=== PATIENT | male | born 1935 | race Caucasian/White ===

== ENCOUNTER 2018-07-10 11:42 | Emergency (ER) | payer MEDICARE ==
[~2018-07-10] VITALS: Ht 182.9 cm; Wt 81.6 kg
[~2018-07-10 11:42] MED LIST: AML5T; AMLO5TAB2; AMLO5TAB2 PO; AMLO5TAB7 PO; ASP81TEC; ASP81TEC PO; CIPR-225 PO; CNC1KV IM; DOXY100C2 PO; ERGO50006 PO; FAMO40TA6 PO; FEXO-46 PO; FEXO180T PO; LEVAQUIN; LORA1TAB PO; LVT.1T; LVT.1T PO; MTC10T; NAPR550T PO; NF-LOVAZAC; NF-LOVAZAC PO; OMG1KC; ORPH100T PO; PRD20T PO; THYROID MED; THYROID MEDS
--- OUTSIDE RECORDS SUMMARY | 2018-07-10 11:47 | XMS REPORT ---
Author Author NOREEN HOLLAND [facility] Address [address] [place] [address] Care Team Providers Care [place] Machine Operator Name Role Phone NOREEN HOLLAND Unavailable PROBLEMS Unknown Problems ALLERGIES No Information ENCOUNTERS Encounter Location Date Diagnosis [facility] [address] [place], [place] [id number] May, Dementia without behavioral disturbance, unspecified dementia type F03.90 IMMUNIZATIONS No Known Immunizations SOCIAL HISTORY Never Assessed REASON FOR VISIT Admission PLAN OF CARE Activity Details Follow Up prn Reason: VITAL SIGNS MEDICATIONS Unknown Medications RESULTS No Results PROCEDURES No Known procedures INSTRUCTIONS MEDICATIONS ADMINISTERED No Known Medications MEDICAL (GENERAL) HISTORY Type Description Date Surgical History No Surgical history information
--- OUTSIDE RECORDS SUMMARY | 2018-07-10 11:47 | XMS REPORT ---
Author Author NOREEN HOLLAND Organization [facility] Address [address] [place] [address] Care Team Providers Care Network Support Technician Name Role Phone NOREEN HOLLAND Unavailable PROBLEMS Type Condition ICD9-CM Code [id number] Code Onset Dates Condition Status SNOMED Code Problem Supraventricular tachycardia I47.1 Active 8427539 Problem Vitamin D deficiency E55.9 Active 09987142 Problem Essential hypertension I10 Active 97851779 Problem Hyperlipidemia, unspecified hyperlipidemia type E78.5 Active 92821258 ALLERGIES No Information ENCOUNTERS Encounter Location Date Diagnosis [facility] [employer] [address] [place] [id number] Jun, Supraventricular tachycardia I47.1 ; Dementia without behavioral disturbance, unspecified dementia type F03.90 ; Macrocytic anemia D53.9 ; Hyperlipidemia, unspecified hyperlipidemia type E78.5 ; Vitamin D deficiency E55.9 and Essential hypertension I10 [facility] [address] [facility] [id number] [address] May, [facility] [employer] [address] [place] [id number] May, Dementia without behavioral disturbance, unspecified dementia type F03.90 IMMUNIZATIONS No Known Immunizations SOCIAL HISTORY Never Assessed REASON FOR VISIT custodial Discharge PLAN OF CARE VITAL SIGNS MEDICATIONS No Known Medications RESULTS No Results PROCEDURES No Known procedures INSTRUCTIONS MEDICATIONS ADMINISTERED No Known Medications MEDICAL (GENERAL) HISTORY Type Description Date Medical History paralytic ileus Medical History supravetricular tachycardia Medical History muscle weakness Medical History abnormalities of gait and mobility Medical History cognitive communication deficit Medical History dysphagia, oropharyngeal phase Medical History GERD Medical History anemia Medical History palpitations Medical History hypothyroidism Medical History TIA, CEREBRAL INRAC Medical History OTHER MALAISE Surgical History No Surgical history information
--- OUTSIDE RECORDS SUMMARY | 2018-07-10 11:47 | XMS REPORT ---
Author Author NOREEN HOLLAND Organization [facility] Address [address] [place] [address] Care Team Providers Care Budget Consultant Name Role Phone NOREEN HOLLAND Unavailable PROBLEMS Type Condition ICD9-CM Code FEZ66-TM Code Onset Dates Condition Status SNOMED Code Problem Supraventricular tachycardia I47.1 Active 0626815 Problem Vitamin D deficiency E55.9 Active 88418123 Problem Essential hypertension I10 Active 29400006 Problem Hyperlipidemia, unspecified hyperlipidemia type E78.5 Active 44658494 ALLERGIES Substance Reaction Event Type Date Status Cephalexin Unknown Drug Allergy Jun, Active nuts Unknown Non Drug Allergy Jun, Active ENCOUNTERS Encounter Location Date Diagnosis [facility] [address] [place] [id number] Jun, Supraventricular tachycardia I47.1 ; Dementia without behavioral disturbance, unspecified dementia type F03.90 ; Macrocytic anemia D53.9 ; Hyperlipidemia, unspecified hyperlipidemia type E78.5 ; Vitamin D deficiency E55.9 and Essential hypertension I10 [facility] [address] [facility] [id number] [address] May, [facility] [address] [place] [id number] May, Dementia without behavioral disturbance, unspecified dementia type F03.90 IMMUNIZATIONS No Known Immunizations SOCIAL HISTORY Never Assessed REASON FOR VISIT [facility] Discharge PLAN OF CARE Activity Details Follow Up 2 - 3 Days Reason: VITAL SIGNS MEDICATIONS Medication Instructions Dosage Frequency Start Date End Date Duration Status Fexofenadine HCl 180 MG Orally Once a day 1 tablet as needed 24h 30 day(s) Active Norvasc 5 MG Orally Once a day 1 tablet 24h 30 day(s) Active Vitamin D (Ergocalciferol) 88813 UNIT 1 capsule 30 day(s) Active Cyanocobalamin 1000 MCG/ML Injection once monthly 1 ml 30 day(s) Active Diltiazem CD 180 MG Orally Once a day 1 capsule 24h 30 day(s) Active RESULTS No Results PROCEDURES No Known procedures [...]
--- NOTE | 2018-07-10 11:49 | ED General ---
General Stated Complaint: DECREASED LOC, L THIGH PAIN Source of Information: Patient, EMS Exam Limitations: No Limitations History of Present Illness Date Seen by Provider: Jul 10, 2018 Time Seen by Provider: 11:47 Initial Comments To ER per EMS from home with reports of decreased level of consciousness beginning 30-45 minutes ago. Also has left sided abdominal pain and nausea. He is currently on clindamycin for an unknown reason he cannot tell us why. He's been on that since 07/04. He denies fevers or chills. He is alert and oriented to person place and time. Very lethargic however. Timing/Duration: 1-3 Hours Severity: Moderate Associated Systoms: Nausea/Vomiting, Weakness Allergies and Home Medications Allergies Coded Allergies: cephalexin (Unverified Allergy, Mild, 09/03/09) Home Medications Amlodipine Besylate 5 Mg Tablet, 5 MG PO DAILY, (Reported) Ciprofloxacin HCl 500 Mg Tablet, 500 MG PO BID, (Reported) 5 DAY THERAPY START DATE 05-21-18 Cyanocobalamin 1,000 Mcg/Ml Inj, 1,000 MCG IM MONTHLY, (Reported) Ergocalciferol (Vitamin D2) 50,000 Unit Capsule, 50,000 UNITS PO Mo, (Reported) Fexofenadine HCl 180 Mg Tablet, 180 MG PO DAILY PRN for ALLERGIES, (Reported) Patient Home Medication List Home Medication List Reviewed: Yes Review of Systems Review of Systems Constitutional: see HPI EENTM: see HPI Respiratory: no symptoms reported Cardiovascular: no symptoms reported Genitourinary: no symptoms reported Musculoskeletal: no symptoms reported Skin: no symptoms reported Psychiatric/Neurological: No Symptoms Reported Hematologic/Lymphatic: No Symptoms Reported Past Zsfwsgz-Nibypk-Gyojvf Hx Patient Social History Recent Hopitalizations: Yes Immunizations Up To Date Date of Pneumonia Vaccine: May 13, 2010 Seasonal Allergies Seasonal Allergies: No Past Medical History Surgeries: Yes (ANKLE SURGERY; SCAR NOTED TO LEFT BREAST AREA) Gallbladder, Orthopedic Respiratory: No Cardiac: Yes (SVT) Irregular Heartbeat, Palpitations 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 ) TIA Reproductive Disorders: No Genitourinary: No Gastrointestinal: Yes Pancreatitis Musculoskeletal: Yes (ANKLE SURGERY) Endocrine: Yes Hypothyroidsim Cancer: No Psychosocial: No Integumentary: No Blood Disorders: No Physical Exam Vital Signs Vital Signs - First Documented 07/10/18 11:42 Temp 96.9 Pulse 58 Resp 15 B/P (MAP) 147/69 (95) Pulse Ox 97 O2 Delivery Nasal Cannula O2 Flow Rate 2.00 Capillary Refill : Height, Weight, BMI Height: 6'2.00" Weight: 174lbs. 2.0oz. 78.482590jc; 22.4 BMI Method:Stated General Appearance: No Apparent Distress, WD/WN Eyes: Bilateral Eye Normal Inspection, Bilateral Eye PERRL HEENT: PERRL/EOMI, TMs Normal Neck: Full Range of Motion, Normal Inspection Respiratory: No Accessory Muscle Use, No Respiratory Distress Cardiovascular: Regular Rate, Rhythm, Normal Peripheral Pulses Gastrointestinal: Normal Bowel Sounds, Non Tender, Soft Extremity: Normal Capillary Refill, Normal Inspection Neurologic/Psychiatric: No Motor/Sensory Deficits, Other (lethargic) Skin: Normal Color, Warm/Dry Progress/Results/Core Measures Suspected Sepsis SIRS Temperature: Pulse: Respiratory Rate: Laboratory Tests 07/10/18 11:50: White Blood Count 5.8 Blood Pressure / Mean: Laboratory Tests 07/10/18 11:50: Creatinine 0.83, Platelet Count 201, Total Bilirubin 0.5 Results/Orders Lab Results Laboratory Tests Test 07/10/18 11:50 07/10/18 13:19 07/10/18 13:48 Range/Units White Blood Count 5.8 4.3-11.0 10^3/uL Red Blood Count 4.09 L 4.35-5.85 10^6/uL Hemoglobin 11.8 L 13.3-17.7 G/DL Hematocrit 36 L 40-54 % Mean Corpuscular Volume 87 80-99 FL Mean Corpuscular Hemoglobin 29 25-34 PG Mean Corpuscular Hemoglobin Concent 33 32-36 G/DL Red Cell Distribution Width 13.9 10.0-14.5 % Platelet Count 201 130-400 10^3/uL Mean Platelet Volume 11.0 H 7.4-10.4 FL Neutrophils (%) (Auto) 49 42-75 % Lymphocytes (%) (Auto) 40 12-44 % Monocytes (%) (Auto) 6 0-12 % Eosinophils (%) (Auto) 4 0-10 % Basophils (%) (Auto) 1 0-10 % Neutrophils # (Auto) 2.9 1.8-7.8 X 10^3 Lymphocytes # (Auto) 2.3 1.0-4.0 X 10^3 Monocytes # (Auto) 0.4 0.0-1.0 X 10^3 Eosinophils # (Auto) 0.2 0.0-0.3 10^3/uL Basophils # (Auto) 0.0 0.0-0.1 10^3/uL Sodium Level 141 135-145 MMOL/L Potassium Level 3.7 3.6-5.0 MMOL/L Chloride Level 108 H 98-107 MMOL/L Carbon Dioxide Level 20 L 21-32 MMOL/L Anion Gap 13 5-14 MMOL/L Blood Urea Nitrogen 11 7-18 MG/DL Creatinine 0.83 0.60-1.30 MG/DL Estimat Glomerular Filtration Rate > 60 BUN/Creatinine Ratio 13 Glucose Level 141 H 70-105 MG/DL Calcium Level 9.2 8.5-10.1 MG/DL Corrected Calcium 9.4 8.5-10.1 MG/DL Total Bilirubin 0.5 0.1-1.0 MG/DL Aspartate Amino Transf (AST/SGOT) 22 5-34 U/L Alanine Aminotransferase (ALT/SGPT) 16 0-55 U/L Alkaline Phosphatase 67 40-136 U/L Troponin I < 0.30 <0.30 NG/ML Total Protein 6.8 6.4-8.2 GM/DL Albumin 3.8 3.2-4.5 GM/DL Blood Gas Puncture Site RT RAD Blood Gas Patient Temperature 96.6 Arterial Blood pH 7.37 7.37-7.43 Arterial Blood Partial Pressure CO2 45 35-45 MMHG Arterial Blood Partial Pressure O2 46 L 79-93 MMHG Arterial Blood HCO3 26 23-27 MMOL/L Arterial Blood Total CO2 27.3 21.0-31.0 MMOL/L Arterial Blood Oxygen Saturation 85 L 94-100 % Arterial Blood Base Excess 1.0 -2.5-2.5 MMOL/L Len Test YES-POS Blood Gas Ventilator Setting NO Blood Gas Inspired Oxygen 2L Urine Color YELLOW Urine Clarity CLEAR Urine pH 5 5-9 Urine Specific [place] 1.020 1.016-1.022 Urine Protein 1+ H NEGATIVE Urine Glucose (UA) NEGATIVE NEGATIVE Urine Ketones NEGATIVE NEGATIVE Urine Nitrite NEGATIVE NEGATIVE Urine Bilirubin NEGATIVE NEGATIVE Urine Urobilinogen NORMAL NORMAL MG/DL Urine Leukocyte Esterase 1+ H NEGATIVE Urine RBC (Auto) NEGATIVE NEGATIVE Urine RBC NONE /HPF Urine WBC 0-2 /HPF Urine Squamous Epithelial Cells 0-2 /HPF Urine Crystals NONE /LPF Urine Bacteria NEGATIVE /HPF Urine Casts PRESENT /LPF Urine Hyaline Casts 5-10 H /LPF Urine Mucus SMALL H /LPF Urine Culture Indicated NO My Orders Orders - CHECO PAINTING APRN Cbc With Automated Diff (07/10/18 11:46) Comprehensive Metabolic Panel (07/10/18 11:46) Troponin I (07/10/18 11:46) Ekg Tracing (07/10/18 11:46) Continuous Ekg Monitoring (07/10/18 11:46) Chest 1 View, Ap/Pa Only (07/10/18 11:46) Ct Head Wo (07/10/18 11:46) Ct Abdomen/Pelvis Wo (07/10/18 11:46) Straight Cath (Urinary) (07/10/18 11:46) Ua Culture If Indicated (07/10/18 11:46) Ondansetron Injection (Zofran Injectio (07/10/18 12:00) Arterial Blood Gas (07/10/18 13:19) Medications Given in ED Current Medications Medications Dose Ordered Sig/Doug Route Start Time Stop Time Status Last Admin Dose Admin Ondansetron HCl 4 mg ONCE ONCE IVP 07/10/18 12:00 07/10/18 12:01 DC 07/10/18 11:58 4 MG Vital Signs/I&O 07/10/18 11:42 Temp 96.9 Pulse 58 Resp 15 B/P (MAP) 147/69 (95) Pulse Ox 97 O2 Delivery Nasal Cannula O2 Flow Rate 2.00 Capillary Refill : Departure Communication (Admissions) 1415-patient is much more alert. Son is at the bedside. Feels well. We will discharged home. Impression Primary Impression: General weakness Disposition: HOME, SELF-CARE Condition: Stable Departure-Patient Inst. Decision time for Depature: 14:16 Referrals: SAPNA PATEL DO (PCP/Family) Primary Care Physician Patient Instructions: Generalized Weakness (DC) CHECO PAINTING APRN Jul 10, 2018 11:49
[2018-07-10 12:00] LABS: BASOPHILS % (AUTO) 1 % (0-10); EOSINOPHILS # (AUTO) 0.2 10^3/uL (0.0-0.3); EOSINOPHILS % (AUTO) 4 % (0-10); HEMATOCRIT 36 % (40-54); HEMOGLOBIN 11.8 G/DL (13.3-17.7); LYMPHOCYTES # (AUTO) 2.3 X 10^3 (1.0-4.0); LYMPHOCYTES % (AUTO) 40 % (12-44); MEAN CORPUSCULAR HEMOGLOBIN 29 PG (25-34); MEAN CORPUSCULAR HGB CONC 33 G/DL (32-36); MEAN CORPUSCULAR VOLUME 87 FL (80-99); MONOCYTES # (AUTO) 0.4 X 10^3 (0.0-1.0); MONOCYTES % (AUTO) 6 % (0-12); NEUTROPHILS # (AUTO) 2.9 X 10^3 (1.8-7.8); NEUTROPHILS % (AUTO) 49 % (42-75); PLATELET COUNT 201 10^3/uL (130-400); RED BLOOD COUNT 4.09 10^6/uL (4.35-5.85); RED CELL DISTRIBUTION WIDTH 13.9 % (10.0-14.5); WHITE BLOOD COUNT 5.8 10^3/uL (4.3-11.0)
[2018-07-10] MEDS ORDERED: ONDANSETRON 4 MG/2 ML (SDV) Z0FRAN IVP ONE (12:00)
[2018-07-10 12:16] LABS: ALANINE AMINOTRANSFERASE 16 U/L (0-55); ALBUMIN 3.8 GM/DL (3.2-4.5); ALKALINE PHOSPHATASE 67 U/L (40-136); BILIRUBIN,TOTAL 0.5 MG/DL (0.1-1.0); BUN/CREATININE RATIO 13; CALCIUM 9.2 MG/DL (8.5-10.1); CARBON DIOXIDE 20 MMOL/L (21-32); CHLORIDE 108 MMOL/L (98-107); CREATININE SERUM 0.83 MG/DL (0.60-1.30); GFR ESTIMATED > 60; GLUCOSE 141 MG/DL (70-105); POTASSIUM 3.7 MMOL/L (3.6-5.0); SODIUM 141 MMOL/L (135-145); TOTAL PROTEIN 6.8 GM/DL (6.4-8.2)
--- NOTE | 2018-07-10 12:24 | Diagnostic Imaging Report ---
INDICATION: Hypoxia. FINDINGS: Upright portable chest shows normal heart size and vascularity. The lungs are clear. There is no effusion or pneumothorax. There is no bony abnormality. IMPRESSION: No acute abnormality is seen with no change from 05/24/2018. Dictated by: Dictated on workstation # [id number]
--- NOTE | 2018-07-10 12:47 | Diagnostic Imaging Report ---
PROCEDURE: CT abdomen and pelvis without contrast. TECHNIQUE: Multiple contiguous axial images were obtained through the abdomen and pelvis without the use of intravenous contrast. INDICATION: Decreased level of consciousness. Left thigh pain. There is a small hiatal hernia. Gallbladder is absent. The liver and bile ducts are normal. The spleen, pancreas and adrenals are normal. The kidneys, ureters and bladder are normal. No acute bowel abnormality is seen. There is no free intraperitoneal air or fluid. There is no retroperitoneal mass or hemorrhage. There is no acute bony abnormality. IMPRESSION: No acute abnormality is seen. Dictated by: Dictated on workstation # [id number]
--- NOTE | 2018-07-10 12:49 | Diagnostic Imaging Report ---
PROCEDURE: CT head without contrast. TECHNIQUE: Multiple contiguous axial images were obtained through the brain without the use of intravenous contrast. INDICATION: Altered mental status. COMPARISON: 09/29/2009. FINDINGS: No hyperdense hemorrhage or space-occupying mass. No hydrocephalus or midline shift. Waldrop-white matter differentiation is well preserved. Periventricular white matter hypoattenuation is most compatible with chronic microvascular ischemic disease. Global atrophy is noted. No acute skull fracture. Paranasal sinuses and mastoid air cells are clear. Orbits are unremarkable. IMPRESSION: No acute intracranial process by CT. Dictated by: Dictated on workstation # [id number]
[2018-07-10 13:28] LABS: ABG OXYGEN SATURATION 85 % (94-100); ABG PCO2 45 MMHG (35-45); ABG PH 7.37 (7.37-7.43); ABG PO2 46 MMHG (79-93); ABG TCO2 27.3 MMOL/L (21.0-31.0)
[2018-07-10 13:30] LABS: ALLENS TEST YES-POS; INSPIRED O2 2L; PATIENT TEMP 96.6; VENTILATOR NO
[2018-07-10 13:55] LABS: BILIRUBIN,URINE NEGATIVE (NEGATIVE); CLARITY,URINE CLEAR; COLOR,URINE YELLOW; GLUCOSE, URINE (UA) NEGATIVE (NEGATIVE); KETONES,URINE NEGATIVE (NEGATIVE); LEUKOCYTE ESTERASE ,URINE 1+ (NEGATIVE); NITRITE,URINE NEGATIVE (NEGATIVE); PH,URINE 5 (5-9); PROTEIN,URINE 1+ (NEGATIVE); UROBILINOGEN,URINE NORMAL (NORMAL)
[2018-07-10 14:10] LABS: BACTERIA,URINE NEGATIVE /HPF; SQUAMOUS EPITHELIAL CELL,UR 0-2 /HPF; WBC,URINE 0-2 /HPF
[2018-07-10 14:48] VITALS: BP 151/72
== END 2018-07-10 14:41 | disposition home or self-care (01) ==
LOC: EDUNIT# 11:42 → ER 11:43
DX: R53.1 Weakness (principal); E03.9 Hypothyroidism, unspecified; Z98.890 Other specified postprocedural states; Z88.8 Allergy status to other drugs, medicaments and biological substances; Z86.73 Personal history of transient ischemic attack (TIA), and cerebral infarction without residual deficits; Z87.19 Personal history of other diseases of the digestive system
CPT/HCPCS: 36415; 70450; 71045; 74176; 80053; 81000; 82805; 84484; 85025; 96374

== ENCOUNTER 2018-10-23 12:58 | Emergency (ER) | payer MEDICARE, MEDICAID ==
[~2018-10-23] VITALS: Ht 177.8 cm; Wt 77.1 kg
[~2018-10-23 12:58] MED LIST changes: -AMLO5TAB7 PO; +AMLO5TAB9 PO
--- NOTE | 2018-10-23 13:00 | NUR ---
PT ARRIVED TO ED VIA STRETCHER ACCOMPANIED BY EMS STAFF. PT TRANSFERRED TO ED COT AND INTRODUCED TO SURROUNDINGS. PT CONNECTED TO BEDSIDE MONITOR AND VITAL SIGNS TAKEN. PT DENIES C/O CHEST PAIN AT THIS TIME. INFORMATION OBTAINED FROM PT REGARDING CURRENT SITUATION AND HISTORY. WILL CONTINUE TO MONITOR.
--- NOTE | 2018-10-23 13:13 | ED Chest Pain ---
General Stated Complaint: CHEST PAIN Source: patient, EMS Exam Limitations: no limitations History of Present Illness Date Seen by Provider: Oct 23, 2018 Time Seen by Provider: 13:09 Initial Comments This 83-year-old white male presents with the paramedics with a history of chest pain. The patient stated that he had a several second episode of chest pain which spontaneously abated. The patient denies a history of cardiac disease. The patient has had pancreatitis that was quite severe in the past. Patient denies associated nausea, vomiting, diaphoresis, shortness of breath, fever or chills. Allergies and Home Medications Allergies Coded Allergies: cephalexin (Unverified Allergy, Mild, 09/03/09) Home Medications Amlodipine Besylate 5 Mg Tablet, 5 MG PO DAILY, (Reported) Ciprofloxacin HCl 500 Mg Tablet, 500 MG PO BID, (Reported) 5 DAY THERAPY START DATE 05-21-18 Cyanocobalamin 1,000 Mcg/Ml Inj, 1,000 MCG IM MONTHLY, (Reported) Ergocalciferol (Vitamin D2) 50,000 Unit Capsule, 50,000 UNITS PO Mo, (Reported) Fexofenadine HCl 180 Mg Tablet, 180 MG PO DAILY PRN for ALLERGIES, (Reported) Patient Home Medication List Home Medication List Reviewed: Yes Review of Systems Review of Systems Constitutional: No chills, No fever EENTM: No Double Vision, No Ear Pain Respiratory: Denies Cough, Denies Shortness of Air Cardiovascular: See HPI, Chest Pain; Denies Palpitations Gastrointestinal: Denies Abdominal Pain, Denies Nausea, Denies Vomiting Genitourinary: Denies Burning, Denies Drainage Musculoskeletal: No back pain Skin: No change in color, No rash Endocrine: No Symptoms Reported Hematologic/Lymphatic: No Symptoms Reported Past [id number]-Cfcqxb Hx Past Med/Social Hx: Reviewed Nursing Past Med/Soc Hx Patient Social History 2nd Hand Smoke Exposure: No Recent Foreign Travel: No Contact w/Someone Who Travel: No Recent Hopitalizations: Yes Immunizations Up To Date Date of Pneumonia Vaccine: May 13, 2010 Seasonal Allergies Seasonal Allergies: No Past Medical History Surgeries: Yes (ANKLE SURGERY; SCAR NOTED TO LEFT BREAST AREA) Gallbladder, Orthopedic Respiratory: No Cardiac: Yes (SVT) Irregular Heartbeat, Palpitations 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 ) TIA Reproductive Disorders: No Genitourinary: No Gastrointestinal: Yes Pancreatitis Musculoskeletal: Yes (ANKLE SURGERY) Endocrine: Yes Hypothyroidsim Cancer: No Psychosocial: No Integumentary: No Blood Disorders: No Physical Exam Vital Signs Vital Signs - First Documented 10/23/18 10/23/18 13:00 13:23 Temp 97.0 Pulse 61 Resp 18 B/P (MAP) 177/97 (123) Pulse Ox 99 O2 Delivery Room Air FiO2 99 Capillary Refill : Height, Weight, BMI Height: 6'0" Weight: 180lbs. 2.0oz. 81.799218ju; 22.4 BMI Method:Stated General Appearance: No Apparent Distress, WD/WN HEENT: Normal ENT Inspection Neck: Normal Inspection Respiratory: Lungs Clear Cardiovascular: Regular Rate, Rhythm Gastrointestinal: Normal Bowel Sounds, Non Tender, Soft Extremity: Normal Capillary Refill, Normal Inspection, Normal Range of Motion Neurologic/Psychiatric: Oriented x3, No Motor/Sensory Deficits, Normal Mood/ Affect Skin: Normal Color, Warm/Dry Progress/Results/Core Measures Results/Orders Lab Results Laboratory Tests Test 10/23/18 13:15 Range/Units White Blood Count 5.2 4.3-11.0 10^3/uL Red Blood Count 4.16 L 4.35-5.85 10^6/uL Hemoglobin 12.3 L 13.3-17.7 G/DL Hematocrit 37 L 40-54 % Mean Corpuscular Volume 89 80-99 FL Mean Corpuscular Hemoglobin 30 25-34 PG Mean Corpuscular Hemoglobin Concent 33 32-36 G/DL Red Cell Distribution Width 14.6 H 10.0-14.5 % Platelet Count 200 130-400 10^3/uL Mean Platelet Volume 10.1 7.4-10.4 FL Neutrophils (%) (Auto) 56 42-75 % Lymphocytes (%) (Auto) 33 12-44 % Monocytes (%) (Auto) 9 0-12 % Eosinophils (%) (Auto) 1 0-10 % Basophils (%) (Auto) 1 0-10 % Neutrophils # (Auto) 2.9 1.8-7.8 X 10^3 Lymphocytes # (Auto) 1.7 1.0-4.0 X 10^3 Monocytes # (Auto) 0.4 0.0-1.0 X 10^3 Eosinophils # (Auto) 0.1 0.0-0.3 10^3/uL Basophils # (Auto) 0.0 0.0-0.1 10^3/uL Prothrombin Time 12.7 12.2-14.7 SEC INR Comment 0.9 0.8-1.4 Activated Partial Thromboplast Time 28 24-35 SEC Sodium Level 139 135-145 MMOL/L Potassium Level 4.1 3.6-5.0 MMOL/L Chloride Level 104 98-107 MMOL/L Carbon Dioxide Level 26 21-32 MMOL/L Anion Gap 9 5-14 MMOL/L Blood Urea Nitrogen 14 7-18 MG/DL Creatinine 0.87 0.60-1.30 MG/DL Estimat Glomerular Filtration Rate > 60 BUN/Creatinine Ratio 16 Glucose Level 117 H 70-105 MG/DL Calcium Level 9.6 8.5-10.1 MG/DL Corrected Calcium 9.3 8.5-10.1 MG/DL Magnesium Level 2.3 1.8-2.4 MG/DL Total Bilirubin 0.4 0.1-1.0 MG/DL Aspartate Amino Transf (AST/SGOT) 20 5-34 U/L Alanine Aminotransferase (ALT/SGPT) 20 0-55 U/L Alkaline Phosphatase 78 40-136 U/L Myoglobin 47.5 10.0-92.0 NG/ML Troponin I < 0.028 <0.028 NG/ML Total Protein 7.2 6.4-8.2 GM/DL Albumin 4.4 3.2-4.5 GM/DL Lipase 48 8-78 U/L My Orders Orders - TERE, ROMEO Kelly MD Cbc With Automated Diff (10/23/18:) Magnesium (10/23/18 13:) Chest 1 View, Ap/Pa Only (10/23/18 13:) Ekg Tracing (10/23/18 13:) Cardiac Profile 1 (10/23/18 13:) Comprehensive Metabolic Panel (10/23/18 13:) Myoglobin Serum (10/23/18 13:) Protime With Inr (10/23/18 13:) Partial Thromboplastin Time (10/23/18 13:) O2 (10/23/18 13:) Monitor-Rhythm Ecg Trace Only (10/23/18 13:) Lipid Panel (10/24/18 06:00) Ed Iv/Invasive Line Start (10/23/18 13:01) Lipase (10/23/18 13:01) Vital Signs/I&O 10/23/18 10/23/18 13:00 13:23 Temp 97.0 Pulse 61 Resp 18 B/P (MAP) 177/97 (123) Pulse Ox 99 99 O2 Delivery Room Air Room Air FiO2 99 Progress Progress Note : Time: 14:01 Progress Note The patient's EKG demonstrated a normal sinus rhythm with a borderline bradycardia. The laboratory evaluation including troponin and lipase were unremarkable. The patient remained asymptomatic during the next 2 hours in the emergency department. Patient's chest x-ray demonstrated no evidence of acute pathology. I discussed the findings with the patient, reassured the patient, and asked that he follow up closely with his doctor on Thursday. I invited him to return to emergency department. For the problems questions. Departure Impression Primary Impression: Chest pain Qualified Codes: R07.89 - Other chest pain Disposition: 01 HOME, SELF-CARE Condition: Improved Departure-Patient Inst. Decision time for Depature: 14:02 Referrals: SAPNA RODRIGUEZ DO (PCP/Family) Primary Care Physician Patient Instructions: Chest Pain That Is Not Caused by the Heart (DC) Add. Discharge Instructions: Come back if any further episodes of chest pain occur. Follow-up with Dr. Rodriguez on Thursday. Continue with her medications as prescribed. ROMEO CARRANZA MD Oct 23, 2018 13:13
[2018-10-23 13:24] LABS: BASOPHILS % (AUTO) 1 % (0-10); EOSINOPHILS # (AUTO) 0.1 10^3/uL (0.0-0.3); EOSINOPHILS % (AUTO) 1 % (0-10); HEMATOCRIT 37 % (40-54); HEMOGLOBIN 12.3 G/DL (13.3-17.7); LYMPHOCYTES # (AUTO) 1.7 X 10^3 (1.0-4.0); LYMPHOCYTES % (AUTO) 33 % (12-44); MEAN CORPUSCULAR HEMOGLOBIN 30 PG (25-34); MEAN CORPUSCULAR HGB CONC 33 G/DL (32-36); MEAN CORPUSCULAR VOLUME 89 FL (80-99); MEAN PLATELET VOLUME 10.1 FL (7.4-10.4); MONOCYTES # (AUTO) 0.4 X 10^3 (0.0-1.0); MONOCYTES % (AUTO) 9 % (0-12); NEUTROPHILS # (AUTO) 2.9 X 10^3 (1.8-7.8); NEUTROPHILS % (AUTO) 56 % (42-75); PLATELET COUNT 200 10^3/uL (130-400); RED CELL DISTRIBUTION WIDTH 14.6 % (10.0-14.5); WHITE BLOOD COUNT 5.2 10^3/uL (4.3-11.0)
[2018-10-23 13:36] LABS: INR 0.9 (0.8-1.4); PROTHROMBIN TIME PATIENT 12.7 SEC (12.2-14.7)
--- NOTE | 2018-10-23 13:39 | Diagnostic Imaging Report ---
CLINICAL INDICATION: Patient with chest pain. EXAM: Portable chest x-ray upright view. COMPARISONS: Chest x-ray dated 07/10/2018. FINDINGS: Lungs/pleura: Stable lung findings with mild bibasilar atelectasis or scarring. Lungs are clear. There is no pneumothorax. There is no pleural effusion. Mediastinum: Unremarkable. Pulmonary vasculature: Unremarkable. Heart: Stable upper limits of normal heart size. Bones/extrathoracic soft tissue: There are degenerative spurs involving the thoracic spine. IMPRESSION: Stable chest x-ray exam with no interval radiographic evidence of acute cardiopulmonary process. Dictated by: Dictated on workstation # [id number]
[2018-10-23 13:41] LABS: ALANINE AMINOTRANSFERASE 20 U/L (0-55); ALBUMIN 4.4 GM/DL (3.2-4.5); ALKALINE PHOSPHATASE 78 U/L (40-136); BILIRUBIN,TOTAL 0.4 MG/DL (0.1-1.0); BUN/CREATININE RATIO 16; CALCIUM 9.6 MG/DL (8.5-10.1); CARBON DIOXIDE 26 MMOL/L (21-32); CHLORIDE 104 MMOL/L (98-107); CREATININE SERUM 0.87 MG/DL (0.60-1.30); GFR ESTIMATED > 60; GLUCOSE 117 MG/DL (70-105); LIPASE 48 U/L (8-78); MAGNESIUM 2.3 MG/DL (1.8-2.4); POTASSIUM 4.1 MMOL/L (3.6-5.0); SODIUM 139 MMOL/L (135-145); TOTAL PROTEIN 7.2 GM/DL (6.4-8.2)
[2018-10-23] MEDS ORDERED: ACETAMINOPHEN 325 MG TABLET PO ONE (14:15)
[2018-10-23 14:52] VITALS: BP 181/85
== END 2018-10-23 14:52 | disposition home or self-care (01) ==
LOC: EDUNIT# 12:58 → ER 13:00
DX: R07.9 Chest pain, unspecified (principal); E03.9 Hypothyroidism, unspecified; Z88.1 Allergy status to other antibiotic agents; Z87.19 Personal history of other diseases of the digestive system; Z86.73 Personal history of transient ischemic attack (TIA), and cerebral infarction without residual deficits
CPT/HCPCS: 36415; 71045; 80053; 83690; 83735; 83874; 84484; 85025; 85610; 85730; 93005; 93041

== ENCOUNTER 2018-11-17 18:07 | Emergency (ER) | payer MEDICARE, MEDICAID ==
[~2018-11-17] VITALS: Ht 188 cm; Wt 79.4 kg
[2018-11-17 18:26] LABS: BASOPHILS % (AUTO) 1 % (0-10); EOSINOPHILS # (AUTO) 0.1 10^3/uL (0.0-0.3); EOSINOPHILS % (AUTO) 2 % (0-10); HEMATOCRIT 37 % (40-54); HEMOGLOBIN 12.2 G/DL (13.3-17.7); LYMPHOCYTES # (AUTO) 2.1 X 10^3 (1.0-4.0); LYMPHOCYTES % (AUTO) 36 % (12-44); MEAN CORPUSCULAR HEMOGLOBIN 30 PG (25-34); MEAN CORPUSCULAR HGB CONC 33 G/DL (32-36); MEAN CORPUSCULAR VOLUME 89 FL (80-99); MONOCYTES # (AUTO) 0.5 X 10^3 (0.0-1.0); MONOCYTES % (AUTO) 9 % (0-12); NEUTROPHILS # (AUTO) 3.1 X 10^3 (1.8-7.8); NEUTROPHILS % (AUTO) 53 % (42-75); PLATELET COUNT 195 10^3/uL (130-400); WHITE BLOOD COUNT 5.8 10^3/uL (4.3-11.0)
[2018-11-17] MEDS ORDERED: hydrALAZINE (APESOLINE) 20 MG/ML VIAL IV ONE (18:30)
--- NOTE | 2018-11-17 18:35 | ED Headache ---
General Chief Complaint: Head/Cervical Problems Stated Complaint: DIZZY,STANTON,LIGHTHEADED Nursing Triage Note: PT PRESENTS TO ED WITH COMPLAINTS OF H, NAUSEA AND DIZZINESS STARTING AT 1800 TODAY. PT HAD JUST ARRIVED AT [facility] WHEN HE STARTED NOT FEELING WELL AND REQUESTED TO HAVE FAMILY FRIEND BRING HIM TO ED. Nursing Sepsis Screen: No Definite Risk Source: patient (PT IS VERY LIMITED HISTORIAN, POOR MEMORY), old records (ALL PMH IS FROM OLD RECORDS), other (FEMALE FRIEND FROM [facility] GIVES SOME OF PT'S INFORMATION) History of Present Illness Date Seen by Provider: November 17, 2018 Time Seen by Provider: 18:13 Initial Comments PT ARRIVES VIA POV WITH FEMALE FRIEND FROM [facility] PT STATES HE GOT TO [facility] AT 1800 TONIGHT AND SHORTLY AFTER HE SAT DOWN, HE STARTED HAVING A HEADACHE ON LEFT SIDE OF HEAD, SO CAME STRAIGHT HERE WAS C/O DIZZINESS WELL, STATES NO DIZZINESS NOW WAS NAUSEATED AT ONSET, STATES NO NAUSEA NOW NO VISION CHANGES NO PARESTHESIAS OR MOTOR DEFICITS NO CHEST PAIN NO PALPITATIONS NO SHORTNESS OF BREATH PT HAS HTN, BUT DOES NOT KNOW IF HE TOOK ANY OF HIS MEDICATIONS TODAY OR NOT, OR WHEN HE LAST TOOK ANY OF HIS MEDICATIONS. PT DOES NOT KNOW ANY OF HIS MEDICATIONS OR WHAT HE TAKES THEM FOR PT IS VERY FORGETFUL, AND FEMALE FRIEND STATES THAT HE FREQUENTLY GETS CONFUSED WELL--IS ONGOING PROBLEM, AND NO DIFFERENT TODAY PT LIVES ALONE, AND DOES NOT HAVE HOME HEALTH OR ANY FAMILY LOCALLY TO ASSIST WITH HIS CARE. PT DENIES HISTORY OF STROKE, TIA OR HEART PROBLEMS ( PT HAS BEEN ADMITTED FOR SVT IN THE PAST) PT HAD BEEN AT [facility] [place] AFTER A HOSPITAL STAY LAST YEAR, BUT HAS BEEN BACK AT HOME FOR 5 MONTHS, PER FEMALE FRIEND. PT HAD NOT BEEN TO THIS FACILITY SINCE 2011-THEN FIRST VISIT BACK WAS 05/24/18-- -SEE THAT CHART FOR ADDITIONAL DETAILS PCP: DR. PATEL Allergies and Home Medications Allergies Coded Allergies: cephalexin (Unverified Allergy, Mild, 09/03/09) Home Medications Amlodipine Besylate 5 Mg Tablet, 5 MG PO DAILY, (Reported) Ciprofloxacin HCl 500 Mg Tablet, 500 MG PO BID, (Reported) 5 DAY THERAPY START DATE 05-21-18 Cyanocobalamin 1,000 Mcg/Ml Inj, 1,000 MCG IM MONTHLY, (Reported) Ergocalciferol (Vitamin D2) 50,000 Unit Capsule, 50,000 UNITS PO Mo, (Reported) Fexofenadine HCl 180 Mg Tablet, 180 MG PO DAILY PRN for ALLERGIES, (Reported) Patient Home Medication List Home Medication List Reviewed: Yes Review of Systems Review of Systems Constitutional: dizziness Eyes: No Symptoms Reported Ears, Nose, Mouth, Throat: no symptoms reported Respiratory: no symptoms reported Cardiovascular: no symptoms reported Gastrointestinal: nausea Genitourinary: no symptoms reported Musculoskeletal: no symptoms reported Skin: no symptoms reported Psychiatric/Neurological: See HPI, Anxiety, Headache; Denies Numbness, Denies Paresthesia, Denies Tingling, Denies Tremors, Denies Weakness Past Zyhekne-Fxrsoh-Vbzbfg Hx Patient Social History Alcohol Use: Past History (NONE FOR YEARS. PER PT ON 11/17/18) Recreational Drug Use: No Smoking Status: Former Smoker (1 PPD, QUIT YEARS AGO, PER PT ON 11/17/18) Former Smoker, Quit: November 30, 1973 2nd Hand Smoke Exposure: No Recent Foreign Travel: No Contact w/Someone Who Travel: No Recent Infectious Disease Expo: No Recent Hopitalizations: No Physical Abuse: No Sexual Abuse: No Mistreated: No Fear: No Immunizations Up To Date Date of Pneumonia Vaccine: May 13, 2010 Seasonal Allergies Seasonal Allergies: No Past Medical History Surgeries: Yes (ANKLE SURGERY; SCAR NOTED TO LEFT BREAST AREA; LITHOTRIPSY/ESWL ) Gallbladder, Orthopedic, Renal Respiratory: No Cardiac: Yes (SVT) Hypertension, Irregular Heartbeat, Palpitations 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; PARESTHESIAS ) TIA Reproductive Disorders: No Genitourinary: Yes (ESWL/LITHOTRIPSY) Bladder Infection, Kidney Stones Gastrointestinal: Yes (PANCREATITIS WITH PARALYTIC ILEUS, DELIRIUM 04/29/18) Pancreatitis, Gall Bladder Disease Musculoskeletal: Yes (ANKLE SURGERY) Endocrine: Yes Hypothyroidsim HEENT: No Cancer: No Psychosocial: Yes Anxiety Integumentary: No Blood Disorders: No Physical Exam Vital Signs Vital Signs - First Documented 11/17/18 18:17 Temp 98.2 Pulse 68 Resp 20 B/P (MAP) 204/96 (132) Pulse Ox 96 Capillary Refill : Less Than 3 Seconds Height, Weight, BMI Height: 6'2.00" Weight: 175lbs. 0oz. 79.277166gi; 22.4 BMI Method:Stated General Appearance: WD/WN, no apparent distress, other (SOMEWHAT ANXIOUS) HEENT: PERRL/EOMI, other (EDENTULOUS) Neck: normal inspection Cardiovascular: regular rate, rhythm, no edema, no JVD, no murmur Respiratory: normal breath sounds, no respiratory distress, no accessory muscle use Gastrointestinal: normal bowel sounds, non tender, soft, no organomegaly Back: no CVA tenderness Extremities: normal inspection, no pedal edema, no calf tenderness, normal capillary refill Psychiatric: alert, oriented x 3 (BUT POOR MEMORY) Crainal Nerves: normal hearing, normal speech, PERRL Coordination/Gait: normal gait Motor/Sensory: no motor deficit, no sensory deficit, no pronator drift Skin: normal color, warm/dry; No rash Progress/Results/Core Measures Results/Orders Lab Results Laboratory Tests Test 11/17/18 18:10 11/17/18 18:55 Range/Units White Blood Count 5.8 4.3-11.0 10^3/uL Red Blood Count 4.11 L 4.35-5.85 10^6/uL Hemoglobin 12.2 L 13.3-17.7 G/DL Hematocrit 37 L 40-54 % Mean Corpuscular Volume 89 80-99 FL Mean Corpuscular Hemoglobin 30 25-34 PG Mean Corpuscular Hemoglobin Concent 33 32-36 G/DL Red Cell Distribution Width 14.0 10.0-14.5 % Platelet Count 195 130-400 10^3/uL Mean Platelet Volume 11.0 H 7.4-10.4 FL Neutrophils (%) (Auto) 53 42-75 % Lymphocytes (%) (Auto) 36 12-44 % Monocytes (%) (Auto) 9 0-12 % Eosinophils (%) (Auto) 2 0-10 % Basophils (%) (Auto) 1 0-10 % Neutrophils # (Auto) 3.1 1.8-7.8 X 10^3 Lymphocytes # (Auto) 2.1 1.0-4.0 X 10^3 Monocytes # (Auto) 0.5 0.0-1.0 X 10^3 Eosinophils # (Auto) 0.1 0.0-0.3 10^3/uL Basophils # (Auto) 0.0 0.0-0.1 10^3/uL Activated Partial Thromboplast Time 30 24-35 SEC Sodium Level 142 135-145 MMOL/L Potassium Level 4.0 3.6-5.0 MMOL/L Chloride Level 107 98-107 MMOL/L Carbon Dioxide Level 27 21-32 MMOL/L Anion Gap 8 5-14 MMOL/L Blood Urea Nitrogen 16 7-18 MG/DL Creatinine 0.89 0.60-1.30 MG/DL Estimat Glomerular Filtration Rate > 60 BUN/Creatinine Ratio 18 Glucose Level 148 H 70-105 MG/DL Calcium Level 9.8 8.5-10.1 MG/DL Corrected Calcium 9.6 8.5-10.1 MG/DL Magnesium Level 2.3 1.8-2.4 MG/DL Total Bilirubin 0.4 0.1-1.0 MG/DL Aspartate Amino Transf (AST/SGOT) 19 5-34 U/L Alanine Aminotransferase (ALT/SGPT) 16 0-55 U/L Alkaline Phosphatase 72 40-136 U/L Troponin I < 0.028 <0.028 NG/ML Total Protein 7.0 6.4-8.2 GM/DL Albumin 4.3 3.2-4.5 GM/DL Urine Color YELLOW Urine Clarity CLEAR Urine pH 6 5-9 Urine Specific [place] 1.015 L 1.016-1.022 Urine Protein NEGATIVE NEGATIVE Urine Glucose (UA) NEGATIVE NEGATIVE Urine Ketones NEGATIVE NEGATIVE Urine Nitrite NEGATIVE NEGATIVE Urine Bilirubin NEGATIVE NEGATIVE Urine Urobilinogen NORMAL NORMAL MG/DL Urine Leukocyte Esterase NEGATIVE NEGATIVE Urine RBC (Auto) NEGATIVE NEGATIVE Urine RBC NONE /HPF Urine WBC RARE /HPF Urine Crystals NONE /LPF Urine Bacteria NEGATIVE /HPF Urine Casts NONE /LPF Urine Mucus SMALL H /LPF Urine Culture Indicated NO My Orders Orders - CATHIE HAIDER DO Ed Iv/Invasive Line Start (11/17/18 18:13) Ekg Tracing (11/17/18 18:13) Monitor-Rhythm Ecg Trace Only (11/17/18 18:13) Ct Head Wo-R/O Stroke (11/17/18 18:13) Chest 1 View, Ap/Pa Only (11/17/18 18:13) Cbc With Automated Diff (11/17/18 18:13) Comprehensive Metabolic Panel (11/17/18 18:13) Magnesium (11/17/18 18:13) Partial Thromboplastin Time (11/17/18 18:13) Troponin I (11/17/18 18:13) Ua Culture If Indicated (11/17/18 18:13) Hydralazine Injection (Apresoline Inject (11/17/18 18:30) Medications Given in ED Current Medications Medications Dose Ordered Sig/Doug Route Start Time Stop Time Status Last Admin Dose Admin Hydralazine HCl 10 mg ONCE ONCE IV 11/17/18 18:30 11/17/18 18:31 DC 11/17/18 18:32 10 MG Vital Signs/I&O 11/17/18 18:17 Temp 98.2 Pulse 68 Resp 20 B/P (MAP) 204/96 (132) Pulse Ox 96 Blood Pressure Mean: 132 Progress Progress Note : Progress Note BP DOWN WITH MEDICATION AND HEADACHE RESOLVED AT DISMISSAL DISCUSSED WITH PT AND FEMALE FRIEND THE IMPORTANCE OF GETTING A PILL ORGANIZER, WRITING DOWN WHAT MEDICATIONS HE TAKES AND KEEPING THE LIST WITH HIM AT ALL TIMES, AND HAVING SOMEONE ASSIST HIM WEEKLY WITH SETTING UP HIS MEDICATIONS IN THE PILL ORGANIZER. ALSO DISCUSSED THE POSSIBILITY OF HOME HEALTH OR OTHER SERVICE TO ASSIST WITH THESE THINGS, AND NEED TO FOLLOW UP WITH DR PATEL THIS WEEK FOR FURTHER CARE. Initial ECG Impression Date: November 17, 2018 Initial ECG Impression Time: 18:25 Initial ECG Rate: 69 Initial ECG Rhythm: Normal Sinus Diagnostic Imaging Comments CXR--MILD CHRONIC INTERSTITIAL CHANGES, NO ACUTE PROCESS CT HEAD--CHRONIC CHANGES, NO ACUTE PROCESS PER RADIOLOGIST REPORTS @ 1906 Reviewed: Reviewed by Me Departure Impression Primary Impression: Uncontrolled hypertension Additional Impressions: HEADACHE SECONDARY TO HTN Non compliance w medication regimen Poor memory Disposition: 01 HOME, SELF-CARE Condition: Improved Departure-Patient Inst. Referrals: SAPNA PATEL DO (PCP/Family) Primary Care Physician Patient Instructions: Headache, Adult (DC), DASH Diet, High Blood Pressure (DC) Add. Discharge Instructions: GET A PILL ORGANIZER AND HAVE SOMEONE HELP YOUR SET YOUR MEDICATION UP EVERY WEEK SET UP A REMINDER TO TAKE YOUR MEDICATIONS AT THE SAME TIME EVERY DAY FOLLOW UP WITH DR. PATEL THIS WEEK FOR FURTHER CARE All discharge instructions reviewed with patient and/or family. Voiced understanding. CATHIE HAIDER DO November 17, 2018 18:35
--- NOTE | 2018-11-17 18:46 | Diagnostic Imaging Report ---
INDICATION: Dizziness and weakness. TIME OF EXAM: 1839 hours. COMPARISON: Comparison is made to study of 10/23/2018. FINDINGS: There is mild air trapping. Mildly prominent interstitial markings are noted, however there is no consolidation, pneumothorax, or significant pleural fluid. IMPRESSION: No acute abnormality or adverse change seen. Dictated by: Dictated on workstation # [id number]
[2018-11-17 18:48] LABS: ALANINE AMINOTRANSFERASE 16 U/L (0-55); ALBUMIN 4.3 GM/DL (3.2-4.5); ALKALINE PHOSPHATASE 72 U/L (40-136); BILIRUBIN,TOTAL 0.4 MG/DL (0.1-1.0); BUN/CREATININE RATIO 18; CALCIUM 9.8 MG/DL (8.5-10.1); CARBON DIOXIDE 27 MMOL/L (21-32); CHLORIDE 107 MMOL/L (98-107); CREATININE SERUM 0.89 MG/DL (0.60-1.30); GFR ESTIMATED > 60; GLUCOSE 148 MG/DL (70-105); MAGNESIUM 2.3 MG/DL (1.8-2.4); SODIUM 142 MMOL/L (135-145)
--- NOTE | 2018-11-17 18:51 | Diagnostic Imaging Report ---
PROCEDURE: CT head wo r/o stroke. TECHNIQUE: Multiple contiguous axial images were obtained through the brain without the use of intravenous contrast. Auto Exposure Controls were utilized during the CT exam to meet ALARA standards for radiation dose reduction. INDICATION: Severe headache and hypertension. COMPARISON: Comparison is made to study of 07/10/2018. FINDINGS: Ventricles and sulci are prominent; however, there is no evidence of hemorrhage. There is no abnormal mass effect or shift of midline structures. Calvarium is intact, and the visualized paranasal sinuses are clear. IMPRESSION: Involutional findings have remained stable. No acute abnormality is detected. Dictated by: Dictated on workstation # [id number]
--- NOTE | 2018-11-17 18:56 | NUR ---
pt resting in bed, updated on results of labs that are back. pt denies needs at this time.
[2018-11-17 19:02] LABS: BILIRUBIN,URINE NEGATIVE (NEGATIVE); CLARITY,URINE CLEAR; COLOR,URINE YELLOW; GLUCOSE, URINE (UA) NEGATIVE (NEGATIVE); KETONES,URINE NEGATIVE (NEGATIVE); LEUKOCYTE ESTERASE ,URINE NEGATIVE (NEGATIVE); NITRITE,URINE NEGATIVE (NEGATIVE); PH,URINE 6 (5-9); PROTEIN,URINE NEGATIVE (NEGATIVE); UROBILINOGEN,URINE NORMAL (NORMAL)
[2018-11-17 19:11] LABS: BACTERIA,URINE NEGATIVE /HPF; WBC,URINE RARE /HPF
[2018-11-17 19:23] VITALS: BP 162/72
== END 2018-11-17 19:30 | disposition home or self-care (01) ==
LOC: EDUNIT# 18:07 → ER 18:09
DX: I10 Essential (primary) hypertension (principal); R51 Headache; R41.3 Other amnesia; F41.9 Anxiety disorder, unspecified; E03.9 Hypothyroidism, unspecified; Z91.14 Patient's other noncompliance with medication regimen; Z87.19 Personal history of other diseases of the digestive system; Z87.448 Personal history of other diseases of urinary system; Z87.442 Personal history of urinary calculi; Z86.73 Personal history of transient ischemic attack (TIA), and cerebral infarction without residual deficits; Z88.1 Allergy status to other antibiotic agents; Z87.891 Personal history of nicotine dependence; Z98.890 Other specified postprocedural states
CPT/HCPCS: 36415; 70450; 71045; 80053; 81000; 83735; 84484; 85025; 85730; 93005; 93041; 96374

== ENCOUNTER 2018-11-21 14:28 | Emergency (ER) | payer MEDICARE, MEDICAID ==
[~2018-11-21] VITALS: Ht 188 cm; Wt 79.4 kg
--- NOTE | 2018-11-21 14:47 | NUR ---
TO ROOM NO CHANGE FROM TRIAGE. B/P 165/76 HR 64 SAO2 96%
[2018-11-21] MEDS ORDERED: ACETAMINOPHEN 500 MG TAB (TYLENOL) PO ONE (15:45)
--- NOTE | 2018-11-21 15:47 | ED Cardiac General ---
History of Present Illness General Chief Complaint: Cardiac/General Problems Stated Complaint: ELEV BP Nursing Triage Note: COMPLAINS OF A HEADACHE AND THINKS HIS BP IS HIGH. PT HAS NOT TAKEN ANYTHNG FOR HIS HEADACHE OR HPYPERTENSION. Source: patient Exam Limitations: no limitations History of Present Illness Date Seen by Provider: November 21, 2018 Time Seen by Provider: 15:38 Initial Comments Patient resents to ER by private conveyance with chief complaint of he was over at a friend's house and he got hungry so he asked somebody to get a sounds like an oatmeal pie and a lot of cheesy puff chips and some other junk food and after eating he developed a headache about one hour prior to arrival. Because of his headache he felt the blood pressure must be elevated because that happened in the past. Last time it happened again the ER got an entire workup that did not demonstrate any kind of a stroke. He is having no neurologic symptoms no slurred speech and drooping face etc. No difficulty understanding her being understood. No difficulty walking. His blood pressure was elevated when he got here about 190 but just with rest he is down to 130/100. He does have a mild headache and would like to Tylenol for it. He has no history of stroke heart attack past or disease. He does follow with Dr. Patel for his high blood pressure. Allergies and Home Medications Allergies Coded Allergies: cephalexin (Unverified Allergy, Mild, 09/03/09) Home Medications Amlodipine Besylate 5 Mg Tablet, 5 MG PO DAILY, (Reported) Ciprofloxacin HCl 500 Mg Tablet, 500 MG PO BID, (Reported) 5 DAY THERAPY START DATE 05-21-18 Cyanocobalamin 1,000 Mcg/Ml Inj, 1,000 MCG IM MONTHLY, (Reported) Ergocalciferol (Vitamin D2) 50,000 Unit Capsule, 50,000 UNITS PO Mo, (Reported) Fexofenadine HCl 180 Mg Tablet, 180 MG PO DAILY PRN for ALLERGIES, (Reported) Patient Home Medication List Home Medication List Reviewed: Yes Review of Systems Review of Systems Constitutional: No chills, No diaphoresis EENTM: No Blurred Vision, No Double Vision Respiratory: Denies Cough, Denies Orthopnea Cardiovascular: Denies Chest Pain, Denies Irregular Heart Rate, Denies Lightheadedness Gastrointestinal: Denies Abdomen Distended, Denies Abdominal Pain, Denies Constipated, Denies Diarrhea Genitourinary: Denies Burning, Denies Discharge Musculoskeletal: No back pain, No joint pain Skin: No change in color, No lesions Past Dvttimi-Ryhcmd-Tlbtxz Hx Patient Social History Alcohol Use: Denies Use Recreational Drug Use: No Smoking Status: Never a Smoker Former Smoker, Quit: November 30, 1973 2nd Hand Smoke Exposure: No Recent Foreign Travel: No Contact w/Someone Who Travel: No Recent Infectious Disease Expo: No Recent Hopitalizations: No Immunizations Up To Date Date of Pneumonia Vaccine: May 13, 2010 Seasonal Allergies Seasonal Allergies: No Past Medical History Surgeries: Yes (ANKLE SURGERY; SCAR NOTED TO LEFT BREAST AREA; LITHOTRIPSY/ESWL ) Gallbladder, Orthopedic, Renal Respiratory: No Cardiac: Yes (SVT) Hypertension, Irregular Heartbeat, Palpitations 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; PARESTHESIAS ) TIA Reproductive Disorders: No Genitourinary: Yes (ESWL/LITHOTRIPSY) Bladder Infection, Kidney Stones Gastrointestinal: Yes (PANCREATITIS WITH PARALYTIC ILEUS, DELIRIUM 04/29/18) Pancreatitis, Gall Bladder Disease Musculoskeletal: Yes (ANKLE SURGERY) Endocrine: Yes Hypothyroidsim HEENT: No Cancer: No Psychosocial: Yes Anxiety Integumentary: No Blood Disorders: No Physical Exam Vital Signs Vital Signs - First Documented 11/21/18 14:36 Temp 74.0 Pulse 72 Resp 16 B/P (MAP) 185/95 (125) Pulse Ox 97 O2 Delivery Room Air Capillary Refill : Less Than 3 Seconds Height, Weight, BMI Height: 6'2.00" Weight: 175lbs. 0oz. 79.146042pk; 22.4 BMI Method:Stated General Appearance: No Apparent Distress, WD/WN HEENT: PERRL/EOMI, TMs Normal, Normal ENT Inspection, Pharynx Normal, Moist Mucous Membranes Neck: Full Range of Motion, Normal Inspection, Non Tender, Supple Respiratory: Chest Non Tender, Lungs Clear, Normal Breath Sounds, No Accessory Muscle Use, No Respiratory Distress Cardiovascular: Regular Rate, Rhythm, No Edema, No JVD, Normal Peripheral Pulses Gastrointestinal: Normal Bowel Sounds, No Organomegaly, Non Tender, Soft Extremity: Normal Capillary Refill, Normal Inspection, Non Tender, No Calf Tenderness, No Pedal Edema Neurologic/Psychiatric: Alert, Oriented x3, No Motor/Sensory Deficits, Normal Mood/Affect, vascular ultrasound technologist II-XII Norm as Tested, Other (NIH is 0) Skin: Normal Color, Warm/Dry Progress/Results/Core Measures Results/Orders My Orders Orders - LUCI DOBBS Acetaminophen Tablet (Tylenol Tablet) (11/21/18 15:45) Medications Given in ED Current Medications Medications Dose Ordered Sig/Doug Route Start Time Stop Time Status Last Admin Dose Admin Acetaminophen 1,000 mg ONCE ONCE PO 11/21/18 15:45 11/21/18 15:46 DC 11/21/18 16:28 1,000 MG Vital Signs/I&O 11/21/18 14:36 Temp 74.0 Pulse 72 Resp 16 B/P (MAP) 185/95 (125) Pulse Ox 97 O2 Delivery Room Air Blood Pressure Mean: 125 Progress Progress Note : Time: 17:19 Progress Note Patient has no neurologic symptoms. His blood pressure spontaneously resolved. It sounds like he had a tension headache is related to what he was eating versus what he was doing. We've discussed doing a workup versus allowing him to follow up outpatient and he would prefer the latter. He says he's had workups for this headache for extensively never found anything. We gave him about grams Tylenol and his headache resolved. Departure Impression Primary Impression: Hypertension Qualified Codes: I10 - Essential (primary) hypertension Additional Impression: Headache Qualified Codes: G44.209 - Tension-type headache, unspecified, not intractable Disposition: 01 HOME, SELF-CARE Condition: Stable Departure-Patient Inst. Decision time for Depature: 17:21 Referrals: SAPNA PATEL DO (PCP/Family) Primary Care Physician Patient Instructions: Controlling Your Blood Pressure Through Lifestyle, DASH Diet, High Blood Pressure (DC) Add. Discharge Instructions: Please review the dietary advice included. Follow-up with Dr. Patel and review your blood pressure medications. Use Tylenol and/or ibuprofen for your headaches. Return to the ER if you begin to have worrisome symptoms such as vision changes , slurred speech, facial droop, difficulty walking etc. All discharge instructions reviewed with patient and/or family. Voiced understanding. LUCI DOBBS November 21, 2018 15:47
[2018-11-21 17:25] VITALS: BP 149/70
== END 2018-11-21 17:25 | disposition home or self-care (01) ==
LOC: EDUNIT# 14:28 → ER 14:29
DX: I10 Essential (primary) hypertension (principal); R51 Headache; E03.9 Hypothyroidism, unspecified; F41.9 Anxiety disorder, unspecified; Z87.19 Personal history of other diseases of the digestive system; Z86.73 Personal history of transient ischemic attack (TIA), and cerebral infarction without residual deficits; Z88.1 Allergy status to other antibiotic agents; Z87.891 Personal history of nicotine dependence; Z87.442 Personal history of urinary calculi; Z98.890 Other specified postprocedural states
CPT/HCPCS: 99283

== ENCOUNTER 2019-03-02 10:50 | Emergency (ER) | payer MEDICAID, MEDICARE ==
[~2019-03-02] VITALS: Ht 182.9 cm; Wt 81.6 kg
[2019-03-02] MEDS ORDERED: LACTATED RINGERS 1,000 ML IV ONE (10:51)
[2019-03-02 11:24] LABS: BASOPHILS % (AUTO) 1 % (0-10); EOSINOPHILS # (AUTO) 0.1 10^3/uL (0.0-0.3); EOSINOPHILS % (AUTO) 2 % (0-10); HEMATOCRIT 34 % (40-54); HEMOGLOBIN 11.3 G/DL (13.3-17.7); LYMPHOCYTES # (AUTO) 0.9 X 10^3 (1.0-4.0); LYMPHOCYTES % (AUTO) 17 % (12-44); MEAN CORPUSCULAR HEMOGLOBIN 29 PG (25-34); MEAN CORPUSCULAR HGB CONC 33 G/DL (32-36); MEAN CORPUSCULAR VOLUME 89 FL (80-99); MEAN PLATELET VOLUME 10.2 FL (7.4-10.4); MONOCYTES # (AUTO) 0.4 X 10^3 (0.0-1.0); MONOCYTES % (AUTO) 8 % (0-12); NEUTROPHILS # (AUTO) 3.9 X 10^3 (1.8-7.8); NEUTROPHILS % (AUTO) 72 % (42-75); PLATELET COUNT 177 10^3/uL (130-400); RED CELL DISTRIBUTION WIDTH 13.4 % (10.0-14.5); WHITE BLOOD COUNT 5.3 10^3/uL (4.3-11.0)
--- NOTE | 2019-03-02 11:29 | ED GI ---
General Chief Complaint: Abdominal/GI Problems Nursing Triage Note: ARRIVED VIA EMS TO ROOM 07. STATES HE BECAME SICK LAST NIGHT AFTER EATING A CHILLIDOG AND VOMITED 5-6 TIMES DURING THE NIGHT. ARRIVED ALERT WITH VOMIT ON HIS FACE AND INC OF URINE AND STOOL. Sepsis Screen: No Definite Risk Source of Information: Patient (VERY POOR HISTORIAN), EMS, Old Records (ALL PMH IS FROM OLD RECORDS) History of Present Illness Date Seen by Provider: Mar 02, 2019 Time Seen by Provider: 10:44 Initial Comments PT ARRIVES VIA EMS FROM HOME PT REPORTED TO EMS THAT HE STARTED GETTING SICK AROUND [id number] LAST PM--HAS HAD NAUSEA AND REPORTED TO EMS THAT HE VOMITED 5-6 TIMES. PT HAS BEEN INCONTINENT OF BOWEL AND BLADDER ON ARRIVAL HERE, PT STATES HE DOES NOT KNOW WHY HE IS HERE AND WHEN ASKED IF HE HAD ANY NAUSEA, VOMITING OR DIARRHEA --HE STATES "NO" --DESPITE PT WITH LARGE AMOUNT OF DRIED VOMITUS ON FACE AND AROUND MOUTH, AND HIS CLOTHING WAS SATURATED EMESIS, PER EMS--THIS WAS REMOVED PRIOR TO ARRIVAL. PT IS UNAWARE THAT HE HAS BEEN INCONTINENT. EMS GAVE ZOFRAN 4 MG PRIOR TO ARRIVAL PT DENIES ANY ABDOMINAL PAIN OR CHEST PAIN DENIES ANY NAUSEA NOW. PT DID C/O HEADACHE TO EMS, DENIES HEADACHE NOW. BP WAS ELEVATED IN 190'S FOR EMS, AND IS 202 SYSTOLIC ON ARRIVAL HERE. EMS REPORT THAT BP HAS BEEN 50-70 FOR THEM. HR IN 70'S ON ARRIVAL HERE. PT'S LAST 2 ER VISITS IN NOVEMBER, BOTH FOR UNCONTROLLED HTN PT LIVES ALONE AND DOES NOT HAVE HOME HEALTH OR ANY FAMILY LOCALLY TO ASSIST WITH HIS CARE. PT WAS ADMITTED TO [facility]IA [facility] LAST YEAR AFTER A HOSPITALIZATION, BUT PT HAS SINCE MOVED BACK HOME. PCP: DR. PATEL, AND DR. COLLIER Allergies and Home Medications Allergies Coded Allergies: cephalexin (Unverified Allergy, Mild, 09/03/09) Home Medications Amlodipine Besylate 5 Mg Tablet, 5 MG PO DAILY, (Reported) Ciprofloxacin HCl 500 Mg Tablet, 500 MG PO BID, (Reported) 5 DAY THERAPY START DATE 05-21-18 Cyanocobalamin 1,000 Mcg/Ml Inj, 1,000 MCG IM MONTHLY, (Reported) Ergocalciferol (Vitamin D2) 50,000 Unit Capsule, 50,000 UNITS PO Mo, (Reported) Fexofenadine HCl 180 Mg Tablet, 180 MG PO DAILY PRN for ALLERGIES, (Reported) Ondansetron 4 Mg Tab.rapdis, 4 MG PO Q4H Prescribed by: CATHIE HAIDER on 03/02/19 1416 Review of Systems Review of Systems Constitutional: no symptoms reported Respiratory: No Symptoms Reported; Denies Cough, Denies Shortness of Air Cardiovascular: See HPI; Denies Chest Pain, Denies Edema, Denies Lightheadedness, Denies Palpitations, Denies Syncope Gastrointestinal: See HPI; Denies Abdominal Pain, Denies Nausea, Denies Vomiting Genitourinary: See HPI, Incontinence Musculoskeletal: no symptoms reported Skin: no symptoms reported Psychiatric/Neurological: See HPI Endocrine: No Symptoms Reported Hematologic/Lymphatic: No Symptoms Reported Past Weeokqa-Lbjblg-Jzcvvi Hx Patient Social History Alcohol Use: Denies Use Recreational Drug Use: No Smoking Status: Former Smoker Former Smoker, Quit: November 30, 1973 2nd Hand Smoke Exposure: No Recent Foreign Travel: No Contact w/Someone Who Travel: No Recent Infectious Disease Expo: No Recent Hopitalizations: No Immunizations Up To Date Date of Pneumonia Vaccine: May 13, 2010 Seasonal Allergies Seasonal Allergies: No Past Medical History Surgeries: Yes (ANKLE SURGERY; SCAR NOTED TO LEFT BREAST AREA; LITHOTRIPSY/ESWL) Gallbladder, Orthopedic, Renal Respiratory: No Cardiac: Yes (SVT) Hypertension, Irregular Heartbeat, Palpitations 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; PARESTHESIAS ) TIA Reproductive Disorders: No Genitourinary: Yes (ESWL/LITHOTRIPSY) Bladder Infection, Kidney Stones Gastrointestinal: Yes (PANCREATITIS WITH PARALYTIC ILEUS, DELIRIUM 04/29/18) Pancreatitis, Gall Bladder Disease Musculoskeletal: Yes (ANKLE SURGERY) Endocrine: Yes Hypothyroidsim HEENT: No Cancer: No Psychosocial: Yes Anxiety Integumentary: No Blood Disorders: No Physical Exam Vital Signs Vital Signs - First Documented 03/02/19 10:50 Temp 97.5 Pulse 63 Resp 16 B/P (MAP) 202/92 (128) Pulse Ox 98 O2 Delivery Room Air Capillary Refill : Less Than 3 Seconds Height/Weight/BMI Height: 6'2.00" Weight: 180lbs. 0oz. 81.858124xt; 22.4 BMI Method:Stated General Appearance: WD/WN, no apparent distress, other (FACE AND AROUND MOUTH WITH DRIED EMESIS. PT HAS BEEN INCONTINENT OF BOWEL AND BLADDER PRIOR TO ARRIVAL) Respiratory: normal breath sounds, no respiratory distress, no accessory muscle use Cardiovascular: normal peripheral pulses, regular rate, rhythm, no murmur Gastrointestinal: normal bowel sounds, non tender, soft Extremities: normal inspection, normal capillary refill Back: no CVA tenderness Neurologic/Psychiatric: vrt mechanic II-XII nml as tested, no motor/sensory deficits, alert, normal mood/affect, other (VERY POOR MEMORY; ORIENTED TO PERSON, PLACE, SOMEWHAT DISORIENTED TO TIME AND SITUATION. THIS IS PT'S NORMAL BASELINE. ) Focused Exam Lactate Level 03/02/19 11:15: Lactic Acid Level 1.30 Lactic Acid Level Laboratory Tests Test 03/02/19 11:15 Lactic Acid Level 1.30 MMOL/L (0.50-2.00) Progress/Results/Core Measures Results/Orders Lab Results Laboratory Tests Test 03/02/19 11:15 03/02/19 12:15 Range/Units White Blood Count 5.3 4.3-11.0 10^3/uL Red Blood Count 3.85 L 4.35-5.85 10^6/uL Hemoglobin 11.3 L 13.3-17.7 G/DL Hematocrit 34 L 40-54 % Mean Corpuscular Volume 89 80-99 FL Mean Corpuscular Hemoglobin 29 25-34 PG Mean Corpuscular Hemoglobin Concent 33 32-36 G/DL Red Cell Distribution Width 13.4 10.0-14.5 % Platelet Count 177 130-400 10^3/uL Mean Platelet Volume 10.2 7.4-10.4 FL Neutrophils (%) (Auto) 72 42-75 % Lymphocytes (%) (Auto) 17 12-44 % Monocytes (%) (Auto) 8 0-12 % Eosinophils (%) (Auto) 2 0-10 % Basophils (%) (Auto) 1 0-10 % Neutrophils # (Auto) 3.9 1.8-7.8 X 10^3 Lymphocytes # (Auto) 0.9 L 1.0-4.0 X 10^3 Monocytes # (Auto) 0.4 0.0-1.0 X 10^3 Eosinophils # (Auto) 0.1 0.0-0.3 10^3/uL Basophils # (Auto) 0.0 0.0-0.1 10^3/uL Prothrombin Time 13.0 12.2-14.7 SEC INR Comment 1.0 0.8-1.4 Activated Partial Thromboplast Time 30 24-35 SEC Sodium Level 138 135-145 MMOL/L Potassium Level 3.8 3.6-5.0 MMOL/L Chloride Level 106 98-107 MMOL/L Carbon Dioxide Level 25 21-32 MMOL/L Anion Gap 7 5-14 MMOL/L Blood Urea Nitrogen 11 7-18 MG/DL Creatinine 0.77 0.60-1.30 MG/DL Estimat Glomerular Filtration Rate > 60 BUN/Creatinine Ratio 14 Glucose Level 127 H 70-105 MG/DL Lactic Acid Level 1.30 0.50-2.00 MMOL/L Calcium Level 8.5 8.5-10.1 MG/DL Corrected Calcium 8.8 8.5-10.1 MG/DL Magnesium Level 1.4 L 1.6-2.4 MG/DL Total Bilirubin 0.5 0.1-1.0 MG/DL Aspartate Amino Transf (AST/SGOT) 19 5-34 U/L Alanine Aminotransferase (ALT/SGPT) 11 0-55 U/L Alkaline Phosphatase 68 40-136 U/L Myoglobin 137.8 H 10.0-92.0 NG/ML Troponin I < 0.028 <0.028 NG/ML B-Type Natriuretic Peptide 50.0 <100.0 PG/ML Total Protein 6.2 L 6.4-8.2 GM/DL Albumin 3.6 3.2-4.5 GM/DL Amylase Level 34 25-125 U/L Lipase 24 8-78 U/L Urine Color YELLOW Urine Clarity CLEAR Urine pH 8 5-9 Urine Specific [place] 1.010 L 1.016-1.022 Urine Protein NEGATIVE NEGATIVE Urine Glucose (UA) NEGATIVE NEGATIVE Urine Ketones NEGATIVE NEGATIVE Urine Nitrite NEGATIVE NEGATIVE Urine Bilirubin NEGATIVE NEGATIVE Urine Urobilinogen NORMAL NORMAL MG/DL Urine Leukocyte Esterase NEGATIVE NEGATIVE Urine RBC (Auto) NEGATIVE NEGATIVE Urine RBC NONE /HPF Urine WBC NONE /HPF Urine Squamous Epithelial Cells NONE /HPF Urine Crystals NONE /LPF Urine Bacteria NEGATIVE /HPF Urine Casts NONE /LPF Urine Mucus NEGATIVE /LPF Urine Culture Indicated NO My Orders Orders - CATHIE HAIDER DO Ed Iv/Invasive Line Start (03/02/19 10:51) Ekg Tracing (03/02/19 10:51) Monitor-Rhythm Ecg Trace Only (03/02/19 10:51) Amylase (03/02/19 10:51) BNP (03/02/19 10:51) Cbc With Automated Diff (03/02/19 10:51) Comprehensive Metabolic Panel (03/02/19 10:51) Lactic Acid Analyzer (03/02/19 10:51) Lipase (03/02/19 10:51) Magnesium (03/02/19 10:51) Protime With Inr (03/02/19 10:51) Partial Thromboplastin Time (03/02/19 10:51) Ua Culture If Indicated (03/02/19 10:51) Blood Culture (03/02/19 10:51) Myoglobin Serum (03/02/19 10:51) Troponin I (03/02/19 10:51) Ed Iv/Invasive Line Start (03/02/19 10:51) Lactated Ringers (Lr 1000 Ml Iv Solution (03/02/19 10:51) Ct Head Wo-R/O Stroke (03/02/19 11:34) Magnesium 1 Gm/100 Ml Ivpb (Magnesium [place] (03/02/19 12:00) Abdomen, Flat & Upright/Decub (03/02/19 12:41) Ct Abd/Pelvis Wo(Kidney Stone) (03/02/19 12:41) Hydralazine Injection (Apresoline Inject (03/02/19 14:30) Medications Given in ED Current Medications Medications Dose Ordered Sig/Doug Route Start Time Stop Time Status Last Admin Dose Admin Hydralazine HCl 10 mg ONCE ONCE IV 03/02/19 14:30 03/02/19 14:31 DC 03/02/19 14:33 10 MG Lactated Ringer's 1,000 ml @ 0 mls/hr Q0M ONCE IV 03/02/19 10:51 03/02/19 10:53 DC 03/02/19 11:26 1,000 MLS/HR Magnesium Sulfate/ Dextrose 100 ml @ 100 mls/hr ONCE ONCE IV 03/02/19 12:00 03/02/19 12:59 DC 03/02/19 12:29 100 MLS/HR Vital Signs/I&O 03/02/19 10:50 Temp 97.5 Pulse 63 Resp 16 B/P (MAP) 202/92 (128) Pulse Ox 98 O2 Delivery Room Air Blood Pressure Mean: 128 Progress Progress Note : Progress Note BP DOWN TO NORMAL RANGE, WITHOUT TREATMENT, THEN JUST PRIOR TO DISMISSAL, IT BEGAN TO ELEVATE. GIVEN HYDRALAZINE. PT THEN STARTED TO TAKE 3 PILLS FROM AN UNLABELED BOTTLE, THAT WAS BROUGHT WITH HIM. PT DOES NOT KNOW WHAT THEY ARE, BUT STATES "HE TAKES THEM WHEN HE GETS A HEADACHE" PT STATES HE DOES NOT TAKE BLOOD PRESSURE MEDICATION--THE PILLS ARE IDENTIFIED CARTIA XT 180 MG, ASPIRIN, RANITIDINE. PT WAS ALLOWED TO TAKE HIS OWN MEDICATIONS. 1240--PT NOW C/O MILD SORENESS TO SUPRAPUBIC AREA, STATES HE THINKS HE IS HAVING ANOTHER KIDNEY STONE--HAS HAD IN THE PAST. NAUSEA IS GONE, NO FURTHER VOMITING PT IS SYMPTOM-FREE PT TOLERATING ICE CHIPS PRIOR TO DISMISSAL Diagnostic Imaging Comments CT HEAD--NO ACUTE PROCESS, PER RADIOLOGIST REPORT AT 1237 CT ABDOMEN/PELVIS--NO ACUTE PROCESS, PULMONARY MICRONODULES, DIVERTICULOSIS WITH OUT ACUTE DIVERTICULITIS--PER RADIOLOGIST REPORT AT 1405 Reviewed: Reviewed by Me Departure Impression Primary Impression: Nausea and vomiting Additional Impressions: Labile hypertension Pulmonary nodule seen on imaging study Disposition: HOME, SELF-CARE Condition: Improved Departure-Patient Inst. Referrals: SAPNA PATEL DO (PCP/Family) Primary Care Physician Patient Instructions: Nausea and Vomiting, Adult (DC), Pulmonary Nodule, DASH Diet, High Blood Pressure (DC) Add. Discharge Instructions: TAKE YOUR MEDICATIONS PRESCRIBED TODAY, JUST DRINK CLEAR LIQUIDS--WATER, BROTH, JELLO, GATORADE TOMORROW, IF YOU ARE BETTER, ADD BRATS DIET TO CLEAR LIQUIDS--BANANAS, RICE, APPLESAUCE, TOAST, SALTINES FOLLOW UP WITH YOUR DR THIS WEEK FOR FURTHER CARE All discharge instructions reviewed with patient and/or family. Voiced understanding. Scripts Ondansetron (Ondansetron Odt) 4 Mg Tab.rapdis 4 MG PO Q4H for Nausea/Vomiting, #10 TAB Prov: CATHIE HAIDER DO 03/02/19 CATHIE HAIDER DO Mar 02, 2019 11:28
[2019-03-02 11:44] LABS: ALANINE AMINOTRANSFERASE 11 U/L (0-55); ALBUMIN 3.6 GM/DL (3.2-4.5); ALKALINE PHOSPHATASE 68 U/L (40-136); AMYLASE 34 U/L (25-125); BILIRUBIN,TOTAL 0.5 MG/DL (0.1-1.0); BUN/CREATININE RATIO 14; CALCIUM 8.5 MG/DL (8.5-10.1); CARBON DIOXIDE 25 MMOL/L (21-32); CHLORIDE 106 MMOL/L (98-107); CREATININE SERUM 0.77 MG/DL (0.60-1.30); GFR ESTIMATED > 60; GLUCOSE 127 MG/DL (70-105); LIPASE 24 U/L (8-78); MAGNESIUM 1.4 MG/DL (1.6-2.4); POTASSIUM 3.8 MMOL/L (3.6-5.0); SODIUM 138 MMOL/L (135-145); TOTAL PROTEIN 6.2 GM/DL (6.4-8.2)
[2019-03-02] MEDS ORDERED: MAGNESIUM 1 GM/100 ML IVPB 100 ML IV ONE (12:00)
--- NOTE | 2019-03-02 12:15 | NUR ---
BACK FROM CT. ASSISTED PT FROM WC TO STANDING POSITION FOR HIM TO URINATE. ASSISTED BACK TO BED.
[2019-03-02 12:23] LABS: BILIRUBIN,URINE NEGATIVE (NEGATIVE); CLARITY,URINE CLEAR; GLUCOSE, URINE (UA) NEGATIVE (NEGATIVE); KETONES,URINE NEGATIVE (NEGATIVE); LEUKOCYTE ESTERASE ,URINE NEGATIVE (NEGATIVE); NITRITE,URINE NEGATIVE (NEGATIVE); PH,URINE 8 (5-9); PROTEIN,URINE NEGATIVE (NEGATIVE); UROBILINOGEN,URINE NORMAL (NORMAL)
--- NOTE | 2019-03-02 12:31 | Diagnostic Imaging Report ---
PROCEDURE: CT head wo r/o stroke. TECHNIQUE: Multiple contiguous axial images were obtained through the brain without the use of intravenous contrast. Auto Exposure Controls were utilized during the CT exam to meet ALARA standards for radiation dose reduction. INDICATION: Vomiting. COMPARISON: Exam compared with study of 11/17/2018. FINDINGS: Cerebral cortical atrophy, atherosclerotic calcifications and chronic white matter disease are unchanged. No evidence for elevated intracranial pressures. The basilar cisterns are patent. There is no sulcal effacement. No mass or mass effect. No findings of focal or generalized cerebral edema and there is no intracranial hemorrhage. The orbits, sinuses and calvarium are unremarkable. IMPRESSION: Stable chronic findings. No hemorrhage, edema, elevated pressures or acute abnormalities identified. Dictated by: Dictated on workstation # [id number]
[2019-03-02 12:32] LABS: BACTERIA,URINE NEGATIVE /HPF; COLOR,URINE YELLOW
--- NOTE | 2019-03-02 13:23 | Diagnostic Imaging Report ---
Indication: History kidney stones. Patient complains of lower pelvic pain. Time of exam 1:11 PM Surgical clips in the right abdomen are noted. Calcifications in the left upper abdomen are consistent with splenic arterial calcifications. No radiopaque urinary tract calculi are detected. Bowel gas pattern is nonobstructed. A moderate stool in the left colon and transverse colon as well as the rectum is noted. No free air is seen. Impression: No acute abnormality is detected. There is moderate stool in the colon. Dictated by: Dictated on workstation # [id number]
--- NOTE | 2019-03-02 13:39 | NUR ---
PT BACK FROM CT. WARM BLANKETS GIVEN, LIGHTS TURNED DOWN, ET CALL LIGHT GIVEN.
--- NOTE | 2019-03-02 13:58 | Diagnostic Imaging Report ---
PROCEDURE: CT urinary tract, rule out kidney stone. TECHNIQUE: Multiple contiguous axial images were obtained through the abdomen and pelvis without the use of intravenous contrast. Auto Exposure Controls were utilized during the CT exam to meet ALARA standards for radiation dose reduction. INDICATION: Lower abdominal pain. COMPARISON: 07/10/2018. FINDINGS: Included portions of the lung bases show partially visualized 4 mm micronodule within the lateral margins of the left upper lobe (image 1, series 2). Small micronodules are also seen associated with the major fissure on the left and measures approximately 3-4 mm as well (image 4, series 2). These areas were not included on prior exams. 7 mm subpleural micronodules are also noted within the posterior margins of the right lower lobe. This does appear increased in size compared to 4-5 mm on exam dated 07/10/2018. Calcified aortic and coronary atherosclerosis is also noted, as is small hiatal hernia. CT abdomen: A few colonic diverticuli are noted. There is however no CT evidence of acute diverticulitis. Normal appendix is identified. Small bowel loops are nondistended. Kidneys have an unremarkable noncontrast CT appearance. No renal or ureteral calculi are seen on either side. There is no hydronephrosis or other evidence of obstruction. The spleen, adrenal glands, and pancreas have a normal CT appearance. Nonspecific hypodensity is noted within the anterior inferior margins of segment 3 of the liver and is stable compared to 07/10/2013. Findings could be on the basis of small hypoechoic cyst. There is no loculated fluid collection, free fluid, or free air within the abdomen. No abnormal mesenteric or retroperitoneal adenopathy is seen. There is moderate diffuse calcified aortic and arterial atherosclerosis. Osseous structures show no acute abnormalities. CT pelvis: Urinary bladder is unopacified. No calculi are seen within urinary bladder. Moderate-sized right-sided hutch diverticulum is noted. Moderate amount of rectal stool is noted. There are also bilateral fat-containing inguinal hernias. There is no loculated fluid collection, free fluid, or free air. No abnormal pelvic adenopathy is seen. Osseous structures show no acute abnormalities. IMPRESSION: 1. No acute abnormalities are seen within the abdomen or pelvis. 2. Multiple pulmonary micronodules bilaterally. Six-month CT chest followup is recommended to ensure stability. 3. Colonic diverticulosis, but no CT evidence of acute diverticulitis. 4. Other nonemergent findings as described above. Dictated by: Dictated on workstation # [id number]
--- NOTE | 2019-03-02 14:08 | NUR ---
ICE CHIPS GIVEN
--- NOTE | 2019-03-02 14:12 | NUR ---
IN TALKING TO PT AT THIS TIME.
[2019-03-02] MEDS ORDERED: ONDA4TAB11 PO (14:16)
--- NOTE | 2019-03-02 14:25 | NUR ---
UPON ENTERING ROOM PT WAS STARTING TO PUT SEVERAL PILLS IN HIS MOUTH. WHEN I ASKED HIM WHAT THEY WERE HE STATES THEY HELP HIS HEADACHE WHEN HE GETS ONE. I ASKED IF ONE WAS BP PILL AND HE REPLIED HE DID NOT KNOW. AFTER USING PILL IDENTIFIER THE PILLS WERE: RANTIDINE, ASA [address] HAIDER NOTIFIED WHO STATES HE CAN TAKE THEM.
[2019-03-02] MEDS ORDERED: hydrALAZINE (APESOLINE) 20 MG/ML VIAL IV ONE (14:30)
[2019-03-02 15:15] VITALS: BP 169/90
--- NOTE | 2019-03-02 15:15 | NUR ---
PT DOES NOT HAVE A RIDE HOME ET CARE VAN IS FULL. CAB CALLED FOR PT.
== END 2019-03-02 15:15 | disposition home or self-care (01) ==
LOC: EDUNIT# 10:50 → ER 10:51
DX: R11.2 Nausea with vomiting, unspecified (principal); R03.0 Elevated blood-pressure reading, without diagnosis of hypertension; R91.1 Solitary pulmonary nodule; I10 Essential (primary) hypertension; E03.9 Hypothyroidism, unspecified; F41.9 Anxiety disorder, unspecified; Z87.442 Personal history of urinary calculi; Z88.1 Allergy status to other antibiotic agents; Z87.891 Personal history of nicotine dependence; Z86.73 Personal history of transient ischemic attack (TIA), and cerebral infarction without residual deficits
CPT/HCPCS: 36415; 70450; 74019; 74176; 80053; 81000; 82150; 83605; 83690; 83735; 83874; 83880; 84484; 85025; 85610; 85730; 87040; 93005; 93041

== ENCOUNTER 2019-07-02 09:50 | Emergency (ER) | payer MEDICARE, MEDICAID ==
[~2019-07-02] VITALS: Ht 190 cm; Wt 82.0 kg
[~2019-07-02 09:50] MED LIST changes: +ONDA4TAB11 PO
--- NOTE | 2019-07-02 10:05 | NUR ---
C-COLLAR REMOVED BY DR CARRANZA
--- NOTE | 2019-07-02 10:30 | Diagnostic Imaging Report ---
Indication: Fall with bilateral hip pain. Comparison: None. Discussion: AP view of the pelvis and two views of the bilateral hips were obtained. There is no displaced fracture or dislocation identified. Alignment is anatomic. Moderate degenerative disease is present bilaterally within the hips. Soft tissues are unremarkable. Impression: 1. Negative pelvis and hips. Dictated by: Dictated on workstation # [id number]
--- NOTE | 2019-07-02 10:35 | ED Fall/Injury ---
General Chief Complaint: Trauma-Non Activation Stated Complaint: FALL - HEAD/BACK/R HIP PAIN Nursing Triage Note: PT AMBULATED TO ROOM 6 PT STATES FELL AT HOME THIS AM, UNSURE IF HIT HEAD, STATES HAS NECK PAIN C-COLLAR APPLIED. UNSURE IF HAS ANY LOC. CO OF BACK PAIN AND HIP PAIN. RATES 02/19. 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 The patient is unclear whether he may have hit his head and had a loss of consciousness. He denies head pain but is complaining of neck and thoracic pain. He denies trauma to the anterior chest abdomen or lower extremities. Is complaining of pain over the pelvis. Patient is able to weight-bear. He has had no fever, chills, photophobia, or lateralizing or localizing neurologic complaints. Location Injury Occurred: HOME Allergies and Home Medications Allergies Coded Allergies: cephalexin (Unverified Allergy, Mild, 09/03/09) Home Medications Amlodipine Besylate 5 Mg Tablet, 5 MG PO DAILY, (Reported) Ciprofloxacin HCl 500 Mg Tablet, 500 MG PO BID, (Reported) 5 DAY THERAPY START DATE 05-21-18 Cyanocobalamin 1,000 Mcg/Ml Inj, 1,000 MCG IM MONTHLY, (Reported) Ergocalciferol (Vitamin D2) 50,000 Unit Capsule, 50,000 UNITS PO Mo, (Reported) Fexofenadine HCl 180 Mg Tablet, 180 MG PO DAILY PRN for ALLERGIES, (Reported) Ondansetron 4 Mg Tab.rapdis, 4 MG PO Q4H Prescribed by: CATHIE HAIDER on 03/02/19 1416 Patient Home Medication List Home Medication List Reviewed: Yes Review of Systems Review of Systems Constitutional: No chills, No fever Eyes: Denies Blurred Vision Ears, Nose, Mouth, Throat: denies ear pain Respiratory: No cough Cardiovascular: No chest pain Gastrointestinal: No abdominal pain, No nausea, No vomiting Genitourinary: no symptoms reported Musculoskeletal: see HPI, back pain (cervical and thoracic region) Skin: No change in color Psychiatric/Neurological: No Symptoms Reported Past Qyvcpnf-Dcmrmd-Gqjaaz Hx Past Med/Social Hx: Reviewed Nursing Past Med/Soc Hx Patient Social History Alcohol Use: Denies Use Recreational Drug Use: No Smoking Status: Former Smoker Former Smoker, Quit: November 30, 1973 2nd Hand Smoke Exposure: No Recent Foreign Travel: No Contact w/Someone Who Travel: No Recent Infectious Disease Expo: No Recent Hopitalizations: No Physical Abuse: No Sexual Abuse: No Immunizations Up To Date Tetanus Booster (TDap): Less than 5yrs Date of Pneumonia Vaccine: May 13, 2010 Seasonal Allergies Seasonal Allergies: No Past Medical History Surgeries: Yes (ANKLE SURGERY; SCAR NOTED TO LEFT BREAST AREA; LITHOTRIPSY/ESWL) Gallbladder, Orthopedic, Renal Respiratory: No Cardiac: Yes (SVT) Hypertension, Irregular Heartbeat, Palpitations 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; PARESTHESIAS ) TIA Reproductive Disorders: No Genitourinary: Yes (ESWL/LITHOTRIPSY) Bladder Infection, Kidney Stones Gastrointestinal: Yes (PANCREATITIS WITH PARALYTIC ILEUS, DELIRIUM 04/29/18) Pancreatitis, Gall Bladder Disease Musculoskeletal: Yes (ANKLE SURGERY) Endocrine: Yes Hypothyroidsim HEENT: No Cancer: No Psychosocial: Yes Anxiety Integumentary: No Blood Disorders: No Physical Exam Vital Signs Vital Signs - First Documented 07/02/19 09:55 Temp 37.1 Pulse 65 Resp 18 B/P (MAP) 160/100 (120) Pulse Ox 95 O2 Delivery Room Air Capillary Refill : Less Than 3 Seconds Height, Weight, BMI Height: 6'2.00" Weight: 180lbs. 0oz. 81.773141rt; 22.00 BMI Method:Stated General Appearance: WD/WN, no apparent distress HEENT: normal ENT inspection Neck: supple, normal inspection Cardiovascular: regular rate, rhythm Respiratory: lungs clear Gastrointestinal: normal bowel sounds, non tender, soft Back: normal inspection, other (there is a minor muscle tenderness over the cervical thoracic region) Extremities: normal range of motion, non-tender, pelvis stable (with minor tenderness noted on palpation of the pelvis) Neurologic/Psychiatric: no motor/sensory deficits, alert, oriented x 3 Skin: normal color, warm/dry Jeancarlos Coma Score Best Eye Response: (4) Open Spontaneously Best Verbal Response: (5) Oriented Best Motor Response: (6) Obeys Commands Jeancarlos Total: 15 Progress/Results/Core Measures Results/Orders My Orders Orders - ROMEO CARRANZA MD Ct Head/Cervical Spine Wo (07/02/19 10:07) Ct Thoracic Spine Wo (07/02/19 10:07) Pelvis/Sam Hips 5> Views (07/02/19 10:07) Vital Signs/I&O 07/02/19 09:55 Temp 37.1 Pulse 65 Resp 18 B/P (MAP) 160/100 (120) Pulse Ox 95 O2 Delivery Room Air Blood Pressure Mean: 120 Progress Progress Note : Time: 10:58 Progress Note Radiographic and CT exam of the pelvis and thoracic and cervical spine and head failed to demonstrate any evidence of acute pathology. I discussed the findings with the patient and caregiver. I asked that they follow up closely with their physician on Thursday. Tylenol for pain was recommended. I asked that they return if he had a further problems or questions. Departure Impression Primary Impression: Fall Qualified Codes: W19.XXXA - Unspecified fall, initial encounter Disposition: HOME, SELF-CARE Condition: Unchanged Departure-Patient Inst. Decision time for Depature: 11:00 Referrals: SAPNA PATEL DO (PCP/Family) Primary Care Physician Add. Discharge Instructions: Close follow-up with your Dr. on Thursday. Tylenol for pain. Return if any problems or questions. All discharge instructions reviewed with patient and/or family. Voiced understanding. ROMEO CARRANZA MD Jul 02, 2019 10:35
--- NOTE | 2019-07-02 10:44 | Diagnostic Imaging Report ---
PROCEDURE: CT thoracic spine without contrast. TECHNIQUE: Multiple axial computerized tomography images were obtained from the base of the thoracic spine to the vertex without intravenous contrast. Auto Exposure Controls were utilized during the CT exam to meet ALARA standards for radiation dose reduction. INDICATION: Fall with mid back pain. COMPARISON: None. DISCUSSION: Mild dextroscoliosis. The vertebral bodies are otherwise normal in alignment and stature. No fracture or subluxation identified. No significant degenerative disc disease. The paraspinal soft tissues are unremarkable. IMPRESSION: 1. Negative thoracic spine CT. Dictated by: Dictated on workstation # [id number]
--- NOTE | 2019-07-02 10:45 | Diagnostic Imaging Report ---
EXAMINATION: CT head and CT cervical spine without contrast. TECHNIQUE: Multiple contiguous axial images were obtained through the brain and cervical spine without the use of intravenous contrast. Sagittal and coronal reformations through the cervical spine were then performed. All CT scans use one or more of the following dose optimizing techniques: automated exposure control, MA and/or KvP adjustment based on a patient size and exam type, or iterative reconstruction. HISTORY: Fall COMPARISON: 03/02/2019 FINDINGS: The hernandez-white matter differentiation is normal. No mass effect or midline shift. There is age related cerebral atrophy with ex vacuo dilation of the ventricles. Periventricular white matter hypoattenuation is in keeping with chronic small vessel ischemic changes. Basilar cisterns are patent. There are no intra- or extra-axial fluid collections. There is no intracranial hemorrhage. The orbits are normal. Paranasal sinuses are normal. Mastoid air cells are clear. No soft tissue abnormality is seen. No osseus lesions or fractures are seen. The alignment of the cervical spine is normal. No fracture is seen. Vertebral body heights are normal. The craniocervical junction is normal. There is mild multilevel disc and uncovertebral arthropathy. There is no osseus spinal canal stenosis. No soft tissue abnormality is seen in the neck. Limited views of the superior thorax are normal. IMPRESSION: 1. No acute intracranial abnormality. 2. No cervical spine fracture. Dictated by: Dictated on workstation # [id number]
[2019-07-02] MEDS ORDERED: ACETAMINOPHEN 500 MG TAB (TYLENOL) ONE (11:06)
[2019-07-02 11:15] VITALS: BP 160/100
[2019-07-02] MEDS ORDERED: ACETAMINOPHEN 500 MG TAB (TYLENOL) PO PRN (11:15)
== END 2019-07-02 11:16 | disposition home or self-care (01) ==
LOC: EDUNIT# 09:50 → ER 09:52
DX: M54.2 Cervicalgia (principal); M54.6 Pain in thoracic spine; R10.2 Pelvic and perineal pain; I10 Essential (primary) hypertension; E03.9 Hypothyroidism, unspecified; F41.9 Anxiety disorder, unspecified; R40.2142 Coma scale, eyes open, spontaneous, at arrival to emergency department; R40.2252 Coma scale, best verbal response, oriented, at arrival to emergency department; R40.2362 Coma scale, best motor response, obeys commands, at arrival to emergency department; Z86.73 Personal history of transient ischemic attack (TIA), and cerebral infarction without residual deficits; Z87.442 Personal history of urinary calculi; Z88.1 Allergy status to other antibiotic agents; Z87.891 Personal history of nicotine dependence; W19.XXXA Unspecified fall, initial encounter; Y92.009 Unspecified place in unspecified non-institutional (private) residence as the place of occurrence of the external cause
CPT/HCPCS: 70450; 72125; 72128; 73523

== ENCOUNTER 2020-01-03 10:45 | Emergency (ER) | payer MEDICARE, MEDICAID ==
[~2020-01-03] VITALS: Ht 187.9 cm; Wt 77.2 kg
[2020-01-03 11:13] LABS: BASOPHILS % (AUTO) 1 % (0-10); EOSINOPHILS % (AUTO) 1 % (0-10); HEMATOCRIT 39 % (40-54); HEMOGLOBIN 13.1 G/DL (13.3-17.7); LYMPHOCYTES # (AUTO) 1.2 X 10^3 (1.0-4.0); LYMPHOCYTES % (AUTO) 28 % (12-44); MEAN CORPUSCULAR HEMOGLOBIN 30 PG (25-34); MEAN CORPUSCULAR HGB CONC 34 G/DL (32-36); MEAN CORPUSCULAR VOLUME 88 FL (80-99); MEAN PLATELET VOLUME 10.9 FL (7.4-10.4); MONOCYTES # (AUTO) 0.3 X 10^3 (0.0-1.0); MONOCYTES % (AUTO) 8 % (0-12); NEUTROPHILS # (AUTO) 2.7 X 10^3 (1.8-7.8); NEUTROPHILS % (AUTO) 63 % (42-75); PLATELET COUNT 197 10^3/uL (130-400); RED CELL DISTRIBUTION WIDTH 13.8 % (10.0-14.5); WHITE BLOOD COUNT 4.3 10^3/uL (4.3-11.0)
[2020-01-03] MEDS ORDERED: DILT180C54 (11:13)
[2020-01-03] MEDS ORDERED: DONE10TA41 (11:13)
[2020-01-03] MEDS ORDERED: CLOP75TA28 (11:13)
[2020-01-03 11:15] LABS: BILIRUBIN,URINE NEGATIVE (NEGATIVE); CLARITY,URINE SL CLOUDY; COLOR,URINE YELLOW; GLUCOSE, URINE (UA) NEGATIVE (NEGATIVE); KETONES,URINE NEGATIVE (NEGATIVE); LEUKOCYTE ESTERASE ,URINE NEGATIVE (NEGATIVE); NITRITE,URINE NEGATIVE (NEGATIVE); PROTEIN,URINE NEGATIVE (NEGATIVE)
[2020-01-03] MEDS ORDERED: amLODIPine 5 MG (NORVASC) TAB PO ONE ×2 (11:15→13:00)
--- NOTE | 2020-01-03 11:15 | ED General ---
General Chief Complaint: Dizziness/Syncope Stated Complaint: WEAKNESS Nursing Triage Note: TO ED PER EMS REPORTS WAS AT S[facility] HOUSE A [facility] PASSED OUT WAS TAKEN TO [facility] WHERE HE SPENT A WEEK FOR BEING DIZZY AND WEEK CON'T TO BE DIZZY AND WEAK.TALKED WITH HOME HEALTH TOLD HIM TO COME TO ED REPORTS THAT HE IS ONLY DIZZY WHEN HE IS WALKING. Nursing Sepsis Screen: No Definite Risk Source of Information: Patient Exam Limitations: No Limitations History of Present Illness Date Seen by Provider: Jan 03, 2020 Time Seen by Provider: 11:13 Initial Comments To ER with general weakness, slight nausea, Dizziness upon standing. He was taken from the hospital last week, believes he had a stroke but has no known deficit. Timing/Duration: 1-2 Days Severity: Moderate Associated Systoms: Nausea/Vomiting Allergies and Home Medications Allergies Coded Allergies: cephalexin (Unverified Allergy, Mild, 09/03/09) nut - unspecified (Verified Allergy, Unknown, 01/03/20) Home Medications Amlodipine Besylate 5 Mg Tablet, 5 MG PO DAILY, (Reported) Cyanocobalamin 1,000 Mcg/Ml Inj, 1,000 MCG IM MONTHLY, (Reported) Ergocalciferol (Vitamin D2) 50,000 Unit Capsule, 50,000 UNITS PO Mo, (Reported) Fexofenadine HCl 180 Mg Tablet, 180 MG PO DAILY PRN for ALLERGIES, (Reported) Ondansetron 4 Mg Tab.rapdis, 4 MG PO Q4H Prescribed by: CATHIE HAIDER on 03/02/19 1416 Patient Home Medication List Home Medication List Reviewed: Yes Review of Systems Review of Systems Constitutional: see HPI EENTM: see HPI Respiratory: no symptoms reported Genitourinary: no symptoms reported Musculoskeletal: no symptoms reported Skin: no symptoms reported Psychiatric/Neurological: No Symptoms Reported Hematologic/Lymphatic: No Symptoms Reported Immunological/Allergic: no symptoms reported Past Fmpqqld-Fiorpl-Tfjqsc Hx Patient Social History Alcohol Use: Denies Use Recreational Drug Use: No Smoking Status: Never a Smoker Former Smoker, Quit: November 30, 1973 2nd Hand Smoke Exposure: No Recent Foreign Travel: No Contact w/Someone Who Travel: No Recent Infectious Disease Expo: No Recent Hopitalizations: No Immunizations Up To Date Tetanus Booster (TDap): Less than 5yrs Date of Pneumonia Vaccine: May 13, 2010 Seasonal Allergies Seasonal Allergies: No Past Medical History Surgeries: Yes (ANKLE SURGERY; SCAR NOTED TO LEFT BREAST AREA; LITHOTRIPSY/ESWL) Gallbladder, Orthopedic, Renal Respiratory: No Cardiac: Yes (SVT) Hypertension, Irregular Heartbeat, Palpitations 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; PARESTHESIAS ) TIA Reproductive Disorders: No Genitourinary: Yes (ESWL/LITHOTRIPSY) Bladder Infection, Kidney Stones Gastrointestinal: Yes (PANCREATITIS WITH PARALYTIC ILEUS, DELIRIUM 04/29/18) Pancreatitis, Gall Bladder Disease Musculoskeletal: Yes (ANKLE SURGERY) Endocrine: Yes Hypothyroidsim HEENT: No Cancer: No Psychosocial: Yes Anxiety Integumentary: No Blood Disorders: No Physical Exam Vital Signs Vital Signs - First Documented 01/03/20 10:45 Temp 36.7 Pulse 66 Resp 18 B/P (MAP) 198/100 (132) Pulse Ox 96 Capillary Refill : Less Than 3 Seconds Height, Weight, BMI Height: 6'2.00" Weight: 180lbs. 0oz. 81.067532nc; 21.00 BMI Method:Stated General Appearance: No Apparent Distress, WD/WN Eyes: Bilateral Eye Normal Inspection, Bilateral Eye PERRL, Bilateral Eye EOMI HEENT: PERRL/EOMI, TMs Normal Neck: Full Range of Motion, Normal Inspection Respiratory: No Accessory Muscle Use, No Respiratory Distress Gastrointestinal: Normal Bowel Sounds, Non Tender, Soft Extremity: Normal Capillary Refill, Normal Inspection Neurologic/Psychiatric: Alert, Oriented x3 Skin: Normal Color, Warm/Dry Progress/Results/Core Measures Suspected Sepsis Recent Fever Within 48 Hours: No Infection Criteria Present: None New/Unexplained Altered Menta: No Sepsis Screen: No Definite Risk SIRS Temperature: Pulse: 66 Respiratory Rate: 18 Laboratory Tests 01/03/20 10:49: White Blood Count 4.3 Blood Pressure 198 /100 Mean: 132 Laboratory Tests 01/03/20 10:49: Creatinine 0.83, INR Comment 0.9, Platelet Count 197, Total Bilirubin 0.5 Results/Orders Lab Results Laboratory Tests Test 01/03/20 10:49 01/03/20 11:01 Range/Units White Blood Count 4.3 4.3-11.0 10^3/uL Red Blood Count 4.43 4.35-5.85 10^6/uL Hemoglobin 13.1 L 13.3-17.7 G/DL Hematocrit 39 L 40-54 % Mean Corpuscular Volume 88 80-99 FL Mean Corpuscular Hemoglobin 30 25-34 PG Mean Corpuscular Hemoglobin Concent 34 32-36 G/DL Red Cell Distribution Width 13.8 10.0-14.5 % Platelet Count 197 130-400 10^3/uL Mean Platelet Volume 10.9 H 7.4-10.4 FL Neutrophils (%) (Auto) 63 42-75 % Lymphocytes (%) (Auto) 28 12-44 % Monocytes (%) (Auto) 8 0-12 % Eosinophils (%) (Auto) 1 0-10 % Basophils (%) (Auto) 1 0-10 % Neutrophils # (Auto) 2.7 1.8-7.8 X 10^3 Lymphocytes # (Auto) 1.2 1.0-4.0 X 10^3 Monocytes # (Auto) 0.3 0.0-1.0 X 10^3 Eosinophils # (Auto) 0.0 0.0-0.3 10^3/uL Basophils # (Auto) 0.0 0.0-0.1 10^3/uL Prothrombin Time 12.3 12.2-14.7 SEC INR Comment 0.9 0.8-1.4 Sodium Level 139 135-145 MMOL/L Potassium Level 4.0 3.6-5.0 MMOL/L Chloride Level 106 98-107 MMOL/L Carbon Dioxide Level 22 21-32 MMOL/L Anion Gap 11 5-14 MMOL/L Blood Urea Nitrogen 10 7-18 MG/DL Creatinine 0.83 0.60-1.30 MG/DL Estimat Glomerular Filtration Rate > 60 BUN/Creatinine Ratio 12 Glucose Level 121 H 70-105 MG/DL Calcium Level 9.4 8.5-10.1 MG/DL Corrected Calcium 9.2 8.5-10.1 MG/DL Total Bilirubin 0.5 0.1-1.0 MG/DL Aspartate Amino Transf (AST/SGOT) 23 5-34 U/L Alanine Aminotransferase (ALT/SGPT) 20 0-55 U/L Alkaline Phosphatase 91 40-136 U/L Troponin I < 0.028 <0.028 NG/ML Total Protein 7.4 6.4-8.2 GM/DL Albumin 4.3 3.2-4.5 GM/DL Urine Color YELLOW Urine Clarity SL CLOUDY Urine pH 7.0 5-9 Urine Specific Sidman 1.015 L 1.016-1.022 Urine Protein NEGATIVE NEGATIVE Urine Glucose (UA) NEGATIVE NEGATIVE Urine Ketones NEGATIVE NEGATIVE Urine Nitrite NEGATIVE NEGATIVE Urine Bilirubin NEGATIVE NEGATIVE Urine Urobilinogen 0.2 < = 1.0 MG/DL Urine Leukocyte Esterase NEGATIVE NEGATIVE Urine RBC (Auto) NEGATIVE NEGATIVE Urine RBC NONE /HPF Urine WBC NONE /HPF Urine Squamous Epithelial Cells RARE /HPF Urine Crystals NONE /LPF Urine Bacteria NEGATIVE /HPF Urine Casts NONE /LPF Urine Mucus NEGATIVE /LPF Urine Culture Indicated NO My Orders Orders - [employer] APRN Cbc With Automated Diff (01/03/20 11:07) Comprehensive Metabolic Panel (01/03/20 11:07) Ua Culture If Indicated (01/03/20 11:07) Ed Iv/Invasive Line Start (01/03/20 11:07) Troponin I (01/03/20 11:07) Ekg Tracing (01/03/20 11:07) Ct Head Wo (01/03/20 11:07) Chest 1 View, Ap/Pa Only (01/03/20 11:07) Protime With Inr (01/03/20 11:07) Amlodipine Tablet (Norvasc Tablet) (01/03/20 11:15) Lr 1000 Ml Wide Open (01/03/20 11:30) Vital Signs/I&O 01/03/20 01/03/20 10:45 11:30 Temp 36.7 Pulse 66 60 Resp 18 18 B/P (MAP) 198/100 (132) 147/79 (101) Pulse Ox 96 93 Capillary Refill : Less Than 3 Seconds Blood Pressure Mean: 132 Departure Impression Primary Impression: General weakness Disposition: 01 HOME, SELF-CARE Condition: Stable Departure-Patient Inst. Decision time for Depature: 11:41 Referrals: SAPNA PATEL DO (PCP/Family) Primary Care Physician Patient Instructions: Generalized Weakness (DC) Copy Copies To 1: SAPNA PATEL PETER J APRN Jan 03, 2020 11:14
[2020-01-03 11:16] LABS: INR 0.9 (0.8-1.4); PROTHROMBIN TIME PATIENT 12.3 SEC (12.2-14.7)
[2020-01-03 11:19] LABS: ALBUMIN 4.3 GM/DL (3.2-4.5); CHLORIDE 106 MMOL/L (98-107); SODIUM 139 MMOL/L (135-145)
[2020-01-03 11:20] LABS: CALCIUM 9.4 MG/DL (8.5-10.1)
[2020-01-03 11:21] LABS: GLUCOSE 121 MG/DL (70-105)
[2020-01-03 11:22] LABS: TOTAL PROTEIN 7.4 GM/DL (6.4-8.2)
[2020-01-03 11:23] LABS: BILIRUBIN,TOTAL 0.5 MG/DL (0.1-1.0); CARBON DIOXIDE 22 MMOL/L (21-32)
[2020-01-03 11:25] LABS: ALKALINE PHOSPHATASE 91 U/L (40-136); CREATININE SERUM 0.83 MG/DL (0.60-1.30); GFR ESTIMATED > 60
[2020-01-03 11:26] LABS: BUN/CREATININE RATIO 12
[2020-01-03 11:26] LABS: BACTERIA,URINE NEGATIVE /HPF; SQUAMOUS EPITHELIAL CELL,UR RARE /HPF
--- NOTE | 2020-01-03 11:27 | NUR ---
PATIENT REPORTS HAS NOT EATEN BREAKFAST AND UNSURE WHAT HE ATE LAST NIGHT . REPORTS HE IS TAKING MEMORY MEDS.
[2020-01-03 11:28] LABS: ALANINE AMINOTRANSFERASE 20 U/L (0-55)
[2020-01-03 11:30] VITALS: BP 147/79
[2020-01-03] MEDS ORDERED: LACTATED RINGERS 1,000 ML IV SCH (11:30)
--- NOTE | 2020-01-03 11:47 | Diagnostic Imaging Report ---
PROCEDURE: CT head without contrast. TECHNIQUE: Multiple contiguous axial images were obtained through the brain without the use of intravenous contrast. Auto Exposure Controls were utilized during the CT exam to meet ALARA standards for radiation dose reduction. INDICATION: Syncopal episode one week ago with hospitalization for dizziness. Continued dizziness and weakness. CORRELATION: 07/02/2019 FINDINGS: There are diffuse atrophic changes with prominence of the ventricles and sulci. There are scattered areas of decreased attenuation, nonspecific but likely changes of chronic small vessel ischemic disease. There is otherwise normal hernandez-white differentiation. No abnormal areas of attenuation to suggest edema from ischemia. Mild intracranial vascular calcification. No hyperdense intravascular sign. There is no midline shift or mass effect. No evidence for acute intracranial hemorrhage or abnormal extra-axial fluid collection. Bony calvarium is intact. Paranasal sinuses are clear. Mastoid air cells also appear clear. IMPRESSION: 1. No CT evidence for acute intracranial abnormality. 2. Age-related atrophic changes with changes of small vessel ischemic disease. Dictated by: Dictated on workstation # [id number]
--- OUTSIDE RECORDS SUMMARY | 2020-01-03 11:59 | XMS REPORT | Continuity of Care Document ---
Author Organization Unknown Address Unknown Phone Unavailable Allergies Active Description Code Type Severity Reaction Onset Reported/Identified Relationship to Patient Clinical Status Yes CEPHALEXIN CEPHALEXIN MILD Yes OTHER OTHER MODERATE Yes PEANUTS PEANUTS MODERATE Yes CEPHALEXIN MILD MILD Yes CEPHALEXIN MILD OTHER Yes OTHER MODERATE MODERATE Yes OTHER MODERATE RESPIRATORY - COUGHI Yes PEANUTS MODERATE MODERATE Yes PEANUTS MODERATE RESPIRATORY DISTRESS Yes cephalexin [id number] Drug Allerg y Mild N/A 09/03/2009 Medications Medication Packaging Start Date St op Date Route Dosage Sig FAMOTIDINE VIAL INJ 20 MG/2CC (PEPCID VIAL ) MG 06/18/2016 06/18/2016 ONCE&0439 DIPHENHYDRAMINE VIAL INJ 50 MG/CC (BENADRYL VIAL) MG 06/18/2016 06/18/2016 PRN ONCE METHYLPREDNISOLONE VIAL INJ 125 MG/2CC (SOLU-MEDROL VIAL) MG 06/18/2016 06/18/2016 ONCE&0439 FAMOTIDINE TAB 20 MG (PEPCID) MG 06/29/2016 06/29/2016 ONCE&2130 DIPHENHYDRAMINE TAB 25 MG (BENADRYL) MG 06/29/2016 06/29/2016 PRN ONCE METHYLPREDNISOLONE VIAL INJ 125 MG/2CC (SOLU-MEDROL VIAL) MG 06/29/2016 06/29/2016 ONCE&2130 PREDNISONE TAB 10 MG (DELTASONE) MG 06/29/2016 06/29/2016 ONCE&2245 PREDNISONE TAB 10 MG (DELTASONE) MG 06/30/2016 06/30/2016 ONCE&0036 FEXOFENADINE TAB 180 MG (JESSE) MG 06/30/2016 07/06/2016 Daily&0900 ACETAMINOPHEN TAB 500 MG (TYLENOL) MG 07/02/2016 07/02/2016 PRN ONCE ACETAMINOPHEN ORAL TABLET 325mg(Tylenol) MG 07/02/2016 07/12/2016 PRN EVERY 4 Hour NORMAL SALINE W/KCL 40MEQ IV 40 MEQ (SALINE IV BAG [id number]) MLS 07/02/2016 07/09/2016 CONTINUOUSEVERY 0 Hour POTASSIUM CHLORIDE TAB 20 MEQ (K-DUR) MEQ 07/02/2016 07/09/2016 BID&0800,2000 RANITIDINE TAB 150 MG (ZANTAC) MG 07/02/2016 07/08/2016 QHS&2100 IPRATROPIUM/ALBUTEROL INH SO LN INH 0 (DUO-NEB INH SOLN) MLS 07/02/2016 07/09/2016 QID&0600,1100,1600,2100 LEVOFLOXACIN PREMIX IV BAG I NJ 750 MG (LEVAQUIN PREMIX IV BAG) MG 07/03/2016 07/09/2016 Daily&0900 AMLODIPINE TAB 5 MG (NORVASC) MG 07/03/2016 07/09/2016 Daily&0900 PANTOPRAZOLE TAB 20 MG (PROTONIX) MG 07/03/2016 07/09/2016 Daily&0900 LEVOFLOXACIN PREMIX IV BAG I NJ 750 MG (LEVAQUIN PREMIX IV BAG) MG 07/03/2016 07/09/2016 Daily&1800 FAMOTIDINE VIAL INJ 20 MG/2CC (PEPCID VIAL ) MG 07/04/2016 07/04/2016 ONCE&1151 METHYLPREDNISOLONE VIAL INJ 125 MG/2CC (SOLU-MEDROL VIAL) MG 07/04/2016 07/04/2016 ONCE&1151 FEXOFENADINE TAB 180 MG (JESSE) MG 07/04/2016 07/04/2016 ONCE&1336 HYDROXYZINE TAB 25 MG (ATARAX) MG 07/04/2016 07/04/2016 PRN ONCE FAMOTIDINE VIAL INJ 20 MG/2CC (PEPCID VIAL ) MG 10/15/2016 10/15/2016 ONCE&0828 METHYLPREDNISOLONE VIAL INJ 125 MG/2CC (SOLU-MEDROL VIAL) MG 10/15/2016 10/15/2016 ONCE&0829 GI COCKTAIL SINGLE DOSE LIQ (GRASSHOPPER) ML 01/11/2017 01/11/2017 ONCE&1526 FAMOTIDINE VIAL INJ 20 MG/2CC (PEPCID VIAL ) MG 01/30/2017 01/30/2017 ONCE&1025 DIPHENHYDRAMINE VIAL INJ 50 MG/CC (BENADRYL VIAL) MG 01/30/2017 01/30/2017 PRN ONCE METHYLPREDNISOLONE VIAL INJ 125 MG/2CC (SOLU-MEDROL VIAL) MG 01/30/2017 01/30/2017 ONCE&1025 DIPHENHYDRAMINE VIAL INJ 50 MG/CC (BENADRYL VIAL) MG 02/01/2017 02/01/2017 PRN ONCE AMLODIPINE TAB 5 MG (NORVASC) MG 02/02/2017 02/02/2017 EVERY 0 Hour&2327 FAMOTIDINE VIAL INJ 20 MG/2CC (PEPCID VIAL ) MG 02/02/2017 02/02/2017 ONCE&2338 METHYLPREDNISOLONE VIAL INJ 125 MG/2CC (SOLU-MEDROL VIAL) MG 02/02/2017 02/02/2017 ONCE&2338 RANITIDINE TAB 150 MG (ZANTAC) MG 02/03/2017 02/09/2017 BID&0800,2000 METHYLPREDNISOLONE VIAL INJ 125 MG/2CC (SOLU-MEDROL VIAL) MG 02/06/2017 02/06/2017 ONCE&1133 METHYLPREDNISOLONE VIAL INJ 125 MG/2CC (SOLU-MEDROL VIAL) MG 02/06/2017 02/06/2017 ONCE&1136 RANITIDINE TAB 150 MG (ZANTAC) MG 02/07/2017 02/14/2017 BID&0800,2000 AMLODIPINE TAB 10 MG (NORVASC) MG 02/07/2017 02/07/2017 ONCE&2006 GI COCKTAIL SINGLE DOSE LIQ (GRASSHOPPER) ML 02/17/2017 02/17/2017 ONCE&1043 KETOROLAC VIAL INJ 30 MG/CC (TORADOL VIAL) MG 03/08/2017 03/08/2017 ONCE&1545 KETOROLAC VIAL INJ 30 MG/CC (TORADOL VIAL) MG 07/09/2017 07/09/2017 ONCE&1535 METHYLPREDNISOLONE VIAL INJ 125 MG/2CC (SOLU-MEDROL VIAL) MG 11/19/2017 11/19/2017 ONCE&0447 FAMOTIDINE VIAL INJ 20 MG/2CC (PEPCID VIAL ) MG 04/22/2018 04/22/2018 ONCE&0730 DIPHENHYDRAMINE VIAL INJ 50 MG/CC (BENADRYL VIAL) MG 04/22/2018 04/22/2018 ONCE&0730 METHYLPREDNISOLONE VIAL INJ 125 MG/2CC (SOLU-MEDROL VIAL) MG 04/22/2018 04/22/2018 ONCE&0730 AMLODIPINE TAB 5 MG (NORVASC) MG 04/22/2018 04/22/2018 ONCE&0905 METOPROLOL TAB 25 MG (LOPRESSOR) MG 04/22/2018 04/22/2018 ONCE&0905 NORMAL SALINE 1000CC IV BAG INJ 0.9 % (NS 1000CC IV BAG) ml 04/29/2018 04/29/2018 ONCE&2300 FENTANYL VIAL INJ 250 MCG/5CC MCG 04/29/2018 05/02/2018 PRN Q2H ONDANSETRON VIAL INJ 4 MG/2CC (ZOFRAN 2CC VIAL) MG 04/30/2018 05/07/2018 PRN Q4H FENTANYL INJ 100 MCG/2CC VIAL MCG 04/30/2018 05/03/2018 PRN Q2H NORMAL SALINE 1000CC IV BAG INJ 0.9 % (NS 1000CC IV BAG) ml 04/30/2018 05/15/2018 CONTINUOUSEVERY 0 Hour Flu vacc [id number] Persons 6 mo T older(PF) IM syringe/vial(Fluarix QUAD) Adult ML 04/30/2018 018 ONCE&062 3 PNEUMONIA VACCINE INJ (PREVNAR-13) ml 04/30/2018 04/30/2018 ONCE&0623 ENALAPRIL VIAL INJ 1.25 MG/CC (VASOTEC VIA L) MG 04/30/2018 04/30/2018 PRN ONCE PANTOPRAZOLE VIAL INJ 40 MG (PROTONIX IV) MG 04/30/2018 05/09/2018 Daily&0900 AMLODIPINE TAB 5 MG (NORVASC) MG 04/30/2018 05/06/2018 Daily&0900 Metoprolol IV soln 5mg/5cc vial (Lopressor ) MG 04/30/2018 04/30/2018 ONCE&1730 Piperacillin-tazobactam 3.37 5 Gm IV recon soln (Zosyn) GM 04/30/2018 05/07/2018 Q6H&0000,0600,1200,1800 LACTATED RINGERS 500CC IV BAG INJ ml 04/30/2018 04/30/2018 PRN ONCE NAPROXEN TAB 500 MG (NAPROSYN) MG 04/30/2018 04/30/2018 PRN ONCE FEXOFENADINE TAB 180 MG (JESSE) MG 04/30/2018 04/30/2018 ONCE&0900 AMLODIPINE TAB 5 MG (NORVASC) MG 04/30/2018 05/07/2018 BID&0800,2000 ENOXAPARIN SYRINGE INJ 40 MG (LOVENOX SYRI NGE) MG 04/30/2018 05/09/2018 Daily&2100 CLINDAMYCIN CAP 150 MG (CLEOCIN) MG 04/30/2018 05/07/2018 Q8H&0600,1400,2200 Metoprolol IV soln 5mg/5cc vial (Lopressor ) MG 04/30/2018 05/07/2018 PRN Q4H PREDNISONE TAB 20 MG (DELTASONE) MG 05/01/2018 05/07/2018 Daily&0900 RANITIDINE TAB 150 MG (ZANTAC) MG 09/24/2018 09/24/2018 ONCE&0705 DEXAMETHASONE VIAL INJ 4 MG/CC (DECADRON V IAL) MG 09/24/2018 09/24/2018 ONCE&0705 DIPHENHYDRAMINE VIAL INJ 50 MG/CC (BENADRYL VIAL) MG 09/24/2018 09/24/2018 PRN ONCE METHYLPREDNISOLONE VIAL INJ 40 MG/CC (DEPO-MEDROL VIAL) MG 09/24/2018 09/24/2018 ONCE&0705 METHYLPREDNISOLONE VIAL INJ 125 MG/2CC (SOLU-MEDROL VIAL) MG 11/25/2018 11/25/2018 ONCE&0706 FAMOTIDINE VIAL INJ 20 MG/2CC (PEPCID VIAL ) MG 11/25/2018 11/25/2018 ONCE&0707 DIPHENHYDRAMINE VIAL INJ 50 MG/CC (BENADRYL VIAL) MG 11/25/2018 11/25/2018 ONCE&0707 DEXAMETHASONE VIAL INJ 10 MG/CC (DECADRON VIAL) MG 11/25/2018 11/25/2018 ONCE&0905 FAMOTIDINE VIAL INJ 20 MG/2CC (PEPCID VIAL ) MG 12/27/2018 12/27/2018 ONCE&0845 DIPHENHYDRAMINE VIAL INJ 50 MG/CC (BENADRYL VIAL) MG 12/27/2018 12/27/2018 ONCE&0845 METHYLPREDNISOLONE VIAL INJ 125 MG/2CC (SOLU-MEDROL VIAL) MG 12/27/2018 12/27/2018 ONCE&0905 FAMOTIDINE VIAL INJ 20 MG/2CC (PEPCID VIAL ) MG 01/04/2019 01/04/2019 ONCE&1015 DIPHENHYDRAMINE VIAL INJ 50 MG/CC (BENADRYL VIAL) MG 01/04/2019 01/04/2019 ONCE&1015 METHYLPREDNISOLONE VIAL INJ 125 MG/2CC (SOLU-MEDROL VIAL) MG 01/04/2019 01/04/2019 ONCE&1015 ACETAMINOPHEN ORAL TABLET 325mg(Tylenol) MG 03/16/2019 03/16/2019 PRN ONCE TETANUS,DIPTH,PERT ADULT INJ 0 (ADACEL SYRINGE) ml 03/16/2019 03/16/2019 ONCE&2014 NORMAL SALINE 1000CC IV BAG INJ 0.9 % (NS 1000CC IV BAG) ml 03/16/2019 03/16/2019 ONCE&2014 NORMAL SALINE 250CC IV BAG I NJ 0.9 % (NS 250CC IV BAG) ml 03/16/2019 03/16/2019 ONCE&2101 Piperacillin-tazobactam 3.37 5 Gm IV recon soln (Zosyn) 03/16/2019 03/16/2019 ONCE&2101 ACETAMINOPHEN ORAL TABLET 325mg(Tylenol) MG 03/16/2019 04/15/2019 PRN EVERY 6 Hour NORMAL SALINE 1000CC IV BAG INJ 0.9 % (NS 1000CC IV BAG) ml 03/16/2019 03/31/2019 CONTINUOUSEVERY 0 Hour IBUPROFEN TAB 600 MG (MOTRIN) MG 03/16/2019 03/23/2019 PRN Q6H Piperacillin-tazobactam 3.37 5 Gm IV recon soln (Zosyn) 03/17/2019 03/21/2019 EVERY 6 Hour&0307,0907,1507, 2107 Piperacillin-tazobactam 3.37 5 Gm IV recon soln (Zosyn) 03/17/2019 03/21/2019 EVERY 6 Hour&0430,1030,1630, 2230 Vancomycin-water IV piggyback 1 Gm Premix 03/17/2019 03/26/2019 Q12H&0900,2100 RANITIDINE TAB 150 MG (ZANTAC) MG 03/17/2019 03/23/2019 Daily&0900 FEXOFENADINE TAB 180 MG (JESSE) MG 03/17/2019 03/21/2019 Daily&0900 Diltiazem extended release 180mg cap (CARD IZEM) MG 03/17/2019 03/21/2019 Daily&0900 PANTOPRAZOLE VIAL INJ 40 MG (PROTONIX IV) MG 03/17/2019 03/26/2019 Daily&0900 NORMAL SALINE 250CC IV BAG I NJ 0.9 % (NS 250CC IV BAG) ml 03/17/2019 03/21/2019 EVERY 12 Hour&0901,2101 DIPHENHYDRAMINE VIAL INJ 50 MG/CC (BENADRYL VIAL) MG 04/12/2019 04/12/2019 ONCE&1725 PREDNISONE TAB 20 MG (DELTASONE) MG 04/12/2019 04/12/2019 ONCE&1725 DIPHENHYDRAMINE VIAL INJ 50 MG/CC (BENADRYL VIAL) MG 05/26/2019 05/26/2019 ONCE&0551 FAMOTIDINE VIAL INJ 20 MG/2CC (PEPCID VIAL ) MG 05/26/2019 05/26/2019 ONCE&0721 FAMOTIDINE VIAL INJ 20 MG/2CC (PEPCID VIAL ) MG 11/11/2019 11/11/2019 ONCE&0501 FEXOFENADINE TAB 180 MG (JESSE) MG 11/11/2019 11/11/2019 ONCE&0501 DIPHENHYDRAMINE VIAL INJ 50 MG/CC (BENADRYL VIAL) 11/11/2019 11/11/2019 PRN ONCE Problems Date Dx Coded Attending Type Code Diagnosis Diagnosed By 09/11/2008 Ot 592.0 04/23/2016 A 529.8 OTHE R SPECIFIED CONDITIONS OF THE TONGUE 04/23/2016 A K14.8 OTHE R DISEASES OF TONGUE 04/30/2016 A 535.00 ACU TE GASTRITIS, WITHOUT MENTION OF HEMORRHAGE 04/30/2016 A K29.00 ACU TE GASTRITIS 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 04/30/2016 W 535.10 04/30/2016 W 536.2 PERS ISTENT VOMITING 04/30/2016 W 552.3 DIAP HRAGMATIC HERNIA WITH OBSTRUCTION 04/30/2016 W 789.06 ABD OMINAL PAIN, EPIGASTRIC 04/30/2016 W K29.30 CHR ONIC SUPERFICIAL GASTRITIS 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 04/30/2016 W K44.9 DIAP HRAGMATIC HERNIA WITHOUT OBSTRUCTION OR GANGRENE 04/30/2016 W R10.13 EPI GASTRIC PAIN 04/30/2016 W R11.10 VOM ITING, UNSPECIFIED 05/15/2016 W 995.1 ANABELA ONEUROTIC EDEMA, NOT ELSEWHERE CLASSIFIED 05/15/2016 W 995.1 ANABELA ONEUROTIC EDEMA, NOT ELSEWHERE CLASSIFIED 05/15/2016 W T78.3XXA A NGIONEUROTIC EDEMA, INITIAL ENCOUNTER 06/18/2016 CrescencioPatrick ramirezssica A 995.1 ANGIONEUROTIC EDEMA, NOT ELSEWHERE CLASSIFIED 06/18/2016 CrescencioPatrickCasie A T78.3XX A ANGIONEUROTIC EDEMA, INITIAL ENCOUNTER 06/30/2016 Daniel Olivia 693.0 DERMATITIS DUE TO DRUGS AND MEDICINES TAKEN INTERNALLY 06/30/2016 Daniel Olivia 995.29 UNSPECIFIED ADVERSE EFFECT OF OTHER DRUG, MEDICINAL AND BIOLOGICAL SUBSTANCE 06/30/2016 Daniel Olivia L27.0 GENERALIZED SKIN ERUPTION DUE TO DRUGS AND MEDICAMENTS TAKEN INTERNALLY 06/30/2016 Daniel Olivia T48.4X5A ADVERSE EFFECT OF EXPECTORANTS, INITIAL ENCOUNTER 06/30/2016 Daniel Olivia 999.9 OTHER AND UNSPECIFIED COMPLICATIONS OF MEDICAL CARE, NOT ELSEWHERE CLASSIFIED 06/30/2016 Daniel Olivia T88.7XXA UNSPECIFIED ADVERSE EFFECT OF DRUG OR MEDICAMENT, INITIAL ENCOUNTER 06/30/2016 Daniel Olivia 782.1 RASH AND OTHER NONSPECIFIC SKIN ERUPTION 06/30/2016 Daniel Olivia R21 RASH AND OTHER NONSPECIFIC SKIN ERUPTION 07/02/2016 Negro Mcwilliams 276.8 HYPOPOTASSEMIA 07/02/2016 Negro Mcwilliams 486 PNEUMONIA, ORGANISM UNSPECIFIED 07/02/2016 Negro Mcwilliams J18.9 PNEUMONIA, UNSPECIFIED ORGANISM 07/02/2016 Negro Mcwilliams 276.8 HYPOPOTASSEMIA 07/02/2016 Negro Mcwilliams E87.6 HYPOKALEMIA 07/02/2016 Negro Mcwilliams 276.8 HYPOPOTASSEMIA 07/02/2016 Negro Mcwilliams E87.6 HYPOKALEMIA 07/03/2016 Negro Mcwilliams 272.4 OTHER AND UNSPECIFIED HYPERLIPIDEMIA 07/03/2016 Negro Mcwilliams 276.8 HYPOPOTASSEMIA 07/03/2016 Negro Mcwilliams 401.0 07/03/2016 Negro Mcwilliams W 530.81 ESOPHAGEAL REFLUX 07/03/2016 CharlesNegro daugherty W 780.60 07/03/2016 Negro Mcwilliams Michaela E78.5 HYPERLIPIDEMIA, UNSPECIFIED 07/03/2016 Negro Mcwilliams Michaela E87.6 HYPOKALEMIA 07/03/2016 CharlesNegro daugherty Michaela I10 ESSENTIAL (PRIMARY) HYPERTENSION 07/03/2016 Poppy Negro Michaela K21.9 GASTRO- ESOPHAGEAL REFLUX DISEASE WITHOUT ESOPHAGITIS 07/03/2016 Poppy Negro Michaela R50.9 FEVER, UNSPECIFIED 07/04/2016 Daniel Olivia 995.1 ANGIONEUROTIC EDEMA, NOT ELSEWHERE CLASSIFIED 07/04/2016 Daniel Olivia T78.3XXA ANGIONEUROTIC EDEMA, INITIAL ENCOUNTER 10/15/2016 Casie Prather 995.1 ANGIONEUROTIC EDEMA, NOT ELSEWHERE CLASSIFIED 10/15/2016 Casie Prather T78.3XX A ANGIONEUROTIC EDEMA, INITIAL ENCOUNTER 01/11/2017 Daniel Olivia 536.8 DYSPEPSIA AND OTHER SPECIFIED DISORDERS OF FUNCTION OF STOMACH 01/11/2017 Daniel Olivia 787.1 HEARTBURN 01/11/2017 Daniel Olivia K30 FUNCTIONAL DYSPEPSIA 01/11/2017 Daniel Olivia R12 HEARTBURN 01/30/2017 Mare Mack 995.1 ANGIONEUROTIC EDEMA, NOT ELSEWHERE CLASSIFIED 01/30/2017 Mare Mack T78.3XXA ANGIONEUROTIC EDEMA, INITIAL ENCOUNTER 02/01/2017 Mare Mack 528.5 DISEASES OF LIPS 02/01/2017 Mare Mack 988.9 TOXIC EFFECT OF UNSPECIFIED NOXIOUS SUBSTANCE EATEN FOOD 02/01/2017 Mare Mack K13.0 DISEASES OF LIPS 02/01/2017 Mare Mack T78.1XXA OTH ADVERSE FOOD REACTIONS, NOT ELSEWHERE CLASSIFIED, INIT 02/03/2017 ABEL DUMONT 995.1 ANGIONEUROTIC EDEMA, NOT ELSEWHERE CLASSIFIED 02/03/2017 ABEL DUMONT T78.3 XXA ANGIONEUROTIC EDEMA, INITIAL ENCOUNTER 02/06/2017 Daniel Olivia 995.1 ANGIONEUROTIC EDEMA, NOT ELSEWHERE CLASSIFIED 02/06/2017 Daniel Olivia T78.3XXA ANGIONEUROTIC EDEMA, INITIAL ENCOUNTER 02/07/2017 Daniel Olivia 401.0 MALIGNANT ESSENTIAL HYPERTENSION 02/07/2017 Daniel Olivia 668.81 OTHER COMPLICATIONS OF ANESTHESIA OR OTHER SEDATION IN LABOR AND DELIVERY, DELIVERED, WITH OR WITHOUT MENTION OF ANTEPARTUM CONDITION 02/07/2017 Daniel Olivia 784.0 HEADACHE 02/07/2017 Daniel Olivia I10 ESSENTIAL (PRIMARY) HYPERTENSION 02/07/2017 Daniel Olivia R51 HEADACHE 02/17/2017 [employer] 272.4 OTHER AND UNSPECIFIED HYPERLIPIDEMIA 02/17/2017 [employer] 401.0 MALIGNANT ESSENTIAL HYPERTENSION 02/17/2017 [employer] 789.02 ABDOMINAL PAIN, LEFT UPPER QUADRANT 02/17/2017 [employer] E78.5 HYPERLIPIDEMIA, UNSPECIFIED 02/17/2017 [employer] I10 ESSENTIAL (PRIMARY) HYPERTENSION 02/17/2017 [employer] R10.12 LEFT UPPER QUADRANT PAIN 03/08/2017 Daniel Olivia 840.9 SPRAIN OF UNSPECIFIED SITE OF SHOULDER AND UPPER ARM 03/08/2017 Daniel Olivia 848.8 OTHER SPECIFIED SITES OF SPRAINS AND STRAINS 03/08/2017 Daniel Olivia S29.011A STRAIN OF MUSCLE AND TENDON OF FRONT WALL OF THORAX, INIT 03/08/2017 Daniel Olivia S43.402A UNSPECIFIED SPRAIN OF LEFT SHOULDER JOINT, INITIAL ENCOUNTER 03/18/2017 Mare Mack 272.4 OTHER AND UNSPECIFIED HYPERLIPIDEMIA 03/18/2017 Mare Mack 401.9 UNSPECIFIED ESSENTIAL HYPERTENSION 03/18/2017 Mare Mack 787.01 NAUSEA WITH VOMITING 03/18/2017 Mare Mack 789.06 ABDOMINAL PAIN, EPIGASTRIC 03/18/2017 Mare Mack E78.5 HYPERLIPIDEMIA, UNSPECIFIED 03/18/2017 Mare Mack I10 ESSENTIAL (PRIMARY) HYPERTENSION 03/18/2017 Mare Mack R10.13 EPIGASTRIC PAIN 03/18/2017 Frederick Mare Sarina R11.2 NAUSEA WITH VOMITING, UNSPECIFIED 07/09/2017 Daniel Olivia 719.41 PAIN IN JOINT INVOLVING SHOULDER REGION 07/09/2017 Daniel Olivia 719.42 PAIN IN JOINT INVOLVING UPPER ARM 07/09/2017 Daniel Olivia 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 07/09/2017 Daniel Olivia M25.512 PAIN IN LEFT SHOULDER 07/09/2017 Daniel Olivia M25.522 PAIN IN LEFT ELBOW 07/09/2017 Daniel Olivia M50.123 CERVICAL DISC DISORDER AT C6-C7 LEVEL WITH RADICULOPATHY 07/10/2017 Daniel Olivia 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 07/10/2017 Daniel Olivia M54.12 RADICULOPATHY, CERVICAL REGION 11/19/2017 Dewayne Toro 995.1 ANGIONEUROTIC EDEMA, NOT ELSEWHERE CLASSIFIED 11/19/2017 Dewayne Toro T78.3XXA ANGIONEUROTIC EDEMA, INITIAL ENCOUNTER 03/13/2018 W 401.9 UNSP ECIFIED ESSENTIAL HYPERTENSION 03/13/2018 W I10 ESSENT IAL (PRIMARY) HYPERTENSION 04/22/2018 ABEL DUMONT 995.1 ANGIONEUROTIC EDEMA, NOT ELSEWHERE CLASSIFIED 04/22/2018 ABEL DUMONT T78.3 XXA ANGIONEUROTIC EDEMA, INITIAL ENCOUNTER 04/29/2018 Negro Mcwilliams 577.0 ACUTE PANCREATITIS 04/29/2018 Negro Mcwilliams K85.9 ACUTE PANCREATITIS, UNSPECIFIED 04/29/2018 Negro Mcwilliams W 577.0 ACUTE PANCREATITIS 04/29/2018 Negro Mcwilliams K85.9 ACUTE PANCREATITIS, UNSPECIFIED 04/29/2018 Negro Mcwilliams 577.0 ACUTE PANCREATITIS 04/29/2018 Negro Mcwilliams K85.9 ACUTE PANCREATITIS, UNSPECIFIED 04/29/2018 Negro Mcwilliams W 577.0 ACUTE PANCREATITIS 04/29/2018 Negro Mcwilliams K85.9 ACUTE PANCREATITIS, UNSPECIFIED 05/01/2018 Negro Mcwilliams 272.4 OTHER AND UNSPECIFIED HYPERLIPIDEMIA 05/01/2018 Negro Mcwilliams 276.8 HYPOPOTASSEMIA 05/01/2018 Negro Mcwilliams 401.0 MALIGNANT ESSENTIAL HYPERTENSION 05/01/2018 Negro Mcwilliams A 577.0 ACUTE PANCREATITIS 05/01/2018 Negro Mcwilliams E78.5 HYPERLIPIDEMIA, UNSPECIFIED 05/01/2018 Negro Mcwilliams E87.6 HYPOKALEMIA 05/01/2018 Negro Mcwilliams I10 ESSENTIAL (PRIMARY) HYPERTENSION 05/01/2018 Negro Mcwilliams K85.9 ACUTE PANCREATITIS, UNSPECIFIED 05/01/2018 Negro Mcwilliams A K85.90 ACUTE PANCREATITIS WITHOUT NECROSIS OR INFECTION, UNSP 05/24/2018 HERMES GOLDBERG CAROLA Ot E03.9 HYPOTHYROIDISM, UNSPECIFIED 05/24/2018 MIRZAMICA GOLDBERG CAROLA Ot E87.2 ACIDOSIS 05/24/2018 HERMES GOLDBERG CAROLA Ot F03.90 UNSPECIFIED DEMENTIA WITHOUT BEHAVIORAL 05/24/2018 HERMES GOLDBERG CAROLA Ot I10 ESSENTIAL (PRIMARY) HYPERTENSION 05/24/2018 HERMES GOLDBERG CAROLA Ot I47.1 SUPRAVENTRICULAR TACHYCARDIA 05/24/2018 HERMES GOLDBERG CAORLA Ot Z87.89 1 PERSONAL HISTORY OF NICOTINE DEPENDENCE 07/10/2018 [employer] APRN Ot E03 .9 HYPOTHYROIDISM, UNSPECIFIED 07/10/2018 [employer] APRN Ot R40 .4 TRANSIENT ALTERATION OF AWARENESS 07/10/2018 [employer] APRN Ot R53 .1 WEAKNESS 07/10/2018 [employer] APRN Ot Z86.73 PRSNL HX OF TIA (TIA), AND CEREB INFRC W 07/10/2018 [employer] APRN Ot Z87.19 PERSONAL HISTORY OF OTHER DISEASES OF TH 07/10/2018 [employer] APRN Ot Z88 .8 ALLERGY STATUS TO OTH DRUG/MEDS/BIOL SUB 07/10/2018 [employer] APRN Ot Z98.890 OTHER SPECIFIED POSTPROCEDURAL STATES 08/05/2018 Ot 923.20 08/05/2018 Ot E928.9 08/05/2018 Ot 592.0 09/20/2018 Negro Mcwilliams 401.9 UNSPECIFIED ESSENTIAL HYPERTENSION 09/20/2018 Negro Mcwilliams I10 ESSENTIAL (PRIMARY) HYPERTENSION 09/20/2018 W 401.9 UNSP ECIFIED ESSENTIAL HYPERTENSION 09/20/2018 W I10 ESSENT IAL (PRIMARY) HYPERTENSION 09/20/2018 Negro Mcwilliams W 401.9 UNSPECIFIED ESSENTIAL HYPERTENSION 09/20/2018 PoppyNegro W I10 ESSENTIAL (PRIMARY) HYPERTENSION 09/24/2018 Dewayne Toro W 995.1 ANGIONEUROTIC EDEMA, NOT ELSEWHERE CLASSIFIED 09/24/2018 Dewayne Toro W 529.9 UNSPECIFIED CONDITION OF THE TONGUE 09/24/2018 Dewayne Toro W 995.1 ANGIONEUROTIC EDEMA, NOT ELSEWHERE CLASSIFIED 09/24/2018 Dewayne Toro W K14.8 OTHER DISEASES OF TONGUE 09/24/2018 Dewayne Toro W T78.3XXA ANGIONEUROTIC EDEMA, INITIAL ENCOUNTER 10/23/2018 TERE CHAPPELL, ROMEO Kelly Ot E03. 9 HYPOTHYROIDISM, UNSPECIFIED 10/23/2018 TERE CHAPPELL, ROMEO Kelly Ot R07. 9 CHEST PAIN, UNSPECIFIED 10/23/2018 TERE CHAPPELL, ROMEO Kelly Ot Z86. 73 PRSNL HX OF TIA (TIA), AND CEREB INFRC W 10/23/2018 TERE CHAPPELL, ROMEO Kelly Ot Z87. 19 PERSONAL HISTORY OF OTHER DISEASES OF 10/23/2018 TERE CHAPPELL, ROMEO Kelly Ot Z88. 1 ALLERGY STATUS TO OTHER ANTIBIOTIC AGENT 11/17/2018 CATHIE HAIDER DO Ot E03.9 HYPOTHYROIDISM, UNSPECIFIED 11/17/2018 MERCY HAIDER DOA K Ot F41.9 ANXIETY DISORDER, UNSPECIFIED 11/17/2018 VITALY DO CATHIE K Ot I10 ESSENTIAL (PRIMARY) HYPERTENSION 11/17/2018 MERCY HAIDER DOA K Ot R41.3 OTHER AMNESIA 11/17/2018 MERCY HAIDER DOA K Ot R42 DIZZINESS AND GIDDINESS 11/17/2018 MERCY HIADER DOA K Ot R51 HEADACHE 11/17/2018 MERCY HAIDER DOA Kj Ot Z86.73 PRSNL HX OF TIA (TIA), AND CEREB INFRC W 11/17/2018 MERCY HAIDER DOA K Ot Z87.19 PERSONAL HISTORY OF OTHER DISEASES OF 11/17/2018 CATHIE HAIDER DO Ot Z87.442 PERSONAL HISTORY OF URINARY CALCULI 11/17/2018 CATHIE HAIDER DO Ot Z87.448 PERSONAL HISTORY OF OTHER DISEASES OF UR 11/17/2018 [facility] Kj Ot Z87.891 PERSONAL HISTORY OF NICOTINE DEPENDENCE 11/17/2018 VITALY CATHIE GOLDBERG Ot Z88.1 ALLERGY STATUS TO OTHER ANTIBIOTIC AGENT 11/17/2018 [facility] CATHIE GOLDBERG Ot Z91.14 PATIENT'S OTHER NONCOMPLIANCE WITH MEDIC 11/17/2018 [facility]Y , CATHIE K Ot Z98.890 OTHER SPECIFIED POSTPROCEDURAL STATES 11/19/2018 [facility]ITALY , CATHIE K Ot E03.9 HYPOTHYROIDISM, UNSPECIFIED 11/19/2018 BURNSIDE , CATHIE K Ot F41.9 ANXIETY DISORDER, UNSPECIFIED 11/19/2018 VITALY , CATHIE K Ot I10 ESSENTIAL (PRIMARY) HYPERTENSION 11/19/2018 BURNSIDE , CATHIE K Ot R41.3 OTHER AMNESIA 11/19/2018 [facility] DO CATHIE K Ot R42 DIZZINESS AND GIDDINESS 11/19/2018 [facility], CATHIE K Ot R51 HEADACHE 11/19/2018 [facility] Ot Z86.73 PRSNL HX OF TIA (TIA), AND CEREB INFRC W 11/19/2018 BURNSIDE , CATHIE K Ot Z87.19 PERSONAL HISTORY OF OTHER DISEASES OF TH 11/19/2018 CATHIE HAIDER DO Ot Z87.442 PERSONAL HISTORY OF URINARY CALCULI 11/19/2018 VITALY CATHIE GOLDBERG K Ot Z87.448 PERSONAL HISTORY OF OTHER DISEASES OF UR 11/19/2018 VITALY CATHIE GOLDBERG Ot Z87.891 PERSONAL HISTORY OF NICOTINE DEPENDENCE 11/19/2018 VITALY DOCATHIE Ot Z88.1 ALLERGY STATUS TO OTHER ANTIBIOTIC AGENT 11/19/2018 BURNSIDE , CATHIE K Ot Z91.14 PATIENT'S OTHER NONCOMPLIANCE WITH MEDIC 11/19/2018 VITALY , CATHIE K Ot Z98.890 OTHER SPECIFIED POSTPROCEDURAL STATES 11/21/2018 LUCI DOBBS MD Ot E03. 9 HYPOTHYROIDISM, UNSPECIFIED 11/21/2018 LUCI DOBBS MD Ot F41. 9 ANXIETY DISORDER, UNSPECIFIED 11/21/2018 LUCI DOBBS MD Ot I10 ESSENTIAL (PRIMARY) HYPERTENSION 11/21/2018 LUCI DOBBS MD Ot R51 HEADACHE 11/21/2018 LUCI DOBBS MD Ot Z86. 73 PRSNL HX OF TIA (TIA), AND CEREB INFRC W 11/21/2018 LUCI DOBBS MD Ot Z87. 19 PERSONAL HISTORY OF OTHER DISEASES OF TH 11/21/2018 LUCI DOBBS MD Ot Z87.442 PERSONAL HISTORY OF URINARY CALCULI 11/21/2018 LUCI DOBBS MD Ot Z87.891 PERSONAL HISTORY OF NICOTINE DEPENDENCE 11/21/2018 LUCI DOBBS MD Ot Z88. 1 ALLERGY STATUS TO OTHER ANTIBIOTIC AGENT 11/21/2018 LUCI DOBBS MD Ot Z98.890 OTHER SPECIFIED POSTPROCEDURAL STATES 11/23/2018 LUCI DOBBS MD Ot E03. 9 HYPOTHYROIDISM, UNSPECIFIED 11/23/2018 LUCI DOBBS MD Ot F41. 9 ANXIETY DISORDER, UNSPECIFIED 11/23/2018 LUCI DOBBS MD Ot I10 ESSENTIAL (PRIMARY) HYPERTENSION 11/23/2018 LUCI DOBBS MD Ot R51 HEADACHE 11/23/2018 LUCI DOBBS MD Ot Z86. 73 PRSNL HX OF TIA (TIA), AND CEREB INFRC W 11/23/2018 LUCI DOBBS MD Ot Z87. 19 PERSONAL HISTORY OF OTHER DISEASES OF 11/23/2018 LUCI DOBBS MD Ot Z87.442 PERSONAL HISTORY OF URINARY CALCULI 11/23/2018 LUCI DOBBS MD Ot Z87.891 PERSONAL HISTORY OF NICOTINE DEPENDENCE 11/23/2018 LUCI DOBBS MD Ot Z88. 1 ALLERGY STATUS TO OTHER ANTIBIOTIC AGENT 11/23/2018 LUCI DOBBS MD Ot Z98.890 OTHER SPECIFIED POSTPROCEDURAL STATES 11/25/2018 ABEL DUMONT 995.1 ANGIONEUROTIC EDEMA, NOT ELSEWHERE CLASSIFIED 11/25/2018 ABEL DUMONT T78.3 XXA ANGIONEUROTIC EDEMA, INITIAL ENCOUNTER 12/27/2018 Dewayne Toro 995.1 ANGIONEUROTIC EDEMA, NOT ELSEWHERE CLASSIFIED 12/27/2018 Dewayne Toro 995.1 ANGIONEUROTIC EDEMA, NOT ELSEWHERE CLASSIFIED 12/27/2018 Dewayne Toro 995.1 ANGIONEUROTIC EDEMA, NOT ELSEWHERE CLASSIFIED 12/27/2018 Brown, Dewayne W T78.3XXA ANGIONEUROTIC EDEMA, INITIAL ENCOUNTER 01/04/2019 Daniel Olivia W 995.1 ANGIONEUROTIC EDEMA, NOT ELSEWHERE CLASSIFIED 01/04/2019 Daniel Olivia W T78.3XXA ANGIONEUROTIC EDEMA, INITIAL ENCOUNTER 03/02/2019 VITALYCATHIE Carranza DO Ot E03.9 HYPOTHYROIDISM, UNSPECIFIED 03/02/2019 [facility] DO CATHIE K Ot F41.9 ANXIETY DISORDER, UNSPECIFIED 03/02/2019 [facility] DO CATHIE K Ot I10 ESSENTIAL (PRIMARY) HYPERTENSION 03/02/2019 VITALY DO CATHIE K Ot R03.0 ELEVATED BLOOD-PRESSURE READING, W/O LANETTE 03/02/2019 VITALY CATHIE K Ot R11.2 NAUSEA WITH VOMITING, UNSPECIFIED 03/02/2019 [facility] DO CATHIE K Ot R91.1 SOLITARY PULMONARY NODULE 03/02/2019 VITALY CATHIE K Ot Z86.73 PRSNL HX OF TIA (TIA), AND CEREB INFRC W 03/02/2019 VITALY GOLDBERGMERCYA K Ot Z87.442 PERSONAL HISTORY OF URINARY CALCULI 03/02/2019 VITALY MERCYA K Ot Z87.891 PERSONAL HISTORY OF NICOTINE DEPENDENCE 03/02/2019 VITALY CATHIE K Ot Z88.1 ALLERGY STATUS TO OTHER ANTIBIOTIC AGENT 03/16/2019 Megan Dillon-Rebel W E906.3 BITE OF OTHER ANIMAL EXCEPT ARTHROPOD 03/16/2019 Santana, Megan-Rebel W W55.01XA BITTEN BY CAT, INITIAL ENCOUNTER 03/16/2019 Santana Megan-Rebel W E906.3 BITE OF OTHER ANIMAL EXCEPT ARTHROPOD 03/16/2019 Santana, Megan-Rebel W W55.01XA BITTEN BY CAT, INITIAL ENCOUNTER 03/16/2019 Santana, Megan-Rebel W E906.3 BITE OF OTHER ANIMAL EXCEPT ARTHROPOD 03/16/2019 Santana, Megan-Rebel W W55.01XA BITTEN BY CAT, INITIAL ENCOUNTER 03/16/2019 Negro Mcwilliams W 682.9 CELLULITIS AND ABSCESS OF UNSPECIFIED SITES 03/16/2019 Negro Mcwilliams E906.3 BITE OF OTHER ANIMAL EXCEPT ARTHROPOD 03/16/2019 Negro Mcwilliams L03.90 CELLULITIS, UNSPECIFIED 03/16/2019 Negro Mcwilliams W55.01 BITTEN BY CAT 03/16/2019 Hmianshu Dillon W E906.3 BITE OF OTHER ANIMAL EXCEPT ARTHROPOD 03/16/2019 Himanshu Dillon W W55.01XA BITTEN BY CAT, INITIAL ENCOUNTER 03/19/2019 Negro Mcwilliams 682.9 CELLULITIS AND ABSCESS OF 03/19/2019 Negro Mcwilliams E906.3 BITE OF OTHER ANIMAL EXC 03/19/2019 Negro Mcwilliams I10 ESSENTIAL (PRIMARY) HYPERTENSION 03/19/2019 Negro Mcwilliams K14.8 OTHER DISEASES OF TONGUE 03/19/2019 Negro Mcwilliams 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 03/19/2019 Negro Mcwilliams K30 FUNCTIONAL DYSPEPSIA 03/19/2019 Negro Mcwilliams L03.90 CELLULITIS, UNSPECIFIED 03/19/2019 Negro Mcwilliams M25.512 PAIN IN LEFT SHOULDER 03/19/2019 Negro Mcwilliams M54.12 RADICULOPATHY, CERVICAL REGION 03/19/2019 Negro Mciwlliams R10.12 LEFT UPPER QUADRANT PAIN 03/19/2019 Negro Mcwilliams R10.13 EPIGASTRIC PAIN 03/19/2019 Negro Mcwilliams R11.2 NAUSEA WITH VOMITING, UNSPECIFIED 03/19/2019 Negro Mcwilliams R12 HEARTBURN 03/19/2019 Negro Mcwilliams R50.9 FEVER, UNSPECIFIED 03/19/2019 Negro Mcwilliams S43.402A UNSPECIFIED SPRAIN OF LEFT SHOULDER JOINT, INITIAL ENCOUNTER 03/19/2019 Negro Mcwilliams T48.4X5A ADVERSE EFFECT OF EXPECTORANTS, INITIAL ENCOUNTER 03/19/2019 Negro Mcwilliams T78.3XXA AN 03/19/2019 Negro Mcwilliams W55.01 BITTEN BY CAT 03/19/2019 Negro Mcwilliams W55.01XA BITTEN BY CAT, INITIAL ENCOUNTER 04/12/2019 Daniel Olivia E78.5 HYPERLIPIDEMIA, UNSPECIFIED 04/12/2019 Daniel Olivia E87.6 HYPOKALEMIA 04/12/2019 Daniel Olivia I10 ESSENTIAL (PRIMARY) HYPERTENSION 04/12/2019 Daniel Olivia K14.8 OTHER DISEASES OF TONGUE 04/12/2019 Daniel Olivia 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 04/12/2019 Daniel Olivia K30 FUNCTIONAL DYSPEPSIA 04/12/2019 Dnaiel Olivia L03.90 CELLULITIS, UNSPECIFIED 04/12/2019 Daniel Olivia M25.512 PAIN IN LEFT SHOULDER 04/12/2019 Daniel Olivia M54.12 RADICULOPATHY, CERVICAL REGION 04/12/2019 Daniel Olivia R10.12 LEFT UPPER QUADRANT PAIN 04/12/2019 Daniel Olivia R10.13 EPIGASTRIC PAIN 04/12/2019 Daniel Olivia R11.2 NAUSEA WITH VOMITING, UNSPECIFIED 04/12/2019 Daniel Olivia R12 HEARTBURN 04/12/2019 Daniel Olivia R50.9 FEVER, UNSPECIFIED 04/12/2019 Daniel Olivia S43.402A UNSPECIFIED SPRAIN OF LEFT SHOULDER JOINT, INITIAL ENCOUNTER 04/12/2019 Daniel Olivia T48.4X5A ADVERSE EFFECT OF EXPECTORANTS, INITIAL ENCOUNTER 04/12/2019 Daniel Olivia T78.3XXA ANGIONEUROTIC EDEMA, INITIAL ENCOUNTER 04/12/2019 Daniel Olivia W55.01XA BITTEN BY CAT, INITIAL ENCOUNTER 05/26/2019 ABEL DUMONT I10 ESSENTIAL (PRIMARY) HYPERTENSION 05/26/2019 ABEL DUMONT K14.8 OTHER DISEASES OF TONGUE 05/26/2019 ABEL DUMONT K29.3 0 CHRONIC SUPERFICIAL GASTRITIS 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 05/26/2019 ABEL DMUONT K30 FUNCTIONAL DYSPEPSIA 05/26/2019 ABEL DUMONT L03.9 0 CELLULITIS, UNSPECIFIED 05/26/2019 ABEL DUMONT M25.5 12 PAIN IN LEFT SHOULDER 05/26/2019 AEBL DUMONT M54.1 2 RADICULOPATHY, CERVICAL REGION 05/26/2019 ABEL DUMONT R10.1 2 LEFT UPPER QUADRANT PAIN 05/26/2019 ABEL DUMONT R10.1 3 EPIGASTRIC PAIN 05/26/2019 ABEL DUMONT W R11.2 NAUSEA WITH VOMITING, UNSPECIFIED 05/26/2019 ABEL DUMONT W R12 HEARTBURN 05/26/2019 ABEL DUMONT W R50.9 FEVER, UNSPECIFIED 05/26/2019 ABEL DUMONT S43.4 02A UNSPECIFIED SPRAIN OF LEFT SHOULDER JOINT, INITIAL ENCOUNTER 05/26/2019 ABEL DUMONT T48.4 X5A ADVERSE EFFECT OF EXPECTORANTS, INITIAL ENCOUNTER 05/26/2019 ABEL DUMONT T78.3 XXA ANGIONEUROTIC EDEMA, INITIAL ENCOUNTER 05/26/2019 ABEL DUMONT W55.0 1XA BITTEN BY CAT, INITIAL ENCOUNTER 07/02/2019 TERE CHAPPELL, ROMEO Kelly Ot E03. 9 HYPOTHYROIDISM, UNSPECIFIED 07/02/2019 TERE CHAPPELL, ROMEO Kelly Ot F41. 9 ANXIETY DISORDER, UNSPECIFIED 07/02/2019 TERE CHAPPELL, ROMEO Kelly Ot I10 ESSENTIAL (PRIMARY) HYPERTENSION 07/02/2019 TERE CHAPPELL, ROMEO Kelly Ot M54. 2 CERVICALGIA 07/02/2019 TERE CHAPPELL, ROMEO Kelly Ot M54. 6 PAIN IN THORACIC SPINE 07/02/2019 TERE CHAPPELL, ROMEO Kelly Ot R10. 2 PELVIC AND PERINEAL PAIN 07/02/2019 TERE CHAPPELL, ROMEO Kelly Ot R40.2142 COMA SCALE, EYES OPEN, SPONTANEOUS, EMR 07/02/2019 ROMEO CARRANZA MD Ot R40.2252 COMA SCALE, BEST VERBAL RESPONSE, ORIENT 07/02/2019 ROMEO CARRANZA MD Ot R40.2362 COMA SCALE, BEST MOTOR RESPONSE, OBEYS C 07/02/2019 ROMEO CARRANZA MD Ot W19.XXXA UNSPECIFIED FALL, INITIAL ENCOUNTER 07/02/2019 TERE CHAPPELL, ROMEO Kelly Ot Y92.[address] IN UNSP NON-INSTITUT (PRIVATE 07/02/2019 TERE CHAPPELL, ROMEO Kelly Ot Z86. 73 PRSNL HX OF TIA (TIA), AND CEREB INFRC W 07/02/2019 TERE CHAPPELL, ROMEO Kelly Ot Z87.442 PERSONAL HISTORY OF URINARY CALCULI 07/02/2019 TERE CHAPPELL, ROMEO Kelly Ot Z87.891 PERSONAL HISTORY OF NICOTINE DEPENDENCE 07/02/2019 TERE CHAPPELL, ROMEO Robin Ot Z88. 1 ALLERGY STATUS TO OTHER ANTIBIOTIC AGENT 07/05/2019 TERE CHAPPELL, ROMEO Kelly Ot E03. 9 HYPOTHYROIDISM, UNSPECIFIED 07/05/2019 TERE CHAPPELL, ROMEO Robin Ot F41. 9 ANXIETY DISORDER, UNSPECIFIED 07/05/2019 TERE CHAPPELL, ROMEO Kelly Ot I10 ESSENTIAL (PRIMARY) HYPERTENSION 07/05/2019 TERE CHAPPELL, ROMEO Kelly Ot M54. 2 CERVICALGIA 07/05/2019 TERE CHAPPELL, ROMEO Kelly Ot M54. 6 PAIN IN THORACIC SPINE 07/05/2019 TERE CHAPPELL, ROMEO Kelly Ot R10. 2 PELVIC AND PERINEAL PAIN 07/05/2019 TERE CHAPPELL, ROMEO Kelly Ot R40.2142 COMA SCALE, EYES OPEN, SPONTANEOUS, EMR 07/05/2019 ROMEO CARRANZA MD Ot R40.2252 COMA SCALE, BEST VERBAL RESPONSE, ORIENT 07/05/2019 ROMEO CARRANZA MD Ot R40.2362 COMA SCALE, BEST MOTOR RESPONSE, OBEYS C 07/05/2019 TERE CHAPPELL ROMEO Robin Ot W19.XXXA UNSPECIFIED FALL, INITIAL ENCOUNTER 07/05/2019 TERE CHAPPELL, ROMEO Robin Ot Y92.[address] IN UNSP NON-INSTITUT (PRIVATE 07/05/2019 ROMEO CARRANZA MD Ot Z86. 73 PRSNL HX OF TIA (TIA), AND CEREB INFRC W 07/05/2019 ROMEO CARRANZA MD Ot Z87.442 PERSONAL HISTORY OF URINARY CALCULI 07/05/2019 TERE CHAPPELL, ROMEO Kelly Ot Z87.891 PERSONAL HISTORY OF NICOTINE DEPENDENCE 07/05/2019 TERE CHAPPELL, ROMOE Robin Ot Z88. 1 ALLERGY STATUS TO OTHER ANTIBIOTIC AGENT 07/08/2019 TERE CHAPPELL, ROMEO Kelly Ot E03. 9 HYPOTHYROIDISM, UNSPECIFIED 07/08/2019 TERE CHAPPELL, ROMEO Kelly Ot F41. 9 ANXIETY DISORDER, UNSPECIFIED 07/08/2019 TERE CHAPPELL, ROMEO Kelly Ot I10 ESSENTIAL (PRIMARY) HYPERTENSION 07/08/2019 TERE CHAPPELL, ROMEO Kelly Ot M54. 2 CERVICALGIA 07/08/2019 ROMEO CARRANZA MD Ot M54. 6 PAIN IN THORACIC SPINE 07/08/2019 ROMEO CARRANZA MD Ot R10. 2 PELVIC AND PERINEAL PAIN 07/08/2019 ROMEO CARRANZA MD Ot R40.2142 COMA SCALE, EYES OPEN, SPONTANEOUS, EMR 07/08/2019 ROMEO CARRANZA MD Ot R40.2252 COMA SCALE, BEST VERBAL RESPONSE, ORIENT 07/08/2019 ROMEO CARRANZA MD Ot R40.2362 COMA SCALE, BEST MOTOR RESPONSE, OBEYS C 07/08/2019 ROMEO CARRANZA MD Ot W19.XXXA UNSPECIFIED FALL, INITIAL ENCOUNTER 07/08/2019 ROMEO CARRANZA MD Ot Y92.[address] IN UNSP NON-INSTITUT (PRIVATE 07/08/2019 ROMEO CARRANZA MD Ot Z86. 73 PRSNL HX OF TIA (TIA), AND CEREB INFRC W 07/08/2019 ROMEO CARRANZA MD Ot Z87.442 PERSONAL HISTORY OF URINARY CALCULI 07/08/2019 ROMEO CARRANZA MD Ot Z87.891 PERSONAL HISTORY OF NICOTINE DEPENDENCE 07/08/2019 TERE CHAPPELL, ROMEO Kelly Ot Z88. 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 11/11/2019 BrownBetoDewayne W K30 FUNCTIONAL DYSPEPSIA 11/11/2019 Brown Dewayne W L03.90 CELLULITIS, UNSPECIFIED 11/11/2019 Brown Dewayne W M25.512 PAIN IN LEFT SHOULDER 11/11/2019 Beto Torolas W M54.12 RADICULOPATHY, CERVICAL REGION 11/11/2019 BrownBetoDewayne W R10.12 LEFT UPPER QUADRANT PAIN 11/11/2019 BrownBetoDewayne W R10.13 EPIGASTRIC PAIN 11/11/2019 BrownBetoDewayne W R11.2 NAUSEA WITH VOMITING, UNSPECIFIED 11/11/2019 Dewayne Toro R12 HEARTBURN 11/11/2019 Dewayne Toro R50.9 FEVER, UNSPECIFIED 11/11/2019 Dewayne Toro S43.402A UNSPECIFIED SPRAIN OF LEFT SHOULDER JOINT, INITIAL ENCOUNTER 11/11/2019 Dewayne Toro T48.4X5A ADVERSE EFFECT OF EXPECTORANTS, INITIAL ENCOUNTER 11/11/2019 Dewayne Toro T78.3XXA ANGIONEUROTIC EDEMA, INITIAL ENCOUNTER 11/11/2019 Dewayne Toro W55.01XA BITTEN BY CAT, INITIAL ENCOUNTER Procedures Code Description Performed By Per formed On 59.8 URETE RAL CATHETERIZATION 05/23/2008 Results Test Result Range BMP - 07/02/16 16:22 Anion Gap 14 6-14 BUN 16 mg/dL 5-25 Calcium 9.2 mg/dL 8.3-10.4 Chloride 102 mmol/L 95-114 CO2 26 mEq/L 22-33 Creat 0.93 mg/dL 0.50-1.50 eGFR 78 mL/min/1.73m2 >59 Glucose 108 mg/dL 70-110 Osmo 289 280-295 Potassium 2.7 mmol/L 3.5-5.3 Sodium 139 mmol/L 134-148 Urinalysis - 07/02/16 17:04 Icotest N/A Negative Urine Volume Urine Volume Sufficient (10mL) Urine Yeast No Yeast present Urine-Appearance Clear Clear Urine-Bacteria Negative Urine-Bilirubin Negative Negative Urine-Blood Trace-intact Negative Urine-Color Yellow Colorless-Lt. Cross ow Urine-Epithelial Cells 0-5/HPF Urine-Glucose Negative Negative Urine-Ketones Negative Negative Urine-Leukocytes Negative Negative Urine-Mucus 1+ Urine-Nitrite Negative Negative Urine-Other Urine Saved if Culture Need ed (48hrs from time of collection) Urine-pH 6.5 5-8.5 Urine-Protein Negative Negative Urine-RBC Negative Urine-Specific [place] 1.015 1.000-1 .030 Urine-WBC Nothing Seen on Microscopic Urobilinogen 1.0 E.U./dL 0.2-1.0 Mycoplasma - 07/02/16 17:15 Mycoplasma Negative Negative Blood Culture - 07/02/16 17:15 PRELIM CULTURE RESULTS Blood Culture Negativ e, No Growth Day 1 MEDIA PLATED BC#2 loaded in B24 CULTURE SOURCE right ac Blood Culture - 07/02/16 17:15 PRELIM CULTURE RESULTS Blood Culture Negativ e, No Growth Day 1 MEDIA PLATED BC#1 LOADED IN B32 CULTURE SOURCE [id number] Sputum Culture - 07/02/16 17:15 PRELIM CULTURE RESULTS Abundant Gram Positiv e Sent to [facility] for additional testing. MEDIA PLATED Setup at 18:06 on 07/02/2016 Blood Culture - 07/02/16 17:15 PRELIM CULTURE RESULTS Blood Culture Negativ e, No Growth Day 1 FINAL CULTURE RESULTS Blood Culture Negative , No Growth Day 5 MEDIA PLATED BC#2 loaded in B24 CULTURE SOURCE right ac Blood Culture - 07/02/16 17:15 PRELIM CULTURE RESULTS Blood Culture Negativ e, No Growth Day 1 FINAL CULTURE RESULTS Blood Culture Negative , No Growth Day 5 MEDIA PLATED BC#1 LOADED IN B32 CULTURE SOURCE [id number]\ BMP - 07/03/16 11:20 Anion Gap 12 6-14 BUN 10 mg/dL 5-25 Calcium 8.5 mg/dL 8.3-10.4 Chloride 107 mmol/L 95-114 CO2 26 mEq/L 22-33 Creat 0.79 mg/dL 0.50-1.50 eGFR 95 mL/min/1.73m2 >59 Glucose 100 mg/dL 70-110 Osmo 290 280-295 Potassium 3.7 mmol/L 3.5-5.3 Sodium 141 mmol/L 134-148 Urinalysis - 02/01/17 06:56 Icotest N/A Negative Urine Volume Urine Volume Sufficient (10mL) Urine Yeast No Yeast present Urine-Appearance Clear Clear Urine-Bacteria Negative Urine-Bilirubin Negative Negative Urine-Blood 1+ Negative Urine-Color Yellow Colorless-Lt. Cross ow Urine-Glucose Negative Negative Urine-Ketones Negative Negative Urine-Leukocytes Negative Negative Urine-Nitrite Negative Negative Urine-Other Urine Saved if Culture Need ed (48hrs from time of collection) Urine-pH 5.0 5-8.5 Urine-Protein Negative Negative Urine-RBC Rare/HPF Urine-Specific [place] <=1.005 1.000-1 .030 Urine-WBC Negative Urobilinogen 0.2 E.U./dL 0.2-1.0 [facility] - 02/07/17 18:34 Anion Gap 14 6-14 BUN 17 mg/dL 5-25 Calcium 9.8 mg/dL 8.3-10.4 Chloride 105 mmol/L 95-114 CO2 26 mEq/L 22-33 Creat 0.91 mg/dL 0.50-1.50 eGFR 80 mL/min/1.73m2 >59 Glucose 147 mg/dL 70-110 Osmo 295 280-295 Potassium 4.4 mmol/L 3.5-5.3 Sodium 141 mmol/L 134-148 Lipase - 02/17/17 10:42 Lipase 52 U/L 7-59 Troponin I - 02/17/17 10:42 Troponin <0.020 ng/mL 0.0-0.4 EKG - 03/08/17 15:45 EKG Complete Urinalysis - 03/18/17 17:22 Icotest Negative Negative Urine Crystals Amorphous material: moderate/HPF Urine Volume Urine Volume Sufficient (10mL) Urine-Appearance Slightly cloudy Clear Urine-Bacteria Rare Urine-Bilirubin 1+ Negative Urine-Blood Negative Negative Urine-Color Yellow Colorless-Lt. Cross ow Urine-Epithelial Cells 1-5/HPF Urine-Glucose Negative Negative Urine-Ketones Trace Negative Urine-Leukocytes Negative Negative Urine-Mucus 2+ Urine-Nitrite Negative Negative Urine-Other Urine Saved if Culture Need ed (48hrs from time of collection) Urine-pH 5.5 5-8.5 Urine-Protein 1+ Negative Urine-RBC 0-2/HPF Urine-Specific [place] 1.025 1.000-1 .030 Urine-WBC 0-3/HPF Urobilinogen 2.0 0.2-1.0 Thyroid Stimulating Hormone - 02/09/18 1 1:54 TSH 1.41 mIU/mL 0.32-5.00 Comprehensive Metabolic Panel - 04/29/18 21:35 Albumin 4.1 g/dL 3.6-5.1 ALP 72 U/L 35-130 ALT 18 U/L 6-45 Anion Gap 15 6-14 AST 22 U/L 2-40 BUN 13 mg/dL 5-25 Calcium 9.7 mg/dL 8.3-10.4 Chloride 105 mmol/L 95-114 CO2 24 mEq/L 22-33 Creat 0.90 mg/dL 0.50-1.50 eGFR 81 mL/min/1.73m2 >59 Globulin 2.7 g/dL 2.3-3.5 Glucose 211 mg/dL 70-110 Osmo 295 280-295 Potassium 3.5 mmol/L 3.5-5.3 Sodium 140 mmol/L 134-148 TBil 0.5 mg/dL 0.2-1.2 TP 6.8 g/dL 6.0-8.3 Lipase - 04/29/18 21:35 Lipase >06199 Result Verified by Repeat Analysi s U/L 7-59 EKG - 04/30/18 06:50 EKG Complete Amylase - 04/30/18 07:06 Amylase 2491 U/L 20-100 Cardiac Panel - 04/30/18 17:30 CK 79 U/L 26-174 CK-MB 1.0 ng/ml 0.0-9.2 Myoglobin 50.2 ng/ml 1.6-154.9 Troponin <0.020 ng/mL 0.0-0.4 PT panel in platelet poor plasma by coag ulation assay - 05/24/18 02:40 Prothrombin time (PT) in platelet poor plasma by coagu lation assay 13.8 s 12.2-14.7 INR in platelet poor plasma or blood by coagulation as say 1.1 0.8-1.4 Activated partial thromboplastin time (a PTT) in platelet poor plasma bycoagulation assay - 05/24/18 02:40 Activated partial thromboplastin time (a PTT) in platelet poor plasma bycoagulation assay 20 s 24-35 Comprehensive metabolic panel - 05/24/18 02:40 Serum or plasma sodium measurement (moles/volume) 142 mmol/L 135-145 Serum or plasma potassium measurement (moles/volume) 3.7 mmol/L 3.6-5.0 Serum or plasma chloride measurement (moles/volume) 108 mmol/L 98-107 Carbon dioxide 19 mmol/L 21-32 Serum or plasma anion gap determination (moles/volume) 15 mmol/L 5-14 Serum or plasma urea nitrogen measurement (mass/volume ) 11 mg/dL 7-18 Serum or plasma creatinine measurement (mass/volume) 0.85 mg/dL 0.60-1.30 Serum or plasma urea nitrogen/creatinine mass ratio 13 NRG Serum or plasma creatinine measurement w ith calculation of estimated glomerular filtration rate > NRG Serum or plasma glucose measurement (mass/volume) 117 mg/dL 70-105 Serum or plasma calcium measurement (mass/volume) 8.7 mg/dL 8.5-10.1 Serum or plasma total bilirubin measurement (mass/volu me) 0.4 mg/dL 0.1-1.0 Serum or plasma alkaline phosphatase sylvester surement (enzymatic activity/volume) 61 U/L 40-136 Serum or plasma aspartate aminotransfera se measurement (enzymatic activity/volume) 30 U/L 5-34 Serum or plasma alanine aminotransferase measurement (enzymatic activity/volume) 20 U/L 0-55 Serum or plasma protein measurement (mass/volume) 6.8 g/dL 6.4-8.2 Serum or plasma albumin measurement (mass/volume) 3.2 g/dL 3.2-4.5 CALCIUM CORRECTED 9.3 mg/dL 8.5-10.1 Magnesium - 05/24/18 02:40 Magnesium 2.0 mg/dL 1.8-2.4 Serum or plasma troponin i.cardiac measu rement (mass/volume) - 05/24/18 02:40 Serum or plasma troponin i.cardiac measurement (mass/v olume) < ng/mL <0.30 Serum or plasma amylase measurement (enz ymatic activity/volume) - 05/24/18 02:40 Serum or plasma amylase measurement (enzymatic activit y/volume) 58 U/L 25-125 Complete blood count (CBC) with automate d white blood cell (WBC) differential - 05/24/18 02:40 Blood leukocytes automated count (number/volume) 7.5 10*3/uL 4.3-11.0 Blood erythrocytes automated count (number/volume) 3.49 10*6/uL 4.35-5.85 Venous blood hemoglobin measurement (mass/volume) 10.4 g/dL 13.3-17.7 Blood hematocrit (volume fraction) 33 % 40-54 Automated erythrocyte mean corpuscular volume 94 [ foz_us] 80-99 Automated erythrocyte mean corpuscular h emoglobin (mass per erythrocyte) 30 pg 25-34 Automated erythrocyte mean corpuscular h emoglobin concentration measurement (mass/volume) 32 g/dL 32-36 Automated erythrocyte distribution width ratio 13. 9 % 10.0- 14.5 Automated blood platelet count (count/volume) 353 10*3/uL 130-400 Automated blood platelet mean volume measurement 10.0 [foz_us] 7.4-10.4 Automated blood neutrophils/100 leukocytes 59 % 42-75 Automated blood lymphocytes/100 leukocytes 24 % 12-44 Blood monocytes/100 leukocytes 13 % 0-12 Automated blood eosinophils/100 leukocytes 4 % 0-10 Automated blood basophils/100 leukocytes 1 % 0-10 Blood neutrophils automated count (number/volume) 4.4 10*3 1.8-7.8 Blood lymphocytes automated count (number/volume) 1.8 10*3 1.0-4.0 Blood monocytes automated count (number/volume) 0. 9 10*3 0.0-1.0 Automated eosinophil count 0.3 10*3/uL 0 .0-0.3 Automated blood basophil count (count/volume) 0.1 10*3/uL 0.0-0.1 Lipase - 05/24/18 02:40 Lipase 106 U/L 8-78 Serum or plasma thyrotropin measurement by detection limit <=0.05 miu/l (units/volume) - 05/24/18 02:40 Serum or plasma thyrotropin measurement by detection limit <=0.05 miu/l (units/volume) 1.32 u[iU]/mL 0.35-4.94 Serum or plasma lithium measurement (mol es/volume) - 05/24/18 02:40 BNP level 36.1 pg/mL <100.0 Methicillin resistant Staphylococcus aur eus (MRSA) screening culture - 05/24/18 04:53 Methicillin resistant Staphylococcus aureus (MRSA) scr eening culture NEG NRG Complete urinalysis with reflex to cultu re - 05/24/18 05:30 Urine color determination YELLOW NRG Urine clarity determination SLIGHTLY CLOUDY NRG Urine pH measurement by test strip 5 5-9 Specific gravity of urine by test strip 1.020 1.016-1.022 Urine protein assay by test strip, semi-quantitative 2+ NEGATIVE Urine glucose detection by automated test strip NE GATIVE NEGATIVE Erythrocytes detection in urine sediment by light micr oscopy 4+ NEGATIVE Urine ketones detection by automated test strip NE GATIVE NEGATIVE Urine nitrite detection by test strip NEGATIVE NEGATIVE Urine total bilirubin detection by test strip NEGA TIVE NEGATIVE Urine urobilinogen measurement by automated test strip (mass/volume) NORMAL NORMAL Urine leukocyte esterase detection by dipstick 3+ NEGATIVE Automated urine sediment erythrocyte cou nt by microscopy (number/high power field) [HPF] NRG Automated urine sediment leukocyte count by microscopy (number/high power field) > [HPF] NRG Bacteria detection in urine sediment by light microsco py FEW NRG Squamous epithelial cells detection in u rine sediment by light microscopy 0-2 NRG Crystals detection in urine sediment by light microsco py NONE NRG Casts detection in urine sediment by light microscopy NONE NRG Mucus detection in urine sediment by light microscopy NEGATIVE NRG Complete urinalysis with reflex to culture YES NRG Bacterial urine culture - 05/24/18 05:30 Bacterial urine culture [id number] NRG COLONY COUNT <10,000 NRG FTX;REPORTABLE NO SUCSCEPTIBILITY PERFORMED NRG FREE TEXT ENTRY 2 FINAL REPORT 05/25/18 10:05 NRG Blood lactic acid measurement (moles/vol ume) - 05/24/18 07:20 Blood lactic acid measurement (moles/volume) 0.82 mmol/L 0.50-2.00 Complete blood count (CBC) with automate d white blood cell (WBC) differential - 07/10/18 11:50 Blood leukocytes automated count (number/volume) 5.8 10*3/uL 4.3-11.0 Blood erythrocytes automated count (number/volume) 4.09 10*6/uL 4.35-5.85 Venous blood hemoglobin measurement (mass/volume) 11.8 g/dL 13.3-17.7 Blood hematocrit (volume fraction) 36 % 40-54 Automated erythrocyte mean corpuscular volume 87 [ foz_us] 80-99 Automated erythrocyte mean corpuscular h emoglobin (mass per erythrocyte) 29 pg 25-34 Automated erythrocyte mean corpuscular h emoglobin concentration measurement (mass/volume) 33 g/dL 32-36 Automated erythrocyte distribution width ratio 13. 9 % 10.0- 14.5 Automated blood platelet count (count/volume) 201 10*3/uL 130-400 Automated blood platelet mean volume measurement 11.0 [foz_us] 7.4-10.4 Automated blood neutrophils/100 leukocytes 49 % 42-75 Automated blood lymphocytes/100 leukocytes 40 % 12-44 Blood monocytes/100 leukocytes 6 % 0-12 Automated blood eosinophils/100 leukocytes 4 % 0-10 Automated blood basophils/100 leukocytes 1 % 0-10 Blood neutrophils automated count (number/volume) 2.9 10*3 1.8-7.8 Blood lymphocytes automated count (number/volume) 2.3 10*3 1.0-4.0 Blood monocytes automated count (number/volume) 0. 4 10*3 0.0-1.0 Automated eosinophil count 0.2 10*3/uL 0 .0-0.3 Automated blood basophil count (count/volume) 0.0 10*3/uL 0.0-0.1 Comprehensive metabolic panel - 07/10/18 11:50 Serum or plasma sodium measurement (moles/volume) 141 mmol/L 135-145 Serum or plasma potassium measurement (moles/volume) 3.7 mmol/L 3.6-5.0 Serum or plasma chloride measurement (moles/volume) 108 mmol/L 98-107 Carbon dioxide 20 mmol/L 21-32 Serum or plasma anion gap determination (moles/volume) 13 mmol/L 5-14 Serum or plasma urea nitrogen measurement (mass/volume ) 11 mg/dL 7-18 Serum or plasma creatinine measurement (mass/volume) 0.83 mg/dL 0.60-1.30 Serum or plasma urea nitrogen/creatinine mass ratio 13 NRG Serum or plasma creatinine measurement w ith calculation of estimated glomerular filtration rate > NRG Serum or plasma glucose measurement (mass/volume) 141 mg/dL 70-105 Serum or plasma calcium measurement (mass/volume) 9.2 mg/dL 8.5-10.1 Serum or plasma total bilirubin measurement (mass/volu me) 0.5 mg/dL 0.1-1.0 Serum or plasma alkaline phosphatase sylvester surement (enzymatic activity/volume) 67 U/L 40-136 Serum or plasma aspartate aminotransfera se measurement (enzymatic activity/volume) 22 U/L 5-34 Serum or plasma alanine aminotransferase measurement (enzymatic activity/volume) 16 U/L 0-55 Serum or plasma protein measurement (mass/volume) 6.8 g/dL 6.4-8.2 Serum or plasma albumin measurement (mass/volume) 3.8 g/dL 3.2-4.5 CALCIUM CORRECTED 9.4 mg/dL 8.5-10.1 Serum or plasma troponin i.cardiac measu rement (mass/volume) - 07/10/18 11:50 Serum or plasma troponin i.cardiac measurement (mass/v olume) < ng/mL <0.30 Arterial blood gas measurement - 8 13:19 Blood pCO2 45 mm[Hg] 35-45 Blood pO2 46 mm[Hg] 79-93 Arterial blood bicarbonate measurement (moles/volume) 26 mmol/L 23-27 Arterial blood base excess by calculation 1.0 mmol /L -2.5-2.5 Arterial blood oxygen saturation measurement 85 % 94-100 * Inhaled oxygen flow rate 2L NRG Arterial blood pH measurement with patient temperature correction 7.37 7.37-7.43 Arterial blood carbon dioxide, total measurement (mole s/volume) 27.3 mmol/L 21.0-31.0 Body site RT RAD NRG Assessment of wrist artery patency prior to arterial p uncture YES-POS NRG Setting of ventilation mode NO NR G Measurement of body temperature 96.6 NRG Complete urinalysis with reflex to cultu re - 07/10/18 13:48 Urine color determination YELLOW NRG Urine clarity determination CLEAR NR G Urine pH measurement by test strip 5 5-9 Specific gravity of urine by test strip 1.020 1.016-1.022 Urine protein assay by test strip, semi-quantitative 1+ NEGATIVE Urine glucose detection by automated test strip NE GATIVE NEGATIVE Erythrocytes detection in urine sediment by light micr oscopy NEGATIVE NEGATIVE Urine ketones detection by automated test strip NE GATIVE NEGATIVE Urine nitrite detection by test strip NEGATIVE NEGATIVE Urine total bilirubin detection by test strip NEGA TIVE NEGATIVE Urine urobilinogen measurement by automated test strip (mass/volume) NORMAL NORMAL Urine leukocyte esterase detection by dipstick 1+ NEGATIVE Automated urine sediment erythrocyte cou nt by microscopy (number/high power field) NONE NRG Automated urine sediment leukocyte count by microscopy (number/high power field) [HPF] NRG Bacteria detection in urine sediment by light microsco py NEGATIVE NRG Squamous epithelial cells detection in u rine sediment by light microscopy 0-2 NRG Crystals detection in urine sediment by light microsco py NONE NRG Casts detection in urine sediment by light microscopy PRESENT NRG Mucus detection in urine sediment by light microscopy SMALL NRG Complete urinalysis with reflex to culture NO NRG Hyaline casts detection in urine sediment by light lexii roscopy 5-10 NRG Thyroid Stimulating Hormone - 09/20/18 0 9:54 TSH 1.46 mIU/mL 0.32-5.00 Comprehensive Metabolic Panel - 09/24/18 07:14 Albumin 4.3 g/dL 3.6-5.1 ALP 90 U/L 35-130 ALT 16 U/L 6-45 Anion Gap 16 6-14 AST 23 U/L 2-40 BUN 15 mg/dL 5-25 Calcium 9.7 mg/dL 8.3-10.4 Chloride 106 mmol/L 95-114 CO2 23 mEq/L 22-33 Creat 0.86 mg/dL 0.50-1.50 eGFR 85 mL/min/1.73m2 >59 Globulin 3.1 g/dL 2.3-3.5 Glucose 109 mg/dL 70-110 Osmo 292 280-295 Potassium 3.8 mmol/L 3.5-5.3 Sodium 141 mmol/L 134-148 TBil 0.5 mg/dL 0.2-1.2 TP 7.4 g/dL 6.0-8.3 Complete blood count (CBC) with automate d white blood cell (WBC) differential - 10/23/18 13:15 Blood leukocytes automated count (number/volume) 5.2 10*3/uL 4.3-11.0 Blood erythrocytes automated count (number/volume) 4.16 10*6/uL 4.35-5.85 Venous blood hemoglobin measurement (mass/volume) 12.3 g/dL 13.3-17.7 Blood hematocrit (volume fraction) 37 % 40-54 Automated erythrocyte mean corpuscular volume 89 [ foz_us] 80-99 Automated erythrocyte mean corpuscular h emoglobin (mass per erythrocyte) 30 pg 25-34 Automated erythrocyte mean corpuscular h emoglobin concentration measurement (mass/volume) 33 g/dL 32-36 Automated erythrocyte distribution width ratio 14. 6 % 10.0- 14.5 Automated blood platelet count (count/volume) 200 10*3/uL 130-400 Automated blood platelet mean volume measurement 10.1 [foz_us] 7.4-10.4 Automated blood neutrophils/100 leukocytes 56 % 42-75 Automated blood lymphocytes/100 leukocytes 33 % 12-44 Blood monocytes/100 leukocytes 9 % 0-12 Automated blood eosinophils/100 leukocytes 1 % 0-10 Automated blood basophils/100 leukocytes 1 % 0-10 Blood neutrophils automated count (number/volume) 2.9 10*3 1.8-7.8 Blood lymphocytes automated count (number/volume) 1.7 10*3 1.0-4.0 Blood monocytes automated count (number/volume) 0. 4 10*3 0.0-1.0 Automated eosinophil count 0.1 10*3/uL 0 .0-0.3 Automated blood basophil count (count/volume) 0.0 10*3/uL 0.0-0.1 PT panel in platelet poor plasma by coag ulation assay - 10/23/18 13:15 Prothrombin time (PT) in platelet poor plasma by coagu lation assay 12.7 s 12.2-14.7 INR in platelet poor plasma or blood by coagulation as say 0.9 0.8-1.4 Activated partial thromboplastin time (a PTT) in platelet poor plasma bycoagulation assay - 10/23/18 13:15 Activated partial thromboplastin time (a PTT) in platelet poor plasma bycoagulation assay 28 s 24-35 Comprehensive metabolic panel - 10/23/18 13:15 Serum or plasma sodium measurement (moles/volume) 139 mmol/L 135-145 Serum or plasma potassium measurement (moles/volume) 4.1 mmol/L 3.6-5.0 Serum or plasma chloride measurement (moles/volume) 104 mmol/L 98-107 Carbon dioxide 26 mmol/L 21-32 Serum or plasma anion gap determination (moles/volume) 9 mmol/L 5-14 Serum or plasma urea nitrogen measurement (mass/volume ) 14 mg/dL 7-18 Serum or plasma creatinine measurement (mass/volume) 0.87 mg/dL 0.60-1.30 Serum or plasma urea nitrogen/creatinine mass ratio 16 NRG Serum or plasma creatinine measurement w ith calculation of estimated glomerular filtration rate > NRG Serum or plasma glucose measurement (mass/volume) 117 mg/dL 70-105 Serum or plasma calcium measurement (mass/volume) 9.6 mg/dL 8.5-10.1 Serum or plasma total bilirubin measurement (mass/volu me) 0.4 mg/dL 0.1-1.0 Serum or plasma alkaline phosphatase sylvester surement (enzymatic activity/volume) 78 U/L 40-136 Serum or plasma aspartate aminotransfera se measurement (enzymatic activity/volume) 20 U/L 5-34 Serum or plasma alanine aminotransferase measurement (enzymatic activity/volume) 20 U/L 0-55 Serum or plasma protein measurement (mass/volume) 7.2 g/dL 6.4-8.2 Serum or plasma albumin measurement (mass/volume) 4.4 g/dL 3.2-4.5 CALCIUM CORRECTED 9.3 mg/dL 8.5-10.1 Magnesium - 10/23/18 13:15 Magnesium 2.3 mg/dL 1.8-2.4 Serum or plasma troponin i.cardiac measu rement (mass/volume) - 10/23/18 13:15 Serum or plasma troponin i.cardiac measurement (mass/v olume) < ng/mL <0.028 Myoglobin, serum - 10/23/18 13:15 Myoglobin, serum 47.5 ng/mL 10.0-92.0 Lipase - 10/23/18 13:15 Lipase 48 U/L 8-78 Complete blood count (CBC) with automate d white blood cell (WBC) differential - 11/17/18 18:10 Blood leukocytes automated count (number/volume) 5.8 10*3/uL 4.3-11.0 Blood erythrocytes automated count (number/volume) 4.11 10*6/uL 4.35-5.85 Venous blood hemoglobin measurement (mass/volume) 12.2 g/dL 13.3-17.7 Blood hematocrit (volume fraction) 37 % 40-54 Automated erythrocyte mean corpuscular volume 89 [ foz_us] 80-99 Automated erythrocyte mean corpuscular h emoglobin (mass per erythrocyte) 30 pg 25-34 Automated erythrocyte mean corpuscular h emoglobin concentration measurement (mass/volume) 33 g/dL 32-36 Automated erythrocyte distribution width ratio 14. 0 % 10.0- 14.5 Automated blood platelet count (count/volume) 195 10*3/uL 130-400 Automated blood platelet mean volume measurement 11.0 [foz_us] 7.4-10.4 Automated blood neutrophils/100 leukocytes 53 % 42-75 Automated blood lymphocytes/100 leukocytes 36 % 12-44 Blood monocytes/100 leukocytes 9 % 0-12 Automated blood eosinophils/100 leukocytes 2 % 0-10 Automated blood basophils/100 leukocytes 1 % 0-10 Blood neutrophils automated count (number/volume) 3.1 10*3 1.8-7.8 Blood lymphocytes automated count (number/volume) 2.1 10*3 1.0-4.0 Blood monocytes automated count (number/volume) 0. 5 10*3 0.0-1.0 Automated eosinophil count 0.1 10*3/uL 0 .0-0.3 Automated blood basophil count (count/volume) 0.0 10*3/uL 0.0-0.1 Activated partial thromboplastin time (a PTT) in platelet poor plasma bycoagulation assay - 11/17/18 18:10 Activated partial thromboplastin time (a PTT) in platelet poor plasma bycoagulation assay 30 s 24-35 Comprehensive metabolic panel - 11/17/18 18:10 Serum or plasma sodium measurement (moles/volume) 142 mmol/L 135-145 Serum or plasma potassium measurement (moles/volume) 4.0 mmol/L 3.6-5.0 Serum or plasma chloride measurement (moles/volume) 107 mmol/L 98-107 Carbon dioxide 27 mmol/L 21-32 Serum or plasma anion gap determination (moles/volume) 8 mmol/L 5-14 Serum or plasma urea nitrogen measurement (mass/volume ) 16 mg/dL 7-18 Serum or plasma creatinine measurement (mass/volume) 0.89 mg/dL 0.60-1.30 Serum or plasma urea nitrogen/creatinine mass ratio 18 NRG Serum or plasma creatinine measurement w ith calculation of estimated glomerular filtration rate > NRG Serum or plasma glucose measurement (mass/volume) 148 mg/dL 70-105 Serum or plasma calcium measurement (mass/volume) 9.8 mg/dL 8.5-10.1 Serum or plasma total bilirubin measurement (mass/volu me) 0.4 mg/dL 0.1-1.0 Serum or plasma alkaline phosphatase sylvester surement (enzymatic activity/volume) 72 U/L 40-136 Serum or plasma aspartate aminotransfera se measurement (enzymatic activity/volume) 19 U/L 5-34 Serum or plasma alanine aminotransferase measurement (enzymatic activity/volume) 16 U/L 0-55 Serum or plasma protein measurement (mass/volume) 7.0 g/dL 6.4-8.2 Serum or plasma albumin measurement (mass/volume) 4.3 g/dL 3.2-4.5 CALCIUM CORRECTED 9.6 mg/dL 8.5-10.1 Magnesium - 11/17/18 18:10 Magnesium 2.3 mg/dL 1.8-2.4 Serum or plasma troponin i.cardiac measu rement (mass/volume) - 11/17/18 18:10 Serum or plasma troponin i.cardiac measurement (mass/v olume) < ng/mL <0.028 Complete urinalysis with reflex to cultu re - 11/17/18 18:55 Urine color determination YELLOW NRG Urine clarity determination CLEAR NR G Urine pH measurement by test strip 6 5-9 Specific gravity of urine by test strip 1.015 1.016-1.022 Urine protein assay by test strip, semi-quantitative NEGATIVE NEGATIVE Urine glucose detection by automated test strip NE GATIVE NEGATIVE Erythrocytes detection in urine sediment by light micr oscopy NEGATIVE NEGATIVE Urine ketones detection by automated test strip NE GATIVE NEGATIVE Urine nitrite detection by test strip NEGATIVE NEGATIVE Urine total bilirubin detection by test strip NEGA TIVE NEGATIVE Urine urobilinogen measurement by automated test strip (mass/volume) NORMAL NORMAL Urine leukocyte esterase detection by dipstick NEG ATIVE NEGATIVE Automated urine sediment erythrocyte cou nt by microscopy (number/high power field) NONE NRG Automated urine sediment leukocyte count by microscopy (number/high power field) RARE NRG Bacteria detection in urine sediment by light microsco py NEGATIVE NRG Crystals detection in urine sediment by light microsco py NONE NRG Casts detection in urine sediment by light microscopy NONE NRG Mucus detection in urine sediment by light microscopy SMALL NRG Complete urinalysis with reflex to culture NO NRG Complete blood count (CBC) with automate d white blood cell (WBC) differential - 03/02/19 11:15 Blood leukocytes automated count (number/volume) 5.3 10*3/uL 4.3-11.0 Blood erythrocytes automated count (number/volume) 3.85 10*6/uL 4.35-5.85 Venous blood hemoglobin measurement (mass/volume) 11.3 g/dL 13.3-17.7 Blood hematocrit (volume fraction) 34 % 40-54 Automated erythrocyte mean corpuscular volume 89 [ foz_us] 80-99 Automated erythrocyte mean corpuscular h emoglobin (mass per erythrocyte) 29 pg 25-34 Automated erythrocyte mean corpuscular h emoglobin concentration measurement (mass/volume) 33 g/dL 32-36 Automated erythrocyte distribution width ratio 13. 4 % 10.0- 14.5 Automated blood platelet count (count/volume) 177 10*3/uL 130-400 Automated blood platelet mean volume measurement 10.2 [foz_us] 7.4-10.4 Automated blood neutrophils/100 leukocytes 72 % 42-75 Automated blood lymphocytes/100 leukocytes 17 % 12-44 Blood monocytes/100 leukocytes 8 % 0-12 Automated blood eosinophils/100 leukocytes 2 % 0-10 Automated blood basophils/100 leukocytes 1 % 0-10 Blood neutrophils automated count (number/volume) 3.9 10*3 1.8-7.8 Blood lymphocytes automated count (number/volume) 0.9 10*3 1.0-4.0 Blood monocytes automated count (number/volume) 0. 4 10*3 0.0-1.0 Automated eosinophil count 0.1 10*3/uL 0 .0-0.3 Automated blood basophil count (count/volume) 0.0 10*3/uL 0.0-0.1 PT panel in platelet poor plasma by coag ulation assay - 03/02/19 11:15 Prothrombin time (PT) in platelet poor plasma by coagu lation assay 13.0 s 12.2-14.7 INR in platelet poor plasma or blood by coagulation as say 1.0 0.8-1.4 Activated partial thromboplastin time (a PTT) in platelet poor plasma bycoagulation assay - 03/02/19 11:15 Activated partial thromboplastin time (a PTT) in platelet poor plasma bycoagulation assay 30 s 24-35 Blood lactic acid measurement (moles/vol ume) - 03/02/19 11:15 Blood lactic acid measurement (moles/volume) 1.30 mmol/L 0.50-2.00 Comprehensive metabolic panel - 03/02/19 11:15 Serum or plasma sodium measurement (moles/volume) 138 mmol/L 135-145 Serum or plasma potassium measurement (moles/volume) 3.8 mmol/L 3.6-5.0 Serum or plasma chloride measurement (moles/volume) 106 mmol/L 98-107 Carbon dioxide 25 mmol/L 21-32 Serum or plasma anion gap determination (moles/volume) 7 mmol/L 5-14 Serum or plasma urea nitrogen measurement (mass/volume ) 11 mg/dL 7-18 Serum or plasma creatinine measurement (mass/volume) 0.77 mg/dL 0.60-1.30 Serum or plasma urea nitrogen/creatinine mass ratio 14 NRG Serum or plasma creatinine measurement w ith calculation of estimated glomerular filtration rate > NRG Serum or plasma glucose measurement (mass/volume) 127 mg/dL 70-105 Serum or plasma calcium measurement (mass/volume) 8.5 mg/dL 8.5-10.1 Serum or plasma total bilirubin measurement (mass/volu me) 0.5 mg/dL 0.1-1.0 Serum or plasma alkaline phosphatase sylvester surement (enzymatic activity/volume) 68 U/L 40-136 Serum or plasma aspartate aminotransfera se measurement (enzymatic activity/volume) 19 U/L 5-34 Serum or plasma alanine aminotransferase measurement (enzymatic activity/volume) 11 U/L 0-55 Serum or plasma protein measurement (mass/volume) 6.2 g/dL 6.4-8.2 Serum or plasma albumin measurement (mass/volume) 3.6 g/dL 3.2-4.5 CALCIUM CORRECTED 8.8 mg/dL 8.5-10.1 Magnesium - 03/02/19 11:15 Magnesium 1.4 mg/dL 1.6-2.4 Serum or plasma troponin i.cardiac measu rement (mass/volume) - 03/02/19 11:15 Serum or plasma troponin i.cardiac measurement (mass/v olume) < ng/mL <0.028 Myoglobin, serum - 03/02/19 11:15 Myoglobin, serum 137.8 ng/mL 10.0-92.0 Serum or plasma amylase measurement (enz ymatic activity/volume) - 03/02/19 11:15 Serum or plasma amylase measurement (enzymatic activit y/volume) 34 U/L 25-125 Lipase - 03/02/19 11:15 Lipase 24 U/L 8-78 Serum or plasma lithium measurement (mol es/volume) - 03/02/19 11:15 BNP PT 50.0 pg/mL <100.0 Bacterial blood culture - 03/02/19 11:15 Bacterial blood culture NG NRG Bacterial blood culture - 03/02/19 11:31 QUANTITY OF GROWTH Isolated NR Bacterial blood culture [id number] NR Complete urinalysis with reflex to cultu re - 03/02/19 12:15 Urine color determination YELLOW NRG Urine clarity determination CLEAR NR G Urine pH measurement by test strip 8 5-9 Specific gravity of urine by test strip 1.010 1.016-1.022 Urine protein assay by test strip, semi-quantitative NEGATIVE NEGATIVE Urine glucose detection by automated test strip NE GATIVE NEGATIVE Erythrocytes detection in urine sediment by light micr oscopy NEGATIVE NEGATIVE Urine ketones detection by automated test strip NE GATIVE NEGATIVE Urine nitrite detection by test strip NEGATIVE NEGATIVE Urine total bilirubin detection by test strip NEGA TIVE NEGATIVE Urine urobilinogen measurement by automated test strip (mass/volume) NORMAL NORMAL Urine leukocyte esterase detection by dipstick NEG ATIVE NEGATIVE Automated urine sediment erythrocyte cou nt by microscopy (number/high power field) NONE NRG Automated urine sediment leukocyte count by microscopy (number/high power field) NONE NRG Bacteria detection in urine sediment by light microsco py NEGATIVE NRG Squamous epithelial cells detection in u rine sediment by light microscopy NONE NRG Crystals detection in urine sediment by light microsco py NONE NRG Casts detection in urine sediment by light microscopy NONE NRG Mucus detection in urine sediment by light microscopy NEGATIVE NRG Complete urinalysis with reflex to culture NO NRG Lactic Acid - 03/16/19 19:26 Lactic Acid 9.3 mg/dL 4.5-19.8 Comprehensive Metabolic Panel - 03/16/19 19:27 Albumin 4.1 g/dL 3.6-5.1 ALP 65 U/L 35-130 ALT 13 U/L 6-45 Anion Gap 15 6-14 AST 17 U/L 2-40 BUN 12 mg/dL 5-25 Calcium 9.1 mg/dL 8.3-10.4 Chloride 106 mmol/L 95-114 CO2 21 mEq/L 22-33 Creat 0.87 mg/dL 0.50-1.50 eGFR 84 mL/min/1.73m2 >59 Globulin 2.7 g/dL 2.3-3.5 Glucose 145 mg/dL 70-110 Osmo 287 280-295 Potassium 3.6 mmol/L 3.5-5.3 Sodium 138 mmol/L 134-148 TBil 0.9 mg/dL 0.2-1.2 TP 6.8 g/dL 6.0-8.3 Blood Culture - 03/16/19 19:32 PRELIM CULTURE RESULTS Blood Culture Negativ e, No Growth Day 1 MEDIA PLATED Setup at 19:50 on 03/16/2019X0 [id number] Culture Media Position C48 CULTURE SOURCE L AC Blood Culture - 03/16/19 19:44 PRELIM CULTURE RESULTS Blood Culture Negativ e, No Growth Day 1 MEDIA PLATED Setup at 19:50 on 03/16/2019X0 [id number] Culture Media Position A11 CULTURE SOURCE L AC Urinalysis - 03/16/19 21:30 Icotest N/A Negative Urine Crystals Amorphous material: Few/HPF Urine Volume Urine Volume Sufficient (10mL) Urine-Appearance Clear Clear Urine-Bacteria Rare Urine-Bilirubin Negative Negative Urine-Blood 2+ Negative Urine-Color Yellow Colorless-Lt. Cross ow Urine-Epithelial Cells 0-5/HPF Urine-Glucose Negative Negative Urine-Ketones Negative Negative Urine-Leukocytes Negative Negative Urine-Nitrite Negative Negative Urine-Other Urine Saved if Culture Need ed (48hrs from time of collection) Urine-pH 7.0 5-8.5 Urine-Protein 1+ Negative Urine-RBC 5-10/HPF Urine-Specific [place] 1.020 1.000-1 .030 Urine-WBC 0-2/HPF Urobilinogen 1.0 0.2-1.0 [facility] - 03/17/19 05:35 Anion Gap 12 6-14 BUN 11 mg/dL 5-25 Calcium 8.5 mg/dL 8.3-10.4 Chloride 108 mmol/L 95-114 CO2 24 mEq/L 22-33 Creat 0.86 mg/dL 0.50-1.50 eGFR 85 mL/min/1.73m2 >59 Glucose 132 mg/dL 70-110 Osmo 290 280-295 Potassium 3.7 mmol/L 3.5-5.3 Sodium 140 mmol/L 134-148 MRSA Screen - 03/17/19 05:40 FINAL CULTURE RESULTS MRSA Negative Nasal Culture Vancomycin Trough - 03/18/19 07:39 Vanco Trough 12.8 ug/mL 10.0-20.0 [facility] - 03/19/19 07:00 Anion Gap 13 6-14 BUN 10 mg/dL 5-25 Calcium 9.0 mg/dL 8.3-10.4 Chloride 111 mmol/L 95-114 CO2 23 mEq/L 22-33 Creat 0.84 mg/dL 0.50-1.50 eGFR 88 mL/min/1.73m2 >59 Glucose 100 mg/dL 70-110 Osmo 294 280-295 Potassium 4.1 mmol/L 3.5-5.3 Sodium 143 mmol/L 134-148 PSA TOTAL - 07/20/19 09:52 PSA TOTAL 0.2 ng/mL 0.0-4.0 IFOBT Occult Blood - 07/21/19 11:27 IFOBT Occult Blood NEGATIVE Negative Glucose - 07/22/19 09:18 Glucose 107 mg/dL 70-110 Encounters ACCT No. Visit Date/Time Discharge Status Pt. Type Provider Facility Loc./Unit Complaint [id number] 11/11/2019 04:18:00 11/11/2019 06:30 :[id number] 09:12:00 07/22/2019 23:59 :00 DIS Outpatient PoppyNegro [id number] 07/21/2019 11:12:00 07/21/2019 23:59 :00 DIS Outpatient PoppyNegro [id number] 07/20/2019 11:01:00 07/20/2019 23:59 :00 DIS Outpatient CharlesNegro daugherty [id number] 07/20/2019 09:45:00 07/20/2019 23:59 :00 DIS Outpatient Poppy Negro [id number] 05/26/2019 05:34:00 05/26/2019 08:40: 00 DIS Outpatient [facility]ULIA [facility] ER [id number] 04/12/2019 17:14:00 04/12/2019 18:08: [id number] 03/[facility]/2019 08:52:00 03/29/2019 23:59: 00 DIS Outpatient CharlesNegro daugherty [id number] 03/22/2019 08:16:00 03/22/2019 23:59: 00 DIS Outpatient Poppy Negro [id number] 03/16/2019 19:21:00 03/19/2019 13:30: 00 DIS Inpatient Poppy [facility] ter MED-SURG [id number] 03/16/2019 08:47:00 03/16/2019 23:59: 00 DIS Outpatient Himanshu Dillon [id number] 01/04/2019 10:04:00 01/04/2019 11:27: [id number] 12/27/2018 08:39:00 12/27/2018 10:15: 00 DIS Outpatient [facility] ER [id number] 11/25/2018 06:59:00 11/25/2018 09:27: 00 DIS Outpatient JULIA ABEL [id number] 09/24/2018 06:27:00 09/24/2018 09:40: 00 DIS Outpatient [facility] ER [id number] 09/20/2018 09:43:00 09/20/2018 23:59: 00 DIS Outpatient Negro Mcwilliams [id number] 04/29/2018 20:50:00 05/01/2018 13:20: 00 DIS Inpatient Poppy [facility] [id number] 04/22/2018 07:20:00 04/22/2018 09:57: 00 DIS Outpatient ABEL DUMONT [id number] 03/18/2018 11:23:00 03/18/2018 23:59: 00 DIS Outpatient CharlesNegro daugherty [id number] 02/09/2018 11:48:00 02/09/2018 23:59: 00 DIS Outpatient CharlesNegro daugherty [id number] 11/19/2017 04:45:00 11/19/2017 05:43: 00 DIS Outpatient [facility] ER [id number] 07/10/2017 09:52:00 07/10/2017 10:35: 00 DIS Outpatient Daniel Olivia [id number] 07/09/2017 14:40:00 07/09/2017 15:40: 00 DIS Outpatient Daniel Olivia [id number] 03/18/2017 17:10:00 03/18/2017 19:35: 00 [id number]/08/2017 15:21:00 03/08/2017 16:50: 00 DIS Outpatient Ne [facility] ER [id number] 02/17/2017 10:35:00 02/17/2017 11:30: 00 DIS Outpatient [employer] [id number] 02/07/2017 17:46:00 02/07/2017 21:23: 00 DIS Outpatient Daniel Olivia [id number] 02/06/2017 11:03:00 02/06/2017 11:50: 00 DIS Outpatient Ne [facility] ER [id number] 02/02/2017 23:13:00 02/03/2017 00:31: 00 DIS Outpatient ABEL DUMONT [id number] 02/01/2017 06:23:00 02/01/2017 08:00: 00 DIS Outpatient Frederick Mare [facility] ER [id number] 01/30/2017 10:35:00 01/30/2017 11:57: 00 DIS Outpatient Mare Mack [id number] 01/22/2017 09:54:00 01/22/2017 23:59: 00 DIS Outpatient Negro Mcwilliams [id number] 01/11/2017 14:12:00 01/11/2017 15:40: 00 DIS Outpatient Ne [facility] ER [id number] 10/15/2016 07:19:00 10/15/2016 09:17: 00 [id number] 07/04/2016 11:08:00 07/04/2016 14:49: 00 [facility] [id number] 07/02/2016 15:51:00 07/03/2016 13:30: 00 DIS Outpatient Poppy [facility]G [id number] 06/29/2016 21:08:00 06/30/2016 00:04: 00 DIS Outpatient Ne Garrett [id number] 06/18/2016 04:20:00 06/18/2016 06:20: 00 DIS Outpatient Casie Prather [facility] ER [id number] 09/20/2018 08:51:00 Document Registration [id number] 03/13/2018 11:14:00 Document Registration [id number] 06/18/2016 04:41:02 Document Registration [id number] 05/15/2016 09:45:00 Document Registration [id number] 04/30/2016 09:10:00 Document Registration [id number] 04/23/2016 10:13:00 Document Registration [id number] 07/04/2018 13:00:00 07/04/2018 23:59: 59 CLS Outpatient SANDRA [facility] [id number] 07/02/2016 15:51:00 Document Registration [id number] 07/02/2019 09:52:00 019 11:16:00 DIS Emergency TERE CHAPPELL, ROMEO Kelly [facility] ER FALL - HEAD/BACK/R HIP PAIN [id number] 03/02/2019 10:51:00 15:15:00 DIS Emergency CATHIE HAIDER DO [facility] ER N/V [id number] 11/21/2018 14:29:00 17:25:00 DIS Emergency DILIA CHAPPELL, LUCI Tony [facility] ER ELEV BP [id number] 11/17/2018 18:09:00 19:30:00 DIS Emergency CATHIE HAIDER DO [facility] ER DIZZY,STANTON,LIGHTHEADED [id number] 10/23/2018 13:00:00 14:52:00 DIS Emergency TERE CHAPPELL, ROMEO Kelly [facility] ER CHEST PAIN [id number] 07/10/2018 11:43:00 14:41:00 DIS Emergency [employer]N [facility] ER DECREASED LOC, L THIGH PAIN [id number] 05/24/2018 03:35:00 16:30:00 DIS Inpatient HERMES GOLDBERGCAROLA V [facility] ICU PSVT [id number] 08/05/2018 07:31:00 Document Registration [id number] 08/05/2018 07:31:00 Document Registration [id number] 08/05/2018 07:31:00 Document Registration [id number] 06/14/2008 11:03:00 Document Registration [id number] 06/13/2008 12:29:00 Document Registration [id number] 05/19/2008 21:27:00 Document Registration [id number] 10/11/2007 13:38:00 Document Registration
--- NOTE | 2020-01-03 12:05 | NUR ---
WILL SEND PATIENT HOME AFTER FLUIDS INFUSED
--- NOTE | 2020-01-03 12:07 | Diagnostic Imaging Report ---
INDICATION: History of syncopal episode one week ago with continued dizziness and weakness, post hospitalization.. TECHNIQUE: Single view chest 11:59 AM. CORRELATION STUDY: 11/17/2018 FINDINGS: The heart size, mediastinal configuration and pulmonary vascularity are within normal limits. Mild calcification aortic arch. The lungs are clear with no consolidating infiltrate. There is no significant effusion or pneumothorax. Mild apical pleural thickening. Rightward curvature the mid to lower thoracic spine. Costectomy clips right upper quadrant. IMPRESSION: 1. Negative for acute abnormality of the chest. Dictated by: Dictated on workstation # [id number]
--- NOTE | 2020-01-03 12:12 | NUR ---
FOOD TRAY ORDERED
--- NOTE | 2020-01-03 12:45 | NUR ---
FOOD TRAY GIVEN
--- NOTE | 2020-01-03 13:08 | NUR ---
ATE WELL CALLEAD CARE GIVEN GARRET WILL COME GET PATIETNT
[2020-01-03 13:09] VITALS: BP 183/94
== END 2020-01-03 13:09 | disposition home or self-care (01) ==
LOC: EDUNIT# 10:45 → ER 10:47
DX: R53.1 Weakness (principal); R11.0 Nausea; R42 Dizziness and giddiness; I10 Essential (primary) hypertension; Z88.1 Allergy status to other antibiotic agents; Z87.891 Personal history of nicotine dependence; Z86.73 Personal history of transient ischemic attack (TIA), and cerebral infarction without residual deficits
CPT/HCPCS: 36415; 70450; 71045; 80053; 81000; 84484; 85025; 85610; 93005; 96360; 96361

== ENCOUNTER 2020-04-27 14:17 | Emergency (ER) | payer MEDICARE, MEDICAID ==
[~2020-04-27] VITALS: Ht 185 cm; Wt 81.6 kg
[~2020-04-27 14:17] MED LIST changes: +CLOP75TA28; +DILT180C54; +DONE10TA41
[2020-04-27 14:32] VITALS: BP 194/94
--- NOTE | 2020-04-27 14:36 | ED Upper Extremity ---
General Stated Complaint: L ARM LACERATION Source: patient Exam Limitations: no limitations History of Present Illness Date Seen by Provider: Apr 27, 2020 Time Seen by Provider: 14:31 Initial Comments To ER with left forearm bite/laceration from his house cat just prior to arrival. Onset: just prior to arrival Severity: mild Pain/Injury Location: left forearm Modifying Factors: Worse With Movement Allergies and Home Medications Allergies Coded Allergies: cephalexin (Unverified Allergy, Mild, 09/03/09) nut - unspecified (Verified Allergy, Unknown, 01/03/20) Home Medications Amlodipine Besylate 5 Mg Tablet, 5 MG PO DAILY, (Reported) Cyanocobalamin 1,000 Mcg/Ml Inj, 1,000 MCG IM MONTHLY, (Reported) Ergocalciferol (Vitamin D2) 50,000 Unit Capsule, 50,000 UNITS PO Mo, (Reported) Fexofenadine HCl 180 Mg Tablet, 180 MG PO DAILY PRN for ALLERGIES, (Reported) Ondansetron 4 Mg Tab.rapdis, 4 MG PO Q4H Prescribed by: CATHIE HAIDER on 03/02/19 1416 Patient Home Medication List Home Medication List Reviewed: Yes Review of Systems Constitutional: see HPI EENTM: see HPI Respiratory: no symptoms reported Cardiovascular: no symptoms reported Genitourinary: no symptoms reported Musculoskeletal: no symptoms reported Skin: no symptoms reported Psychiatric/Neurological: No Symptoms Reported Past Tnwffgb-Bwzjvh-Gkcllx Hx Patient Social History Former Smoker, Quit: November 30, 1973 2nd Hand Smoke Exposure: No Recent Foreign Travel: No Contact w/Someone Who Travel: No Recent Hopitalizations: No Immunizations Up To Date Tetanus Booster (TDap): Less than 5yrs Date of Pneumonia Vaccine: May 13, 2010 Seasonal Allergies Seasonal Allergies: No Past Medical History Surgeries: Yes (ANKLE SURGERY; SCAR NOTED TO LEFT BREAST AREA; LITHOTRIPSY/ESWL) Gallbladder, Orthopedic, Renal Respiratory: No Cardiac: Yes (SVT) Hypertension, Irregular Heartbeat, Palpitations 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; PARESTHESIAS ) Dementia, TIA Reproductive Disorders: No Genitourinary: Yes (ESWL/LITHOTRIPSY) Bladder Infection, Kidney Stones Gastrointestinal: Yes (PANCREATITIS WITH PARALYTIC ILEUS, DELIRIUM 04/29/18) Pancreatitis, Gall Bladder Disease Musculoskeletal: Yes (ANKLE SURGERY) Endocrine: Yes Hypothyroidsim HEENT: No Cancer: No Psychosocial: Yes Anxiety Integumentary: No Blood Disorders: No Physical Exam Vital Signs Capillary Refill : Height, Weight, BMI Height: 6'2.00" Weight: 180lbs. 0oz. 81.490657eb; 24.00 BMI Method:Stated General Appearance: WD/WN, no apparent distress Respiratory: no respiratory distress, no accessory muscle use Shoulder: normal inspection Elbow/Forearm: Left (superficial laceration 0.5 cm to the dorsal aspect left distal forearm. There was a puncture wound to the dorsal radial side of the distal forearm. These were scrubbed with chlorhexidine/saline solution) Neurologic/Psychiatric: alert, normal mood/affect, oriented x 3 Skin: normal color, warm/dry Departure Communication (Admissions) His tetanus vaccine is up-to-date. Impression Primary Impression: Bite from cat Disposition: HOME, SELF-CARE Condition: Stable Departure-Patient Inst. Decision time for Depature: 14:36 Referrals: SAPNA PATEL DO (PCP/Family) Primary Care Physician Patient Instructions: Animal Bites (DC) Add. Discharge Instructions: 1. Wash daily with soap and water. It's very important that you take these antibiotics to keep this from getting infected. Follow-up with your doctor on Thursday for recheck. Scripts Amoxicillin/Potassium Clav (Augmentin 875-125 Tablet) 1 Each Tablet 1 EACH PO BID, #10 TAB 0 Refills Prov: CHECO PAINTING APRN 04/27/20 CHECO PAINTING APRN Apr 27, 2020 14:36
[2020-04-27] MEDS ORDERED: AMOX-358 PO (14:37)
[2020-04-27] MEDS ORDERED: AUGMENTIN 875 MG TAB (AMOXICILLIN/CLAVULANATE) PO SCH (14:45)
== END 2020-04-27 14:48 | disposition home or self-care (01) ==
LOC: EDUNIT# 14:17 → ER 14:19
DX: S51.812A Laceration without foreign body of left forearm, initial encounter (principal); I10 Essential (primary) hypertension; Z86.73 Personal history of transient ischemic attack (TIA), and cerebral infarction without residual deficits; Z88.1 Allergy status to other antibiotic agents; W55.01XA Bitten by cat, initial encounter
CPT/HCPCS: 99283

== ENCOUNTER 2020-05-29 10:40 | Emergency (ER) | payer MEDICARE, MEDICAID ==
[~2020-05-29] VITALS: Ht 182.8 cm; Wt 81.8 kg
[2020-05-29 10:40] VITALS: BP 192/87
[~2020-05-29 10:40] MED LIST changes: +AMLO-250 PO; -AMLO5TAB9 PO; +AMOX-358 PO
--- NOTE | 2020-05-29 10:47 | ED GI ---
General Stated Complaint: N/V History of Present Illness Date Seen by Provider: May 29, 2020 Time Seen by Provider: 10:47 Initial Comments 84-year-old male presents with some nausea and a couple episodes of vomiting. Patient is very vague in his description. He denies abdominal pain. Reports he had 2-3 episodes of vomiting earlier today. He denies any fever cough diarrhea or other systemic complaints. He doesn't report any known sick contacts. Allergies and Home Medications Allergies Coded Allergies: cephalexin (Unverified Allergy, Mild, 09/03/09) nut - unspecified (Verified Allergy, Unknown, 01/03/20) Home Medications Amlodipine Besylate 5 Mg Tablet, 5 MG PO DAILY, (Reported) Amoxicillin/Potassium Clav 1 Each Tablet, 1 EACH PO BID Prescribed by: CHECO PAINTING on 04/27/20 1437 Cyanocobalamin 1,000 Mcg/Ml Inj, 1,000 MCG IM MONTHLY, (Reported) Ergocalciferol (Vitamin D2) 50,000 Unit Capsule, 50,000 UNITS PO Mo, (Reported) Fexofenadine HCl 180 Mg Tablet, 180 MG PO DAILY PRN for ALLERGIES, (Reported) Ondansetron 4 Mg Tab.rapdis, 4 MG PO Q4H Prescribed by: CATHIE HAIDER on 03/02/19 1416 Patient Home Medication List Home Medication List Reviewed: Yes Review of Systems Review of Systems Constitutional: No chills, No fever; malaise Respiratory: Denies Cough, Denies Shortness of Air Cardiovascular: Denies Chest Pain, Denies Irregular Heart Rate, Denies Lightheadedness Gastrointestinal: Denies Abdominal Pain, Denies Constipated, Denies Diarrhea; Nausea, Vomiting Genitourinary: No Symptoms Reported Musculoskeletal: no symptoms reported Skin: no symptoms reported Psychiatric/Neurological: No Symptoms Reported Endocrine: No Symptoms Reported Hematologic/Lymphatic: No Symptoms Reported Past Tjkoace-Cyofyn-Skjfxc Hx Past Med/Social Hx: Reviewed Nursing Past Med/Soc Hx Patient Social History Former Smoker, Quit: November 30, 1973 2nd Hand Smoke Exposure: No Recent Hopitalizations: No Immunizations Up To Date Tetanus Booster (TDap): Less than 5yrs Date of Pneumonia Vaccine: May 13, 2010 Seasonal Allergies Seasonal Allergies: No Past Medical History Surgeries: Yes (ANKLE SURGERY; SCAR NOTED TO LEFT BREAST AREA; LITHOTRIPSY/ESWL) Gallbladder, Orthopedic, Renal Respiratory: No Cardiac: Yes (SVT) Hypertension, Irregular Heartbeat, Palpitations 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; PARESTHESIAS ) Dementia, TIA Reproductive Disorders: No Genitourinary: Yes (ESWL/LITHOTRIPSY) Bladder Infection, Kidney Stones Gastrointestinal: Yes (PANCREATITIS WITH PARALYTIC ILEUS, DELIRIUM 04/29/18) Pancreatitis, Gall Bladder Disease Musculoskeletal: Yes (ANKLE SURGERY) Endocrine: Yes Hypothyroidsim HEENT: No Cancer: No Psychosocial: Yes Anxiety Integumentary: No Blood Disorders: No Physical Exam Vital Signs Vital Signs - First Documented 05/29/20 10:40 Temp 35.0 Pulse 61 Resp 18 B/P (MAP) 192/87 (122) Pulse Ox 95 O2 Delivery Room Air Capillary Refill : Height/Weight/BMI Height: 6'2.00" Weight: 180lbs. 0oz. 81.188943kf; 23.00 BMI Method:Stated General Appearance: no apparent distress HEENT: PERRL/EOMI Neck: full range of motion, supple Respiratory: lungs clear, normal breath sounds Cardiovascular: normal peripheral pulses, regular rate, rhythm, no edema Gastrointestinal: non tender, soft Extremities: normal range of motion Neurologic/Psychiatric: no motor/sensory deficits, alert, normal mood/affect Skin: normal color, warm/dry Progress/Results/Core Measures Results/Orders Lab Results Laboratory Tests Test 05/29/20 10:44 05/29/20 12:30 Range/Units White Blood Count 6.0 4.3-11.0 10^3/uL Red Blood Count 4.22 L 4.30-5.52 10^6/uL Hemoglobin 12.2 L 13.3-17.7 g/dL Hematocrit 38 L 40-54 % Mean Corpuscular Volume 90 80-99 fL Mean Corpuscular Hemoglobin 29 25-34 pg Mean Corpuscular Hemoglobin Concent 32 32-36 g/dL Red Cell Distribution Width 13.5 10.0-14.5 % Platelet Count 167 130-400 10^3/uL Mean Platelet Volume 11.5 9.0-12.2 fL Immature Granulocyte % (Auto) 0 % Neutrophils (%) (Auto) 50 42-75 % Lymphocytes (%) (Auto) 39 12-44 % Monocytes (%) (Auto) 8 0-12 % Eosinophils (%) (Auto) 2 0-10 % Basophils (%) (Auto) 1 0-10 % Neutrophils # (Auto) 3.0 1.8-7.8 10^3/uL Lymphocytes # (Auto) 2.3 1.0-4.0 10^3/uL Monocytes # (Auto) 0.5 0.0-1.0 10^3/uL Eosinophils # (Auto) 0.1 0.0-0.3 10^3/uL Basophils # (Auto) 0.1 0.0-0.1 10^3/uL Immature Granulocyte # (Auto) 0.0 0.0-0.1 10^3/uL Sodium Level 142 135-145 MMOL/L Potassium Level 4.1 3.6-5.0 MMOL/L Chloride Level 105 98-107 MMOL/L Carbon Dioxide Level 22 21-32 MMOL/L Anion Gap 15 H 5-14 MMOL/L Blood Urea Nitrogen 11 7-18 MG/DL Creatinine 0.83 0.60-1.30 MG/DL Estimat Glomerular Filtration Rate > 60 BUN/Creatinine Ratio 13 Glucose Level 155 H 70-105 MG/DL Calcium Level 8.5 8.5-10.1 MG/DL Corrected Calcium 8.4 L 8.5-10.1 MG/DL Total Bilirubin 0.6 0.1-1.0 MG/DL Aspartate Amino Transf (AST/SGOT) 34 5-34 U/L Alanine Aminotransferase (ALT/SGPT) 18 0-55 U/L Alkaline Phosphatase 72 40-136 U/L Total Protein 7.3 6.4-8.2 GM/DL Albumin 4.1 3.2-4.5 GM/DL Lipase 43 8-78 U/L Urine Color YELLOW Urine Clarity CLEAR Urine pH 7.5 5-9 Urine Specific [place] 1.015 L 1.016-1.022 Urine Protein NEGATIVE NEGATIVE Urine Glucose (UA) NEGATIVE NEGATIVE Urine Ketones NEGATIVE NEGATIVE Urine Nitrite NEGATIVE NEGATIVE Urine Bilirubin NEGATIVE NEGATIVE Urine Urobilinogen 0.2 < = 1.0 MG/DL Urine Leukocyte Esterase NEGATIVE NEGATIVE Urine RBC (Auto) NEGATIVE NEGATIVE Urine RBC NONE /HPF Urine WBC NONE /HPF Urine Squamous Epithelial Cells RARE /HPF Urine Crystals NONE /LPF Urine Bacteria NEGATIVE /HPF Urine Casts NONE /LPF Urine Mucus NEGATIVE /LPF Urine Culture Indicated NO My Orders Orders - TREVOR RAMIREZ DO Comprehensive Metabolic Panel (05/29/20 10:50) Lipase (05/29/20 10:50) Ua Culture If Indicated (05/29/20 10:50) Acute Abd Series (05/29/20 10:50) Cbc With Automated Diff (05/29/20 10:50) Ondansetron Injection (Zofran Injectio (05/29/20 11:00) Lactated Ringers (Lr 1000 Ml Iv Solution (05/29/20 10:50) Medications Given in ED Current Medications Medications Dose Ordered Sig/Doug Route Start Time Stop Time Status Last Admin Dose Admin Ondansetron HCl 4 mg ONCE ONCE IVP 05/29/20 11:00 05/29/20 11:01 DC 05/29/20 10:58 4 MG Vital Signs/I&O 05/29/20 10:40 Temp 35.0 Pulse 61 Resp 18 B/P (MAP) 192/87 (122) Pulse Ox 95 O2 Delivery Room Air Progress Progress Note : Time: 12:58 Progress Note Patient with no episodes of vomiting, patient with normal labs, x-ray shows some [id number] stool. Patient is comfortable and will be discharged home. Diagnostic Imaging Diagonstic Imaging: Xray Plain Films/CT/US/NM/MRI: chest, abdomen Comments [facility], [place] NAME: ALMA POWELL [facility] REC#: [id number] PT STATUS: REG ER : 1935 PHYSICIAN: TREVOR RAMIREZ DO ADMIT DATE: 05/29/20/ER Signed Date of Exam:05/29/20 ACUTE ABD SERIES EXAMINATION: Abdominal series and chest radiograph. HISTORY: Vomiting. COMPARISON: Chest radiograph 01/03/2020. FINDINGS: Heart size and pulmonary vasculature are normal. The lungs are clear without consolidation, pleural effusion, or pneumothorax. The osseous structures are intact. There is a moderate amount of gas and stool throughout the colon. Right upper quadrant cholecystectomy clips are present. Nonobstructive bowel gas pattern. No radiopaque foreign body. Degenerative changes of the hips and spine. Osseous structures are otherwise intact. IMPRESSION: No acute abnormality in the chest or abdomen. Dictated by: Dictated on workstation # [id number] Dict: 05/29/20 1212 Trans: 05/29/20 1227 [id number] Interpreted by: MONIKA MOSS DO Electronically signed by: MONIKA MOSS DO 05/29/20 1227 Departure Impression Primary Impression: Nausea and vomiting Qualified Codes: R11.2 - Nausea with vomiting, unspecified Additional Impression: Constipation Qualified Codes: K59.00 - Constipation, unspecified Disposition: 01 HOME, SELF-CARE Condition: Stable Departure-Patient Inst. Referrals: SAPNA PATEL DO (PCP/Family) Primary Care Physician Patient Instructions: Nausea and Vomiting, Adult, Constipation, Adult (DC) Add. Discharge Instructions: Follow-up with your primary care provider in 2-3 days for continuation of care TREVOR RAMIREZ DO May 29, 2020 10:47
[2020-05-29] MEDS ORDERED: LACTATED RINGERS 1,000 ML IV STA (10:50)
[2020-05-29 10:59] LABS: BASOPHILS # (AUTO) 0.1 10^3/uL (0.0-0.1); BASOPHILS % (AUTO) 1 % (0-10); EOSINOPHILS # (AUTO) 0.1 10^3/uL (0.0-0.3); EOSINOPHILS % (AUTO) 2 % (0-10); HEMATOCRIT 38 % (40-54); HEMOGLOBIN 12.2 g/dL (13.3-17.7); LYMPHOCYTES # (AUTO) 2.3 10^3/uL (1.0-4.0); LYMPHOCYTES % (AUTO) 39 % (12-44); MEAN CORPUSCULAR HEMOGLOBIN 29 pg (25-34); MEAN CORPUSCULAR HGB CONC 32 g/dL (32-36); MEAN CORPUSCULAR VOLUME 90 fL (80-99); MEAN PLATELET VOLUME 11.5 fL (9.0-12.2); MONOCYTES # (AUTO) 0.5 10^3/uL (0.0-1.0); MONOCYTES % (AUTO) 8 % (0-12); NEUTROPHILS % (AUTO) 50 % (42-75); PLATELET COUNT 167 10^3/uL (130-400)
[2020-05-29] MEDS ORDERED: ONDANSETRON 4 MG/2 ML (SDV) Z0FRAN IVP ONE (11:00)
[2020-05-29 11:07] LABS: ALBUMIN 4.1 GM/DL (3.2-4.5); CHLORIDE 105 MMOL/L (98-107); POTASSIUM 4.1 MMOL/L (3.6-5.0); SODIUM 142 MMOL/L (135-145)
[2020-05-29 11:09] LABS: CALCIUM 8.5 MG/DL (8.5-10.1)
[2020-05-29 11:10] LABS: GLUCOSE 155 MG/DL (70-105); TOTAL PROTEIN 7.3 GM/DL (6.4-8.2)
[2020-05-29 11:11] LABS: BILIRUBIN,TOTAL 0.6 MG/DL (0.1-1.0); CARBON DIOXIDE 22 MMOL/L (21-32)
--- NOTE | 2020-05-29 11:11 | NUR ---
PATIENT SLEEPING SA02 AT 89% PLACED ON 2 L O2 UP TO 97%
[2020-05-29 11:13] LABS: ALKALINE PHOSPHATASE 72 U/L (40-136); CREATININE SERUM 0.83 MG/DL (0.60-1.30); GFR ESTIMATED > 60
[2020-05-29 11:14] LABS: BUN/CREATININE RATIO 13
--- NOTE | 2020-05-29 11:15 | NUR ---
CALLED AND GAVE UPDATE TO GARRET TOLBERT [employer].
[2020-05-29 11:16] LABS: ALANINE AMINOTRANSFERASE 18 U/L (0-55); LIPASE 43 U/L (8-78)
--- NOTE | 2020-05-29 12:18 | Diagnostic Imaging Report ---
EXAMINATION: Abdominal series and chest radiograph. HISTORY: Vomiting. COMPARISON: Chest radiograph 01/03/2020. FINDINGS: Heart size and pulmonary vasculature are normal. The lungs are clear without consolidation, pleural effusion, or pneumothorax. The osseous structures are intact. There is a moderate amount of gas and stool throughout the colon. Right upper quadrant cholecystectomy clips are present. Nonobstructive bowel gas pattern. No radiopaque foreign body. Degenerative changes of the hips and spine. Osseous structures are otherwise intact. IMPRESSION: No acute abnormality in the chest or abdomen. Dictated by: Dictated on workstation # [id number]
[2020-05-29 12:38] LABS: BILIRUBIN,URINE NEGATIVE (NEGATIVE); CLARITY,URINE CLEAR; COLOR,URINE YELLOW; GLUCOSE, URINE (UA) NEGATIVE (NEGATIVE); KETONES,URINE NEGATIVE (NEGATIVE); LEUKOCYTE ESTERASE ,URINE NEGATIVE (NEGATIVE); NITRITE,URINE NEGATIVE (NEGATIVE); PH,URINE 7.5 (5-9); PROTEIN,URINE NEGATIVE (NEGATIVE)
--- NOTE | 2020-05-29 12:38 | NUR ---
VOIDED 500 CC
[2020-05-29 12:45] LABS: BACTERIA,URINE NEGATIVE /HPF; SQUAMOUS EPITHELIAL CELL,UR RARE /HPF
--- NOTE | 2020-05-29 12:56 | NUR ---
PATIENT HAS SLEEP WHILE IN ED NO VOMITING.
== END 2020-05-29 13:15 | disposition home or self-care (01) ==
LOC: EDUNIT# 10:40 → ER 10:41
DX: R11.2 Nausea with vomiting, unspecified (principal); K59.00 Constipation, unspecified; I10 Essential (primary) hypertension; Z86.73 Personal history of transient ischemic attack (TIA), and cerebral infarction without residual deficits; Z87.891 Personal history of nicotine dependence; Z88.1 Allergy status to other antibiotic agents
CPT/HCPCS: 36415; 74022; 80053; 81000; 83690; 85025

== ENCOUNTER 2020-06-19 11:22 | Inpatient (IN) | payer MEDICARE, MEDICAID ==
[~2020-06-19] VITALS: Ht 177.8 cm; Wt 76.6 kg
[~2020-06-19 11:22] MED LIST changes: -DONE10TA41; +DONE10TA41 PO
--- NOTE | 2020-06-19 12:02 | ED General ---
General Stated Complaint: WEAKNESS,UNABLE TO EAT, SLEEPS ALL THE TIME Source of Information: Patient Exam Limitations: No Limitations History of Present Illness Date Seen by Provider: Jun 19, 2020 Time Seen by Provider: 12:01 Initial Comments To ER with reports of general weakness, unable to eat, "crapping in my drawers". Denies fevers cough or shortness of breath. Timing/Duration: Other (He is unable to specify how long this has been going on) Severity: Moderate Associated Systoms: Weakness Allergies and Home Medications Allergies Coded Allergies: cephalexin (Unverified Allergy, Mild, 09/03/09) nut - unspecified (Verified Allergy, Unknown, 01/03/20) Home Medications Amlodipine Besylate 5 Mg Tablet, 5 MG PO DAILY, (Reported) Amoxicillin/Potassium Clav 1 Each Tablet, 1 EACH PO BID Prescribed by: CHECO PAINTING on 04/27/20 1437 Cyanocobalamin 1,000 Mcg/Ml Inj, 1,000 MCG IM MONTHLY, (Reported) Ergocalciferol (Vitamin D2) 50,000 Unit Capsule, 50,000 UNITS PO Mo, (Reported) Fexofenadine HCl 180 Mg Tablet, 180 MG PO DAILY PRN for ALLERGIES, (Reported) Ondansetron 4 Mg Tab.rapdis, 4 MG PO Q4H Prescribed by: CATHIE HAIDER on 03/02/19 1416 Patient Home Medication List Home Medication List Reviewed: Yes Review of Systems Review of Systems Constitutional: see HPI, weakness EENTM: see HPI Respiratory: no symptoms reported Gastrointestinal: diarrhea Genitourinary: no symptoms reported Musculoskeletal: no symptoms reported Skin: no symptoms reported Psychiatric/Neurological: No Symptoms Reported Hematologic/Lymphatic: No Symptoms Reported Immunological/Allergic: no symptoms reported Past Jdfadcu-Tumgio-Qjoixr Hx Patient Social History Former Smoker, Quit: November 30, 1973 2nd Hand Smoke Exposure: No Recent Hopitalizations: No Immunizations Up To Date Tetanus Booster (TDap): Less than 5yrs Date of Pneumonia Vaccine: May 13, 2010 Seasonal Allergies Seasonal Allergies: No Past Medical History Surgeries: Yes (ANKLE SURGERY; SCAR NOTED TO LEFT BREAST AREA; LITH OTRIPSY/ESWL) Gallbladder, Orthopedic, Renal Respiratory: No Cardiac: Yes (SVT) Hypertension, Irregular Heartbeat, Palpitations 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; PARESTHESIAS ) Dementia, TIA Reproductive Disorders: No Genitourinary: Yes (ESWL/LITHOTRIPSY) Bladder Infection, Kidney Stones Gastrointestinal: Yes (PANCREATITIS WITH PARALYTIC ILEUS, DELIRIUM 04/29/18) Pancreatitis, Gall Bladder Disease Musculoskeletal: Yes (ANKLE SURGERY) Endocrine: Yes Hypothyroidsim HEENT: No Cancer: No Psychosocial: Yes Anxiety Integumentary: No Blood Disorders: No Physical Exam Vital Signs Vital Signs - First Documented 06/19/20 06/19/20 11:25 11:30 Temp 37.4 Pulse 82 Resp 35 B/P (MAP) 117/85 (96) Pulse Ox 77 O2 Delivery Room Air O2 Flow Rate 10.00 Capillary Refill : Height, Weight, BMI Height: 6'2.00" Weight: 180lbs. 0oz. 81.430455ib; 24.00 BMI Method:Stated General Appearance: No Apparent Distress, WD/WN, Other (He denies a cough as he coughs, oxygen saturation 80% room air. Despite this, he is not in respiratory distress, laughing and joking with us.) Eyes: Bilateral Eye Normal Inspection, Bilateral Eye PERRL, Bilateral Eye EOMI Neck: Full Range of Motion, Normal Inspection Respiratory: Normal Breath Sounds, No Accessory Muscle Use, No Respiratory Distress Cardiovascular: Regular Rate, Rhythm, Normal Peripheral Pulses Gastrointestinal: Normal Bowel Sounds, Non Tender, Soft Extremity: Normal Capillary Refill, Normal Inspection Neurologic/Psychiatric: Alert, Oriented x3 Skin: Normal Color, Warm/Dry (I will deal with it) Focused Exam Lactate Level 06/19/20 13:00: Lactic Acid Level 1.55 Lactic Acid Level Progress/Results/Core Measures Suspected Sepsis SIRS Temperature: Pulse: Respiratory Rate: Laboratory Tests 06/19/20 11:55: White Blood Count 7.2 Blood Pressure / Mean: 06/19/20 13:00: Lactic Acid Level 1.55 Laboratory Tests 06/19/20 11:55: Creatinine 1.26, Platelet Count 196, Total Bilirubin 1.1H Results/Orders Lab Results Laboratory Tests Test 06/19/20 11:55 06/19/20 12:05 06/19/20 13:00 06/19/20 16:55 Range/Units White Blood Count 7.2 4.3-11.0 10^3/uL Red Blood Count 4.78 4.30-5.52 10^6/uL Hemoglobin 13.5 13.3-17.7 g/dL Hematocrit 44 40-54 % Mean Corpuscular Volume 92 80-99 fL Mean Corpuscular Hemoglobin 28 25-34 pg Mean Corpuscular Hemoglobin Concent 31 L 32-36 g/dL Red Cell Distribution Width 13.6 10.0-14.5 % Platelet Count 196 130-400 10^3/uL Mean Platelet Volume 10.8 9.0-12.2 fL Immature Granulocyte % (Auto) 0 % Neutrophils (%) (Auto) 81 H 42-75 % Lymphocytes (%) (Auto) 13 12-44 % Monocytes (%) (Auto) 6 0-12 % Eosinophils (%) (Auto) 0 0-10 % Basophils (%) (Auto) 0 0-10 % Neutrophils # (Auto) 5.8 1.8-7.8 10^3/uL Lymphocytes # (Auto) 0.9 L 1.0-4.0 10^3/uL Monocytes # (Auto) 0.4 0.0-1.0 10^3/uL Eosinophils # (Auto) 0.0 0.0-0.3 10^3/uL Basophils # (Auto) 0.0 0.0-0.1 10^3/uL Immature Granulocyte # (Auto) 0.0 0.0-0.1 10^3/uL D-Dimer 0.88 H 0.00-0.49 UG/ML Sodium Level 143 135-145 MMOL/L Potassium Level 4.0 3.6-5.0 MMOL/L Chloride Level 105 98-107 MMOL/L Carbon Dioxide Level 24 21-32 MMOL/L Anion Gap 14 5-14 MMOL/L Blood Urea Nitrogen 34 H 7-18 MG/DL Creatinine 1.26 0.60-1.30 MG/DL Estimat Glomerular Filtration Rate 55 BUN/Creatinine Ratio 27 Glucose Level 180 H 70-105 MG/DL Calcium Level 8.9 8.5-10.1 MG/DL Corrected Calcium 8.9 8.5-10.1 MG/DL Total Bilirubin 1.1 H 0.1-1.0 MG/DL Aspartate Amino Transf (AST/SGOT) 35 H 5-34 U/L Alanine Aminotransferase (ALT/SGPT) 15 0-55 U/L Alkaline Phosphatase 43 40-136 U/L Troponin I < 0.028 <0.028 NG/ML C-Reactive Protein High Sensitivity 12.32 H 0.00-0.50 MG/DL B-Type Natriuretic Peptide < 10.0 <100.0 PG/ML Total Protein 7.4 6.4-8.2 GM/DL Albumin 4.0 3.2-4.5 GM/DL Procalcitonin 0.17 H <0.10 NG/ML Coronavirus 2019 (ANGEL) Negative Negative Blood Gas Puncture Site LT RAD Blood Gas Patient Temperature 37.4 Arterial Blood pH 7.40 7.37-7.43 Arterial Blood Partial Pressure CO2 39 35-45 MMHG Arterial Blood Partial Pressure O2 55 L 79-93 MMHG Arterial Blood HCO3 23 23-27 MMOL/L Arterial Blood Total CO2 24.5 21.0-31.0 MMOL/L Arterial Blood Oxygen Saturation 88 L 94-100 % Arterial Blood Base Excess -0.8 -2.5-2.5 MMOL/L Len Test YES-POS Blood Gas Ventilator Setting NO Blood Gas Inspired Oxygen 5L Lactic Acid Level 1.55 0.50-2.00 MMOL/L My Orders Orders - CHECO PAINTING APRN Cbc With Automated Diff (06/19/20 11:41) Comprehensive Metabolic Panel (06/19/20 11:41) Ua Culture If Indicated (06/19/20 11:41) Ed Iv/Invasive Line Start (06/19/20 11:41) Chest 1 View, Ap/Pa Only (06/19/20 11:41) Blood Culture (06/19/20 12:00) Lactic Acid Analyzer (06/19/20 12:00) Hs C Reactive Protein (06/19/20 12:00) Procalcitonin (Pct) (06/19/20 12:00) Covid 19 Inhouse Test (06/19/20 12:02) Fibrin Degradation Products (06/19/20 12:03) Cpap (Set Up) (06/19/20 12:03) Arterial Blood Gas (06/19/20 12:11) Coronavirus Sars-Cov-2 So 2018 (06/19/20 12:38) BNP (06/19/20 13:01) Troponin I (06/19/20 13:01) Vital Signs/I&O 06/19/20 06/19/20 06/19/20 11:25 11:30 11:30 Temp 37.4 Pulse 82 Resp 35 B/P (MAP) 117/85 (96) Pulse Ox 77 96 84 O2 Delivery Room Air Vapotherm Nasal Cannula O2 Flow Rate 10.00 Capillary Refill : Diagnostic Imaging Diagonstic Imaging: Xray Plain Films/CT/US/NM/MRI: chest Comments NAME: ALMA POWELL REC#: [id number] PT STATUS: REG ER : 1935 PHYSICIAN: CHECO PAINTING APRN ADMIT DATE: 06/19/20/ER Draft Date of Exam:06/19/20 CHEST 1 VIEW, AP/PA ONLY INDICATION: Altered mental status. TECHNIQUE: Single view chest at 12:40 PM. CORRELATION STUDY: 05/29/2020. FINDINGS: The heart size and mediastinum are stable. The vasculature is very slightly prominent. Scattered groundglass opacities about the mid and lower lung samaniego are present, slightly greater left compared to the right. Questioned trace pleural effusions. IMPRESSION: Bilateral pulmonary infiltrates in the mid to lower lung samaniego likely reflect multifocal pneumonia. This would include potential for Covid. Superimposed edema is not excluded. The report was faxed to Infection Control by [email or web address]@1:05 PM. Dictated on workstation # [id number] Dict: 06/19/20 1258 Trans: 06/19/20 1306 [id number] Interpreted by: DEBRA ART DO Electronically signed by: Departure Communication (Admissions) 3732-on arrival oxygen saturation upper 70% range, he was given oxygen via nasal cannula up to 5 L with a resultant increase in SPO2 up to 88%. Will await ABG results prior to initiating further treatment. Impression Primary Impression: Person under investigation for COVID-19 Additional Impression: Hypoxia Disposition: ADMITTED INPATIENT Condition: Stable Admissions Decision to Admit Reason: Admit from ER (General) Decision to Admit/Date: Jun 19, 2020 Time/Decision to Admit Time: 13:18 Departure-Patient Inst. Referrals: SAPAN PAETL DO (PCP/Family) Primary Care Physician CHECO PAINTING APRN Jun 19, 2020 12:02
[2020-06-19 12:07] LABS: BASOPHILS % (AUTO) 0 % (0-10); EOSINOPHILS % (AUTO) 0 % (0-10); HEMATOCRIT 44 % (40-54); HEMOGLOBIN 13.5 g/dL (13.3-17.7); LYMPHOCYTES # (AUTO) 0.9 10^3/uL (1.0-4.0); LYMPHOCYTES % (AUTO) 13 % (12-44); MEAN CORPUSCULAR HEMOGLOBIN 28 pg (25-34); MEAN CORPUSCULAR HGB CONC 31 g/dL (32-36); MEAN CORPUSCULAR VOLUME 92 fL (80-99); MEAN PLATELET VOLUME 10.8 fL (9.0-12.2); MONOCYTES # (AUTO) 0.4 10^3/uL (0.0-1.0); MONOCYTES % (AUTO) 6 % (0-12); NEUTROPHILS # (AUTO) 5.8 10^3/uL (1.8-7.8); NEUTROPHILS % (AUTO) 81 % (42-75); PLATELET COUNT 196 10^3/uL (130-400); WHITE BLOOD COUNT 7.2 10^3/uL (4.3-11.0)
[2020-06-19 12:17] LABS: ABG BASE EXCESS -0.8 MMOL/L (-2.5-2.5); ABG OXYGEN SATURATION 88 % (94-100); ABG PCO2 39 MMHG (35-45); ABG PO2 55 MMHG (79-93); ABG TCO2 24.5 MMOL/L (21.0-31.0)
[2020-06-19 12:18] LABS: CALCIUM 8.9 MG/DL (8.5-10.1)
[2020-06-19 12:19] LABS: ALLENS TEST YES-POS; INSPIRED O2 5L; PATIENT TEMP 37.4; VENTILATOR NO
[2020-06-19 12:20] LABS: TOTAL PROTEIN 7.4 GM/DL (6.4-8.2)
[2020-06-19 12:21] LABS: BILIRUBIN,TOTAL 1.1 MG/DL (0.1-1.0)
[2020-06-19 12:23] LABS: CREATININE SERUM 1.26 MG/DL (0.60-1.30)
--- NOTE | 2020-06-19 13:06 | Diagnostic Imaging Report ---
INDICATION: Altered mental status. TECHNIQUE: Single view chest at 12:40 PM. CORRELATION STUDY: 05/29/2020. FINDINGS: The heart size and mediastinum are stable. The vasculature is very slightly prominent. Scattered groundglass opacities about the mid and lower lung samaniego are present, slightly greater left compared to the right. Questioned trace pleural effusions. IMPRESSION: Bilateral pulmonary infiltrates in the mid to lower lung samaniego likely reflect multifocal pneumonia. This would include potential for Covid. Superimposed edema is not excluded. The report was faxed to Infection Control by [email or web address]@1:[email or web address] PM. Dictated by: Dictated on workstation # [id number]
--- NOTE | 2020-06-19 14:12 | Pulmonary Consultation ---
History of Present Illness History of Present Illness Date Seen by Provider: Jun 19, 2020 Date of Admission Allergies and Home Medications Allergies Coded Allergies: cephalexin (Unverified Allergy, Mild, 09/03/09) nut - unspecified (Verified Allergy, Unknown, 01/03/20) Home Medications Amlodipine Besylate 5 Mg Tablet, 5 MG PO DAILY, (Reported) Amoxicillin/Potassium Clav 1 Each Tablet, 1 EACH PO BID Prescribed by: CHECO PAINTING on 04/27/20 1437 Cyanocobalamin 1,000 Mcg/Ml Inj, 1,000 MCG IM MONTHLY, (Reported) Ergocalciferol (Vitamin D2) 50,000 Unit Capsule, 50,000 UNITS PO Mo, (Reported) Fexofenadine HCl 180 Mg Tablet, 180 MG PO DAILY PRN for ALLERGIES, (Reported) Ondansetron 4 Mg Tab.rapdis, 4 MG PO Q4H Prescribed by: CATHIE HAIDER on 03/02/19 1416 Past Nfgtsdd-Wwnfis-Anfjss Hx Patient Social History Alcohol Use: Denies Use Recreational Drug Use: No Smoking Status: Former Smoker Former Smoker, Quit: November 30, 1973 2nd Hand Smoke Exposure: No Recent Foreign Travel: No Contact w/Someone Who Travel: No Recent Infectious Disease Expo: No Recent Hopitalizations: No Immunizations Up To Date Tetanus Booster (TDap): Less than 5yrs Date of Pneumonia Vaccine: May 13, 2010 Seasonal Allergies Seasonal Allergies: No Past Medical History Surgeries: Yes (ANKLE SURGERY; SCAR NOTED TO LEFT BREAST AREA; LITHOTRIPSY/ESWL) Gallbladder, Orthopedic, Renal Respiratory: No Cardiac: Yes (SVT) Hypertension, Irregular Heartbeat, Palpitations 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 0oz. 81.209709bp; 30.00 BMI Method:Stated Exam Exam Vital Signs Date Time Temp Pulse Resp B/P (MAP) Pulse Ox O2 Delivery O2 Flow Rate FiO2 06/19/20 11:25 37.4 82 35 117/85 (96) 77 Room Air Height & Weight Height: 6'2.00" Weight: 180lbs. 0oz. 81.314460qo; 30.00 BMI Method:Stated General Appearance: No Apparent Distress, WD/WN, Other (He denies a cough as he coughs, oxygen saturation 80% room air. Despite this, he is not in respiratory distress, laughing and joking with us.) Neck: Full Range of Motion, Normal Inspection Respiratory: Normal Breath Sounds, No Accessory Muscle Use, No Respiratory Distress Cardiovascular: Regular Rate, Rhythm, Normal Peripheral Pulses Capillary Refill: Less Than 3 Seconds Extremity: Normal Capillary Refill, Normal Inspection Neurologic/Psychiatric: Alert, Oriented x3 Skin: Normal Color, Warm/Dry (I will deal with it) Results Lab Laboratory Tests 06/19/20 11:55 Assessment/Plan Assessment/Plan Acute respiratory distress r/o COVID -Vapotherm -Labs and CXR reviewed. MAXIMUS ADAMS DO Jun 19, 2020 14:12
--- NOTE | 2020-06-19 15:28 | NUR ---
Spoke with pt's caregiver via phone regarding plan of care for pt.
--- NOTE | 2020-06-19 17:02 | NUR ---
Pt taken warm blanket and repositioned.
[2020-06-19 21:55] VITALS: BP 117/85
[2020-06-19] MEDS ORDERED: RT-ALBUTEROL INHALER HFA (VENTOLIN HFA) 18 GM IH PRN (22:15)
[2020-06-20] MEDS: RT-ALBUTEROL INHALER HFA (VENTOLIN HFA) 18 GM IH SCH ×4 (02:21→18:33)
[2020-06-20 03:30] LABS: BASOPHILS % (AUTO) 0 % (0-10); EOSINOPHILS % (AUTO) 0 % (0-10); HEMATOCRIT 39 % (40-54); HEMOGLOBIN 12.5 g/dL (13.3-17.7); LYMPHOCYTES # (AUTO) 1.2 10^3/uL (1.0-4.0); LYMPHOCYTES % (AUTO) 20 % (12-44); MEAN CORPUSCULAR HEMOGLOBIN 29 pg (25-34); MEAN CORPUSCULAR HGB CONC 32 g/dL (32-36); MEAN CORPUSCULAR VOLUME 92 fL (80-99); MEAN PLATELET VOLUME 11.5 fL (9.0-12.2); MONOCYTES # (AUTO) 0.4 10^3/uL (0.0-1.0); MONOCYTES % (AUTO) 7 % (0-12); NEUTROPHILS # (AUTO) 4.3 10^3/uL (1.8-7.8); NEUTROPHILS % (AUTO) 72 % (42-75); PLATELET COUNT 195 10^3/uL (130-400)
--- NOTE | 2020-06-20 03:37 | Pulmonary Progress Note ---
YULIYA STRICKLAND,MED STUDENT 06/20/20 0337: Subjective Date Seen by a Provider: Jun 20, 2020 Time Seen by a Provider: 03:30 Subjective/Events-last exam On vapotherm 100% FiO2 at 40L/min, O2 sat 91% Sepsis Event Evaluation Height, Weight, BMI Height: 6'2.00" Weight: 180lbs. 0oz. 81.759349rl; 30.00 BMI Method:Stated Focused Exam Lactate Level 06/19/20 13:00: Lactic Acid Level 1.55 Exam Exam Vital Signs Date Time Temp Pulse Resp B/P (MAP) Pulse Ox O2 Delivery O2 Flow Rate FiO2 06/20/20 02:21 97 Vapotherm 40.00 100 06/19/20 22:24 Vapotherm 40.00 100 06/19/20 21:55 82 91 100 06/19/20 21:48 91 Vapotherm 40.00 100 06/19/20 21:30 37.4 79 24 105/67 (96) 97 Room Air 10.00 06/19/20 11:30 84 Nasal Cannula 10.00 06/19/20 11:30 96 Vapotherm 06/19/20 11:25 37.4 82 35 117/85 (96) 77 Room Air I & O 06/20/20 07:00 Intake Total 0 ml Output Total 0 ml Balance 0 ml Height & Weight Height: 6'2.00" Weight: 180lbs. 0oz. 81.309870by; 30.00 BMI Method:Stated General Appearance: No Apparent Distress, WD/WN, Other (He denies a cough as he coughs, oxygen saturation 80% room air. Despite this, he is not in respiratory distress, laughing and joking with us.) Neck: Full Range of Motion, Normal Inspection Respiratory: Normal Breath Sounds, No Accessory Muscle Use, No Respiratory Distress Cardiovascular: Regular Rate, Rhythm, Normal Peripheral Pulses Capillary Refill: Less Than 3 Seconds Extremity: Normal Capillary Refill, Normal Inspection Neurologic/Psychiatric: Alert, Oriented x3 Skin: Normal Color, Warm/Dry (I will deal with it) Results Lab Laboratory Tests 06/19/20 11:55 06/20/20 03:15 Assessment/Plan Assessment/Plan Acute respiratory distress r/o COVID -Vapotherm currently on 100% FiO2 at 40L/min -Rapid COVID negative, awaiting confirmatory test -CRP and PCT elevated, repeat DVT ppx -on Lovenox CHENG MCKEON DO 06/20/20 0403: Assessment/Plan Assessment/Plan Acute respiratory distress r/o COVID -Vapotherm currently on 100% FiO2 at 40L/min -Start BiPAP -Rapid COVID negative, awaiting confirmatory test -CRP and PCT elevated, repeat -Repeat PCT - r/o PNA -Start Levaquin -Sung cultures pending -MRSA swab -Check Influenza DVT ppx -on Lovenox Supervisory-Addendum Brief Verification & Attestation Participated in pt care: history, MDM, physical Personally performed: exam, history, MDM Care discussed with: Medical Student Procedures: n/a Verification and Attestation of Medical Student E/M Service A medical student performed and documented this service in my presence. I reviewed and verified all information documented by the medical student and made modifications to such information, when appropriate. I personally performed the physical exam and medical decision making. Cheng Mckeon, Jun 20, 2020,04:05 YULIYA STRICKLAND,MED STUDENT Jun 20, 2020 03:37 CHENG MCKEON DO Jun 20, 2020 04:03
[2020-06-20 04:01] LABS: ALBUMIN 3.6 GM/DL (3.2-4.5); CALCIUM 9.1 MG/DL (8.5-10.1); CREATININE SERUM 1.16 MG/DL (0.60-1.30); MAGNESIUM 2.5 MG/DL (1.6-2.4); PHOSPHORUS 3.8 MG/DL (2.3-4.7); POTASSIUM 3.9 MMOL/L (3.6-5.0); TOTAL PROTEIN 6.8 GM/DL (6.4-8.2)
[2020-06-20 04:06] VITALS: BP 127/71
[2020-06-20] MEDS: LACTATED RINGERS 1,000 ML IV SCH (06:23)
[2020-06-20] MEDS ORDERED: FLU QUAD HIGH DOSE 240 MCG/0.7 ML 2020-21 (FLUZONE) IM ONE (06:45)
--- NOTE | 2020-06-20 06:58 | Diagnostic Imaging Report ---
CHEST 1 VIEW, AP/PA ONLY Indication: Shortness of breath Comparison: 06/19/2020 Findings: Bilateral ill-defined pulmonary opacities in the mid and lower lung zones are unchanged. No pleural effusion or pneumothorax. Stable cardiomediastinal silhouette. Impression: 1. No change in bilateral pulmonary opacities that may be infectious in etiology. Dictated by: Dictated on workstation # [id number]
[2020-06-20] MEDS: LEVOFLOXACIN 750 MG/150 ML IV 150 ML IV SCH (08:01)
[2020-06-20] MEDS: ENOXAPARIN 40 MG/0.4 ML (LOVENOX) SYR SC SCH (08:01)
[2020-06-20] MEDS ORDERED: PANTOPRAZOLE 40 MG (PROTONIX) VIAL IV SCH (09:00)
--- NOTE | 2020-06-20 16:00 | NUR ---
Report from Aide SILVA, will assume care of patient at this time.
[2020-06-20 18:33] VITALS: BP 129/81
[2020-06-20] MEDS: FAMOTIDINE 20 MG (PEPCID) TABLET PO SCH (19:42)
[2020-06-21 01:43] VITALS: BP 129/81
[2020-06-21] MEDS: RT-ALBUTEROL INHALER HFA (VENTOLIN HFA) 18 GM IH SCH ×3 (01:46→20:51)
--- NOTE | 2020-06-21 03:10 | Pulmonary Progress Note ---
YULIYA STRICKLAND,MED STUDENT 06/21/20 0310: Subjective Date Seen by a Provider: Jun 21, 2020 Time Seen by a Provider: 03:00 Subjective/Events-last exam O2 sat currently 97% on BIPAP 100% FiO2 at 75L/min COVID negative on 06/19, IgG pending Negative for influenza Sepsis Event Evaluation Height, Weight, BMI Height: 6'2.00" Weight: 180lbs. 0oz. 81.299672jd; 30.00 BMI Method:Stated Focused Exam Lactate Level 06/19/20 13:00: Lactic Acid Level 1.55 Exam Exam Vital Signs Date Time Temp Pulse Resp B/P (MAP) Pulse Ox O2 Delivery O2 Flow Rate FiO2 06/21/20 01:43 96 22 80 75.00 06/21/20 00:00 NIV Bilevel 75.00 06/20/20 21:51 95 Vapotherm 40.00 100 06/20/20 21:00 96 Vapotherm 40.00 100 06/20/20 19:10 36.1 06/20/20 18:33 96 22 94 75.00 06/20/20 18:29 101 06/20/20 18:00 100 18 124/71 (88) 84 NIV Bilevel 90.00 06/20/20 17:00 102 25 111/74 (86) 92 NIV Bilevel 90.00 06/20/20 16:00 98 6 113/77 (89) 89 NIV Bilevel 90.00 06/20/20 15:42 36.2 06/20/20 15:00 88 30 118/82 (94) 94 NIV Bilevel 90.00 06/20/20 14:58 93 Vapotherm 40.00 100 06/20/20 14:00 77 17 124/78 (93) 95 NIV Bilevel 90.00 06/20/20 13:00 71 22 132/76 (94) 98 NIV Bilevel 90.00 06/20/20 12:33 74 06/20/20 12:00 72 18 119/82 (94) 99 NIV Bilevel 90.00 06/20/20 11:57 36.8 06/20/20 11:41 96 Vapotherm 40.00 100 06/20/20 11:00 76 10 105/69 (81) 95 NIV Bilevel 90.00 06/20/20 10:00 80 9 108/70 (83) 94 NIV Bilevel 90.00 06/20/20 09:00 96 Vapotherm 40.00 100 06/20/20 09:00 82 9 125/69 (87) 95 NIV Bilevel 90.00 06/20/20 08:00 80 16 113/67 (82) 89 NIV Bilevel 90.00 06/20/20 07:00 73 18 130/70 (90) 98 NIV Bilevel 90.00 06/20/20 06:54 95 Vapotherm 40.00 100 06/20/20 06:46 71 06/20/20 06:00 76 23 133/70 (91) 95 NIV Bilevel 90.00 06/20/20 05:00 67 19 108/65 (79) 94 NIV Bilevel 90.00 06/20/20 04:10 74 21 95 NIV Bilevel 90.00 06/20/20 04:06 72 21 91 100.00 06/20/20 04:05 73 91 100.00 06/20/20 04:00 79 13 127/71 (89) 94 Vapotherm 40.00 100.00 06/20/20 03:45 Vapotherm 40.00 100.00 I & O 06/21/20 07:00 Intake Total 765 ml Output Total 450 ml Balance 315 ml Height & Weight Height: 6'2.00" Weight: 180lbs. 0oz. 81.915014rd; 30.00 BMI Method:Stated General Appearance: No Apparent Distress, WD/WN, Other (He denies a cough as he coughs, oxygen saturation 80% room air. Despite this, he is not in respiratory distress, laughing and joking with us.) Neck: Full Range of Motion, Normal Inspection Respiratory: Normal Breath Sounds, No Accessory Muscle Use, No Respiratory Distress Cardiovascular: Regular Rate, Rhythm, Normal Peripheral Pulses Capillary Refill: Less Than 3 Seconds Extremity: Normal Capillary Refill, Normal Inspection Neurologic/Psychiatric: Alert, Oriented x3 Skin: Normal Color, Warm/Dry (I will deal with it) Results Lab Laboratory Tests 06/19/20 11:55 06/20/20 03:15 Assessment/Plan Assessment/Plan Acute respiratory distress r/o COVID -On BIPAP 100% FiO2 at 75 L/min -COVID negative on 06/19 -CRP and PCT elevated -Repeat PCT pending r/o PNA -On Levaquin -Sung cultures pending -MRSA swab -Check Influenza DVT ppx -on Lovenox MAXIMUS ADAMS DO 06/21/20 0541: Assessment/Plan Assessment/Plan Acute respiratory distress r/o COVID -Currently on Vapotherm -COVID negative on 06/19 -CRP and PCT elevated -Repeat PCT pending r/o PNA -On Levaquin -Sung cultures pending -MRSA swab -Check Influenza DVT ppx -on Lovenox YULIYA STRICKLAND,MED STUDENT Jun 21, 2020 03:10 MAXIMUS ADAMS DO Jun 21, 2020 05:41
[2020-06-21] MEDS: LACTATED RINGERS 1,000 ML IV SCH (04:44)
[2020-06-21 05:18] LABS: BASOPHILS % (AUTO) 0 % (0-10); EOSINOPHILS % (AUTO) 0 % (0-10); HEMATOCRIT 38 % (40-54); HEMOGLOBIN 11.9 g/dL (13.3-17.7); LYMPHOCYTES # (AUTO) 0.6 10^3/uL (1.0-4.0); LYMPHOCYTES % (AUTO) 18 % (12-44); MEAN CORPUSCULAR HEMOGLOBIN 28 pg (25-34); MEAN CORPUSCULAR HGB CONC 31 g/dL (32-36); MEAN CORPUSCULAR VOLUME 91 fL (80-99); MEAN PLATELET VOLUME 11.5 fL (9.0-12.2); MONOCYTES # (AUTO) 0.3 10^3/uL (0.0-1.0); MONOCYTES % (AUTO) 9 % (0-12); NEUTROPHILS # (AUTO) 2.3 10^3/uL (1.8-7.8); NEUTROPHILS % (AUTO) 73 % (42-75); PLATELET COUNT 186 10^3/uL (130-400); WHITE BLOOD COUNT 3.2 10^3/uL (4.3-11.0)
[2020-06-21 05:31] LABS: POTASSIUM 3.9 MMOL/L (3.6-5.0)
[2020-06-21 05:37] LABS: CREATININE SERUM 1.31 MG/DL (0.60-1.30); PHOSPHORUS 3.3 MG/DL (2.3-4.7)
[2020-06-21 05:39] LABS: MAGNESIUM 2.8 MG/DL (1.6-2.4)
[2020-06-21 07:09] LABS: BILIRUBIN,URINE NEGATIVE (NEGATIVE); CLARITY,URINE CLEAR; COLOR,URINE YELLOW; GLUCOSE, URINE (UA) NEGATIVE (NEGATIVE); KETONES,URINE NEGATIVE (NEGATIVE); LEUKOCYTE ESTERASE ,URINE NEGATIVE (NEGATIVE); NITRITE,URINE NEGATIVE (NEGATIVE); PH,URINE 5.5 (5-9); PROTEIN,URINE NEGATIVE (NEGATIVE)
[2020-06-21 07:19] LABS: BACTERIA,URINE FEW /HPF; SQUAMOUS EPITHELIAL CELL,UR RARE /HPF; WBC,URINE 0-2 /HPF
[2020-06-21] MEDS: ENOXAPARIN 40 MG/0.4 ML (LOVENOX) SYR SC SCH (08:55)
[2020-06-21] MEDS: LEVOFLOXACIN 750 MG/150 ML IV 150 ML IV SCH (08:55)
[2020-06-21] MEDS: FAMOTIDINE 20 MG (PEPCID) TABLET PO SCH (08:55)
[2020-06-21] MEDS ORDERED: DILT180C85 PO (09:31)
--- NOTE | 2020-06-21 09:36 | NUR ---
I SPOKE WITH THE PT (I CALLED HIS ROOM PHONE) AND UNFORTUNATELY HE WAS NOT ABLE TO TELL ME ANY INFORMATION ABOUT HIS MEDICATIONS. I NAMED THE MEDICATIONS ON HIS EXT MED HISTORY TO HIM AND HE WAS STILL NOT ABLE TO GIVE ME ANY INFORMATION. I CALLED DR. BRUSH OFFICE AND WAS GIVEN A MEDICATION LIST. I USED [facility] MED LIST AND THE EXT MED HISTORY TO COMPLETE THE MED REC THE MED LIST FROM THE PCP HAS PLAVIX 75MG LISTED HOWEVER THE PT LAST FILLED THIS ON 12-30-2019 #30/30DS- FOR THIS REASON I DID NOT INCLUDE IT ON THE MED REC. OTC MEDS THAT WERE LISTED FROM [facility] OFFICE: JESSE ASPIRIN 325MG
[2020-06-21] MEDS ORDERED: ASPI325T32 PO (09:46)
--- NOTE | 2020-06-21 14:09 | NUR ---
PTS CAREGIVER GARRET UPDATED BY PHONE. NO QUESTIONS/CONCERNS VOICED.
--- NOTE | 2020-06-21 15:00 | NUR ---
PT HAVING INCREASED CONFUSION, WILL NOT KEEP BIPAP ON, ATTEMPTING TO CLIMB OUT OF BED. ATTEMPTED TO REORIENT PT MULTIPLE TIMES, UNSUCCESSFUL. DR ADAMS INFORMED. NEW ORDERS RECEIVED. SEE EMAR FOR DETAILS.
--- NOTE | 2020-06-21 15:04 | NUR ---
Note avg PO intake 44% x1d. Continue with current supplementation order of Ensure Enlive with meals TID, for increased kcal intake. Provides 350 kcal and 20 g Pro per serving. Would encourage pt to eat when able. Will continue to follow and reassess as pt needs, intake, and status change. Robin FRANK, MS RD LD
[2020-06-21] MEDS: DexMEDEtomidine PRE MIX 100 ML IV SCH (15:15)
[2020-06-21] MEDS ORDERED: HALOPERIDOL 5 MG/ML (HALDOL) VIAL ONE (15:36)
[2020-06-21] MEDS ORDERED: morphine INJ 4 MG/ML 1 ML (VIAL/SYRINGE) ONE (15:37)
[2020-06-21] MEDS: morphine INJ 4 MG/ML 1 ML (VIAL/SYRINGE) IVP PRN (15:40)
[2020-06-21] MEDS: HALOPERIDOL 5 MG/ML (HALDOL) VIAL IM PRN (15:40)
--- NOTE | 2020-06-21 16:44 | Physician Query Clarification ---
"Physician Query-General Query to Physician: The medical record reflects the following clinical scenario: History/Risk factors: Generalized weakness, advanced age Clinical Findings: RR 35, O2 sat 77% on RA, SOA at rest, CXR: Bilateral pulmonary infiltrates in the mid to lower lung samaniego likely reflect multifocal pneumonia. Treatment: Vapotherm, Bilevel Bipap, FiO2 100%, Breathing RX Question: What condition best reflects the above clinical scenario? Please document response in the Progress notes or Discharge Summary. 1. Acute Respiratory Failure 2. Acute Respiratory Distress (as currently documented) 3. Other , with explanation of the clinical findings 4. Clinically undetermined, no explanation for the clinical findings Please remember a lack of response to the above will prompt a phone page by CDI/coding staff In responding to this query, please exercise your independent professional judgment. The purpose of this communication is to more accurately reflect the complexity of your patients condition. The fact that a question is asked does not imply that any particular answer is desired or expected. Thank you for timely response to this clarification. Mony Jo, MSN, RN RN Specialist-Clinical Doc Improvement CD -Health Info Mgmt Operations [address] [facility] t: [phone] | f: [phone] If you are unable to reach me at my extension, I may be working from home. Please contact me at [phone] PHYSICIAN RESPONSE: Based on the clinical findings in the record, please respond to the query above on this document as an addendum. Physician Response: If you have questions please contact: Top Precipitator Operator Helper: Ext: Thank you for your time and cooperation. Clinical Garage Worker/Top Precipitator Operator Helper This is a permanent part of the medical record MONY JO Jun 21, 2020 16:44 JOSÉ LUIS WILBURN Jul 04, 2020 07:14"
--- NOTE | 2020-06-21 16:54 | Physician Query Clarification ---
"Physician Query-General Query to Physician: History/Risk factors: Generalized weakness, advanced age Clinical Findings: RR 35, O2 sat 77% on RA, SOA at rest, CXR: Bilateral pulmonary infiltrates in the mid to lower lung samaniego likely reflect multifocal pneumonia. PCT 2.0 Treatment: IV Abx, Supplemental O2, Bipap, (list no more than 2) Question: What condition best reflects the above clinical scenario? Please document response in the Progress notes or Discharge Summary. 1. Pneumonia present on admission 2. R/O Pneumonia (as currently documented) 3. Other , with explanation of the clinical findings 4. Clinically undetermined, no explanation for the clinical findings Please remember a lack of response to the above will prompt a phone page by CDI/coding staff In responding to this query, please exercise your independent professional ju dgment. The purpose of this communication is to more accurately reflect the complexity of your patients condition. The fact that a question is asked does not imply that any particular answer is desired or expected. Thank you for timely response to this clarification. Mony Jo, MSN, RN RN Specialist-Clinical Doc Improvement CD -Health Info Mgmt Operations [address] [facility] t: [phone] | f: [phone] If you are unable to reach me at my extension, I may be working from home. Please contact me at [phone] PHYSICIAN RESPONSE: Based on the clinical findings in the record, please respond to the query above on this document as an addendum. Physician Response: If you have questions please contact: Heavy Duty Mechanic Farm Equipment: Ext: Thank you for your time and cooperation. Clinical Usps Letter Carrier/Heavy Duty Mechanic Farm Equipment This is a permanent part of the medical record MONY JO Jun 21, 2020 16:54 JOSÉ LUIS WILBURN Jul 04, 2020 07:14"
[2020-06-21] MEDS ORDERED: FAMOTIDINE 20MG/2ML IV (PEPCID) ONE (21:14)
[2020-06-21] MEDS: FAMOTIDINE 20MG/2ML IV (PEPCID) IVP SCH (21:21)
--- NOTE | 2020-06-21 22:10 | NUR ---
PATIENT MOVED FROM -11 TO 507 @ APPROX 2130. THIS PATIENT REMAINS UNDER THIS NURSES CARE. PATIENT IS RESTING IN BED WITH EYES CLOSED AT THIS TIME. SITTER AT BEDSIDE
[2020-06-22] MEDS: DexMEDEtomidine PRE MIX 100 ML IV SCH (01:49)
[2020-06-22] MEDS: LACTATED RINGERS 1,000 ML IV SCH (03:21)
[2020-06-22 04:43] LABS: BASOPHILS % (AUTO) 0 % (0-10); EOSINOPHILS % (AUTO) 0 % (0-10); HEMATOCRIT 35 % (40-54); LYMPHOCYTES # (AUTO) 0.7 10^3/uL (1.0-4.0); LYMPHOCYTES % (AUTO) 16 % (12-44); MEAN CORPUSCULAR HEMOGLOBIN 28 pg (25-34); MEAN CORPUSCULAR HGB CONC 32 g/dL (32-36); MEAN CORPUSCULAR VOLUME 89 fL (80-99); MEAN PLATELET VOLUME 11.8 fL (9.0-12.2); MONOCYTES # (AUTO) 0.3 10^3/uL (0.0-1.0); MONOCYTES % (AUTO) 8 % (0-12); NEUTROPHILS # (AUTO) 3.2 10^3/uL (1.8-7.8); NEUTROPHILS % (AUTO) 75 % (42-75); PLATELET COUNT 172 10^3/uL (130-400); WHITE BLOOD COUNT 4.2 10^3/uL (4.3-11.0)
[2020-06-22 04:55] LABS: CHLORIDE 106 MMOL/L (98-107); POTASSIUM 4.5 MMOL/L (3.6-5.0); SODIUM 139 MMOL/L (135-145)
--- NOTE | 2020-06-22 04:55 | Pulmonary Progress Note ---
Subjective Time Seen by a Provider: 04:50 Subjective/Events-last exam Pt appears to be doing better today. Sepsis Event Evaluation Height, Weight, BMI Height: 6'2.00" Weight: 180lbs. 0oz. 81.162418dw; 30.00 BMI Method:Stated Focused Exam Lactate Level 06/19/20 13:00: Lactic Acid Level 1.55 Exam Exam Vital Signs Date Time Temp Pulse Resp B/P (MAP) Pulse Ox O2 Delivery O2 Flow Rate FiO2 06/22/20 03:00 40 20 165/77 (106) 95 NIV Bilevel 35.00 06/22/20 02:55 NIV Bilevel 35.00 06/22/20 02:00 41 14 157/81 (106) 96 NIV Bilevel 45.00 06/22/20 01:52 NIV Bilevel 45.00 06/22/20 01:49 41 162/81 06/22/20 01:45 40 162/81 (108) NIV Bilevel 65.00 06/22/20 01:00 41 06/22/20 00:00 42 16 98 NIV Bilevel 65.00 06/21/20 23:00 43 14 97 NIV Bilevel 65.00 06/21/20 22:00 NIV Bilevel 65.00 06/21/20 22:00 45 15 95 NIV Bilevel 65.00 06/21/20 21:00 51 18 142/72 (95) 96 NIV Bilevel 75.00 06/21/20 21:00 NIV Bilevel 75 06/21/20 20:51 61 29 97 90.00 06/21/20 20:00 57 102/59 (73) 100 NIV Bilevel 75.00 06/21/20 19:40 36.0 06/21/20 19:00 57 102/59 (73) 100 NIV Bilevel 75.00 06/21/20 19:00 NIV Bilevel 75.00 06/21/20 19:00 57 06/21/20 18:00 53 13 103/57 (72) 98 NIV Bilevel 95.00 06/21/20 17:00 91 40 114/66 (82) 95 NIV Bilevel 95.00 06/21/20 16:31 NIV Bilevel 95.00 06/21/20 16:00 81 25 107/95 (99) 90 NIV Bilevel 90.00 06/21/20 15:43 36.5 06/21/20 15:15 74 26 150/80 97 NIV/Bilevel 90.00 06/21/20 15:02 NIV Bilevel 90.00 06/21/20 15:00 80 11 139/101 (114) 88 Vapotherm 40.00 100.00 06/21/20 14:42 74 26 97 90.00 06/21/20 14:00 74 20 140/82 (101) 100 Vapotherm 40.00 100.00 06/21/20 13:00 92 20 129/91 (104) 84 Vapotherm 40.00 100.00 06/21/20 12:50 90 06/21/20 12:06 36.1 06/21/20 12:00 74 14 146/87 (106) 99 Vapotherm 40.00 100.00 06/21/20 11:23 NIV Bilevel 100.00 06/21/20 11:00 86 18 150/80 (103) 92 Vapotherm 40.00 100.00 06/21/20 10:00 78 10 138/84 (102) 84 Vapotherm 40.00 100.00 06/21/20 09:02 Vapotherm 40.00 100.00 06/21/20 09:00 Vapotherm 40.00 100 06/21/20 09:00 82 11 137/68 (91) 89 NIV Bilevel 75.00 06/21/20 08:00 79 36 141/108 (119) 94 NIV Bilevel 75.00 06/21/20 07:55 36.1 06/21/20 07:00 75 36 148/83 (104) 81 NIV Bilevel 75.00 06/21/20 06:37 82 06/21/20 06:00 82 18 126/90 (102) 81 NIV Bilevel 75.00 06/21/20 05:00 74 27 134/74 (94) 93 NIV Bilevel 75.00 I & O 06/22/20 07:00 Intake Total 450 ml Output Total 640 ml Balance -190 ml Height & Weight Height: 6'2.00" Weight: 180lbs. 0oz. 81.349593vc; 30.00 BMI Method:Stated General Appearance: No Apparent Distress, WD/WN, Other (He denies a cough as he coughs, oxygen saturation 80% room air. Despite this, he is not in respiratory distress, laughing and joking with us.) Neck: Full Range of Motion, Normal Inspection Respiratory: Normal Breath Sounds, No Accessory Muscle Use, No Respiratory Distress Cardiovascular: Regular Rate, Rhythm, Normal Peripheral Pulses Capillary Refill: Less Than 3 Seconds Extremity: Normal Capillary Refill, Normal Inspection Neurologic/Psychiatric: Alert, Oriented x3 Skin: Normal Color, Warm/Dry (I will deal with it) Results Lab Laboratory Tests 06/21/20 04:55 06/22/20 04:11 Assessment/Plan Assessment/Plan Acute respiratory distress r/o COVID -Currently on BiPAP -Trial to Vapotherm -COVID PCR is negative on 06/19, RAPID COVID is also negative -COVID IGG is positive. No fevers since admission. -CRP and PCT elevated -Repeat PCT pending r/o PNA -Continue Levaquin -Sung cultures neg thus far -MRSA swab negative -Check Influenza - Neg HTN -Start Lopressor, Norvasc -PRN hydralazine. DVT ppx -on Lovenox MAXIMUS ADAMS DO Jun 22, 2020 04:55
[2020-06-22 04:56] LABS: CALCIUM 8.5 MG/DL (8.5-10.1); GLUCOSE 171 MG/DL (70-105)
[2020-06-22 04:58] LABS: CARBON DIOXIDE 22 MMOL/L (21-32)
[2020-06-22 05:00] LABS: CREATININE SERUM 1.12 MG/DL (0.60-1.30); GFR ESTIMATED > 60; PHOSPHORUS 4.7 MG/DL (2.3-4.7)
[2020-06-22 05:01] LABS: BUN/CREATININE RATIO 41
[2020-06-22 05:03] LABS: MAGNESIUM 2.4 MG/DL (1.6-2.4)
[2020-06-22] MEDS ORDERED: hydrALAZINE (APESOLINE) 20 MG/ML VIAL IV PRN (06:00)
[2020-06-22] MEDS: RT-ALBUTEROL INHALER HFA (VENTOLIN HFA) 18 GM IH SCH ×3 (06:35→21:15)
[2020-06-22] MEDS: meTOprolol TARTRATE 25 MG (LOPRESSOR) TABLET PO SCH ×2 (09:00→20:00)
[2020-06-22 09:30] LABS: ABG BASE EXCESS 1.9 MMOL/L (-2.5-2.5); ABG OXYGEN SATURATION 92 % (94-100); ABG PCO2 42 MMHG (35-45); ABG PH 7.41 (7.37-7.43); ABG PO2 59 MMHG (79-93); ABG TCO2 27.7 MMOL/L (21.0-31.0)
[2020-06-22 09:31] LABS: ALLENS TEST YES-POS; INSPIRED O2 30%; PATIENT TEMP 35.8; VENTILATOR NO
[2020-06-22] MEDS: amLODIPine 10 MG (NORVASC) TAB PO SCH (10:00)
[2020-06-22] MEDS: ENOXAPARIN 40 MG/0.4 ML (LOVENOX) SYR SC SCH (10:04)
[2020-06-22] MEDS: FAMOTIDINE 20MG/2ML IV (PEPCID) IVP SCH ×2 (10:05→20:01)
[2020-06-22] MEDS: LEVOFLOXACIN 750 MG/150 ML IV 150 ML IV SCH (10:06)
--- NOTE | 2020-06-22 10:11 | Diagnostic Imaging Report ---
INDICATION: COVID PUI, Hypoxemia. TECHNIQUE: Single view chest 9:21 AM. CORRELATION STUDY: 06/20/2020 FINDINGS: Patchy bibasilar infiltrates are again demonstrated. Given difference in technique overall stable to slightly improved. Mediastinal structures stable. IMPRESSION: 1. Bilateral pulmonary infiltrates overall relatively stable to slightly improved. Report was faxed to Juan/RN Infection Control by tyra at 10:09am. Dictated by: Dictated on workstation # [id number]
[2020-06-22] MEDS: HALOPERIDOL 5 MG/ML (HALDOL) VIAL IM PRN ×2 (18:21→22:51)
[2020-06-22] MEDS: morphine INJ 4 MG/ML 1 ML (VIAL/SYRINGE) IVP PRN ×2 (18:24→22:51)
[2020-06-22 23:00] VITALS: BP 149/87
[2020-06-23] MEDS: morphine INJ 4 MG/ML 1 ML (VIAL/SYRINGE) IVP PRN ×2 (02:59→16:50)
[2020-06-23 03:31] LABS: BASOPHILS % (AUTO) 0 % (0-10); EOSINOPHILS % (AUTO) 0 % (0-10); HEMATOCRIT 39 % (40-54); HEMOGLOBIN 12.3 g/dL (13.3-17.7); LYMPHOCYTES # (AUTO) 0.7 10^3/uL (1.0-4.0); LYMPHOCYTES % (AUTO) 6 % (12-44); MEAN CORPUSCULAR HEMOGLOBIN 28 pg (25-34); MEAN CORPUSCULAR HGB CONC 32 g/dL (32-36); MEAN CORPUSCULAR VOLUME 90 fL (80-99); MEAN PLATELET VOLUME 11.7 fL (9.0-12.2); MONOCYTES # (AUTO) 0.9 10^3/uL (0.0-1.0); MONOCYTES % (AUTO) 8 % (0-12); NEUTROPHILS # (AUTO) 9.7 10^3/uL (1.8-7.8); NEUTROPHILS % (AUTO) 84 % (42-75); PLATELET COUNT 231 10^3/uL (130-400); WHITE BLOOD COUNT 11.5 10^3/uL (4.3-11.0)
[2020-06-23 03:43] LABS: CHLORIDE 107 MMOL/L (98-107); POTASSIUM 4.4 MMOL/L (3.6-5.0); SODIUM 138 MMOL/L (135-145)
[2020-06-23 03:44] LABS: CALCIUM 8.6 MG/DL (8.5-10.1)
[2020-06-23 03:45] LABS: GLUCOSE 106 MG/DL (70-105)
[2020-06-23] MEDS: RT-ALBUTEROL INHALER HFA (VENTOLIN HFA) 18 GM IH SCH ×4 (03:45→21:13)
[2020-06-23 03:46] LABS: CARBON DIOXIDE 17 MMOL/L (21-32)
[2020-06-23 03:48] LABS: PHOSPHORUS 3.8 MG/DL (2.3-4.7)
[2020-06-23 03:49] LABS: CREATININE SERUM 1.04 MG/DL (0.60-1.30); GFR ESTIMATED > 60
[2020-06-23 03:50] LABS: BUN/CREATININE RATIO 34
[2020-06-23 03:51] LABS: MAGNESIUM 2.4 MG/DL (1.6-2.4)
[2020-06-23] MEDS: LACTATED RINGERS 1,000 ML IV SCH (04:21)
[2020-06-23] MEDS: HALOPERIDOL 5 MG/ML (HALDOL) VIAL IM PRN ×3 (05:02→20:15)
[2020-06-23 06:52] VITALS: BP 144/90
[2020-06-23] MEDS: amLODIPine 10 MG (NORVASC) TAB PO SCH (09:28)
[2020-06-23] MEDS: CARVEDILOL 12.5 MG (COREG) TABLET PO SCH ×2 (09:28→20:11)
[2020-06-23] MEDS: FAMOTIDINE 20MG/2ML IV (PEPCID) IVP SCH ×2 (09:29→20:11)
[2020-06-23] MEDS: ENOXAPARIN 40 MG/0.4 ML (LOVENOX) SYR SC SCH (09:29)
[2020-06-23] MEDS: LEVOFLOXACIN 750 MG TAB (LEVAQUIN) PO SCH (13:04)
--- NOTE | 2020-06-23 14:25 | Progress Note - Hospitalist ---
Subjective HPI/CC On Admission Date Seen by Provider: Jun 23, 2020 Time Seen by Provider: 11:00 Subjective/Events-last exam he is awake and alert. He does not feel short of breath. He denies any cough. He denies fevers. He is confused at times. He does not remember if he has eaten breakfast, although I am told he has not. He knows he is in [place], but is unable to tell me the city. He is able to say he has had a hospital and given multiple choices. He believes the year is 1491. He does not know who the president is. Objective Exam Vital Signs Vital Signs Date Time Temp Pulse Resp B/P (MAP) Pulse Ox O2 Delivery O2 Flow Rate FiO2 06/23/20 13:00 77 06/23/20 13:00 18 145/73 (97) 95 Vapotherm 20.00 90.00 06/23/20 12:51 37.2 06/23/20 09:00 92 Capillary Refill : Less Than 3 Seconds General Appearance: No Apparent Distress, WD/WN Respiratory: Lungs Clear, No Respiratory Distress, Other (wearing Vapotherm) Cardiovascular: No Murmur, Tachycardia Gastrointestinal: Normal Bowel Sounds, Non Tender, Soft Extremity: Normal Inspection, Non Tender, No Pedal Edema Neurologic/Psychiatric: Alert, Normal Mood/Affect, Disoriented Skin: Normal Color, Warm/Dry Results/Procedures Lab Laboratory Tests 06/23/20 02:45 Patient resulted labs reviewed. Imaging: Reviewed Imaging Report Assessment/Plan Assessment and Plan Assess & Plan/Chief Complaint Acute respiratory failure due to COVID-19 COVID-19 virus IgG antibody positive Pneumonia COVID IgG positive Flu negative Procal within normal limits x3 D-dimer minimally elevated x2 BNP within normal limits x2 Decadron Levaquin Vapotherm Delirium Sitter at bedside Reorient as needed Avoid delirium triggers Haldol as needed HTN Amlodipine Transition from Metoprolol to Coreg Hydralazine as needed DVT Prophylaxis: Lovenox Diagnosis/Problems Diagnosis/Problems (1) Acute respiratory failure due to COVID-19 Status: Acute (2) COVID-19 virus IgG antibody detected Status: Acute (3) PNA (pneumonia) Status: Acute (4) HTN (hypertension) Status: Chronic (5) Delirium Status: Acute Clinical Quality Measures DVT/VTE Risk/Contraindication: Risk Factor Score Per Nursin RFS Level Per Nursing on Admit: 4+=Very High RADHA SAWYER MD Jun 23, 2020 14:24
[2020-06-24] MEDS: RT-ALBUTEROL INHALER HFA (VENTOLIN HFA) 18 GM IH SCH ×4 (01:20→19:11)
[2020-06-24] MEDS: HALOPERIDOL 5 MG/ML (HALDOL) VIAL IM PRN ×3 (01:58→21:29)
[2020-06-24] MEDS: LACTATED RINGERS 1,000 ML IV SCH (02:01)
[2020-06-24 03:34] LABS: BASOPHILS % (AUTO) 0 % (0-10); EOSINOPHILS % (AUTO) 0 % (0-10); HEMATOCRIT 36 % (40-54); HEMOGLOBIN 11.7 g/dL (13.3-17.7); LYMPHOCYTES # (AUTO) 0.6 10^3/uL (1.0-4.0); LYMPHOCYTES % (AUTO) 11 % (12-44); MEAN CORPUSCULAR HEMOGLOBIN 28 pg (25-34); MEAN CORPUSCULAR HGB CONC 32 g/dL (32-36); MEAN CORPUSCULAR VOLUME 87 fL (80-99); MEAN PLATELET VOLUME 11.7 fL (9.0-12.2); MONOCYTES # (AUTO) 0.3 10^3/uL (0.0-1.0); MONOCYTES % (AUTO) 6 % (0-12); NEUTROPHILS # (AUTO) 4.8 10^3/uL (1.8-7.8); NEUTROPHILS % (AUTO) 81 % (42-75); PLATELET COUNT 218 10^3/uL (130-400); WHITE BLOOD COUNT 5.9 10^3/uL (4.3-11.0)
[2020-06-24 03:43] LABS: CHLORIDE 104 MMOL/L (98-107); POTASSIUM 4.2 MMOL/L (3.6-5.0); SODIUM 137 MMOL/L (135-145)
[2020-06-24 03:44] LABS: CALCIUM 8.6 MG/DL (8.5-10.1)
[2020-06-24 03:45] LABS: GLUCOSE 114 MG/DL (70-105)
[2020-06-24 03:46] LABS: CARBON DIOXIDE 22 MMOL/L (21-32)
[2020-06-24 03:48] LABS: PHOSPHORUS 3.8 MG/DL (2.3-4.7)
[2020-06-24 03:49] LABS: CREATININE SERUM 0.88 MG/DL (0.60-1.30); GFR ESTIMATED > 60
[2020-06-24 03:50] LABS: BUN/CREATININE RATIO 32
[2020-06-24] MEDS: amLODIPine 10 MG (NORVASC) TAB PO SCH (08:56)
[2020-06-24] MEDS: FAMOTIDINE 20MG/2ML IV (PEPCID) IVP SCH ×2 (08:56→19:45)
[2020-06-24] MEDS: CARVEDILOL 12.5 MG (COREG) TABLET PO SCH ×2 (08:56→19:45)
[2020-06-24] MEDS: ENOXAPARIN 40 MG/0.4 ML (LOVENOX) SYR SC SCH (08:57)
[2020-06-24] MEDS: LEVOFLOXACIN 750 MG TAB (LEVAQUIN) PO SCH (11:23)
--- NOTE | 2020-06-24 11:37 | Progress Note - Hospitalist ---
Subjective HPI/CC On Admission Date Seen by Provider: Jun 24, 2020 Time Seen by Provider: 09:50 Subjective/Events-last exam He is sleeping on my arrival. He reports feeling well. He denies trouble breathing. He denies pain. He is confused. Objective Exam Vital Signs Vital Signs Date Time Temp Pulse Resp B/P (MAP) Pulse Ox O2 Delivery O2 Flow Rate FiO2 06/24/20 09:00 93 Vapotherm 20.00 90 06/24/20 07:21 36.0 71 17 158/89 (112) Capillary Refill : Less Than 3 Seconds General Appearance: No Apparent Distress, Chronically ill Respiratory: No Respiratory Distress, Decreased Breath Sounds, Other (wearing Vapotherm) Cardiovascular: Regular Rate, Rhythm, No Edema, No Murmur Gastrointestinal: Normal Bowel Sounds, Non Tender, Soft Extremity: Normal Inspection, Non Tender, No Pedal Edema Neurologic/Psychiatric: Alert, Disoriented Skin: Normal Color, Warm/Dry Results/Procedures Lab Laboratory Tests 06/24/20 02:50 Patient resulted labs reviewed. Imaging: Reviewed Imaging Report Assessment/Plan Assessment and Plan Assess & Plan/Chief Complaint Acute respiratory failure due to COVID-19 COVID-19 virus IgG antibody positive Pneumonia COVID IgG positive Flu negative D-dimer minimally elevated x2 BNP within normal limits x2 Procal within normal limits x3 Levaquin, last dose tomorrow Stop Decadron, received 5 day course Vapotherm Check AGB Delirium Sitter at bedside Reorient as needed Avoid delirium triggers Stopping steroids Haldol as needed HTN Amlodipine Increase Coreg Hydralazine as needed DVT Prophylaxis: Lovenox Diagnosis/Problems Diagnosis/Problems (1) Acute respiratory failure due to COVID-19 Status: Acute (2) COVID-19 virus IgG antibody detected Status: Acute (3) PNA (pneumonia) Status: Acute (4) HTN (hypertension) Status: Chronic (5) Delirium Status: Acute Clinical Quality Measures DVT/VTE Risk/Contraindication: Risk Factor Score Per Nursin RFS Level Per Nursing on Admit: 4+=Very High RADHA SAWYER MD Jun 24, 2020 11:37
[2020-06-24] MEDS ORDERED: ONDANSETRON 4 MG/2 ML (SDV) Z0FRAN IVP ONE (11:45)
[2020-06-24 12:25] LABS: ABG BASE EXCESS 2.4 MMOL/L (-2.5-2.5); ABG OXYGEN SATURATION 96 % (94-100); ABG PCO2 34 MMHG (35-45); ABG PH 7.49 (7.37-7.43); ABG PO2 73 MMHG (79-93)
[2020-06-24 12:26] LABS: ALLENS TEST YES-POS; PATIENT TEMP 35.9; VENTILATOR NO
[2020-06-24 12:27] LABS: INSPIRED O2 20
[2020-06-24] MEDS: polyethylene glycoL POWDER 17 GM (MIRALAX) PACK PO SCH (19:44)
[2020-06-24] MEDS: DOCUSATE SODIUM 100 MG (COLACE) CAP PO SCH (19:45)
[2020-06-24] MEDS: SENNOSIDES 8.6 MG (SENOKOT) TAB PO SCH (19:45)
[2020-06-24] MEDS: morphine INJ 4 MG/ML 1 ML (VIAL/SYRINGE) IVP PRN (21:43)
[2020-06-25 03:15] LABS: BASOPHILS % (AUTO) 0 % (0-10); EOSINOPHILS % (AUTO) 0 % (0-10); HEMATOCRIT 36 % (40-54); HEMOGLOBIN 11.3 g/dL (13.3-17.7); LYMPHOCYTES # (AUTO) 0.5 10^3/uL (1.0-4.0); LYMPHOCYTES % (AUTO) 10 % (12-44); MEAN CORPUSCULAR HEMOGLOBIN 28 pg (25-34); MEAN CORPUSCULAR HGB CONC 31 g/dL (32-36); MEAN CORPUSCULAR VOLUME 89 fL (80-99); MEAN PLATELET VOLUME 11.6 fL (9.0-12.2); MONOCYTES # (AUTO) 0.3 10^3/uL (0.0-1.0); MONOCYTES % (AUTO) 6 % (0-12); NEUTROPHILS # (AUTO) 4.3 10^3/uL (1.8-7.8); NEUTROPHILS % (AUTO) 81 % (42-75); PLATELET COUNT 205 10^3/uL (130-400); WHITE BLOOD COUNT 5.3 10^3/uL (4.3-11.0)
[2020-06-25 03:23] LABS: CHLORIDE 105 MMOL/L (98-107); POTASSIUM 4.7 MMOL/L (3.6-5.0); SODIUM 139 MMOL/L (135-145)
[2020-06-25 03:24] LABS: CALCIUM 8.4 MG/DL (8.5-10.1); GLUCOSE 142 MG/DL (70-105)
[2020-06-25 03:26] LABS: CARBON DIOXIDE 23 MMOL/L (21-32)
[2020-06-25 03:28] LABS: CREATININE SERUM 0.93 MG/DL (0.60-1.30); GFR ESTIMATED > 60; PHOSPHORUS 4.1 MG/DL (2.3-4.7)
[2020-06-25 03:29] LABS: BUN/CREATININE RATIO 35
[2020-06-25 03:31] LABS: MAGNESIUM 2.1 MG/DL (1.6-2.4)
[2020-06-25] MEDS: RT-ALBUTEROL INHALER HFA (VENTOLIN HFA) 18 GM IH SCH ×4 (03:35→21:34)
[2020-06-25] MEDS: FAMOTIDINE 20MG/2ML IV (PEPCID) IVP SCH ×2 (08:45→21:37)
[2020-06-25] MEDS: CARVEDILOL 12.5 MG (COREG) TABLET PO SCH ×2 (08:45→21:36)
[2020-06-25] MEDS: DOCUSATE SODIUM 100 MG (COLACE) CAP PO SCH ×2 (08:45→21:36)
[2020-06-25] MEDS: ENOXAPARIN 40 MG/0.4 ML (LOVENOX) SYR SC SCH (08:45)
[2020-06-25] MEDS: amLODIPine 10 MG (NORVASC) TAB PO SCH (08:45)
[2020-06-25] MEDS: SENNOSIDES 8.6 MG (SENOKOT) TAB PO SCH ×2 (08:45→21:36)
[2020-06-25] MEDS: morphine INJ 4 MG/ML 1 ML (VIAL/SYRINGE) IVP PRN (08:46)
--- NOTE | 2020-06-25 09:21 | Progress Note - Hospitalist ---
Subjective HPI/CC On Admission Date Seen by Provider: Jun 25, 2020 Time Seen by Provider: 09:16 Subjective/Events-last exam Pt reports feeling ok. Still on Vapotherm. No complaints per patient. Objective Exam Vital Signs Vital Signs Date Time Temp Pulse Resp B/P (MAP) Pulse Ox O2 Delivery O2 Flow Rate FiO2 06/25/20 08:00 93 Vapotherm 20.00 90 06/25/20 08:00 36.1 67 24 112/54 (73) Capillary Refill : Less Than 3 Seconds General Appearance: No Apparent Distress, Chronically ill Respiratory: Decreased Breath Sounds; No Wheezing; Other (on Vapotherm) Cardiovascular: Regular Rate, Rhythm, No Murmur Neurologic/Psychiatric: Alert, Oriented x3 Results/Procedures Lab Laboratory Tests 06/25/20 02:45 Patient resulted labs reviewed. Imaging: Reviewed Imaging Report Assessment/Plan Assessment and Plan Assess & Plan/Chief Complaint Acute respiratory failure due to COVID-19 COVID-19 virus IgG antibody positive Pneumonia COVID IgG positive Flu negative D-dimer minimally elevated x2 BNP within normal limits x2 Procal within normal limits x3 Levaquin to complete course today s/p Decadron Vapotherm, I titrated FiO2 at bedside to 80%, sats remained 93% PT/OT Delirium Sitter at bedside Reorient as needed Avoid delirium triggers Haldol as needed HTN Amlodipine Increase Coreg Hydralazine as needed DVT Prophylaxis: Lovenox Clinical Quality Measures DVT/VTE Risk/Contraindication: Risk Factor Score Per Nursin RFS Level Per Nursing on Admit: 4+=Very High CHRIST FLORES MD Jun 25, 2020 09:21
--- NOTE | 2020-06-25 10:30 | Physical Therapy Evaluation ---
PT Evaluation-General Medical Diagnosis Admission Date Jun 19, 2020 at 13:16 Medical Diagnosis: hypoxia Onset Date: Jun 19, 2020 Therapy Diagnosis Therapy Diagnosis: generalized weakness/debility Height/Weight Height (Feet): 6 Height (Inches): 2.00 Weight (Pounds): 180 Weight (Ounces): 0 Precautions Precautions/Isolations: Fall Prevention (live sitter), Standard Precautions Referral Physician: Rachael Reason for Referral: Evaluation/Treatment Medical History Pertinent Medical History: Dementia, HTN, Hypothroidism Current History ER secondary to weakness/unable to eat and sleeps all the time Reviewed History: Yes Social History Home: [facility] Prior Prior Level of Function SCALE: Activities may be completed with or without assistive devices. 1-Fuebbmnjnu-wbfohit completes the activity by him/herself with no assistance from a helper. 5-Set-up or Clean-up Assistance-helper sets up or cleans up; patient completes activity. [place] assists only prior to or following the activity. 4-Supervision or Touching Assistance-helper provides verbal cues and/or touching/steadying and/or contact guard assistance as patient completes activity. Assistance may be provided throughout the activity or intermittently. 3-Partial/Moderate Assistance-helper does LESS THAN HALF the effort. [place] lifts, holds or supports trunk or limbs, but provides less than half the effort. 2-Substantial/Maximal Assistance-helper does MORE THAN HALF the effort. [place] lifts or holds trunk or limbs and provides more than half the effort. 7-Ixqtwvuqu-chhfic does ALL the effort. Patient does none of the effort to complete the activity. Or, the assistance of 2 or more helpers is required for the patient to complete the activity. If activity was not attempted, code reason: 7-Patient Refused. 9-Not Applicable-not attempted and the patient did not perform the activity before the current illness, exacerbation or injury. 10-Not Attempted due to Environmental Limitations-(lack of equipment, weather restraints, etc.). 88-Not Attempted due to Medical Conditions or Safety Concerns. Bed Mobility: 5 Transfers (B,C,W/C): 5 Gait: 5 Indoor Mobility (Ambulation): Needed Some Help Prior Devices Use: Walker PT Evaluation-Current Subjective Patient is very agitated and does not open eyes but does yell at PT to leave him alone. Live sitter present to assist. Objective Patient Orientation: Confused Attachments: Oxygen (vapotherm), Carl Catheter ROM/Strength ROM Lower Extremities bilateral LE WFL Strength Lower Extremities 3/5 grossly bilateral LE (unable to formally test due to confusion) Integumentary/Posture Integumentary refer to nursing notes Bladder Incontinence: Carl Cath Posture slightly kyphotic Neuromuscular (Tone, Coordination, Reflexes) grossly intact Sensory Vision: Wears Glasses Hearing: Functional Transfers Roll Left to Right (QC): 2 Sit to Lying (QC): 2 Lying to Sitting/Side of Bed(Q: 2 Sit to Stand (QC): 2 SAO2 decreases to 80% with minimal activity Gait Does the Patient Walk?: No and Walking Goal IS indicated Balance Sitting Static: Fair Sitting Dynamic: Fair Standing Static: Fair Standing Dynamic: Fair Assessment/Needs 85 y.o. male, will benefit from skilled PT to address functional strength and mobility to improve current LOF to safely return to facility at maximum LOF. Rehab Potential: Guarded PT Tow Driver Goals Mcfp Goals PT Mcfp Goals Time Frame: Jul 14, 2020 Roll Left & Right (QC): 4 Sit to Lying (QC): 4 Lying-Sitting on Side/Bed(QC): 4 Sit to Stand (QC): 4 Chair/Vci-jo-Kzedw Xfer(QC): 4 Toilet Transfer (QC): 4 Does the Patient Walk: No and Walking Goal IS indicated Walk 10 feet (QC): 4 Walk 50ft with 2 Turns (QC): 4 PT Plan Problem List Problem List: Activity Tolerance, Functional Strength, Safety, Balance, Gait, Transfer, Bed Mobility Treatment/Plan Treatment Plan: Continue Plan of Care Treatment Plan: Bed Mobility, Education, Functional Activity Emely, Functional Strength, Gait, Safety, Therapeutic Exercise, Transfers Treatment Duration: Jul 14, 2020 Frequency: 6 times per week Estimated Hrs Per Day: .25 hour per day Discharge Recommendations Therapy Discharge Recommendati: Other, See Comments ([facility] facility) Time/GCodes Time In: 945 Time Out: 1000 Total Billed Treatment Time: 15 Total Billed Treatment 1 visit EVModC 15 min ANDREA OCHOA PT Jun 25, 2020 10:30
--- NOTE | 2020-06-25 11:36 | Occupational Therapy Eval ---
OT Evaluation-General/PLF Medical Diagnosis Admission Date Jun 19, 2020 at 13:16 Medical Diagnosis: hypoxia Onset Date: Jun 19, 2020 Therapy Diagnosis Therapy Diagnosis: Decreased ADL status Height/Weight Height (Feet): 6 Height (Inches): 2.00 Weight (Pounds): 180 Weight (Ounces): 0 Precautions Precautions/Isolations: Fall Prevention (live sitter), Standard Precautions Referral Physician: Rachael Referral Reason: Activity Tolerance, Self Care, Evaluation/Treatment, Strengthening/ROM Medical History Pertinent Medical History: Dementia, HTN, Hypothroidism Additional Medical History TIA, dementia, HTN, anxiety Current History Pt admits to ED with generalized weakness and c/o bowel incontinence. Pt COVID negative 06/19, though has tested positive for COV19 antibodies and acute resp. failure due to COV19 Reviewed History: Yes Social History Home: [facility] ADL-Prior Level of Function SCALE: Activities may be completed with or without assistive devices. 9-Deozojtrho-wuqsvhe completes the activity by him/herself with no assistance from a helper. 5-Set-up or Clean-up Assistance-helper sets up or cleans up; patient completes activity. [place] assists only prior to or following the activity. 4-Supervision or Touching Assistance-helper provides verbal cues and/or touching/steadying and/or contact guard assistance as patient completes activity. Assistance may be provided throughout the activity or intermittently. 3-Partial/Moderate Assistance-helper does LESS THAN HALF the effort. [place] lifts, holds or supports trunk or limbs, but provides less than half the effort. 2-Substantial/Maximal Assistance-helper does MORE THAN HALF the effort. [place] lifts or holds trunk or limbs and provides more than half the effort. 6-Adpuwkehn-tsbdcn does ALL the effort. Patient does none of the effort to complete the activity. Or, the assistance of 2 or more helpers is required for the patient to complete the activity. If activity was not attempted, code reason: 7-Patient Refused. 9-Not Applicable-not attempted and the patient did not perform the activity bef ore the current illness, exacerbation or injury. 10-Not Attempted due to Environmental Limitations-(lack of equipment, weather r estraints, etc.). 88-Not Attempted due to Medical Conditions or Safety Concerns. 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 Pt is NH resident with h/o dementia/ TIA Self Care: Needed Some Help Functional Cognition: Needed Some Help Drive Self: No OT Current Status Subjective Pt sleeping upon entry. Pt has 1:1 sitter present. Pt's sitter states assisted p t with washing up/ dressing this am. Pt is woken with verbal cues/ tactile cues. Pt hesitantly agrees to OT eval/ treat, requiring increased time and cues for purpose. Mental Status/Objective Attachments: Carl Catheter, Oxygen (vaotherm), SCD's, Telemetry Current Glasses/Contacts: Yes Hearing Aids: No Dentures/Partials: Yes Hand Dominance: Right Upper Extremity ROM WFL BUE (sats decrease to high 80's during ROM/ over head testing) Upper Extremity Coordination WFL BUE Upper Extremity Sensation DNT Upper Extremity Strength 3+/5 ADL-Treatment Eating (QC): 4 (s/u food cutting, cues for food management and initiation for nutrient intake. With cues, pt able to manage bringing cup to mouth/ drinking ) Upper Body Dressing (QC): 2 (Per sitter, pt able to assist with doffing/ donning. ) On/Off Footwear (QC): 1 (at this time/ due to decreased oxygen status, pt will be TD for sock doff/ donning. ) Other Treatments Pt sleeping, requires minimal cues for waking. Pt agitated, stating, "Why, no," when asking to work. Pt is encouraged and hesitantly agrees. Pt completes MMT/ ROM with noted decrease in 02 from low 90's to high 80's upon shoulder flexion/ application of resistance. Pt recovers with cues. Pt sits EOB with mod A. Pt's sats immediately drop to high 70's. Sits with fair balance. Pt returns to bed with min A. Max Ax2 to reach HOB. Pt's sats take ~5 min to recover to low 90's. Pt's nurse notified of decrease during upright positioning. Pt encouraged to drink Ensure, able to complete with cues. Pt able to complete moderate tasks appropriately upon cueing. Pt to benefit from skilled OT to address fx strength/ ADL status. Pt educated on this, denies needs, left with sitter in bed with all rails up/ education of benefits of upright positioning. Education OT Patient Education: Correct positioning, Purpose of tx/functional activities, Safety issues, Transfer techniques Teaching Recipient: Patient Teaching Methods: Demonstration, Discussion Response to Teaching: Verbalize Understanding, Return Demonstration OT Snf Goals Snf Goals Time Frame: Jul 02, 2020 Eating (QC): 4 Oral Hygiene (QC): 5 Toileting Hygiene (QC): 3 Shower/Bathe Self (QC): 3 Upper Body Dressing (QC): 4 Lower Body Dressing (QC): 3 On/Off Footwear (QC): 3 Additional Goals: 1-Demonstrate ADL Tasks, 2-Verbalize Understanding, 3- ImproveStrength/Emely 1=Demonstrate adherence to instructed precautions during ADL tasks. 2=Patient will verbalize/demonstrate understanding of assistive devices/modifications for ADL. 3=Patient will improve strength/tolerance for activity to enable patient to perform ADL's. OT Education/Plan Problem List/Assessment Assessment: Decreased Activ Tolerance, Decreased UE Strength, Dependent Transfers, Impaired Bed Mobility, Impaired Cognition, Impaired Funct Balance, Impaired I ADL's, Impaired Self-Care Skills Discharge Recommendations Plan/Recommendations: Continue POC Therapy Discharge Recommendati: 24 Hour Supervision Treatment Plan/Plan of Care Treatment,Training & Education: Yes Patient would benefit from OT for education, treatment and training to promote independence in ADL's, mobility, safety and/or upper extremity function for ADL's. Plan of Care: ADL Retraining, Functional Mobility, UE Funct Exercise/Act Treatment Duration: Jul 02, 2020 Frequency: 5 times per week Estimated Hrs Per Day: .25 hour per day Agreement: Yes Rehab Potential: Guarded Time/GCodes Start Time: 10:57 Stop Time: 11:18 Total Time Billed (hr/min): 21 Billed Treatment Time JUDI Vela (21) DEVEN LAROSE OTR Jun 25, 2020 11:36
[2020-06-25] MEDS: LEVOFLOXACIN 750 MG TAB (LEVAQUIN) PO SCH (12:59)
--- NOTE | 2020-06-25 13:14 | Pulmonary Progress Note ---
Subjective Time Seen by a Provider: 13:13 Sepsis Event Evaluation Height, Weight, BMI Height: 6'2.00" Weight: 180lbs. 0oz. [age]yo; 30.00 BMI Method:Stated Exam Exam Vital Signs Date Time Temp Pulse Resp B/P (MAP) Pulse Ox O2 Delivery O2 Flow Rate FiO2 06/25/20 11:57 36.0 71 18 106/51 (69) 93 Vapotherm 22.00 90.00 06/25/20 08:00 93 Vapotherm 20.00 90 06/25/20 08:00 36.1 67 24 112/54 (73) 93 Vapotherm 22.00 90.00 06/25/20 07:58 36.1 67 24 112/54 (73) 93 Vapotherm 22.00 90.00 06/25/20 06:41 56 06/25/20 04:00 36.3 53 14 96/57 (70) 93 Vapotherm 22.00 90.00 06/25/20 03:35 94 Vapotherm 20.00 90 06/25/20 01:00 54 06/25/20 00:07 36.2 58 18 143/67 (92) 92 Vapotherm 22.00 90.00 06/24/20 22:48 95 Vapotherm 20.00 90 06/24/20 19:46 36.6 75 14 125/65 (85) 92 Vapotherm 20.00 90.00 06/24/20 19:45 93 Vapotherm 20.00 85 06/24/20 19:11 93 Vapotherm 20.00 90 06/24/20 19:00 78 06/24/20 16:16 36.0 73 16 95/65 (75) 93 06/24/20 14:39 92 Vapotherm 20.00 90 I & O 06/25/20 07:00 Intake Total 2190 ml Output Total 800 ml Balance 1390 ml Height & Weight Height: 6'2.00" Weight: 180lbs. 0oz. 81.104780ad; 30.00 BMI Method:Stated General Appearance: No Apparent Distress, Chronically ill Neck: Full Range of Motion, Normal Inspection Respiratory: Decreased Breath Sounds; No Wheezing; Other (on Vapotherm) Cardiovascular: Regular Rate, Rhythm, No Murmur Capillary Refill: Less Than 3 Seconds Extremity: Normal Inspection, Non Tender, No Pedal Edema Neurologic/Psychiatric: Alert, Oriented x3 Skin: Normal Color, Warm/Dry Results Lab Laboratory Tests 06/24/20 02:50 06/25/20 02:45 Assessment/Plan Assessment/Plan Acute respiratory distress r/o COVID -Currently on Vapotherm -COVID PCR is negative on 06/19, RAPID COVID is also negative -COVID IGG is positive. No fevers since admission. -CRP and PCT elevated -Repeat PCT pending r/o PNA -Continue Levaquin -Sung cultures neg thus far -MRSA swab negative -Check Influenza - Neg HTN -Start Lopressor, Norvasc -PRN hydralazine. DVT ppx -on Lovenox MAXIMUS ADAMS DO Jun 25, 2020 13:14
--- NOTE | 2020-06-25 16:01 | NUR ---
CM/SS following patient for discharge planning. Per physician request this sw reached out to [facility] to look at patient for possible admission. Awaiting acceptance/denial.
--- NOTE | 2020-06-25 16:50 | NUR ---
"RD ASSESSMENT PMHx: dementia; HTN; TIA; pancreatitis; hypothyroidism; PT INTERACTION: Pt was awake during nutrition assessment. Note pt has dementia and all diet information for nutrition assessment is per Renée, his sitter. Renée states current appetite is poor, but he is drinking his supplementation. Note avg PO intake <25% x3d, per chart review. Note pt has dentures, but he has difficulty eating d/t no adhesives to keep them in place. Renée states no issues with nausea, vomiting, constipation, or diarrhea that she is aware of. Note no BM has been recorded and pt currently on bowel regimen of miralax HS, colace BID, and senna BID, per chart review. Note recent 24# wt gain x1mon, per chart review. ABNORMAL NUTRITION-RELATED LAB VALUES LOW: Ca 8.4; HIGH: BUN 33; glu 142; Est. kcal needs: 6696-8046 kcal | 20-25 kcal/kg Est. Pro needs: 74-93 g Pro | 0.8-1.0 g Pro/kg PES STATEMENT: Inadequate oral intake (NI-2.1) related to loss of appetite, as evidenced by pt interview and avg PO intake <25% meals. INTERVENTION: Continue with current diet order of Regular diet. Pt may benefit from DYS2 Mechanically Altered diet as he is having difficulty with his dentures. Continue with current supplementation order of Ensure Enlive with meals TID, for increased kcal intake. Provides 350 kcal and 20 g Pro per serving. Would encourage pt to eat when able. Will continue to follow and reassess as pt needs, intake, and status change. Robin FRANK, MS RD LD [phone] cell"
[2020-06-25] MEDS: polyethylene glycoL POWDER 17 GM (MIRALAX) PACK PO SCH (22:49)
[2020-06-26] MEDS: HALOPERIDOL 5 MG/ML (HALDOL) VIAL IM PRN (01:30)
[2020-06-26] MEDS: RT-ALBUTEROL INHALER HFA (VENTOLIN HFA) 18 GM IH SCH ×4 (01:35→19:01)
[2020-06-26] MEDS: morphine INJ 4 MG/ML 1 ML (VIAL/SYRINGE) IVP PRN (02:26)
[2020-06-26 04:26] LABS: BASOPHILS % (AUTO) 0 % (0-10); EOSINOPHILS % (AUTO) 0 % (0-10); HEMATOCRIT 37 % (40-54); HEMOGLOBIN 11.7 g/dL (13.3-17.7); LYMPHOCYTES # (AUTO) 0.9 10^3/uL (1.0-4.0); LYMPHOCYTES % (AUTO) 14 % (12-44); MEAN CORPUSCULAR HEMOGLOBIN 28 pg (25-34); MEAN CORPUSCULAR HGB CONC 32 g/dL (32-36); MEAN CORPUSCULAR VOLUME 89 fL (80-99); MEAN PLATELET VOLUME 11.3 fL (9.0-12.2); MONOCYTES # (AUTO) 0.6 10^3/uL (0.0-1.0); MONOCYTES % (AUTO) 10 % (0-12); NEUTROPHILS # (AUTO) 4.9 10^3/uL (1.8-7.8); NEUTROPHILS % (AUTO) 74 % (42-75); PLATELET COUNT 244 10^3/uL (130-400); WHITE BLOOD COUNT 6.7 10^3/uL (4.3-11.0)
[2020-06-26 04:41] LABS: CHLORIDE 101 MMOL/L (98-107); POTASSIUM 4.3 MMOL/L (3.6-5.0); SODIUM 134 MMOL/L (135-145)
[2020-06-26 04:42] LABS: CALCIUM 8.3 MG/DL (8.5-10.1)
[2020-06-26 04:43] LABS: GLUCOSE 113 MG/DL (70-105)
[2020-06-26 04:44] LABS: CARBON DIOXIDE 25 MMOL/L (21-32)
[2020-06-26 04:46] LABS: PHOSPHORUS 3.5 MG/DL (2.3-4.7)
[2020-06-26 04:47] LABS: BUN/CREATININE RATIO 34; CREATININE SERUM 0.95 MG/DL (0.60-1.30); GFR ESTIMATED > 60
--- NOTE | 2020-06-26 08:11 | Pulmonary Progress Note ---
Subjective Time Seen by a Provider: 08:06 Sepsis Event Evaluation Height, Weight, BMI Height: 6'2.00" Weight: 180lbs. 0oz. 81.325457tk; 30.00 BMI Method:Stated Exam Exam Vital Signs Date Time Temp Pulse Resp B/P (MAP) Pulse Ox O2 Delivery O2 Flow Rate FiO2 06/26/20 07:14 68 06/26/20 04:54 16 101/64 (76) 95 Vapotherm 25.00 85.00 06/26/20 01:35 91 Vapotherm 20.00 80 06/26/20 01:00 74 06/26/20 00:00 36.6 69 12 147/71 (96) 94 Vapotherm 22.00 80.00 06/25/20 21:34 93 Vapotherm 20.00 80 06/25/20 21:30 Vapotherm 20.00 80 06/25/20 19:39 36.6 73 17 125/71 (89) 92 Vapotherm 20.00 80.00 06/25/20 19:00 81 06/25/20 18:47 93 Vapotherm 20.00 80 06/25/20 15:45 36.4 68 23 122/54 (76) 91 Vapotherm 20.00 70.00 06/25/20 15:27 90 Vapotherm 20.00 70 06/25/20 12:31 61 06/25/20 11:57 36.0 71 18 106/51 (69) 93 Vapotherm 22.00 90.00 I & O 06/26/20 07:00 Intake Total 1237 ml Output Total 975 ml Balance 262 ml Height & Weight Height: 6'2.00" Weight: 180lbs. 0oz. 81.744796xc; 30.00 BMI Method:Stated General Appearance: No Apparent Distress, Chronically ill Neck: Full Range of Motion, Normal Inspection Respiratory: Decreased Breath Sounds; No Wheezing; Other (on Vapotherm) Cardiovascular: Regular Rate, Rhythm, No Murmur Capillary Refill: Less Than 3 Seconds Extremity: Normal Inspection, Non Tender, No Pedal Edema Neurologic/Psychiatric: Alert, Oriented x3 Skin: Normal Color, Warm/Dry Results Lab Laboratory Tests 06/25/20 02:45 06/26/20 03:53 Assessment/Plan Assessment/Plan Acute respiratory distress r/o COVID -Currently on Vapotherm -COVID PCR is negative on 06/19, RAPID COVID is also negative -COVID IGG is positive. No fevers since admission. -CRP and PCT elevated -Repeat PCT pending r/o PNA -Continue Levaquin -Sung cultures neg thus far -MRSA swab negative -Check Influenza - Neg HTN -Start Lopressor, Norvasc -PRN hydralazine. DVT ppx -on Lovenox MAXIMUS ADAMS DO Jun 26, 2020 08:11
--- NOTE | 2020-06-26 08:56 | Progress Note - Hospitalist ---
Subjective HPI/CC On Admission Date Seen by Provider: Jun 26, 2020 Time Seen by Provider: 08:50 Subjective/Events-last exam Pt is sleeping soundly this morning. Does open eyes but then falls back asleep. Apparently got agitated overnight and received haldol and morphine and has slept since. Objective Exam Vital Signs Vital Signs Date Time Temp Pulse Resp B/P (MAP) Pulse Ox O2 Delivery O2 Flow Rate FiO2 06/26/20 07:14 68 06/26/20 04:54 16 101/64 (76) 95 Vapotherm 25.00 85.00 06/26/20 01:35 80 06/26/20 00:00 36.6 Capillary Refill : Less Than 3 Seconds General Appearance: No Apparent Distress, Chronically ill Respiratory: Decreased Breath Sounds; No Rhonci, No Wheezing; Other (on Vapotherm) Cardiovascular: Regular Rate, Rhythm, No Murmur Neurologic/Psychiatric: Other (drowsy) Results/Procedures Lab Laboratory Tests 06/26/20 03:53 Patient resulted labs reviewed. Imaging: Reviewed Imaging Report Assessment/Plan Assessment and Plan Assess & Plan/Chief Complaint Acute respiratory failure due to COVID-19 COVID-19 virus IgG antibody positive Pneumonia COVID IgG positive Flu negative D-dimer minimally elevated x2 BNP within normal limits x2 Procal within normal limits x3 s/p Decadron and Levaquin Vapotherm, I titrated FiO2 at bedside to 50%, sats remained went from 97% to 94% PT/OT Delirium Sitter at bedside Reorient as needed Avoid delirium triggers Haldol as needed Added risperdal Will likely need placement, unsure of where he lived previously HTN Amlodipine and Coreg, BP well controlled Hydralazine as needed DVT Prophylaxis: Lovenox Diagnosis/Problems Diagnosis/Problems (1) COVID-19 virus IgG antibody detected Status: Acute (2) Acute respiratory failure due to COVID-19 Status: Acute (3) PNA (pneumonia) Status: Acute Qualifiers: Pneumonia type: due to unspecified organism Laterality: bilateral Lung location: lower lobe of lung Qualified Codes: J18.9 - Pneumonia, unspecified organism (4) HTN (hypertension) Status: Chronic Qualifiers: Hypertension type: essential hypertension Qualified Codes: I10 - Essential (primary) hypertension (5) Delirium Status: Acute Clinical Quality Measures DVT/VTE Risk/Contraindication: Risk Factor Score Per Nursin RFS Level Per Nursing on Admit: 4+=Very High CHRIST FLORES MD Jun 26, 2020 08:56
[2020-06-26] MEDS: FAMOTIDINE 20MG/2ML IV (PEPCID) IVP SCH (09:18)
[2020-06-26] MEDS: DOCUSATE SODIUM 100 MG (COLACE) CAP PO SCH ×2 (09:19→19:44)
[2020-06-26] MEDS: amLODIPine 10 MG (NORVASC) TAB PO SCH (09:20)
[2020-06-26] MEDS: CARVEDILOL 12.5 MG (COREG) TABLET PO SCH ×2 (09:20→19:44)
[2020-06-26] MEDS: SENNOSIDES 8.6 MG (SENOKOT) TAB PO SCH ×2 (09:20→19:44)
[2020-06-26] MEDS: ENOXAPARIN 40 MG/0.4 ML (LOVENOX) SYR SC SCH (09:20)
[2020-06-26] MEDS: risperiDONE 0.25 MG (RisperDAL) TAB PO SCH ×2 (09:21→19:44)
--- NOTE | 2020-06-26 11:30 | Occupational Ther Daily Note ---
OT Current Status-Daily Note Subjective Pt's eyes slightly open upon entry. Sitter present/ leaves through session. Pt responds when OT introduces self. Pt does not deny when OT asks if pt desires to get cleaned up. Pt requires max cues for participating in skilled tx, however, all tasks were TD due to lack of participation. Mental Status/Objective Attachments: Carl Catheter, Oxygen (vapotherm), Telemetry ADL-Treatment Therapy Code Descriptions/Definitions Functional [place] Measure: 0=Not Assessed/NA 4=Minimal Assistance 1=Total Assistance 5=Supervision or Setup 2=Maximal Assistance 6=Modified [place] 3=Moderate Assistance 7=Complete IndependenceSCALE: Activities may be completed with or without assistive devices. 6-Ljyprxnudg-ymzglud completes the activity by him/herself with no assistance from a helper. 5-Set-up or Clean-up Assistance-helper sets up or cleans up; patient completes activity. [place] assists only prior to or following the activity. 4-Supervision or Touching Assistance-helper provides verbal cues and/or touching/steadying and/or contact guard assistance as patient completes activity. Assistance may be provided throughout the activity or intermittently. 3-Partial/Moderate Assistance-helper does LESS THAN HALF the effort. [place] lifts, holds or supports trunk or limbs, but provides less than half the effort. 2-Substantial/Maximal Assistance-helper does MORE THAN HALF the effort. [place] lifts or holds trunk or limbs and provides more than half the effort. 9-Xmrebfndj-gweryz does ALL the effort. Patient does none of the effort to complete the activity. Or, the assistance of 2 or more helpers is required for the patient to complete the activity. If activity was not attempted, code reason: 7-Patient Refused. 9-Not Applicable-not attempted and the patient did not perform the activity before the current illness, exacerbation or injury. 10-Not Attempted due to Environmental Limitations-(lack of equipment, weather restraints, etc.). 88-Not Attempted due to Medical Conditions or Safety Concerns. Eating (QC): 3 (OT preps Ensure with straw/ opening, requires OT to place at mouth and pt takes 3 sips. When asked if pt desires more, pt states, "No thank you.") Shower/Bathe Self (QC): 1 (Pt is asked to wash face to start. Pt rolls cloth in hand and does not react to cues to participate. Sponge bath completed in bed with TD.) Upper Body Dressing (QC): 2 (max A. Pt requires cues for hand placement and OT must place arms in position due to decreased awareness.) On/Off Footwear: 1 (TD) Toileting Hygiene (QC): 1 (TD bottom/ manish care. When asking pt to complete manish care, pt states, "I can't." Pt rolls in bed with max A for OT to complete bottom ) Other Treatment Pt requires increased cues for participation, however, does not actively participate during session. Pt is handed cloth, only rolls in-hand. Pt is educat ed on purpose of tx and desire to continue to get stronger/ participate in ADLs. Pt does not respond. Falls asleep during tx, tactile cues must be intiated to keep pt awake. Pt communicates on/ off with appropriateness. Pt left in bed with all needs met, call light in reach, nursing aware of pt position. Education OT Patient Education: Correct positioning, Purpose of tx/functional activities, Transfer techniques Teaching Recipient: Patient Teaching Methods: Demonstration, Discussion Response to Teaching: Verbalize Understanding, Unable to Return Demonstration, Unable to Comprehend, Reinforcement Needed OT Mcfp Goals Inlayer Goals Time Frame: Jul 02, 2020 Eating (QC): 4 Oral Hygiene (QC): 5 Toileting Hygiene (QC): 3 Shower/Bathe Self (QC): 3 Upper Body Dressing (QC): 4 Lower Body Dressing (QC): 3 On/Off Footwear (QC): 3 Additional Goals: 1-Demonstrate ADL Tasks, 2-Verbalize Understanding, 3- ImproveStrength/Emely 1=Demonstrate adherence to instructed precautions during ADL tasks. 2=Patient will verbalize/demonstrate understanding of assistive devices/modifications for ADL. 3=Patient will improve strength/tolerance for activity to enable patient to perform ADL's. OT Education/Plan Problem List/Assessment Assessment: Decreased Activ Tolerance, Dependent Transfers, Impaired Bed Mobility, Impaired Cognition, Impaired I ADL's, Impaired Self-Care Skills Discharge Recommendations Plan/Recommendations: Continue POC Therapy Discharge Recommendati: 24 Hour Supervision Treatment Plan/Plan of Care Treatment,Training & Education: Yes Patient would benefit from OT for education, treatment and training to promote independence in ADL's, mobility, safety and/or upper extremity function for ADL's. Plan of Care: ADL Retraining, Functional Mobility, UE Funct Exercise/Act Treatment Duration: Jul 02, 2020 Frequency: 5 times per week Estimated Hrs Per Day: .25 hour per day Agreement: Yes Rehab Potential: Guarded Time/GCodes Start Time: 10:19 Stop Time: 10:38 Total Time Billed (hr/min): 19 Billed Treatment Time 1, ADL (19) DEVEN LAROSE OTR Jun 26, 2020 11:30
--- NOTE | 2020-06-26 14:10 | Physical Therapy Daily Note ---
PT Daily Note-Current Subjective Patient in bed pre tx, agrees to PT, has no complaints of pain. Patient is very confused and has a sitter. Attempted to see patient earlier today and decided to postpone tx due to patient getting physical with staff and throwing around his nurse call. Appearance Patient in bed post tx with nurse call, phone, tray, all needs met, sitter in room. Mental Status Patient Orientation: Confused Attachments: Oxygen, Carl Catheter vapotherm Transfers SCALE: Activities may be completed with or without assistive devices. 2-Lfulklalfs-bteizoc completes the activity by him/herself with no assistance from a helper. 5-Set-up or Clean-up Assistance-helper sets up or cleans up; patient completes activity. [place] assists only prior to or following the activity. 4-Supervision or Touching Assistance-helper provides verbal cues and/or touching/steadying and/or contact guard assistance as patient completes activity. Assistance may be provided throughout the activity or intermittently. 3-Partial/Moderate Assistance-helper does LESS THAN HALF the effort. [place] lifts, holds or supports trunk or limbs, but provides less than half the effort. 2-Substantial/Maximal Assistance-helper does MORE THAN HALF the effort. [place] lifts or holds trunk or limbs and provides more than half the effort. 8-Cjtiyvgjn-svrikt does ALL the effort. Patient does none of the effort to complete the activity. Or, the assistance of 2 or more helpers is required for the patient to complete the activity. If activity was not attempted, code reason: 7-Patient Refused. 9-Not Applicable-not attempted and the patient did not perform the activity before the current illness, exacerbation or injury. 10-Not Attempted due to Environmental Limitations-(lack of equipment, weather restraints, etc.). 88-Not Attempted due to Medical Conditions or Safety Concerns. Roll Left & Right (QC): 4 Sit to Lying (QC): 3 Lying to Sitting/Side of Bed(Q: 3 Sit to Stand (QC): 3 mod assist for supine <-> sit and sit to stand. Patient was able to stand with therapist assist and the use of a rolling walker for about 15 seconds before sitting. Patient's O2 drops to upper 80's with activity and comes back up into low 90's with rest. Treatments bed mobility, standing Assessment Current Status: Fair Progress confused, impulsive PT Correction Goals Correction Goals PT Correction Goals Time Frame: Jul 14, 2020 Roll Left & Right (QC): 4 Sit to Lying (QC): 4 Lying-Sitting on Side/Bed(QC): 4 Sit to Stand (QC): 4 Chair/Jpc-zi-Heave Xfer(QC): 4 Toilet Transfer (QC): 4 Does the Patient Walk: No and Walking Goal IS indicated Walk 10 feet (QC): 4 Walk 50ft with 2 Turns (QC): 4 PT Plan Problem List Problem List: Activity Tolerance, Functional Strength, Safety, Balance, Gait, Transfer, Bed Mobility, ROM Treatment/Plan Treatment Plan: Continue Plan of Care Treatment Plan: Bed Mobility, Education, Functional Activity Emely, Functional Strength, Gait, Safety, Therapeutic Exercise, Transfers Treatment Duration: Jul 14, 2020 Frequency: 6 times per week Estimated Hrs Per Day: .25 hour per day Safety Risks/Education Patient Education: Correct Positioning, Safety Issues Teaching Recipient: Patient Teaching Methods: Demonstration, Discussion Response to Teaching: Reinforcement Needed Time/GCodes Time In: 1352 Time Out: 1403 Total Billed Treatment Time: 11 Total Billed Treatment 1 visit FA LOLA GRACIA PT Jun 26, 2020 14:10
[2020-06-26] MEDS: HYDROcodone/APAP 5 MG/325 MG (LORTAB) TAB PO PRN (15:26)
--- NOTE | 2020-06-26 16:03 | NUR ---
Patient appeared to have gotten some of the Lortab, part of it was spit out and thrown across the room. This nurse wasted pill with RICARDO Amato, who is sitting with patient at this time.
[2020-06-26] MEDS: polyethylene glycoL POWDER 17 GM (MIRALAX) PACK PO SCH (19:44)
[2020-06-26] MEDS: FAMOTIDINE 20 MG (PEPCID) TABLET PO SCH (19:44)
--- NOTE | 2020-06-27 01:30 | NUR ---
BEDSIDE SITTER INFORMED THIS RN THAT PT KEPT TAKING HIS OXYGEN OFF THINKING IT WAS HIS GLASSES AND WAS BECOMING INCREASINGLY AGITATED WHEN REDIRECTION WAS ATTEMPTED. HALDOL GIVEN. SEE EMAR.
[2020-06-27] MEDS: HALOPERIDOL 5 MG/ML (HALDOL) VIAL IM PRN (01:39)
[2020-06-27] MEDS: RT-ALBUTEROL INHALER HFA (VENTOLIN HFA) 18 GM IH SCH ×3 (03:03→20:24)
[2020-06-27 04:05] LABS: BASOPHILS % (AUTO) 0 % (0-10); EOSINOPHILS # (AUTO) 0.1 10^3/uL (0.0-0.3); EOSINOPHILS % (AUTO) 3 % (0-10); HEMATOCRIT 37 % (40-54); HEMOGLOBIN 11.8 g/dL (13.3-17.7); LYMPHOCYTES % (AUTO) 19 % (12-44); MEAN CORPUSCULAR HEMOGLOBIN 28 pg (25-34); MEAN CORPUSCULAR HGB CONC 32 g/dL (32-36); MEAN CORPUSCULAR VOLUME 89 fL (80-99); MEAN PLATELET VOLUME 10.9 fL (9.0-12.2); MONOCYTES # (AUTO) 0.8 10^3/uL (0.0-1.0); MONOCYTES % (AUTO) 15 % (0-12); NEUTROPHILS # (AUTO) 3.2 10^3/uL (1.8-7.8); NEUTROPHILS % (AUTO) 62 % (42-75); PLATELET COUNT 237 10^3/uL (130-400); WHITE BLOOD COUNT 5.2 10^3/uL (4.3-11.0)
[2020-06-27 04:17] LABS: CHLORIDE 101 MMOL/L (98-107); POTASSIUM 4.2 MMOL/L (3.6-5.0); SODIUM 135 MMOL/L (135-145)
[2020-06-27 04:19] LABS: CALCIUM 8.3 MG/DL (8.5-10.1); GLUCOSE 107 MG/DL (70-105)
[2020-06-27 04:21] LABS: CARBON DIOXIDE 25 MMOL/L (21-32)
[2020-06-27 04:23] LABS: CREATININE SERUM 0.82 MG/DL (0.60-1.30); GFR ESTIMATED > 60
[2020-06-27 04:24] LABS: BUN/CREATININE RATIO 29
[2020-06-27] MEDS: morphine INJ 4 MG/ML 1 ML (VIAL/SYRINGE) IVP PRN (05:14)
--- NOTE | 2020-06-27 08:43 | Progress Note - Hospitalist ---
Subjective HPI/CC On Admission Date Seen by Provider: Jun 27, 2020 Time Seen by Provider: 08:32 Subjective/Events-last exam pt is sleeping soundly. sitter at bedside. No complaints. Objective Exam Vital Signs Vital Signs Date Time Temp Pulse Resp B/P (MAP) Pulse Ox O2 Delivery O2 Flow Rate FiO2 06/27/20 07:20 36.2 58 14 115/61 (79) 93 Vapotherm 20.00 50.00 06/27/20 03:03 60 Capillary Refill : Less Than 3 Seconds General Appearance: No Apparent Distress, Chronically ill Respiratory: Lungs Clear, No Accessory Muscle Use, Other (on vapotherm) Cardiovascular: Regular Rate, Rhythm, No Murmur Neurologic/Psychiatric: Other (sleeping soundly ) Results/Procedures Lab Laboratory Tests 06/27/20 03:35 Patient resulted labs reviewed. Imaging: Reviewed Imaging Report Assessment/Plan Assessment and Plan Assess & Plan/Chief Complaint Acute respiratory failure due to COVID-19 COVID-19 virus IgG antibody positive Pneumonia COVID IgG positive Flu negative D-dimer minimally elevated x2 BNP within normal limits x2 Procal within normal limits x3 s/p Decadron and Levaquin Vapotherm, I titrated FiO2 at bedside to 40%, sats remained went from 97% to 94% PT/OT Delirium Sitter at bedside Reorient as needed Avoid delirium triggers Haldol as needed but decrease dose as is quite sedated after dose Added risperdal Will likely need placement HTN Amlodipine and Coreg, BP well controlled Hydralazine as needed DVT Prophylaxis: Lovenox Diagnosis/Problems Diagnosis/Problems (1) COVID-19 virus IgG antibody detected Status: Acute (2) Acute respiratory failure due to COVID-19 Status: Acute (3) PNA (pneumonia) Status: Acute Qualifiers: Pneumonia type: due to unspecified organism Laterality: bilateral Lung location: lower lobe of lung Qualified Codes: J18.9 - Pneumonia, unspecified organism (4) HTN (hypertension) Status: Chronic Qualifiers: Hypertension type: essential hypertension Qualified Codes: I10 - Essential (primary) hypertension (5) Delirium Status: Acute Clinical Quality Measures DVT/VTE Risk/Contraindication: Risk Factor Score Per Nursin RFS Level Per Nursing on Admit: 4+=Very High CHRIST FLORES MD Jun 27, 2020 08:43
--- NOTE | 2020-06-27 08:56 | Pulmonary Progress Note ---
Subjective Time Seen by a Provider: 08:52 Subjective/Events-last exam No complications noted. Sepsis Event Evaluation Height, Weight, BMI Height: 6'2.00" Weight: 180lbs. 0oz. [id number]; 30.00 BMI Method:Stated Exam Exam Vital Signs Date Time Temp Pulse Resp B/P (MAP) Pulse Ox O2 Delivery O2 Flow Rate FiO2 06/27/20 07:20 36.2 58 14 115/61 (79) 93 Vapotherm 20.00 50.00 06/27/20 06:51 58 06/27/20 03:14 36.5 68 18 128/76 (93) 95 Vapotherm 20.00 60.00 06/27/20 03:07 Vapotherm 20.00 60.00 06/27/20 03:03 95 Vapotherm 20.00 60 06/27/20 01:00 61 06/27/20 00:00 66 25 126/72 (90) 93 Vapotherm 20.00 70.00 06/26/20 23:09 35.7 74 20 136/86 (103) 95 Vapotherm 06/26/20 20:41 Vapotherm 20.00 70.00 06/26/20 20:00 93 Vapotherm 20.00 70 06/26/20 19:46 37.2 64 19 140/85 (103) 94 Vapotherm 06/26/20 19:01 97 Vapotherm 20.00 80 06/26/20 19:00 66 06/26/20 16:39 71 16 141/96 (111) 93 20.00 80.00 06/26/20 15:18 95 Vapotherm 20.00 80 06/26/20 12:00 65 26 120/68 (85) 94 20.00 80.00 06/26/20 12:00 36.4 63 16 120/68 (85) 92 20.00 80.00 06/26/20 11:44 70 06/26/20 10:00 89 20 140/68 (92) 100 20.00 80.00 06/26/20 09:58 93 20.00 80.00 06/26/20 09:57 86 20.00 50.00 I & O 06/27/20 07:00 Intake Total 500 ml Output Total 750 ml Balance -250 ml Height & Weight Height: 6'2.00" Weight: 180lbs. 0oz. 81.072675vf; 30.00 BMI Method:Stated General Appearance: No Apparent Distress, Chronically ill Neck: Full Range of Motion, Normal Inspection Respiratory: Lungs Clear, No Accessory Muscle Use, Other (on vapotherm) Cardiovascular: Regular Rate, Rhythm, No Murmur Capillary Refill: Less Than 3 Seconds Extremity: Normal Inspection, Non Tender, No Pedal Edema Neurologic/Psychiatric: Other (sleeping soundly ) Skin: Normal Color, Warm/Dry Results Lab Laboratory Tests 06/26/20 03:53 06/27/20 03:35 Assessment/Plan Assessment/Plan Acute respiratory distress r/o COVID -Currently on Vapotherm -- Change to regular NC. -Repeat CXR -COVID PCR is negative on 06/19, RAPID COVID is also negative -COVID IGG is positive. No fevers since admission. r/o PNA -s/p Levaquin -Sung cultures neg thus far -MRSA swab negative -Check Influenza - Neg HTN -Start Lopressor, Norvasc -PRN hydralazine. DVT ppx -on Lovenox MAXIMUS ADAMS DO Jun 27, 2020 08:56
[2020-06-27] MEDS: ENOXAPARIN 40 MG/0.4 ML (LOVENOX) SYR SC SCH (09:19)
[2020-06-27] MEDS: CARVEDILOL 12.5 MG (COREG) TABLET PO SCH ×2 (09:19→21:20)
[2020-06-27] MEDS: DOCUSATE SODIUM 100 MG (COLACE) CAP PO SCH ×2 (09:19→21:20)
[2020-06-27] MEDS: amLODIPine 10 MG (NORVASC) TAB PO SCH (09:19)
[2020-06-27] MEDS: SENNOSIDES 8.6 MG (SENOKOT) TAB PO SCH ×2 (09:19→21:22)
[2020-06-27] MEDS: risperiDONE 0.25 MG (RisperDAL) TAB PO SCH ×2 (09:19→21:20)
[2020-06-27] MEDS: FAMOTIDINE 20 MG (PEPCID) TABLET PO SCH ×2 (09:19→21:20)
--- NOTE | 2020-06-27 09:55 | Physical Therapy Daily Note ---
PT Daily Note-Current Subjective Patient in bed pre tx, agrees to PT, voices no complaints of pain. Appearance Patient in recliner post tx with nurse call, sitter in room, legs elevated. Mental Status Patient Orientation: Person, Confused Attachments: Oxygen, Carl Catheter vapotherm Transfers SCALE: Activities may be completed with or without assistive devices. 6-Obxjnathbr-ykbrtkt completes the activity by him/herself with no assistance from a helper. 5-Set-up or Clean-up Assistance-helper sets up or cleans up; patient completes activity. [place] assists only prior to or following the activity. 4-Supervision or Touching Assistance-helper provides verbal cues and/or touching/steadying and/or contact guard assistance as patient completes activity. Assistance may be provided throughout the activity or intermittently. 3-Partial/Moderate Assistance-helper does LESS THAN HALF the effort. [place] lifts, holds or supports trunk or limbs, but provides less than half the effort. 2-Substantial/Maximal Assistance-helper does MORE THAN HALF the effort. [place] lifts or holds trunk or limbs and provides more than half the effort. 6-Uhueqkkcl-vouyar does ALL the effort. Patient does none of the effort to complete the activity. Or, the assistance of 2 or more helpers is required for the patient to complete the activity. If activity was not attempted, code reason: 7-Patient Refused. 9-Not Applicable-not attempted and the patient did not perform the activity before the current illness, exacerbation or injury. 10-Not Attempted due to Environmental Limitations-(lack of equipment, weather restraints, etc.). 88-Not Attempted due to Medical Conditions or Safety Concerns. Roll Left & Right (QC): 3 Lying to Sitting/Side of Bed(Q: 3 Sit to Stand (QC): 3 Chair/Eqe-ie-Wwtkp Xfer(QC): 3 mod assist to stand and transfer, cues for hand placement and safety Treatments bed mobility and transfers Assessment Current Status: Fair Progress improving functional mobility but patient's O2 dropped to upper 80's and would not come back up to 90% without nurse having to come in and adjust his vapotherm PT Mcc Goals Mcc Goals PT Mcc Goals Time Frame: Jul 14, 2020 Roll Left & Right (QC): 4 Sit to Lying (QC): 4 Lying-Sitting on Side/Bed(QC): 4 Sit to Stand (QC): 4 Chair/Qdh-uq-Plgwh Xfer(QC): 4 Toilet Transfer (QC): 4 Does the Patient Walk: No and Walking Goal IS indicated Walk 10 feet (QC): 4 Walk 50ft with 2 Turns (QC): 4 PT Plan Problem List Problem List: Activity Tolerance, Functional Strength, Safety, Balance, Gait, Transfer, Bed Mobility, ROM Treatment/Plan Treatment Plan: Continue Plan of Care Treatment Plan: Bed Mobility, Education, Functional Activity Emely, Functional Strength, Gait, Safety, Therapeutic Exercise, Transfers Treatment Duration: Jul 14, 2020 Frequency: 6 times per week Estimated Hrs Per Day: .25 hour per day Safety Risks/Education Patient Education: Transfer Techniques, Correct Positioning, Safety Issues Teaching Recipient: Patient Teaching Methods: Demonstration, Discussion Response to Teaching: Reinforcement Needed Time/GCodes Time In: 921 Time Out: 0940 Total Billed Treatment Time: 18 Total Billed Treatment 1 visit FA 18' LOLA ENNIS PT Jun 27, 2020 09:55
--- NOTE | 2020-06-27 11:20 | NUR ---
REPORT RECEIVED FROM RICARDO PABON. PATIENT TO ROOM 414 VIA WHEELING RECLINER CHAIR ACCOMPANIED BY [employer] AND SITTER PCT KASI. PATIENT DENIES ANY NEEDS AT THIS TIME. SITTING IN RECLINER CHAIR, 5 L HF NC. ASSUMED CARE OF THE PATIENT AT THIS TIME. WILL CONTINUE TO MONITOR
--- NOTE | 2020-06-27 11:20 | NUR ---
REPORT CALLED TO GABRIELE SILVA. PT TAKEN DOWN TO NEW ROOM VIA CHAIR WITH BELONGINGS. SITTER AT BEDSIDE.
[2020-06-27] MEDS ORDERED: HALOPERIDOL 5 MG/ML (HALDOL) VIAL IM PRN (11:45)
--- NOTE | 2020-06-27 12:59 | NUR ---
Patient contacts explored so that additional information can be gathered about his prior level of function. I spoke with the senior safety support manager at [facility]. She gave me his SKIL worker and sons telephone number. SKIL Worker Rita #[phone] She is authorized for 22hrs. Son Leny Sanchez #[phone] and [phone] Spoke with Rita about Tim prior to this spell of illness. She reports that the patient calls her Juan Luis. She reports that he does all of his cares himself and that he also drives. The last time he drove was on 06/13 to anabaptism. She reports that is when she noticed a change in the patient and he began to sleep a lot more. She f/u with his primary care physician and by the 3rd time of f/u with his office they requested he come to the emergency room. Rita called the police to help her get him to her car d/t lethargy. She reports that he is very active normally and had just been to a lady friends house to watch TV prior to him becoming ill. She is hopeful he will get to return home at some point and she will resume her care. Left a message with his son Leny. Patient has a cat named Renee and attends [facility]ism at [facility] in [place], [place] his dining room hostess's name is Roby Barillas. His friends names are Teresa and Chen. Rita indicates that this would be good information to use to visit with Tim when he becomes confused.
--- NOTE | 2020-06-27 13:31 | Diagnostic Imaging Report ---
INDICATION: Shortness of breath. Portable chest 11:48 AM There are patchy alveolar infiltrates in both lungs. These appear to be more confluent compared to prior study done on 06/22/2020. There are no effusions or pneumothoraces. IMPRESSION: Multifocal alveolar infiltrates consistent with pneumonia. Dictated by: Dictated on workstation # [id number]
--- NOTE | 2020-06-27 14:21 | Occupational Ther Daily Note ---
OT Current Status-Daily Note Subjective Pt alert upon entry. Oriented to person/ place. Pt agrees to tx. OT/ PT co-treat this session. Sitter present. Mental Status/Objective Patient Orientation: Person, Place Attachments: Carl Catheter, Oxygen (vapotherm), Telemetry ADL-Treatment Therapy Code Descriptions/Definitions Functional [place] Measure: 0=Not Assessed/NA 4=Minimal Assistance 1=Total Assistance 5=Supervision or Setup 2=Maximal Assistance 6=Modified [place] 3=Moderate Assistance 7=Complete IndependenceSCALE: Activities may be completed with or without assistive devices. 4-Ogzibylfsx-mwwlmnd completes the activity by him/herself with no assistance from a helper. 5-Set-up or Clean-up Assistance-helper sets up or cleans up; patient completes activity. [place] assists only prior to or following the activity. 4-Supervision or Touching Assistance-helper provides verbal cues and/or touching/steadying and/or contact guard assistance as patient completes activity. Assistance may be provided throughout the activity or intermittently. 3-Partial/Moderate Assistance-helper does LESS THAN HALF the effort. [place] lifts, holds or supports trunk or limbs, but provides less than half the effort. 2-Substantial/Maximal Assistance-helper does MORE THAN HALF the effort. [place] lifts or holds trunk or limbs and provides more than half the effort. 5-Ppneelhps-laqusz does ALL the effort. Patient does none of the effort to complete the activity. Or, the assistance of 2 or more helpers is required for the patient to complete the activity. If activity was not attempted, code reason: 7-Patient Refused. 9-Not Applicable-not attempted and the patient did not perform the activity before the current illness, exacerbation or injury. 10-Not Attempted due to Environmental Limitations-(lack of equipment, weather restraints, etc.). 88-Not Attempted due to Medical Conditions or Safety Concerns. Eating (QC): 2 (per sitter, pt required assist for feeding. During medication managmenet, pt requires assist for clean-up due to spillage. ) Other Treatment Pt bed mob with assist x2. Pt sits EOB with fair balance. Pt SPT to chair. Pt's 02 drops low 80's, requires nursing assist for increase of vapotherm due to not recovering after multiple minutes. Pt left with 02 adjusted, all needs met, call light in reach, pt's sitter present. Education OT Patient Education: Correct positioning, Purpose of tx/functional activities, Safety issues, Transfer techniques Teaching Recipient: Patient Teaching Methods: Demonstration, Discussion Response to Teaching: Verbalize Understanding, Return Demonstration OT Mcfp Goals Waxed Bag Machine Operator Goals Time Frame: Jul 02, 2020 Eating (QC): 4 Oral Hygiene (QC): 5 Toileting Hygiene (QC): 3 Shower/Bathe Self (QC): 3 Upper Body Dressing (QC): 4 Lower Body Dressing (QC): 3 On/Off Footwear (QC): 3 Additional Goals: 1-Demonstrate ADL Tasks, 2-Verbalize Understanding, 3- ImproveStrength/Emely 1=Demonstrate adherence to instructed precautions during ADL tasks. 2=Patient will verbalize/demonstrate understanding of assistive devices/modifications for ADL. 3=Patient will improve strength/tolerance for activity to enable patient to perform ADL's. OT Education/Plan Problem List/Assessment Assessment: Decreased Activ Tolerance, Decreased Safety Aware, Decreased UE Strength, Dependent Transfers, Impaired Bed Mobility, Impaired Cognition, Impaired Funct Balance, Impaired I ADL's, Impaired Self-Care Skills Discharge Recommendations Plan/Recommendations: Continue POC Therapy Discharge Recommendati: 24 Hour Supervision Treatment Plan/Plan of Care Treatment,Training & Education: Yes Patient would benefit from OT for education, treatment and training to promote independence in ADL's, mobility, safety and/or upper extremity function for ADL's. Plan of Care: ADL Retraining, Functional Mobility, UE Funct Exercise/Act Treatment Duration: Jul 02, 2020 Frequency: 5 times per week Estimated Hrs Per Day: .25 hour per day Agreement: Yes Rehab Potential: Guarded Time/GCodes Start Time: 09:21 Stop Time: 09:37 Total Time Billed (hr/min): 16 Billed Treatment Time 1, ROQUE (16) DEVEN LAROSE OTR Jun 27, 2020 14:21
[2020-06-27] MEDS: polyethylene glycoL POWDER 17 GM (MIRALAX) PACK PO SCH (21:30)
--- NOTE | 2020-06-28 03:00 | NUR ---
assumed care from RICARDO Samson. agree with previous assessment, pt resting with eyes closed, sitter at bedside, needs met at this time
[2020-06-28] MEDS: RT-ALBUTEROL INHALER HFA (VENTOLIN HFA) 18 GM IH SCH (03:31)
[2020-06-28 06:13] LABS: BASOPHILS % (AUTO) 0 % (0-10); EOSINOPHILS # (AUTO) 0.1 10^3/uL (0.0-0.3); EOSINOPHILS % (AUTO) 3 % (0-10); HEMATOCRIT 37 % (40-54); HEMOGLOBIN 11.8 g/dL (13.3-17.7); LYMPHOCYTES # (AUTO) 0.9 10^3/uL (1.0-4.0); LYMPHOCYTES % (AUTO) 17 % (12-44); MEAN CORPUSCULAR HEMOGLOBIN 28 pg (25-34); MEAN CORPUSCULAR HGB CONC 32 g/dL (32-36); MEAN CORPUSCULAR VOLUME 88 fL (80-99); MONOCYTES # (AUTO) 0.8 10^3/uL (0.0-1.0); MONOCYTES % (AUTO) 15 % (0-12); NEUTROPHILS # (AUTO) 3.5 10^3/uL (1.8-7.8); NEUTROPHILS % (AUTO) 64 % (42-75); PLATELET COUNT 229 10^3/uL (130-400); WHITE BLOOD COUNT 5.5 10^3/uL (4.3-11.0)
[2020-06-28 06:32] LABS: BUN/CREATININE RATIO 32; CALCIUM 8.3 MG/DL (8.5-10.1); CARBON DIOXIDE 24 MMOL/L (21-32); CHLORIDE 105 MMOL/L (98-107); CREATININE SERUM 0.78 MG/DL (0.60-1.30); GFR ESTIMATED > 60; GLUCOSE 94 MG/DL (70-105); POTASSIUM 4.1 MMOL/L (3.6-5.0); SODIUM 138 MMOL/L (135-145)
[2020-06-28] MEDS: FAMOTIDINE 20 MG (PEPCID) TABLET PO SCH ×2 (09:39→20:41)
[2020-06-28] MEDS: DOCUSATE SODIUM 100 MG (COLACE) CAP PO SCH ×2 (09:40→20:41)
[2020-06-28] MEDS: amLODIPine 10 MG (NORVASC) TAB PO SCH (09:40)
[2020-06-28] MEDS: SENNOSIDES 8.6 MG (SENOKOT) TAB PO SCH ×2 (09:40→20:41)
[2020-06-28] MEDS: CARVEDILOL 12.5 MG (COREG) TABLET PO SCH ×2 (09:40→20:41)
[2020-06-28] MEDS: ENOXAPARIN 40 MG/0.4 ML (LOVENOX) SYR SC SCH (09:40)
[2020-06-28] MEDS: risperiDONE 0.25 MG (RisperDAL) TAB PO SCH ×2 (09:43→20:42)
[2020-06-28] MEDS: RT-ALBUTEROL/IPRATROPIUM 3 ML (DUONEB) VIAL INH PRN ×2 (09:45→15:30)
--- NOTE | 2020-06-28 11:04 | Progress Note - Hospitalist ---
Subjective HPI/CC On Admission Date Seen by Provider: Jun 28, 2020 Time Seen by Provider: 10:59 Subjective/Events-last exam Pt much more alert today. Eating breakfast and very happy to have bread this morning. Objective Exam Vital Signs Vital Signs Date Time Temp Pulse Resp B/P (MAP) Pulse Ox O2 Delivery O2 Flow Rate FiO2 06/28/20 11:55 35.6 71 24 127/58 (81) 93 High Flow N/C 3.00 06/27/20 08:00 40 Capillary Refill : Less Than 3 Seconds General Appearance: No Apparent Distress, Chronically ill Respiratory: No Accessory Muscle Use, Decreased Breath Sounds, Other (on 3lpm) Cardiovascular: Regular Rate, Rhythm, No Murmur Neurologic/Psychiatric: Other (alert but still somehwhat confused) Results/Procedures Lab Laboratory Tests 06/28/20 05:22 Patient resulted labs reviewed. Imaging: Reviewed Imaging Report Assessment/Plan Assessment and Plan Assess & Plan/Chief Complaint Acute respiratory failure due to COVID-19 COVID-19 virus IgG antibody positive Pneumonia COVID IgG positive Flu negative D-dimer minimally elevated x2 BNP within normal limits x2 Procal within normal limits x3 s/p Decadron and Levaquin Now on nasal cannula PT/OT Delirium Sitter at bedside Reorient as needed Avoid delirium triggers Haldol as needed but decrease dose as is quite sedated after dose Continue risperdal social worker assistant consulted for placement HTN Amlodipine and Coreg, BP well controlled Hydralazine as needed DVT Prophylaxis: Lovenox Diagnosis/Problems Diagnosis/Problems (1) COVID-19 virus IgG antibody detected Status: Acute (2) Acute respiratory failure due to COVID-19 Status: Acute (3) PNA (pneumonia) Status: Acute Qualifiers: Pneumonia type: due to unspecified organism Laterality: bilateral Lung location: lower lobe of lung Qualified Codes: J18.9 - Pneumonia, unspecified organism (4) HTN (hypertension) Status: Chronic Qualifiers: Hypertension type: essential hypertension Qualified Codes: I10 - Essential (primary) hypertension (5) Delirium Status: Acute Clinical Quality Measures DVT/VTE Risk/Contraindication: Risk Factor Score Per Nursin RFS Level Per Nursing on Admit: 4+=Very High CHRIST FLORES MD Jun 28, 2020 11:03
--- NOTE | 2020-06-28 11:09 | NUR ---
CM/SS visited with patient for discharge planning. Plan: The patient will need a senior care home placement at time of discharge. CM/SS visited with patient. He was sitting up in chair watching TV. The patient is oriented x1 (name but not birthdate). He stated the year as [birth year], place as [place] [id number], and situation unsure. The patient started talking and looking around the room. It appeared as though he was talking to someone else due to him looking at the bed and stating "oh, you're gone too". CM/SS asked the patient how he was feeing today. He responded with "My hands" and then placed them on this sw leg. CM/SS redirected patient. CM/SS attempted to contact the patient's son Christopher Sanchez ([phone]) however, it went straight to voice mail. CM/SS left a message with contact information. CM/SS attempted to contact the caregiver Rita ([phone]). No answer but this sw left a voice mail. CM/SS will continue to follow.
--- NOTE | 2020-06-28 11:09 | Physical Therapy Daily Note ---
PT Daily Note-Current Subjective Patient is confused and has telesitter present and bed alarm activated. Mental Status Patient Orientation: Confused Attachments: Oxygen (4L NC), Carl Catheter Transfers SCALE: Activities may be completed with or without assistive devices. 5-Eolippqdmr-fdhkogr completes the activity by him/herself with no assistance from a helper. 5-Set-up or Clean-up Assistance-helper sets up or cleans up; patient completes activity. [place] assists only prior to or following the activity. 4-Supervision or Touching Assistance-helper provides verbal cues and/or touching/steadying and/or contact guard assistance as patient completes activity. Assistance may be provided throughout the activity or intermittently. 3-Partial/Moderate Assistance-helper does LESS THAN HALF the effort. [place] lifts, holds or supports trunk or limbs, but provides less than half the effort. 2-Substantial/Maximal Assistance-helper does MORE THAN HALF the effort. [place] lifts or holds trunk or limbs and provides more than half the effort. 6-Eufxwhyzi-ilobem does ALL the effort. Patient does none of the effort to complete the activity. Or, the assistance of 2 or more helpers is required for the patient to complete the activity. If activity was not attempted, code reason: 7-Patient Refused. 9-Not Applicable-not attempted and the patient did not perform the activity before the current illness, exacerbation or injury. 10-Not Attempted due to Environmental Limitations-(lack of equipment, weather restraints, etc.). 88-Not Attempted due to Medical Conditions or Safety Concerns. Lying to Sitting/Side of Bed(Q: 3 Sit to Stand (QC): 3 Chair/Xam-yn-Qodpv Xfer(QC): 3 Gait Training Does the Patient Walk?: Yes Distance: 10' Walk 10 feet (QC): 3 Gait Assistive Device: FWW Exercises Supine Ex: Ankle pumps, Heel Slides Supine Reps: 12 (AAROM) Treatments Patient has episode of becoming severely lethargic during treatment, however, vitals were WNL. RN notified. Patient is up in recliner with bilateral LE elevated and upper body reclined due to responsiveness. Patient did recover and become more alert and it was noted that he had a "wad" of bread in his mouth that he hadn't swallowed from breakfast. RN present. Assessment Patient tolerates minimal activity and is in recliner with chair alarm activated as well as telesitter. From a PT standpoint, patient would benefit from extended care facility due to LOF and current status. Physician notified. PT Long-Term Goals Chair Pad Maker Goals PT Chair Pad Maker Goals Time Frame: Jul 14, 2020 Roll Left & Right (QC): 4 Sit to Lying (QC): 4 Lying-Sitting on Side/Bed(QC): 4 Sit to Stand (QC): 4 Chair/Gce-iq-Qmmgg Xfer(QC): 4 Toilet Transfer (QC): 4 Does the Patient Walk: No and Walking Goal IS indicated Walk 10 feet (QC): 4 Walk 50ft with 2 Turns (QC): 4 PT Plan Treatment/Plan Treatment Plan: Continue Plan of Care Treatment Plan: Bed Mobility, Education, Functional Activity Emely, Functional Strength, Gait, Safety, Therapeutic Exercise, Transfers Treatment Duration: Jul 14, 2020 Frequency: 6 times per week Estimated Hrs Per Day: .25 hour per day Time/GCodes Time In: 958 Time Out: 1021 Total Billed Treatment Time: 23 Total Billed Treatment 1 visit FA x 2 23min ANDREA OCHOA PT Jun 28, 2020 11:09
--- NOTE | 2020-06-28 12:00 | Occupational Ther Daily Note ---
OT Current Status-Daily Note Subjective Pt seated in recliner, telesitter present. Nursing staff indicate pt has already completed a sponge bath and oral care this AM. ADL-Treatment Therapy Code Descriptions/Definitions Functional [place] Measure: 0=Not Assessed/NA 4=Minimal Assistance 1=Total Assistance 5=Supervision or Setup 2=Maximal Assistance 6=Modified [place] 3=Moderate Assistance 7=Complete IndependenceSCALE: Activities may be completed with or without assistive devices. 6-Ntixzeejth-qfpfhhc completes the activity by him/herself with no assistance from a helper. 5-Set-up or Clean-up Assistance-helper sets up or cleans up; patient completes activity. [place] assists only prior to or following the activity. 4-Supervision or Touching Assistance-helper provides verbal cues and/or touching/steadying and/or contact guard assistance as patient completes activity. Assistance may be provided throughout the activity or intermittently. 3-Partial/Moderate Assistance-helper does LESS THAN HALF the effort. [place] lifts, holds or supports trunk or limbs, but provides less than half the effort. 2-Substantial/Maximal Assistance-helper does MORE THAN HALF the effort. [place] lifts or holds trunk or limbs and provides more than half the effort. 6-Ethudvaaw-kheflx does ALL the effort. Patient does none of the effort to complete the activity. Or, the assistance of 2 or more helpers is required for the patient to complete the activity. If activity was not attempted, code reason: 7-Patient Refused. 9-Not Applicable-not attempted and the patient did not perform the activity before the current illness, exacerbation or injury. 10-Not Attempted due to Environmental Limitations-(lack of equipment, weather restraints, etc.). 88-Not Attempted due to Medical Conditions or Safety Concerns. Shower/Bathe Self (QC): 1 (based on nursing report, pt dependent for task. ) Other Treatment Pt seated in recliner, nursing staff indicate pt washed his face this AM. Nursing staff dependently gave pt a sponge bath. Pt agreeable to UE exercises in order to increase BUE strength and functional endurance. Pt completed x10 reps of the following exercises, BUEs: shoulder flexion, elbow flexion/extension, and finger flexion/extension. Pt required CGA with LUE shoulder flexion, pt indicates that arm doesn't work as well. OT assisted pt with repositioning in chair to comfort. Post tx, pt seated in recliner, call light in reach and all needs met. Education OT Patient Education: Correct positioning, Exercise program, Modified ADL techniques, Progress toward Goal/Update tx plan, Purpose of tx/functional activities Teaching Recipient: Patient Teaching Methods: Discussion Response to Teaching: Verbalize Understanding, Reinforcement Needed OT Airplane Cabin Attendant Goals Correction Goals Time Frame: Jul 02, 2020 Eating (QC): 4 Oral Hygiene (QC): 5 Toileting Hygiene (QC): 3 Shower/Bathe Self (QC): 3 Upper Body Dressing (QC): 4 Lower Body Dressing (QC): 3 On/Off Footwear (QC): 3 Additional Goals: 1-Demonstrate ADL Tasks, 2-Verbalize Understanding, 3-ImproveStrength/Emely 1=Demonstrate adherence to instructed precautions during ADL tasks. 2=Patient will verbalize/demonstrate understanding of assistive devices/modifications for ADL. 3=Patient will improve strength/tolerance for activity to enable patient to per form ADL's. OT Education/Plan Problem List/Assessment Assessment: Decreased Activ Tolerance, Decreased UE Strength, Impaired I ADL's, Impaired Self-Care Skills Discharge Recommendations Plan/Recommendations: Continue POC Treatment Plan/Plan of Care Patient would benefit from OT for education, treatment and training to promote independence in ADL's, mobility, safety and/or upper extremity function for ADL's. Plan of Care: ADL Retraining, Functional Mobility, UE Funct Exercise/Act Treatment Duration: Jul 02, 2020 Frequency: 5 times per week Estimated Hrs Per Day: .25 hour per day Agreement: Yes Rehab Potential: Guarded Time/GCodes Start Time: 11:40 Stop Time: 11:50 Total Time Billed (hr/min): 10 Billed Treatment Time 1, EX THA GARAY OT Jun 28, 2020 12:00
--- NOTE | 2020-06-28 16:31 | NUR ---
CM/SS: This worker is assisting Telecommunications Network Engineer, Marianne Thapa by faxing referral information to [facility] for possible admission for prison stay.
--- NOTE | 2020-06-28 16:36 | NUR ---
Spoke with patient's son Leny Sanchez number [phone] about continued care plans and discharge planning. He reported that he is in agreement with his father going to a fdc facility for therapy and reported that he would also like that to be [facility]. [facility] was mentioned originally by the patient's long term care administrator Rita. Leny would like to see his dad get stronger and then discuss moving to the [facility] so he can be closer to him. We talked about his established routine here in [facility] and visited about his cat Renee. He denies any further needs or concerns and reported that he would be available for [facility] to contact for further consent. Leny Sanchez [phone] of Leny Sanchez [phone]
[2020-06-28] MEDS: RT-ALBUTEROL/IPRATROPIUM 3 ML (DUONEB) VIAL INH SCH (20:20)
[2020-06-28] MEDS: polyethylene glycoL POWDER 17 GM (MIRALAX) PACK PO SCH (20:43)
[2020-06-28] MEDS: morphine INJ 4 MG/ML 1 ML (VIAL/SYRINGE) IVP PRN (23:52)
[2020-06-29] MEDS: RT-ALBUTEROL/IPRATROPIUM 3 ML (DUONEB) VIAL INH SCH ×4 (02:36→22:24)
[2020-06-29 06:21] LABS: BASOPHILS % (AUTO) 0 % (0-10); EOSINOPHILS % (AUTO) 0 % (0-10); HEMATOCRIT 38 % (40-54); LYMPHOCYTES # (AUTO) 1.1 10^3/uL (1.0-4.0); LYMPHOCYTES % (AUTO) 19 % (12-44); MEAN CORPUSCULAR HEMOGLOBIN 29 pg (25-34); MEAN CORPUSCULAR HGB CONC 32 g/dL (32-36); MEAN CORPUSCULAR VOLUME 91 fL (80-99); MONOCYTES # (AUTO) 0.8 10^3/uL (0.0-1.0); MONOCYTES % (AUTO) 14 % (0-12); NEUTROPHILS # (AUTO) 3.7 10^3/uL (1.8-7.8); NEUTROPHILS % (AUTO) 65 % (42-75); PLATELET COUNT 222 10^3/uL (130-400); WHITE BLOOD COUNT 5.6 10^3/uL (4.3-11.0)
[2020-06-29 06:29] LABS: CHLORIDE 105 MMOL/L (98-107); POTASSIUM 4.1 MMOL/L (3.6-5.0); SODIUM 139 MMOL/L (135-145)
[2020-06-29 06:31] LABS: CALCIUM 8.6 MG/DL (8.5-10.1); GLUCOSE 99 MG/DL (70-105)
[2020-06-29 06:32] LABS: CARBON DIOXIDE 25 MMOL/L (21-32)
[2020-06-29 06:35] LABS: CREATININE SERUM 0.81 MG/DL (0.60-1.30); GFR ESTIMATED > 60
[2020-06-29 06:36] LABS: BUN/CREATININE RATIO 28
--- NOTE | 2020-06-29 08:31 | Pulmonary Progress Note ---
Subjective Time Seen by a Provider: 08:29 Sepsis Event Evaluation Height, Weight, BMI Height: 6'2.00" Weight: 180lbs. 0oz. 81.031429rh; 30.00 BMI Method:Stated Exam Exam Vital Signs Date Time Temp Pulse Resp B/P (MAP) Pulse Ox O2 Delivery O2 Flow Rate FiO2 06/29/20 08:14 90 Nasal Cannula 4.00 06/29/20 03:49 36.1 58 18 145/68 (93) 96 High Flow N/C 3.00 06/29/20 02:36 95 Nasal Cannula 4.00 06/29/20 00:00 36.4 71 16 137/66 (89) 92 High Flow N/C 3.00 06/28/20 22:32 High Flow N/C 5.00 06/28/20 20:20 90 Nasal Cannula 4.00 06/28/20 19:51 35.8 70 16 134/60 (84) 94 High Flow N/C 3.00 06/28/20 16:30 36.6 69 22 140/70 (93) 94 High Flow N/C 3.00 06/28/20 15:30 94 Nasal Cannula 4.00 06/28/20 11:55 35.6 71 24 127/58 (81) 93 High Flow N/C 3.00 06/28/20 09:45 92 Nasal Cannula 4.00 I & O 06/29/20 07:00 Intake Total 940 ml Output Total 425 ml Balance 515 ml Height & Weight Height: 6'2.00" Weight: 180lbs. 0oz. [id number]; 30.00 BMI Method:Stated General Appearance: No Apparent Distress, Chronically ill Neck: Full Range of Motion, Normal Inspection Respiratory: No Accessory Muscle Use, Decreased Breath Sounds, Other (on 3lpm) Cardiovascular: Regular Rate, Rhythm, No Murmur Capillary Refill: Less Than 3 Seconds Extremity: Normal Inspection, Non Tender, No Pedal Edema Neurologic/Psychiatric: Other (alert but still somehwhat confused) Skin: Normal Color, Warm/Dry Results Lab Laboratory Tests 06/28/20 05:22 06/29/20 05:33 06/29/20 05:50 Assessment/Plan Assessment/Plan Acute respiratory distress r/o COVID -regular NC at 4 liters/min -Continue to titrate down -COVID PCR is negative on 06/19, RAPID COVID is also negative -COVID IGG is positive. No fevers since admission. r/o PNA -s/p Levaquin -Sung cultures neg thus far -MRSA swab negative -Check Influenza - Neg HTN -Start Lopressor, Norvasc -PRN hydralazine. DVT ppx -on Lovenox MAXIMUS ADAMS DO Jun 29, 2020 08:31
[2020-06-29] MEDS: risperiDONE 0.25 MG (RisperDAL) TAB PO SCH ×2 (09:59→20:31)
[2020-06-29] MEDS: amLODIPine 10 MG (NORVASC) TAB PO SCH (09:59)
[2020-06-29] MEDS: DOCUSATE SODIUM 100 MG (COLACE) CAP PO SCH ×2 (09:59→20:31)
[2020-06-29] MEDS: SENNOSIDES 8.6 MG (SENOKOT) TAB PO SCH ×2 (09:59→20:31)
[2020-06-29] MEDS: CARVEDILOL 12.5 MG (COREG) TABLET PO SCH ×2 (10:00→20:31)
[2020-06-29] MEDS: ENOXAPARIN 40 MG/0.4 ML (LOVENOX) SYR SC SCH (10:00)
[2020-06-29] MEDS: FAMOTIDINE 20 MG (PEPCID) TABLET PO SCH ×2 (10:00→20:31)
--- NOTE | 2020-06-29 10:01 | NUR ---
CM/SS follow up. The patient's physician notified this sw that the patient will not likely be ready for discharge until Thursday. CM/SS contacted Lima at [facility] to inform her of possible discharge day. She verbalized understanding and stated they will accept patient (pending insurance approval) as long as he goes 24 hours without sitter and does not receive Haldol. CM/SS informed her that the patient has not had a sitter nor Haldol for a while. Lima verbalized understanding. CM/SS will continue to follow. Addendum: 06/29/20 at 1120 by JULIUS BARNES CM/SS spoke with the patient's son Calderon to give an update on discharge plans. He verbalized understanding. He had questions regarding DPOA and life insurance. CM/SS informed him that the patient cannot complete a DPOA at this time due to his confusion. Calderon verbalized understanding.
--- NOTE | 2020-06-29 10:06 | Occupational Ther Daily Note ---
OT Current Status-Daily Note Subjective Pt alert in bed this am. Pt agrees to tx, states pain in BLE. Pt completes all tasks with increased time. Mental Status/Objective Patient Orientation: Person Attachments: Oxygen ADL-Treatment Therapy Code Descriptions/Definitions Functional [place] Measure: 0=Not Assessed/NA 4=Minimal Assistance 1=Total Assistance 5=Supervision or Setup 2=Maximal Assistance 6=Modified [place] 3=Moderate Assistance 7=Complete IndependenceSCALE: Activities may be completed with or without assistive devices. 1-Bhmeuexceq-ifrfyvn completes the activity by him/herself with no assistance from a helper. 5-Set-up or Clean-up Assistance-helper sets up or cleans up; patient completes activity. [place] assists only prior to or following the activity. 4-Supervision or Touching Assistance-helper provides verbal cues and/or touching/steadying and/or contact guard assistance as patient completes activity. Assistance may be provided throughout the activity or intermittently. 3-Partial/Moderate Assistance-helper does LESS THAN HALF the effort. [place] lifts, holds or supports trunk or limbs, but provides less than half the effort. 2-Substantial/Maximal Assistance-helper does MORE THAN HALF the effort. [place] lifts or holds trunk or limbs and provides more than half the effort. 9-Cdgfohlzw-kllvap does ALL the effort. Patient does none of the effort to complete the activity. Or, the assistance of 2 or more helpers is required for the patient to complete the activity. If activity was not attempted, code reason: 7-Patient Refused. 9-Not Applicable-not attempted and the patient did not perform the activity before the current illness, exacerbation or injury. 10-Not Attempted due to Environmental Limitations-(lack of equipment, weather restraints, etc.). 88-Not Attempted due to Medical Conditions or Safety Concerns. Eating (QC): 6 (Pt cuts pancakes/ eats appropriately ) Oral Hygiene (QC): 7 (Denies oral care due to continuing eating. ) Bathing Location: L Arm, R Arm, L Upper Leg, R Upper Leg, Chest, Abdomen, Perineal Area Shower/Bathe Self (QC): 4 (SBA and cues for continuation of task. Pt CGA in stance for bottom hygiene. ) Upper Body Dressing (QC): 3 (min A for orientation of gown, completes with cues.) Toileting Hygiene (QC): 4 (CGA in stance bottom ) Other Treatment Pt supine to sit with min A, reaches EOB with max A due to leg pain/ weakness. Sit to stand with PT (see notes). Ambulates to recliner with CGA. Pt completes bottom hygiene in stance with fair balance and CGA (L hand supported on walker). Pt sits with fair control. Completes sponge bath in recliner with increased time, much improved since last session. Pt converses appropriately, though states, "Chiqui is here," (his ex ), and also, "Did you know my brother is here?" Pt is redirected through this and maintains ability to continue ADLs. Pt able to eat/ ask for items appropriately with IND. Pt left in recliner with LEs elevated, call light in reach, chair alarm on, blanket donned and nursing assistants teacher present. Education OT Patient Education: Correct positioning, Progress toward Goal/Update tx plan, Purpose of tx/functional activities, Safety issues, Transfer techniques Teaching Recipient: Patient Teaching Methods: Demonstration, Discussion Response to Teaching: Verbalize Understanding, Return Demonstration, Reinforcement Needed OT Measuring Machine Operator Goals [facility] Goals Time Frame: Jul 02, 2020 Eating (QC): 4 Oral Hygiene (QC): 5 Toileting Hygiene (QC): 3 Shower/Bathe Self (QC): 3 Upper Body Dressing (QC): 4 Lower Body Dressing (QC): 3 On/Off Footwear (QC): 3 Additional Goals: 1-Demonstrate ADL Tasks, 2-Verbalize Understanding, 3- ImproveStrength/Emely 1=Demonstrate adherence to instructed precautions during ADL tasks. 2=Patient will verbalize/demonstrate understanding of assistive devices/modifications for ADL. 3=Patient will improve strength/tolerance for activity to enable patient to perform ADL's. OT Education/Plan Problem List/Assessment Assessment: Decreased Activ Tolerance, Decreased Safety Aware, Decreased UE Strength, Dependent Transfers, Impaired Bed Mobility, Impaired Cognition, Impaired Funct Balance, Impaired I ADL's, Impaired Self-Care Skills Discharge Recommendations Plan/Recommendations: Continue POC Therapy Discharge Recommendati: 24 Hour Supervision, Post Acute OT Treatment Plan/Plan of Care Treatment,Training & Education: Yes Patient would benefit from OT for education, treatment and training to promote independence in ADL's, mobility, safety and/or upper extremity function for ADL's. Plan of Care: ADL Retraining, Functional Mobility, UE Funct Exercise/Act Treatment Duration: Jul 02, 2020 Frequency: 5 times per week Estimated Hrs Per Day: .25 hour per day Agreement: Yes Rehab Potential: Guarded Time/GCodes Start Time: 09:35 Stop Time: 09:58 Total Time Billed (hr/min): 23 Billed Treatment Time 1, ADL 2 (23) DEVEN LAROSE OTR Jun 29, 2020 10:06
--- NOTE | 2020-06-29 10:16 | Progress Note - Hospitalist ---
Subjective HPI/CC On Admission Date Seen by Provider: Jun 29, 2020 Time Seen by Provider: 10:11 Subjective/Events-last exam Pt laying in bed and alert. When I introduced myself he stated "Your the funniest looking Dr Isaacs I've ever seen." He expressed no complaints and had his breakfast tray at the time. Rn States they noted he was pcoketing bread in his mouth and requested CASH APPLICATIONS COORDINATOR evaluation. Objective Exam Vital Signs Vital Signs Date Time Temp Pulse Resp B/P (MAP) Pulse Ox O2 Delivery O2 Flow Rate FiO2 06/29/20 08:14 90 Nasal Cannula 4.00 06/29/20 08:00 35.2 60 20 145/67 (93) 06/27/20 08:00 40 Capillary Refill : Less Than 3 Seconds General Appearance: No Apparent Distress, Chronically ill Respiratory: Lungs Clear, No Respiratory Distress Cardiovascular: Regular Rate, Rhythm, No Murmur Gastrointestinal: Normal Bowel Sounds, Non Tender, Soft Neurologic/Psychiatric: Alert, Disoriented Results/Procedures Lab Laboratory Tests 06/29/20 05:33 06/29/20 05:50 Patient resulted labs reviewed. Imaging: Reviewed Imaging Report Assessment/Plan Assessment and Plan Assess & Plan/Chief Complaint Acute respiratory failure due to COVID-19 COVID-19 virus IgG antibody positive Pneumonia COVID IgG positive Flu negative D-dimer minimally elevated x2 BNP within normal limits x2 Procal within normal limits x3 s/p Decadron and Levaquin Now on nasal cannula- doing well PT/OT Delirium Dementia Reorient as needed Avoid delirium triggers Continue risperdal social media job titles consulted for placement Has done well without sitter CASH APPLICATIONS COORDINATOR consult placed HTN Amlodipine and Coreg, BP well controlled Hydralazine as needed DVT Prophylaxis: Lovenox Diagnosis/Problems Diagnosis/Problems (1) COVID-19 virus IgG antibody detected Status: Acute (2) Acute respiratory failure due to COVID-19 Status: Acute (3) PNA (pneumonia) Status: Acute Qualifiers: Pneumonia type: due to unspecified organism Laterality: bilateral Lung location: lower lobe of lung Qualified Codes: J18.9 - Pneumonia, unspecified organism (4) HTN (hypertension) Status: Chronic Qualifiers: Hypertension type: essential hypertension Qualified Codes: I10 - Essential (primary) hypertension (5) Delirium Status: Acute Clinical Quality Measures DVT/VTE Risk/Contraindication: Risk Factor Score Per Nursin RFS Level Per Nursing on Admit: 4+=Very High CHRIST ISAACS MD Jun 29, 2020 10:16
--- NOTE | 2020-06-29 10:30 | ST Dysphagia Evaluation ---
Speech Evaluation-General Medical Diagnosis hypoxia Onset Date: Jun 19, 2020 Therapy Diagnosis Therapy Diagnosis: Oropharyngeal Dysphagia Precautions Precautions: Aspiration Referral Referring Physician: Dr. Isaacs Medical History Pertinent Medical History: Dementia, HTN, Hypothroidism Reviewed History: Yes Speech PLF/Current-Dysphagia Prior Level of Function Patient is a [place] where his daily needs are attended to by staff. Subjective Patient was pleasant and cooperative with the Bedside Dysphagia Evaluation. Oral Motor Skills Dentition: Edentalous Denture Type: Full- Upper & Lower Current Food Consistancy: Regular, Thin Liquids Ability to Follow Directions: Fair Patient has dentures but refuses to wear them when eating. Oral Expression Ability: Mild Impairment Patient is pleasantly confused. Voice Voice Phonatory-Based Quality: Normal Voice Pitch: Normal Voice Loudness: Normal Face Facial Symmetry: Symmetrical Oral-Facial Assessment Oral-Facial Dentition: Normal Labial Seal Description: Weak Smile: Normal Lingual Protrusion: Normal Lingual ROM: Normal Lingual Strength: Normal Pharynx Velopharyngeal Move.: Normal Volitional Dry Swallow: Yes Voluntary Cough: Yes Can Clear Throat Volitionally: Yes Dysphagia Evaluation Consistencies Presented: Regular, Thin Liquid, Mechanical Soft, Pureed Oral Phase: Oral Residue, Left Pocketing Oral phase patient demo pocketing of all consistencies of solids, decreased bolus management. Patient presents normal range of function for swallowing of all consistencies with exception of regular. Dietary Recommendations: Mechanical Soft Liquid Recommendations: Thin Swallowing Precautions: Alternate Liquids/Solids, Decreased Bolus 1/2 Tsp, Decreased Rate of Oral Intake, Liquids from Straw, Small Bites and Sips, Sitting Upright 90 Degrees, Sitting 90 Degrees 30 Post Intake Dysphagia Evaluation Summary Patient is a pleasantly confused 85 y/o male who was admitted to the hospital due to AMS and respiratory failure. Patient completed a BDE with the following consistencies presented at 1/2 tsp sip/bite size. Patient tolerates thin without difficulty. Patient exhibits oral residue with puree and mechanical soft. Due to being edentulous, regular texture is difficult with moderate left side pocketing. Nursing reports that on the previous night he cami a whole piece of bread and was unable to swallow it. Nursing had to retrieve the entire piece of bread which was wadded up in his mouth. Patient is recommended to be downgraded to a Dysphagia II diet level with thin liquids. This information was provided for his nurse. Barriers to Learning Patient's dementia and age Speech-Plan Patient/Family Goals Patient/Family Goals: [facility] [place] [facility] upon [place]. Treatment Plan Speech Therapy Treatment Plan: Discontinue ST Treatment Duration: Jun 29, 2020 Frequency: 1 time per week Estimated Hrs Per Day: .25 hour per day Rehab Potential: Guarded Barriers to Learning: Patient's dementia and age Pt/Family Agrees to Plan: Yes Safety Risks/Education Teaching Recipient: Patient Teaching Methods: Discussion Response to Teaching: Verbalize Understanding, Reinforcement Needed Education Topics Provided: Safety of oral intake and diet level Time Speech Therapy Time In: 10:00 Speech Therapy Time Out: 10:20 Total Billed Time: 20 Billed Treatment Time 1, JOSE CARLOS, DYST SHANIKA Whitten Jun 29, 2020 10:29
--- NOTE | 2020-06-29 11:01 | Physical Therapy Daily Note ---
PT Daily Note-Current Subjective Pt agreeable. Pt c/o "My legs hurt" but could not rate this pain. Pt indicated area of (B) quads as area that hurts. Mental Status Patient Orientation: Person, Confused Transfers SCALE: Activities may be completed with or without assistive devices. 1-Dindjwnals-hjuttvg completes the activity by him/herself with no assistance from a helper. 5-Set-up or Clean-up Assistance-helper sets up or cleans up; patient completes activity. [place] assists only prior to or following the activity. 4-Supervision or Touching Assistance-helper provides verbal cues and/or touching/steadying and/or contact guard assistance as patient completes activity. Assistance may be provided throughout the activity or intermittently. 3-Partial/Moderate Assistance-helper does LESS THAN HALF the effort. [place] lifts, holds or supports trunk or limbs, but provides less than half the effort. 2-Substantial/Maximal Assistance-helper does MORE THAN HALF the effort. [place] lifts or holds trunk or limbs and provides more than half the effort. 4-Dedbkeclp-cwrfka does ALL the effort. Patient does none of the effort to complete the activity. Or, the assistance of 2 or more helpers is required for the patient to complete the activity. If activity was not attempted, code reason: 7-Patient Refused. 9-Not Applicable-not attempted and the patient did not perform the activity before the current illness, exacerbation or injury. 10-Not Attempted due to Environmental Limitations-(lack of equipment, weather restraints, etc.). 88-Not Attempted due to Medical Conditions or Safety Concerns. Gait Training Gait Assistive Device: FWW Pt amb with FWW and CGA x 5-7ft to chair. Pt stood x 2-3min and performed pericare. Exercises Supine Ex: Ankle pumps, Heel Slides, Short Arc Quads, Hip abd/add Supine Reps: 20 Treatments Pt transferred to EOB with min A and max vc's for sequence. Pt stood at EOB with CGA-min A using FWW for support. Pt O2 per nasal canula. Pt transferred to bedside chair in care of OT post therapy. Assessment Current Status: Good Progress Pt had good pariticipation, requires cues to stay on task. Pt deconditioned and requires min A for safe mobility. Pt in recliner with ambu alarm activated and O2 per nasal canula. In care of OT. PT Fdc Goals Fdc Goals PT Yield Loss Inspector Goals Time Frame: Jul 14, 2020 Roll Left & Right (QC): 4 Sit to Lying (QC): 4 Lying-Sitting on Side/Bed(QC): 4 Sit to Stand (QC): 4 Chair/Pli-bf-Lsdog Xfer(QC): 4 Toilet Transfer (QC): 4 Does the Patient Walk: No and Walking Goal IS indicated Walk 10 feet (QC): 4 Walk 50ft with 2 Turns (QC): 4 PT Plan Treatment/Plan Treatment Plan: Continue Plan of Care Treatment Plan: Bed Mobility, Education, Functional Activity Emely, Functional Strength, Gait, Safety, Therapeutic Exercise, Transfers Treatment Duration: Jul 14, 2020 Frequency: 6 times per week Estimated Hrs Per Day: .25 hour per day Patient and/or Family Agrees t: Yes Time/GCodes Time In: 915 Time Out: 940 Total Billed Treatment Time: 25 Total Billed Treatment 1, ther ex 15', Gait 10' ANA VILLASEÑOR CPTA Jun 29, 2020 11:01
--- NOTE | 2020-06-29 13:39 | NUR ---
resting in chair, dina well, chair alarm on, tellesitter on, o2 on per nc at 5 liters per nc, denies pain or sob, speech swallowing eval done and diet changed to dysphagia II
[2020-06-29] MEDS: polyethylene glycoL POWDER 17 GM (MIRALAX) PACK PO SCH (20:32)
[2020-06-30] MEDS: RT-ALBUTEROL/IPRATROPIUM 3 ML (DUONEB) VIAL INH SCH ×3 (03:17→18:00)
[2020-06-30 06:24] LABS: BASOPHILS % (AUTO) 0 % (0-10); EOSINOPHILS # (AUTO) 0.2 10^3/uL (0.0-0.3); EOSINOPHILS % (AUTO) 3 % (0-10); HEMATOCRIT 37 % (40-54); HEMOGLOBIN 11.6 g/dL (13.3-17.7); LYMPHOCYTES % (AUTO) 18 % (12-44); MEAN CORPUSCULAR HEMOGLOBIN 28 pg (25-34); MEAN CORPUSCULAR HGB CONC 32 g/dL (32-36); MEAN CORPUSCULAR VOLUME 89 fL (80-99); MONOCYTES # (AUTO) 0.9 10^3/uL (0.0-1.0); MONOCYTES % (AUTO) 15 % (0-12); NEUTROPHILS # (AUTO) 3.7 10^3/uL (1.8-7.8); NEUTROPHILS % (AUTO) 64 % (42-75); PLATELET COUNT 200 10^3/uL (130-400); WHITE BLOOD COUNT 5.9 10^3/uL (4.3-11.0)
[2020-06-30 06:40] LABS: CHLORIDE 105 MMOL/L (98-107); POTASSIUM 4.2 MMOL/L (3.6-5.0); SODIUM 138 MMOL/L (135-145)
[2020-06-30 06:41] LABS: CALCIUM 8.4 MG/DL (8.5-10.1)
[2020-06-30 06:42] LABS: GLUCOSE 105 MG/DL (70-105)
[2020-06-30 06:43] LABS: CARBON DIOXIDE 26 MMOL/L (21-32)
[2020-06-30 06:46] LABS: CREATININE SERUM 0.78 MG/DL (0.60-1.30); GFR ESTIMATED > 60
[2020-06-30 06:47] LABS: BUN/CREATININE RATIO 27
[2020-06-30] MEDS: ENOXAPARIN 40 MG/0.4 ML (LOVENOX) SYR SC SCH (09:04)
[2020-06-30] MEDS: risperiDONE 0.25 MG (RisperDAL) TAB PO SCH ×2 (09:05→20:37)
[2020-06-30] MEDS: DOCUSATE SODIUM 100 MG (COLACE) CAP PO SCH ×2 (09:05→20:37)
[2020-06-30] MEDS: FAMOTIDINE 20 MG (PEPCID) TABLET PO SCH ×2 (09:05→20:37)
[2020-06-30] MEDS: CARVEDILOL 12.5 MG (COREG) TABLET PO SCH ×2 (09:05→20:37)
[2020-06-30] MEDS: amLODIPine 10 MG (NORVASC) TAB PO SCH (09:05)
[2020-06-30] MEDS: SENNOSIDES 8.6 MG (SENOKOT) TAB PO SCH ×2 (09:05→20:37)
--- NOTE | 2020-06-30 10:42 | Physical Therapy Daily Note ---
PT Daily Note-Current Subjective Pt agreeble. Pt denies pain. Mental Status Patient Orientation: Person, Confused Transfers SCALE: Activities may be completed with or without assistive devices. 1-Dbbspybzqj-ymcnmim completes the activity by him/herself with no assistance from a helper. 5-Set-up or Clean-up Assistance-helper sets up or cleans up; patient completes activity. [place] assists only prior to or following the activity. 4-Supervision or Touching Assistance-helper provides verbal cues and/or touching/steadying and/or contact guard assistance as patient completes activity. Assistance may be provided throughout the activity or intermittently. 3-Partial/Moderate Assistance-helper does LESS THAN HALF the effort. [place] lifts, holds or supports trunk or limbs, but provides less than half the effort. 2-Substantial/Maximal Assistance-helper does MORE THAN HALF the effort. [place] lifts or holds trunk or limbs and provides more than half the effort. 3-Ktdxykaro-ztlfjp does ALL the effort. Patient does none of the effort to complete the activity. Or, the assistance of 2 or more helpers is required for the patient to complete the activity. If activity was not attempted, code reason: 7-Patient Refused. 9-Not Applicable-not attempted and the patient did not perform the activity before the current illness, exacerbation or injury. 10-Not Attempted due to Environmental Limitations-(lack of equipment, weather restraints, etc.). 88-Not Attempted due to Medical Conditions or Safety Concerns. Treatments Pt performed LE ther ex x 20 each AP, QS, SAQ, hip abd. Pt transfered to EOB with min A. Pt amb x 5-6ft to bedside chair. Pt resting in recliner with O2 per nasal canula and call light in reach. Pt has live sitter today due to confusion. Assessment Current Status: Good Progress Pt dina well. Pt resting in recliner with legs floating on pillow and all needs met. Ambu alarm activated in recliner, live sitter present. PT Fdc Goals [place] Goals PT Fdc Goals Time Frame: Jul 14, 2020 Roll Left & Right (QC): 4 Sit to Lying (QC): 4 Lying-Sitting on Side/Bed(QC): 4 Sit to Stand (QC): 4 Chair/Ovb-fc-Lhdok Xfer(QC): 4 Toilet Transfer (QC): 4 Does the Patient Walk: No and Walking Goal IS indicated Walk 10 feet (QC): 4 Walk 50ft with 2 Turns (QC): 4 PT Plan Treatment/Plan Treatment Plan: Continue Plan of Care Treatment Plan: Bed Mobility, Education, Functional Activity Emely, Functional Strength, Gait, Safety, Therapeutic Exercise, Transfers Treatment Duration: Jul 14, 2020 Frequency: 6 times per week Estimated Hrs Per Day: .25 hour per day Patient and/or Family Agrees t: Yes Time/GCodes Time In: 1005 Time Out: 1030 Total Billed Treatment Time: 25 Total Billed Treatment 1, ther ex 15', Gait 10' ANA VILLASEÑOR CPTA Jun 30, 2020 10:42
--- NOTE | 2020-06-30 11:52 | Progress Note - Hospitalist ---
Subjective HPI/CC On Admission Date Seen by Provider: Jun 30, 2020 Time Seen by Provider: 11:46 Subjective/Events-last exam Pt remains confused but pleasant when I talked to him this morning. No complaints. Asked what was on the menu for lunch today. Objective Exam Vital Signs Vital Signs Date Time Temp Pulse Resp B/P (MAP) Pulse Ox O2 Delivery O2 Flow Rate FiO2 06/30/20 11:42 35.9 62 12 95/55 (68) 93 High Flow N/C 5.00 06/27/20 08:00 40 Capillary Refill : Less Than 3 Seconds General Appearance: No Apparent Distress, Chronically ill Respiratory: Lungs Clear, No Accessory Muscle Use, Other (on 5lpm NC) Cardiovascular: Regular Rate, Rhythm, No Murmur Neurologic/Psychiatric: Alert, Disoriented Results/Procedures Lab Laboratory Tests 06/30/20 05:45 Patient resulted labs reviewed. Imaging: Reviewed Imaging Report Assessment/Plan Assessment and Plan Assess & Plan/Chief Complaint Acute respiratory failure due to COVID-19 COVID-19 virus IgG antibody positive Pneumonia COVID IgG positive Flu negative D-dimer minimally elevated x2 BNP within normal limits x2 Procal within normal limits x3 s/p Decadron and Levaquin Now on nasal cannula- doing well PT/OT Delirium Dementia Reorient as needed Avoid delirium triggers Continue risperdal vp digital marketing social media and crm consulted for placement Has done well without sitter CENTRAL SERVICE TECHNICIAN consult placed and recommended dysphagia 2 diet, ordered HTN Amlodipine and Coreg, BP well controlled Hydralazine as needed DVT Prophylaxis: Lovenox Diagnosis/Problems Diagnosis/Problems (1) COVID-19 virus IgG antibody detected Status: Acute (2) Acute respiratory failure due to COVID-19 Status: Acute (3) PNA (pneumonia) Status: Acute Qualifiers: Pneumonia type: due to unspecified organism Laterality: bilateral Lung location: lower lobe of lung Qualified Codes: J18.9 - Pneumonia, unspecified organism (4) HTN (hypertension) Status: Chronic Qualifiers: Hypertension type: essential hypertension Qualified Codes: I10 - Essential (primary) hypertension (5) Delirium Status: Acute Clinical Quality Measures DVT/VTE Risk/Contraindication: Risk Factor Score Per Nursin RFS Level Per Nursing on Admit: 4+=Very High CHRIST FLORES MD Jun 30, 2020 11:52
[2020-06-30] MEDS: HYDROcodone/APAP 5 MG/325 MG (LORTAB) TAB PO PRN (20:37)
[2020-06-30] MEDS: polyethylene glycoL POWDER 17 GM (MIRALAX) PACK PO SCH (20:37)
[2020-07-01] MEDS: HYDROcodone/APAP 5 MG/325 MG (LORTAB) TAB PO PRN ×2 (01:35→20:10)
[2020-07-01] MEDS: RT-ALBUTEROL/IPRATROPIUM 3 ML (DUONEB) VIAL INH SCH ×4 (02:33→20:57)
[2020-07-01 05:46] LABS: BASOPHILS % (AUTO) 0 % (0-10); EOSINOPHILS # (AUTO) 0.2 10^3/uL (0.0-0.3); EOSINOPHILS % (AUTO) 3 % (0-10); HEMATOCRIT 37 % (40-54); HEMOGLOBIN 11.7 g/dL (13.3-17.7); LYMPHOCYTES # (AUTO) 1.5 10^3/uL (1.0-4.0); LYMPHOCYTES % (AUTO) 22 % (12-44); MEAN CORPUSCULAR HEMOGLOBIN 28 pg (25-34); MEAN CORPUSCULAR HGB CONC 32 g/dL (32-36); MEAN CORPUSCULAR VOLUME 89 fL (80-99); MEAN PLATELET VOLUME 10.7 fL (9.0-12.2); MONOCYTES # (AUTO) 0.9 10^3/uL (0.0-1.0); MONOCYTES % (AUTO) 13 % (0-12); NEUTROPHILS # (AUTO) 4.2 10^3/uL (1.8-7.8); NEUTROPHILS % (AUTO) 62 % (42-75); PLATELET COUNT 211 10^3/uL (130-400); WHITE BLOOD COUNT 6.7 10^3/uL (4.3-11.0)
[2020-07-01 06:02] LABS: CHLORIDE 102 MMOL/L (98-107); POTASSIUM 4.2 MMOL/L (3.6-5.0); SODIUM 136 MMOL/L (135-145)
[2020-07-01 06:03] LABS: CALCIUM 8.6 MG/DL (8.5-10.1)
[2020-07-01 06:04] LABS: GLUCOSE 105 MG/DL (70-105)
[2020-07-01 06:05] LABS: CARBON DIOXIDE 24 MMOL/L (21-32)
[2020-07-01 06:08] LABS: CREATININE SERUM 0.79 MG/DL (0.60-1.30); GFR ESTIMATED > 60
[2020-07-01 06:09] LABS: BUN/CREATININE RATIO 27
[2020-07-01] MEDS: DOCUSATE SODIUM 100 MG (COLACE) CAP PO SCH ×2 (08:32→20:09)
[2020-07-01] MEDS: FAMOTIDINE 20 MG (PEPCID) TABLET PO SCH ×2 (08:32→20:10)
[2020-07-01] MEDS: SENNOSIDES 8.6 MG (SENOKOT) TAB PO SCH ×2 (08:32→20:10)
[2020-07-01] MEDS: amLODIPine 10 MG (NORVASC) TAB PO SCH (08:32)
[2020-07-01] MEDS: risperiDONE 0.25 MG (RisperDAL) TAB PO SCH ×2 (08:32→20:09)
[2020-07-01] MEDS: CARVEDILOL 12.5 MG (COREG) TABLET PO SCH ×2 (08:33→20:10)
[2020-07-01] MEDS: ENOXAPARIN 40 MG/0.4 ML (LOVENOX) SYR SC SCH (08:33)
--- NOTE | 2020-07-01 10:48 | Progress Note - Hospitalist ---
Subjective HPI/CC On Admission Date Seen by Provider: Jul 01, 2020 Time Seen by Provider: 10:43 Subjective/Events-last exam Pt laying in bed and resting. When I said "I'll let you rest" he opened his eyes and said "Thanks." and then nodded in agreement when I said it's hard to rest in the hospital. Objective Exam Vital Signs Vital Signs Date Time Temp Pulse Resp B/P (MAP) Pulse Ox O2 Delivery O2 Flow Rate FiO2 07/01/20 10:24 96 Nasal Cannula 4.00 07/01/20 08:00 36.3 56 16 111/59 (76) 06/27/20 08:00 40 Capillary Refill : Less Than 3 Seconds General Appearance: No Apparent Distress, Chronically ill Respiratory: No Accessory Muscle Use, Decreased Breath Sounds, Other (still on NC) Cardiovascular: Regular Rate, Rhythm, No Murmur Neurologic/Psychiatric: Alert, Other (was resting but awoke and answered a couple of questions) Results/Procedures Lab Laboratory Tests 07/01/20 05:13 Patient resulted labs reviewed. Imaging: Reviewed Imaging Report Assessment/Plan Assessment and Plan Assess & Plan/Chief Complaint Acute respiratory failure due to COVID-19 COVID-19 virus IgG antibody positive Pneumonia COVID IgG positive Flu negative D-dimer minimally elevated x2 BNP within normal limits x2 Procal within normal limits x3 s/p Decadron and Levaquin Now on nasal cannula- doing well PT/OT Home oxygen study Delirium Dementia Reorient as needed Avoid delirium triggers Continue risperdal social media specialist consulted for placement [employer] consult placed and recommended dysphagia 2 diet, ordered HTN Amlodipine and Coreg, BP well controlled Hydralazine as needed DVT Prophylaxis: Lovenox Diagnosis/Problems Diagnosis/Problems (1) COVID-19 virus IgG antibody detected Status: Acute (2) Acute respiratory failure due to COVID-19 Status: Acute (3) PNA (pneumonia) Status: Acute Qualifiers: Pneumonia type: due to unspecified organism Laterality: bilateral Lung location: lower lobe of lung Qualified Codes: J18.9 - Pneumonia, unspecified organism (4) HTN (hypertension) Status: Chronic Qualifiers: Hypertension type: essential hypertension Qualified Codes: I10 - Essential (primary) hypertension (5) Delirium Status: Acute Clinical Quality Measures DVT/VTE Risk/Contraindication: Risk Factor Score Per Nursin RFS Level Per Nursing on Admit: 4+=Very High SANDRA,CHRIST M MD Jul 01, 2020 10:48
--- NOTE | 2020-07-01 14:53 | NUR ---
DR FLORES AWARE OF LOW URINE OUTPUT. LEAVE CROWDER IN AND WATCH IT.
--- NOTE | 2020-07-01 17:06 | NUR ---
Patient needs 2L oxygen continuously Addendum: 07/01/20 at 1707 by SULMA MOSS RT Amended: Links added.
--- NOTE | 2020-07-01 17:06 | NUR ---
Patient needs 2L oxygen continuously Addendum: 07/01/20 at 1706 by SULMA MOSS RT Amended: Links added.
[2020-07-01] MEDS: polyethylene glycoL POWDER 17 GM (MIRALAX) PACK PO SCH (20:10)
[2020-07-02] MEDS: RT-ALBUTEROL/IPRATROPIUM 3 ML (DUONEB) VIAL INH SCH ×4 (02:50→18:52)
[2020-07-02] MEDS: ENOXAPARIN 40 MG/0.4 ML (LOVENOX) SYR SC SCH (08:37)
[2020-07-02] MEDS: CARVEDILOL 12.5 MG (COREG) TABLET PO SCH ×2 (08:37→20:04)
[2020-07-02] MEDS: DOCUSATE SODIUM 100 MG (COLACE) CAP PO SCH ×2 (08:37→20:04)
[2020-07-02] MEDS: FAMOTIDINE 20 MG (PEPCID) TABLET PO SCH ×2 (08:37→20:04)
[2020-07-02] MEDS: risperiDONE 0.25 MG (RisperDAL) TAB PO SCH ×2 (08:37→20:06)
[2020-07-02] MEDS: amLODIPine 10 MG (NORVASC) TAB PO SCH (08:37)
[2020-07-02] MEDS: SENNOSIDES 8.6 MG (SENOKOT) TAB PO SCH ×2 (08:38→20:04)
--- NOTE | 2020-07-02 09:52 | Physical Therapy Daily Note ---
PT Daily Note-Current Subjective Patient is in bed with alarm activated. Agrees to PT. Mental Status Patient Orientation: Person, Situation Attachments: Oxygen, Carl Catheter Transfers SCALE: Activities may be completed with or without assistive devices. 5-Akltzdyvbo-izzhnpz completes the activity by him/herself with no assistance from a helper. 5-Set-up or Clean-up Assistance-helper sets up or cleans up; patient completes activity. [place] assists only prior to or following the activity. 4-Supervision or Touching Assistance-helper provides verbal cues and/or touching/steadying and/or contact guard assistance as patient completes activity. Assistance may be provided throughout the activity or intermittently. 3-Partial/Moderate Assistance-helper does LESS THAN HALF the effort. [place] lifts, holds or supports trunk or limbs, but provides less than half the effort. 2-Substantial/Maximal Assistance-helper does MORE THAN HALF the effort. [place] lifts or holds trunk or limbs and provides more than half the effort. 2-Phuhntkvi-ebhaqm does ALL the effort. Patient does none of the effort to complete the activity. Or, the assistance of 2 or more helpers is required for the patient to complete the activity. If activity was not attempted, code reason: 7-Patient Refused. 9-Not Applicable-not attempted and the patient did not perform the activity before the current illness, exacerbation or injury. 10-Not Attempted due to Environmental Limitations-(lack of equipment, weather restraints, etc.). 88-Not Attempted due to Medical Conditions or Safety Concerns. Lying to Sitting/Side of Bed(Q: 4 Sit to Stand (QC): 3 Chair/Kyf-se-Zwnqv Xfer(QC): 3 Gait Training Does the Patient Walk?: Yes Distance: 30' Walk 10 feet (QC): 3 Gait Assistive Device: FWW functional gait sequence Exercises Seated Therapy Exercises: Ankle pumps, Long arc quads Seated Reps: 12 Standing: Marching Standing Reps: 15 Assessment Patient is up in recliner with chair alarm activated for patient safety. Breakfast on tray with patient eating upon completion of treatment. PT Senior Care Goals Senior Care Goals PT Senior Care Goals Time Frame: Jul 14, 2020 Roll Left & Right (QC): 4 Sit to Lying (QC): 4 Lying-Sitting on Side/Bed(QC): 4 Sit to Stand (QC): 4 Chair/Bbx-fb-Bqseg Xfer(QC): 4 Toilet Transfer (QC): 4 Does the Patient Walk: No and Walking Goal IS indicated Walk 10 feet (QC): 4 Walk 50ft with 2 Turns (QC): 4 PT Plan Treatment/Plan Treatment Plan: Continue Plan of Care Treatment Plan: Bed Mobility, Education, Functional Activity Emely, Functional Strength, Gait, Safety, Therapeutic Exercise, Transfers Treatment Duration: Jul 14, 2020 Frequency: 6 times per week Estimated Hrs Per Day: .25 hour per day Patient and/or Family Agrees t: Yes Time/GCodes Time In: 907 Time Out: 918 Total Billed Treatment Time: 11 Total Billed Treatment 1 visit FA 11 min ANDREA OCHOA PT Jul 02, 2020 09:52
--- NOTE | 2020-07-02 13:25 | NUR ---
DISCHARGE PLANNING: Patient will not discharge today due to needing a sitter in the last 24 hours. He is accepted to [facility] for [facility] placement however. I have spoken to the son Leny and updated on delay of discharge . We also discussed possible need for [facility] if he continue to behaviors that would prohibit his discharge to SNF.
--- NOTE | 2020-07-02 14:16 | Occupational Ther Daily Note ---
OT Current Status-Daily Note Subjective Pt alert, sitting in recliner. Oriented to name. Pt confused today. Mental Status/Objective Patient Orientation: Person Attachments: Central Line, Oxygen ADL-Treatment Encouraged pt to eat lunch. Pt would not bring spoon to mouth, assist to complete. Pt would then pocket food in mouth, would not attempt to swallow. Pt then was able to bring cup to mouth and use straw to drink small amount of liquid. Pt then spit out food after attempts to get pt to swallow. Pt then washed eyes and forehead repeatedly and assist to wash mouth and chin required. Nrsg came in to assist pt to bed. Pt required min A and encouragement to stand, transfer then sit EOB. Nrsg bathed pt sitting EOB, pt would not initiate bathing. Pt able to go from EOB to supine by self. After session, pt lying in bed with call light/phone in reach. Safety measures in place. All needs met. Therapy Code Descriptions/Definitions Functional [place] Measure: 0=Not Assessed/NA 4=Minimal Assistance 1=Total Assistance 5=Supervision or Setup 2=Maximal Assistance 6=Modified [place] 3=Moderate Assistance 7=Complete IndependenceSCALE: Activities may be completed with or without assistive devices. 6-Yaiwaqfzcb-tmhvvgd completes the activity by him/herself with no assistance from a helper. 5-Set-up or Clean-up Assistance-helper sets up or cleans up; patient completes activity. [place] assists only prior to or following the activity. 4-Supervision or Touching Assistance-helper provides verbal cues and/or touching/steadying and/or contact guard assistance as patient completes activity. Assistance may be provided throughout the activity or intermittently. 3-Partial/Moderate Assistance-helper does LESS THAN HALF the effort. [place] lifts, holds or supports trunk or limbs, but provides less than half the effort. 2-Substantial/Maximal Assistance-helper does MORE THAN HALF the effort. [place] lifts or holds trunk or limbs and provides more than half the effort. 1-Mlozzbund-tnwhqa does ALL the effort. Patient does none of the effort to complete the activity. Or, the assistance of 2 or more helpers is required for the patient to complete the activity. If activity was not attempted, code reason: 7-Patient Refused. 9-Not Applicable-not attempted and the patient did not perform the activity before the current illness, exacerbation or injury. 10-Not Attempted due to Environmental Limitations-(lack of equipment, weather restraints, etc.). 88-Not Attempted due to Medical Conditions or Safety Concerns. OT Penitentiary Goals [place] Guide Goals Time Frame: Jul 02, 2020 Eating (QC): 4 Oral Hygiene (QC): 5 Toileting Hygiene (QC): 3 Shower/Bathe Self (QC): 3 Upper Body Dressing (QC): 4 Lower Body Dressing (QC): 3 On/Off Footwear (QC): 3 Additional Goals: 1-Demonstrate ADL Tasks, 2-Verbalize Understanding, 3- ImproveStrength/Emely 1=Demonstrate adherence to instructed precautions during ADL tasks. 2=Patient will verbalize/demonstrate understanding of assistive devices/modific ations for ADL. 3=Patient will improve strength/tolerance for activity to enable patient to perform ADL's. OT Education/Plan Problem List/Assessment Assessment: Decreased Activ Tolerance, Decreased Safety Aware, Impaired Cognition, Impaired Self-Care Skills Discharge Recommendations Plan/Recommendations: Continue POC Treatment Plan/Plan of Care Patient would benefit from OT for education, treatment and training to promote independence in ADL's, mobility, safety and/or upper extremity function for ADL's. Plan of Care: ADL Retraining, Functional Mobility, UE Funct Exercise/Act Treatment Duration: Jul 02, 2020 Frequency: 5 times per week Estimated Hrs Per Day: .25 hour per day Agreement: Yes Rehab Potential: Guarded Time/GCodes Start Time: 13:20 Stop Time: 13:43 Total Time Billed (hr/min): 23 Billed Treatment Time 1 visit-ADL 2 (23 min) LUZ ELENA CLINE Jul 02, 2020 14:16
--- NOTE | 2020-07-02 14:33 | Progress Note - Hospitalist ---
Subjective HPI/CC On Admission Date Seen by Provider: Jul 02, 2020 Time Seen by Provider: 09:30 Subjective/Events-last exam He is eating his breakfast. He denies any complaints. He denies fevers. He denies pain. He denies trouble breathing. Objective Exam Vital Signs Vital Signs Date Time Temp Pulse Resp B/P (MAP) Pulse Ox O2 Delivery O2 Flow Rate FiO2 07/02/20 14:15 95 Nasal Cannula 3.00 07/02/20 11:56 36.1 75 18 121/70 (87) 06/27/20 08:00 40 Capillary Refill : Less Than 3 Seconds General Appearance: No Apparent Distress, WD/WN Respiratory: Lungs Clear, Normal Breath Sounds, No Respiratory Distress Cardiovascular: Regular Rate, Rhythm, No Edema, No Murmur Gastrointestinal: Normal Bowel Sounds, Non Tender, Soft Extremity: Normal Inspection, Non Tender, No Pedal Edema Neurologic/Psychiatric: Alert, Normal Mood/Affect Skin: Normal Color, Warm/Dry Results/Procedures Lab Patient resulted labs reviewed. Imaging: Reviewed Imaging Report Assessment/Plan Assessment and Plan Assess & Plan/Chief Complaint Acute respiratory failure due to COVID-19 COVID-19 virus IgG antibody positive Pneumonia COVID IgG positive s/p Decadron and Levaquin Now on nasal cannula, doing well PT/OT Discharging to VCV tomorrow Delirium Dementia Reorient as needed Avoid delirium triggers Continue risperdal manager social media consulted for placement SENIOR SOFTWARE ANALYST consult placed and recommended dysphagia 2 diet, ordered HTN Amlodipine and Coreg, BP well controlled Hydralazine as needed DVT Prophylaxis: Lovenox Diagnosis/Problems Diagnosis/Problems (1) Acute respiratory failure due to COVID-19 Status: Acute (2) COVID-19 virus IgG antibody detected Status: Acute (3) PNA (pneumonia) Status: Acute Qualifiers: Pneumonia type: due to unspecified organism Laterality: bilateral Lung location: lower lobe of lung Qualified Codes: J18.9 - Pneumonia, unspecified organism (4) HTN (hypertension) Status: Chronic Qualifiers: Hypertension type: essential hypertension Qualified Codes: I10 - Essential (primary) hypertension (5) Delirium Status: Acute Clinical Quality Measures DVT/VTE Risk/Contraindication: Risk Factor Score Per Nursin RFS Level Per Nursing on Admit: 4+=Very High RADHA SAWYER MD Jul 02, 2020 14:33
--- NOTE | 2020-07-02 14:39 | NUR ---
"RD ASSESSMENT PMHx: dementia; HTN; TIA; pancreatitis; hypothyroidism; PT INTERACTION: Pt was awake and pleasant during nutrition follow-up. Note pt has dementia, per chart review. Pt states he has not been eating well since last assessment. Note avg PO intake 29% x4d. per chart review. Pt states some issues with constipation and diarrhea since last assessment. Note no BM has been recorded since admit, and pt not currently on bowel regimen per chart review. ABNORMAL NUTRITION-RELATED LAB VALUES LOW: HIGH: BUN 21; Est. kcal needs: 5281-7060 kcal | 25-30 kcal/kg Est. Pro needs: 64-77 g Pro | 0.8-1.0 g Pro/kg PES STATEMENT: Inadequate oral intake (NI-2.1) related to loss of appetite, constipation, and diarrhea, as evidenced by pt interview, and avg PO intake 29% x4d. INTERVENTION: Continue with current diet order of DYS2 Mechanically Altered diet. Add Ensure Enlive (vary) to meals TID, for increased kcal intake. Provides 350 kcal and 10 g Pro per serving. Will continue to follow and reassess as pt needs, intake, and status change. Robin FRANK, MS RD LD [phone] cell"
[2020-07-02] MEDS: polyethylene glycoL POWDER 17 GM (MIRALAX) PACK PO SCH (20:04)
[2020-07-03 01:29] VITALS: BP 158/70
[2020-07-03] MEDS: RT-ALBUTEROL/IPRATROPIUM 3 ML (DUONEB) VIAL INH SCH ×2 (07:48→14:59)
[2020-07-03] MEDS: amLODIPine 10 MG (NORVASC) TAB PO SCH (10:23)
[2020-07-03] MEDS: SENNOSIDES 8.6 MG (SENOKOT) TAB PO SCH (10:23)
[2020-07-03] MEDS: CARVEDILOL 12.5 MG (COREG) TABLET PO SCH (10:23)
[2020-07-03] MEDS: ENOXAPARIN 40 MG/0.4 ML (LOVENOX) SYR SC SCH (10:23)
[2020-07-03] MEDS: FAMOTIDINE 20 MG (PEPCID) TABLET PO SCH (10:23)
[2020-07-03] MEDS: risperiDONE 0.25 MG (RisperDAL) TAB PO SCH (10:24)
[2020-07-03] MEDS: DOCUSATE SODIUM 100 MG (COLACE) CAP PO SCH (10:24)
--- NOTE | 2020-07-03 11:51 | Occupational Ther Daily Note ---
OT Current Status-Daily Note Subjective Pt alert, lying in bed. Pt agrees to therapy. No c/o pain. Pt oriented to person only. Mental Status/Objective Patient Orientation: Person Attachments: IV, Oxygen ADL-Treatment Therapy Code Descriptions/Definitions Functional [place] Measure: 0=Not Assessed/NA 4=Minimal Assistance 1=Total Assistance 5=Supervision or Setup 2=Maximal Assistance 6=Modified [place] 3=Moderate Assistance 7=Complete IndependenceSCALE: Activities may be completed with or without assistive devices. 2-Vaetcrbcbs-jgdikjk completes the activity by him/herself with no assistance from a helper. 5-Set-up or Clean-up Assistance-helper sets up or cleans up; patient completes activity. [place] assists only prior to or following the activity. 4-Supervision or Touching Assistance-helper provides verbal cues and/or touching/steadying and/or contact guard assistance as patient completes activity. Assistance may be provided throughout the activity or intermittently. 3-Partial/Moderate Assistance-helper does LESS THAN HALF the effort. [place] lifts, holds or supports trunk or limbs, but provides less than half the effort. 2-Substantial/Maximal Assistance-helper does MORE THAN HALF the effort. [place] lifts or holds trunk or limbs and provides more than half the effort. 3-Fkzakklsg-scrkra does ALL the effort. Patient does none of the effort to complete the activity. Or, the assistance of 2 or more helpers is required for the patient to complete the activity. If activity was not attempted, code reason: 7-Patient Refused. 9-Not Applicable-not attempted and the patient did not perform the activity before the current illness, exacerbation or injury. 10-Not Attempted due to Environmental Limitations-(lack of equipment, weather restraints, etc.). 88-Not Attempted due to Medical Conditions or Safety Concerns. Other Treatment Attempted to reorient pt to place and the equipment that monitors O2 levels. Pt kept attempting to break or pull monitor off finger. Pt given medium resistance theraband to work on B UE strengthening. Pt was able to complete 3 exercises with constant cues for technique and to remain on task. 1 set 10 reps of each exercise with multiple breaks due to attention issues. After session, pt lying in bed with call light/phone in reach. All needs met in room. Safety measures in place. OT Group Home Goals Group Home Goals Time Frame: Jul 02, 2020 Eating (QC): 4 Oral Hygiene (QC): 5 Toileting Hygiene (QC): 3 Shower/Bathe Self (QC): 3 Upper Body Dressing (QC): 4 Lower Body Dressing (QC): 3 On/Off Footwear (QC): 3 Additional Goals: 1-Demonstrate ADL Tasks, 2-Verbalize Understanding, 3- ImproveStrength/Emely 1=Demonstrate adherence to instructed precautions during ADL tasks. 2=Patient will verbalize/demonstrate understanding of assistive devices/modifications for ADL. 3=Patient will improve strength/tolerance for activity to enable patient to perform ADL's. OT Education/Plan Problem List/Assessment Assessment: Decreased Activ Tolerance, Decreased Safety Aware, Decreased UE Strength, Impaired Cognition, Impaired Coordination, Impaired Funct Balance, Impaired Self-Care Skills Discharge Recommendations Plan/Recommendations: Continue POC Treatment Plan/Plan of Care Patient would benefit from OT for education, treatment and training to promote independence in ADL's, mobility, safety and/or upper extremity function for ADL's. Plan of Care: ADL Retraining, Functional Mobility, UE Funct Exercise/Act Treatment Duration: Jul 02, 2020 Frequency: 5 times per week Estimated Hrs Per Day: .25 hour per day Agreement: Yes Rehab Potential: Guarded Time/GCodes Start Time: 11:13 Stop Time: 11:36 Total Time Billed (hr/min): 23 Billed Treatment Time 1 visit-EX 1 (13 min) FA 1 (10 min) LUZ ELENA CLINE Jul 03, 2020 11:51
--- NOTE | 2020-07-03 12:26 | Progress Note - Hospitalist ---
Subjective HPI/CC On Admission Date Seen by Provider: Jul 03, 2020 Time Seen by Provider: 09:55 Subjective/Events-last exam He is awake and alert. He has no complaints. He is oriented to year, but disoriented to place. Objective Exam Vital Signs Vital Signs Date Time Temp Pulse Resp B/P (MAP) Pulse Ox O2 Delivery O2 Flow Rate FiO2 07/03/20 12:00 36.8 61 16 117/61 (79) 92 High Flow N/C 2.00 07/03/20 01:29 28 Capillary Refill : Less Than 3 Seconds General Appearance: No Apparent Distress, WD/WN Respiratory: Lungs Clear, Normal Breath Sounds, No Respiratory Distress Cardiovascular: Regular Rate, Rhythm, No Edema, No Murmur Gastrointestinal: Normal Bowel Sounds, Non Tender, Soft Extremity: Normal Inspection, Non Tender, No Pedal Edema Neurologic/Psychiatric: Alert, Oriented x3, Normal Mood/Affect Skin: Warm/Dry, Pallor Results/Procedures Lab Patient resulted labs reviewed. Imaging: Reviewed Imaging Report Assessment/Plan Assessment and Plan Assess & Plan/Chief Complaint Acute respiratory failure due to COVID-19 COVID-19 virus IgG antibody positive Pneumonia COVID IgG positive s/p Decadron and Levaquin Now on nasal cannula, doing well PT/OT Discharging to VCV tomorrow Delirium Dementia Reorient as needed Avoid delirium triggers Continue risperdal Discontinue sitter HTN Amlodipine and Coreg, BP well controlled Hydralazine as needed DVT Prophylaxis: Lovenox Diagnosis/Problems Diagnosis/Problems (1) Acute respiratory failure due to COVID-19 Status: Acute (2) COVID-19 virus IgG antibody detected Status: Acute (3) PNA (pneumonia) Status: Acute Qualifiers: Pneumonia type: due to unspecified organism Laterality: bilateral Lung location: lower lobe of lung Qualified Codes: J18.9 - Pneumonia, unspecified organism (4) HTN (hypertension) Status: Chronic Qualifiers: Hypertension type: essential hypertension Qualified Codes: I10 - Essential (primary) hypertension (5) Delirium Status: Acute Clinical Quality Measures DVT/VTE Risk/Contraindication: Risk Factor Score Per Nursin RFS Level Per Nursing on Admit: 4+=Very High RADHA SAWYER MD Jul 03, 2020 12:26
--- NOTE | 2020-07-03 14:25 | Physical Therapy Daily Note ---
PT Daily Note-Current Subjective Pt sitting EOB and ready to go to chair with nurse aid. Pt agreeable to treatment. Mental Status Patient Orientation: Person, Confused Transfers SCALE: Activities may be completed with or without assistive devices. 9-Zprlxdlbxi-grfpenm completes the activity by him/herself with no assistance from a helper. 5-Set-up or Clean-up Assistance-helper sets up or cleans up; patient completes activity. Point assists only prior to or following the activity. 4-Supervision or Touching Assistance-helper provides verbal cues and/or touching/steadying and/or contact guard assistance as patient completes activity. Assistance may be provided throughout the activity or intermittently. 3-Partial/Moderate Assistance-helper does LESS THAN HALF the effort. Point lifts, holds or supports trunk or limbs, but provides less than half the effort. 2-Substantial/Maximal Assistance-helper does MORE THAN HALF the effort. Point lifts or holds trunk or limbs and provides more than half the effort. 9-Dotmaisal-rnqerh does ALL the effort. Patient does none of the effort to complete the activity. Or, the assistance of 2 or more helpers is required for the patient to complete the activity. If activity was not attempted, code reason: 7-Patient Refused. 9-Not Applicable-not attempted and the patient did not perform the activity before the current illness, exacerbation or injury. 10-Not Attempted due to Environmental Limitations-(lack of equipment, weather restraints, etc.). 88-Not Attempted due to Medical Conditions or Safety Concerns. Min A to stand. Gait Training Gait Assistive Device: FWW Pt amb with FWW and CGA x 5-6ft to bedside chair. Pt require vc's for sequence. Exercises Seated Therapy Exercises: Long arc quads, Hip flexion, Hamstring Curls, Hip abd/add Seated Reps: 15 Treatments Performed hip abd and ham curl with RTB resistance. Performed tricep press with RTB x 10 each Assessment Current Status: Fair Progress Pt required encouragement and prompting to complete ther ex this pm. Pt requested BR for BM at end of treatment and once in BR denied needing to have BM. Pt in care of nurse aid at end of treatment. PT Cash Register Balancer Goals Usp Goals PT Usp Goals Time Frame: Jul 14, 2020 Roll Left & Right (QC): 4 Sit to Lying (QC): 4 Lying-Sitting on Side/Bed(QC): 4 Sit to Stand (QC): 4 Chair/Izy-bk-Thmpp Xfer(QC): 4 Toilet Transfer (QC): 4 Does the Patient Walk: No and Walking Goal IS indicated Walk 10 feet (QC): 4 Walk 50ft with 2 Turns (QC): 4 PT Plan Treatment/Plan Treatment Plan: Continue Plan of Care Treatment Plan: Bed Mobility, Education, Functional Activity Emely, Functional Strength, Gait, Safety, Therapeutic Exercise, Transfers Treatment Duration: Jul 14, 2020 Frequency: 6 times per week Estimated Hrs Per Day: .25 hour per day Patient and/or Family Agrees t: Yes Time/GCodes Time In: 1345 Time Out: 1405 Total Billed Treatment Time: 20 Total Billed Treatment 1, gait 5', ther ex 15' ANA VILLASEÑOR CPTA Jul 03, 2020 14:25
[2020-07-03] MEDS ORDERED: CARV12.53 PO (14:56)
[2020-07-03] MEDS ORDERED: RISP0.253 PO (14:56)
--- NOTE | 2020-07-03 14:57 | Discharge Inst-Skilled Nursing ---
Discharge Inst-Skilled NF Reconcile Patient Problems Problems Reviewed?: Yes Consult/Follow Up/Orders Follow Up Appt.: next shelter rounds Skilled NF Admit to: [facility] Emergency Department Certification (SNF) I certify that SNF services are required to be given on an inpatient basis because of the above named patient's need for custodial care on a continuing basis for the conditions(s) for which he/she was receiving inpatient hospital services prior to his/her transfer to the SNF. Residential Facility Order: Nursing Services, Gravedigger-Evaluate & Treat, Physical Therapy-Evaluate & Treat, Speech Language-Evaluate & Treat Oxygen Delivery Method: High Flow N/C Oxygen Flow Rate L/min (Range): 2 Discharge Diet: No Restrictions Daily Activity as Tolerated: Yes Resuscitation Status: Full Code New & Resume Previous Orders Margot Sawyer Jul 03, 2020 14:56 MARGOT SAWYER MD Jul 03, 2020 14:57
--- NOTE | 2020-07-03 15:28 | NUR ---
CM/SS finalized discharge planning. Plan: The patient will discharge to [facility] today 07/03. They will pickle solution maker around 3:45. VCV: NATO/SS received call from [facility] stating they will take to patient today. CM/SS faxed finalized orders and informed the physician. CM/SS notified the nurse and aide. CM/SS contacted the patient's son Calderon to inform him of discharge. He verbalized understanding. No further needs at this time.
--- NOTE | 2020-07-03 16:11 | NUR ---
Patient discharged to the [facility], he left at approx 1605. Report given to nurse Hdz
== END 2020-07-03 16:05 | DRG 177 ==
LOC: EDUNIT# 11:22 → ER 11:25 → ICU 13:16 → CSD 06-21 21:47 → 4TH 06-27 11:19
PROVIDERS: ADMIT Internal Medicine; ATTEND Internal Medicine
PROC: 5A09457 Assistance with Respiratory Ventilation, 24-96 Consecutive Hours, Continuous Positive Airway Pressure (ICD-10-PCS; principal; 2020-06-20)
DX: U07.1 COVID-19 (principal); J12.89 Other viral pneumonia; J96.01 Acute respiratory failure with hypoxia; F05 Delirium due to known physiological condition; I47.1 Supraventricular tachycardia; F03.90 Unspecified dementia, unspecified severity, without behavioral disturbance, psychotic disturbance, mood disturbance, and anxiety; I10 Essential (primary) hypertension; E03.9 Hypothyroidism, unspecified; F41.9 Anxiety disorder, unspecified; Z87.891 Personal history of nicotine dependence; Z86.73 Personal history of transient ischemic attack (TIA), and cerebral infarction without residual deficits; Z88.1 Allergy status to other antibiotic agents; Z88.8 Allergy status to other drugs, medicaments and biological substances
CPT/HCPCS: 36415; 51701; 71045; 80048; 80053; 81000; 82805; 83605; 83735; 83880; 84100; 84145; 84484; 85025; 85379; 86141; 86769; 87040; 87081; 87635; 87804; 94640; 94660; 94760; 94761; 99291

== ENCOUNTER 2020-07-12 12:41 | Emergency (ER) | payer MEDICARE, MEDICAID ==
[~2020-07-12] VITALS: Ht 175.2 cm; Wt 79.0 kg
[~2020-07-12 12:41] MED LIST changes: +ASPI325T32 PO; +CARV12.53 PO; +DILT180C85 PO; +RISP0.253 PO
[2020-07-12] MEDS ORDERED: ONDANSETRON 4 MG/2 ML (SDV) Z0FRAN IVP ONE (13:00)
[2020-07-12] MEDS ORDERED: LACTATED RINGERS 1,000 ML IV SCH (13:00)
--- NOTE | 2020-07-12 13:01 | ED General ---
General Stated Complaint: N/V,DIAHRREA Source of Information: Patient Exam Limitations: No Limitations History of Present Illness Date Seen by Provider: Jul 12, 2020 Time Seen by Provider: 12:59 Initial Comments To ER by EMS from half-way where he had a negative Covid test yesterday with reports of nausea vomiting diarrhea. He is on azithromycin for treatment of pneumonia. He complains of some chest pain on arrival and his central chest is very tender to palpation. Timing/Duration: Other Severity: Moderate Associated Systoms: Denies Symptoms Allergies and Home Medications Allergies Coded Allergies: cephalexin (Unverified Allergy, Mild, 09/03/09) nut - unspecified (Verified Allergy, Unknown, 01/03/20) Home Medications Aspirin 325 Mg Tablet.dr, 325 MG PO DAILY, (Reported) Carvedilol 12.5 Mg Tablet, 25 MG PO BID Prescribed by: RADHA SAWYER on 07/03/20 1456 Donepezil HCl 10 Mg Tablet, 10 MG PO HS, (Reported) Fexofenadine HCl 180 Mg Tablet, 180 MG PO DAILY PRN for ALLERGIES, (Reported) Risperidone 0.25 Mg Tablet, 0.25 MG PO BID Prescribed by: RADHA SAWYER on 07/03/20 1456 Patient Home Medication List Home Medication List Reviewed: Yes Review of Systems Review of Systems Constitutional: see HPI EENTM: see HPI Respiratory: no symptoms reported Cardiovascular: no symptoms reported, see HPI, chest pain Genitourinary: no symptoms reported Musculoskeletal: no symptoms reported Skin: no symptoms reported Psychiatric/Neurological: No Symptoms Reported Hematologic/Lymphatic: No Symptoms Reported Past Trrxdba-Krgoet-Mlkhwr Hx Patient Social History Former Smoker, Quit: November 30, 1973 2nd Hand Smoke Exposure: No Recent Hopitalizations: No Immunizations Up To Date Tetanus Booster (TDap): Less than 5yrs Date of Pneumonia Vaccine: May 13, 2010 Seasonal Allergies Seasonal Allergies: No Past Medical History Surgeries: Yes (ANKLE SURGERY; SCAR NOTED TO LEFT BREAST AREA; LITHOTR IPSY/ESWL) Gallbladder, Orthopedic, Renal Respiratory: No Cardiac: Yes (SVT) Hypertension, Irregular Heartbeat, Palpitations 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; PARESTHESIAS ) Dementia, TIA Reproductive Disorders: No Genitourinary: Yes (ESWL/LITHOTRIPSY) Bladder Infection, Kidney Stones Gastrointestinal: Yes (PANCREATITIS WITH PARALYTIC ILEUS, DELIRIUM 10/18/18) Pancreatitis, Gall Bladder Disease Musculoskeletal: Yes (ANKLE SURGERY) Endocrine: Yes Hypothyroidsim HEENT: No Cancer: No Psychosocial: Yes Anxiety Integumentary: No Blood Disorders: No Physical Exam Vital Signs Vital Signs - First Documented 07/12/20 12:41 Temp 36.8 Pulse 58 Resp 18 B/P (MAP) 138/71 (93) Pulse Ox 99 O2 Delivery Nasal Cannula O2 Flow Rate 2.00 Capillary Refill : Height, Weight, BMI Height: 6'2.00" Weight: 180lbs. 0oz. 81.205835ii; 30.00 BMI Method:Stated General Appearance: No Apparent Distress, WD/WN Eyes: Bilateral Eye Normal Inspection, Bilateral Eye PERRL, Bilateral Eye EOMI Neck: Full Range of Motion, Normal Inspection Respiratory: No Accessory Muscle Use, No Respiratory Distress Gastrointestinal: Normal Bowel Sounds, Non Tender, Soft, Other (His abdomen is flat soft and nontender with normal bowel sounds perhaps a bit hyperactive.) Extremity: Normal Capillary Refill, Normal Inspection Neurologic/Psychiatric: Alert, Oriented x3 Skin: Normal Color, Warm/Dry Progress/Results/Core Measures Suspected Sepsis SIRS Temperature: Pulse: Respiratory Rate: Laboratory Tests 07/12/20 13:55: White Blood Count 11.9H Blood Pressure / Mean: Laboratory Tests 07/12/20 13:55: Creatinine 0.80, Platelet Count 138, Total Bilirubin 0.4 Results/Orders Lab Results Laboratory Tests Test 07/12/20 13:55 Range/Units White Blood Count 11.9 H 4.3-11.0 10^3/uL Red Blood Count 4.06 L 4.30-5.52 10^6/uL Hemoglobin 11.6 L 13.3-17.7 g/dL Hematocrit 37 L 40-54 % Mean Corpuscular Volume 90 80-99 fL Mean Corpuscular Hemoglobin 29 25-34 pg Mean Corpuscular Hemoglobin Concent 32 32-36 g/dL Red Cell Distribution Width 14.3 10.0-14.5 % Platelet Count 138 130-400 10^3/uL Mean Platelet Volume 10.0 9.0-12.2 fL Immature Granulocyte % (Auto) 0 % Neutrophils (%) (Auto) 88 H 42-75 % Lymphocytes (%) (Auto) 5 L 12-44 % Monocytes (%) (Auto) 5 0-12 % Eosinophils (%) (Auto) 1 0-10 % Basophils (%) (Auto) 0 0-10 % Neutrophils # (Auto) 10.5 H 1.8-7.8 10^3/uL Lymphocytes # (Auto) 0.7 L 1.0-4.0 10^3/uL Monocytes # (Auto) 0.6 0.0-1.0 10^3/uL Eosinophils # (Auto) 0.1 0.0-0.3 10^3/uL Basophils # (Auto) 0.0 0.0-0.1 10^3/uL Immature Granulocyte # (Auto) 0.0 0.0-0.1 10^3/uL Sodium Level 141 135-145 MMOL/L Potassium Level 4.5 3.6-5.0 MMOL/L Chloride Level 110 H 98-107 MMOL/L Carbon Dioxide Level 22 21-32 MMOL/L Anion Gap 9 5-14 MMOL/L Blood Urea Nitrogen 15 7-18 MG/DL Creatinine 0.80 0.60-1.30 MG/DL Estimat Glomerular Filtration Rate > 60 BUN/Creatinine Ratio 19 Glucose Level 124 H 70-105 MG/DL Calcium Level 8.9 8.5-10.1 MG/DL Corrected Calcium 9.4 8.5-10.1 MG/DL Total Bilirubin 0.4 0.1-1.0 MG/DL Aspartate Amino Transf (AST/SGOT) 20 5-34 U/L Alanine Aminotransferase (ALT/SGPT) 23 0-55 U/L Alkaline Phosphatase 59 40-136 U/L Troponin I < 0.028 <0.028 NG/ML Total Protein 6.2 L 6.4-8.2 GM/DL Albumin 3.4 3.2-4.5 GM/DL My Orders Orders - [employer] REVIEW APPRAISER Cbc With Automated Diff (07/12/20 12:52) Comprehensive Metabolic Panel (07/12/20 12:52) Ed Iv/Invasive Line Start (07/12/20 12:52) Ondansetron Injection (Zofran Injectio (07/12/20 13:00) Lactated Ringers (Lr 1000 Ml Iv Solution (07/12/20 13:00) C Difficile Ag + Toxin A/B. (07/12/20 12:52) Chest 1 View, Ap/Pa Only (07/12/20 12:58) Ekg Tracing (07/12/20 12:58) Troponin I (07/12/20 12:58) Manual Differential (07/12/20 13:55) Medications Given in ED Current Medications Medications Dose Ordered Sig/Doug Route Start Time Stop Time Status Last Admin Dose Admin Ondansetron HCl 8 mg ONCE ONCE IVP 07/12/20 13:00 07/12/20 13:01 DC 07/12/20 14:01 8 MG Vital Signs/I&O 07/12/20 12:41 Temp 36.8 Pulse 58 Resp 18 B/P (MAP) 138/71 (93) Pulse Ox 99 O2 Delivery Nasal Cannula O2 Flow Rate 2.00 Capillary Refill : Diagnostic Imaging Diagonstic Imaging: Xray Comments NAME: LAMA POWELL [facility] REC#: [id number] PT STATUS: REG ER : 1935 PHYSICIAN: [employer] APRN ADMIT DATE: 07/12/20/ER Draft Date of Exam:07/12/20 CHEST 1 VIEW, AP/PA ONLY CLINICAL INDICATION: Patient with nausea, vomiting, and diarrhea. EXAM: Portable chest x-ray upright view. COMPARISONS: Portable chest x-ray dated 06/27/2020. FINDINGS: There is interval improved aeration of both lungs with residual small amount of patchy airspace infiltrates involving the left midlung field, left lung base and minimal amount involving the right lung base. There is no pleural effusion or pneumothorax seen. Pulmonary vasculature and cardiac silhouettes are within normal limits. There are degenerative spurs involving the thoracic spine. IMPRESSION: There is improved aeration of both lungs with residual small amount of bilateral lung infiltrates. Dictated on workstation # [id number] Dict: 07/12/20 1327 Trans: 07/12/20 1332 [facility] [id number] Interpreted by: ABBE BERNARDO MD Electronically signed by: Departure Communication (Admissions) Patient was unable to provide us with a stool sample during his ER stay. Does not complain of any abdominal pain now or at any time. Impression Primary Impression: Diarrhea Qualified Codes: R19.7 - Diarrhea, unspecified Disposition: 01 HOME, SELF-CARE Condition: Stable Departure-Patient Inst. Decision time for Depature: 14:32 Referrals: SAPNA PATEL DO (PCP/Family) Primary Care Physician Patient Instructions: No Instuctions Given [employer] APRN Jul 12, 2020 13:01
--- NOTE | 2020-07-12 13:32 | Diagnostic Imaging Report ---
CLINICAL INDICATION: Patient with nausea, vomiting, and diarrhea. EXAM: Portable chest x-ray upright view. COMPARISONS: Portable chest x-ray dated 06/27/2020. FINDINGS: There is interval improved aeration of both lungs with residual small amount of patchy airspace infiltrates involving the left midlung field, left lung base and minimal amount involving the right lung base. There is no pleural effusion or pneumothorax seen. Pulmonary vasculature and cardiac silhouettes are within normal limits. There are degenerative spurs involving the thoracic spine. IMPRESSION: There is improved aeration of both lungs with residual small amount of bilateral lung infiltrates. Dictated by: Dictated on workstation # [id number]
[2020-07-12 14:02] LABS: BASOPHILS % (AUTO) 0 % (0-10); EOSINOPHILS # (AUTO) 0.1 10^3/uL (0.0-0.3); EOSINOPHILS % (AUTO) 1 % (0-10); HEMATOCRIT 37 % (40-54); HEMOGLOBIN 11.6 g/dL (13.3-17.7); LYMPHOCYTES # (AUTO) 0.7 10^3/uL (1.0-4.0); LYMPHOCYTES % (AUTO) 5 % (12-44); MEAN CORPUSCULAR HEMOGLOBIN 29 pg (25-34); MEAN CORPUSCULAR HGB CONC 32 g/dL (32-36); MEAN CORPUSCULAR VOLUME 90 fL (80-99); MONOCYTES # (AUTO) 0.6 10^3/uL (0.0-1.0); MONOCYTES % (AUTO) 5 % (0-12); NEUTROPHILS # (AUTO) 10.5 10^3/uL (1.8-7.8); NEUTROPHILS % (AUTO) 88 % (42-75); PLATELET COUNT 138 10^3/uL (130-400); WHITE BLOOD COUNT 11.9 10^3/uL (4.3-11.0)
[2020-07-12 14:13] LABS: ALBUMIN 3.4 GM/DL (3.2-4.5)
[2020-07-12 14:14] LABS: CHLORIDE 110 MMOL/L (98-107); POTASSIUM 4.5 MMOL/L (3.6-5.0); SODIUM 141 MMOL/L (135-145)
[2020-07-12 14:15] LABS: CALCIUM 8.9 MG/DL (8.5-10.1)
[2020-07-12 14:16] LABS: GLUCOSE 124 MG/DL (70-105); TOTAL PROTEIN 6.2 GM/DL (6.4-8.2)
[2020-07-12 14:17] LABS: CARBON DIOXIDE 22 MMOL/L (21-32)
[2020-07-12 14:18] LABS: BILIRUBIN,TOTAL 0.4 MG/DL (0.1-1.0)
[2020-07-12 14:19] LABS: ALKALINE PHOSPHATASE 59 U/L (40-136)
[2020-07-12 14:20] LABS: GFR ESTIMATED > 60
[2020-07-12 14:21] LABS: BUN/CREATININE RATIO 19
[2020-07-12 14:22] LABS: ALANINE AMINOTRANSFERASE 23 U/L (0-55)
[2020-07-12 14:45] LABS: BAND NEUTROPHILS 1 %; BASOPHILS % (MANUAL) 0 %; EOSINOPHILS % (MANUAL) 0 %; LYMPHOCYTES % (MANUAL) 3 %; MONOCYTES % (MANUAL) 8 %; NEUTROPHILS % (MANUAL) 88 %; RBC MORPH NORMAL
--- NOTE | 2020-07-12 15:54 | NUR ---
CALLED GAVE UPDATE TO [facility] AND ASKED THEN TO COME GET HIM
[2020-07-12 16:21] VITALS: BP 129/62
== END 2020-07-12 16:20 | disposition home or self-care (01) ==
LOC: EDUNIT# 12:41 → ER 12:42
DX: R19.7 Diarrhea, unspecified (principal); F03.90 Unspecified dementia, unspecified severity, without behavioral disturbance, psychotic disturbance, mood disturbance, and anxiety; Z86.73 Personal history of transient ischemic attack (TIA), and cerebral infarction without residual deficits; Z87.891 Personal history of nicotine dependence; Z88.1 Allergy status to other antibiotic agents; Z20.828 Contact with and (suspected) exposure to other viral communicable diseases; Z79.82 Long term (current) use of aspirin
CPT/HCPCS: 36415; 71045; 80053; 84484; 85007; 85027

== ENCOUNTER 2020-09-03 11:59 | Emergency (ER) | payer MEDICARE, MEDICAID ==
[~2020-09-03] VITALS: Ht 190.5 cm; Wt 81.6 kg
[2020-09-03 13:52] LABS: BASOPHILS % (AUTO) 1 % (0-10); EOSINOPHILS # (AUTO) 0.1 10^3/uL (0.0-0.3); EOSINOPHILS % (AUTO) 4 % (0-10); HEMATOCRIT 35 % (40-54); HEMOGLOBIN 11.1 g/dL (13.3-17.7); LYMPHOCYTES # (AUTO) 1.2 10^3/uL (1.0-4.0); LYMPHOCYTES % (AUTO) 31 % (12-44); MEAN CORPUSCULAR HEMOGLOBIN 29 pg (25-34); MEAN CORPUSCULAR HGB CONC 32 g/dL (32-36); MEAN CORPUSCULAR VOLUME 89 fL (80-99); MEAN PLATELET VOLUME 11.5 fL (9.0-12.2); MONOCYTES # (AUTO) 0.4 10^3/uL (0.0-1.0); MONOCYTES % (AUTO) 10 % (0-12); NEUTROPHILS % (AUTO) 54 % (42-75); PLATELET COUNT 158 10^3/uL (130-400); WHITE BLOOD COUNT 3.8 10^3/uL (4.3-11.0)
[2020-09-03 13:55] LABS: ALBUMIN 3.6 GM/DL (3.2-4.5)
[2020-09-03 13:56] LABS: CHLORIDE 108 MMOL/L (98-107); POTASSIUM 3.7 MMOL/L (3.6-5.0); SODIUM 140 MMOL/L (135-145)
[2020-09-03 13:57] LABS: CALCIUM 8.6 MG/DL (8.5-10.1)
[2020-09-03 13:58] LABS: GLUCOSE 126 MG/DL (70-105); TOTAL PROTEIN 6.1 GM/DL (6.4-8.2)
[2020-09-03 13:59] LABS: CARBON DIOXIDE 25 MMOL/L (21-32)
[2020-09-03 14:00] LABS: BILIRUBIN,TOTAL 0.6 MG/DL (0.1-1.0)
[2020-09-03 14:01] LABS: ALKALINE PHOSPHATASE 51 U/L (40-136)
[2020-09-03 14:02] LABS: CREATININE SERUM 0.76 MG/DL (0.60-1.30); GFR ESTIMATED > 60
[2020-09-03 14:03] LABS: BUN/CREATININE RATIO 16
[2020-09-03 14:05] LABS: ALANINE AMINOTRANSFERASE 14 U/L (0-55)
[2020-09-03 15:01] LABS: BILIRUBIN,URINE NEGATIVE (NEGATIVE); CLARITY,URINE CLEAR; COLOR,URINE YELLOW; GLUCOSE, URINE (UA) NEGATIVE (NEGATIVE); KETONES,URINE NEGATIVE (NEGATIVE); LEUKOCYTE ESTERASE ,URINE NEGATIVE (NEGATIVE); NITRITE,URINE NEGATIVE (NEGATIVE); PH,URINE 5.5 (5-9); PROTEIN,URINE NEGATIVE (NEGATIVE)
[2020-09-03 15:09] LABS: BACTERIA,URINE NEGATIVE /HPF; SQUAMOUS EPITHELIAL CELL,UR 0-2 /HPF
--- NOTE | 2020-09-03 15:31 | ED General ---
General Chief Complaint: General Problems/Pain Stated Complaint: STANTON,WEAKNESS Nursing Triage Note: PT BROUGHT IN BY [facility] FROM HOME WITH COMPLAINT OF STANTON AND WEAKNESS. PT WALKED TO BANK AND POST OFFICE THIS MORNING AND FELT WEAK AFTER. Nursing Sepsis Screen: No Definite Risk Source of Information: Patient Exam Limitations: No Limitations History of Present Illness Date Seen by Provider: Sep 03, 2020 Time Seen by Provider: 14:07 Initial Comments Patient presents ER by private conveyance with chief complaint that he got up and walked all over [place] doing errands this morning and then when he got home he felt a little out of sorts, dizzy but not like he was going to pass out. He did not feel vertigo. Patient checked his meds and realized he had taken his nighttime medications which include benazepril, risperidone and a beta-claudine that morning. He has been doing well otherwise. He is having no cough fever chills nausea vomiting diarrhea or chest pain. He does not follow with a supervising film or videotape editor but follows with Dr. Rodriguez. He has a caregiver who helps him however he sets his own meds up. He says he feels safe at home. Allergies and Home Medications Allergies Coded Allergies: cephalexin (Unverified Allergy, Mild, 09/03/09) nut - unspecified (Verified Allergy, Unknown, 01/03/20) Home Medications Aspirin 325 Mg Tablet., 325 MG PO DAILY, (Reported) Carvedilol 12.5 Mg Tablet, 25 MG PO BID Prescribed by: RADHA SAWYER on 07/03/20 1456 Donepezil HCl 10 Mg Tablet, 10 MG PO HS, (Reported) Fexofenadine HCl 180 Mg Tablet, 180 MG PO DAILY PRN for ALLERGIES, (Reported) Risperidone 0.25 Mg Tablet, 0.25 MG PO BID Prescribed by: RADHA SAWYER on 07/03/20 1456 Patient Home Medication List Home Medication List Reviewed: Yes Review of Systems Review of Systems Constitutional: No chills, No fever, No malaise EENTM: No ear discharge, No ear pain Respiratory: No cough, No short of breath Cardiovascular: No chest pain, No edema, No palpitations, No syncope Gastrointestinal: No abdominal pain, No constipation, No nausea Genitourinary: No discharge, No dysuria Musculoskeletal: No back pain, No joint pain All Other Systems Reviewed Negative Unless Noted: Yes Past Thtouwr-Biqadf-Fqlllu Hx Patient Social History Alcohol Use: Denies Use Smoking Status: Former Smoker Former Smoker, Quit: November 30, 1973 2nd Hand Smoke Exposure: No Recent Infectious Disease Expo: No Recent Hopitalizations: No Immunizations Up To Date Tetanus Booster (TDap): Less than 5yrs Date of Pneumonia Vaccine: May 13, 2010 Seasonal Allergies Seasonal Allergies: No Past Medical History Surgeries: Yes (ANKLE SURGERY; SCAR NOTED TO LEFT BREAST AREA; LITHOTRIPSY/ESWL) Gallbladder, Orthopedic, Renal Respiratory: No Cardiac: Yes (SVT) Hypertension, Irregular Heartbeat, Palpitations 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; PARESTHESIAS ) Dementia, TIA Reproductive Disorders: No Genitourinary: Yes (ESWL/LITHOTRIPSY) Bladder Infection, Kidney Stones Gastrointestinal: Yes (PANCREATITIS WITH PARALYTIC ILEUS, DELIRIUM 04/29/18) Pancreatitis, Gall Bladder Disease Musculoskeletal: Yes (ANKLE SURGERY) Endocrine: Yes Hypothyroidsim HEENT: No Cancer: No Psychosocial: Yes Anxiety Integumentary: No Blood Disorders: No Physical Exam Vital Signs Vital Signs - First Documented 09/03/20 12:03 Temp 36.8 Pulse 52 Resp 12 B/P (MAP) 192/83 (119) Pulse Ox 96 O2 Delivery Room Air Capillary Refill : Less Than 3 Seconds Height, Weight, BMI Height: 6'2.00" Weight: 180lbs. 0oz. 81.260016fk; 22.00 BMI Method:Stated General Appearance: No Apparent Distress, WD/WN Eyes: Bilateral Eye Normal Inspection, Bilateral Eye PERRL, Bilateral Eye EOMI HEENT: PERRL/EOMI, TMs Normal, Normal ENT Inspection, Pharynx Normal, Moist Mucous Membranes Neck: Full Range of Motion, Normal Inspection Respiratory: Lungs Clear, Normal Breath Sounds, No Accessory Muscle Use, No Respiratory Distress Cardiovascular: Regular Rate, Rhythm, No Edema, Normal Peripheral Pulses Gastrointestinal: Normal Bowel Sounds, Non Tender, Soft Neurologic/Psychiatric: Alert, Oriented x3, No Motor/Sensory Deficits Progress/Results/Core Measures Suspected Sepsis Recent Fever Within 48 Hours: No Infection Criteria Present: None New/Unexplained Altered Menta: No Sepsis Screen: No Definite Risk SIRS Temperature: Pulse: 52 Respiratory Rate: 12 Laboratory Tests 09/03/20 12:10: White Blood Count 3.8L Blood Pressure 192 /83 Mean: 119 Laboratory Tests 09/03/20 12:10: Creatinine 0.76, Platelet Count 158, Total Bilirubin 0.6 Results/Orders Lab Results Laboratory Tests Test 09/03/20 12:10 09/03/20 14:42 Range/Units White Blood Count 3.8 L 4.3-11.0 10^3/uL Red Blood Count 3.89 L 4.30-5.52 10^6/uL Hemoglobin 11.1 L 13.3-17.7 g/dL Hematocrit 35 L 40-54 % Mean Corpuscular Volume 89 80-99 fL Mean Corpuscular Hemoglobin 29 25-34 pg Mean Corpuscular Hemoglobin Concent 32 32-36 g/dL Red Cell Distribution Width 14.6 H 10.0-14.5 % Platelet Count 158 130-400 10^3/uL Mean Platelet Volume 11.5 9.0-12.2 fL Immature Granulocyte % (Auto) 0 % Neutrophils (%) (Auto) 54 42-75 % Lymphocytes (%) (Auto) 31 12-44 % Monocytes (%) (Auto) 10 0-12 % Eosinophils (%) (Auto) 4 0-10 % Basophils (%) (Auto) 1 0-10 % Neutrophils # (Auto) 2.0 1.8-7.8 10^3/uL Lymphocytes # (Auto) 1.2 1.0-4.0 10^3/uL Monocytes # (Auto) 0.4 0.0-1.0 10^3/uL Eosinophils # (Auto) 0.1 0.0-0.3 10^3/uL Basophils # (Auto) 0.0 0.0-0.1 10^3/uL Immature Granulocyte # (Auto) 0.0 0.0-0.1 10^3/uL Sodium Level 140 135-145 MMOL/L Potassium Level 3.7 3.6-5.0 MMOL/L Chloride Level 108 H 98-107 MMOL/L Carbon Dioxide Level 25 21-32 MMOL/L Anion Gap 7 5-14 MMOL/L Blood Urea Nitrogen 12 7-18 MG/DL Creatinine 0.76 0.60-1.30 MG/DL Estimat Glomerular Filtration Rate > 60 BUN/Creatinine Ratio 16 Glucose Level 126 H 70-105 MG/DL Calcium Level 8.6 8.5-10.1 MG/DL Corrected Calcium 8.9 8.5-10.1 MG/DL Total Bilirubin 0.6 0.1-1.0 MG/DL Aspartate Amino Transf (AST/SGOT) 21 5-34 U/L Alanine Aminotransferase (ALT/SGPT) 14 0-55 U/L Alkaline Phosphatase 51 40-136 U/L Troponin I < 0.028 <0.028 NG/ML Total Protein 6.1 L 6.4-8.2 GM/DL Albumin 3.6 3.2-4.5 GM/DL Urine Color YELLOW Urine Clarity CLEAR Urine pH 5.5 5-9 Urine Specific [place] >=1.030 1.016-1.022 Urine Protein NEGATIVE NEGATIVE Urine Glucose (UA) NEGATIVE NEGATIVE Urine Ketones NEGATIVE NEGATIVE Urine Nitrite NEGATIVE NEGATIVE Urine Bilirubin NEGATIVE NEGATIVE Urine Urobilinogen 0.2 < = 1.0 MG/DL Urine Leukocyte Esterase NEGATIVE NEGATIVE Urine RBC (Auto) NEGATIVE NEGATIVE Urine RBC NONE /HPF Urine WBC NONE /HPF Urine Squamous Epithelial Cells 0-2 /HPF Urine Crystals NONE /LPF Urine Bacteria NEGATIVE /HPF Urine Casts NONE /LPF Urine Mucus SMALL H /LPF Urine Culture Indicated NO My Orders Orders - LUCI DOBBS Cbc With Automated Diff (09/03/20 13:38) Comprehensive Metabolic Panel (09/03/20 13:38) Troponin I (09/03/20 13:38) Ekg Tracing (09/03/20 13:39) Ua Culture If Indicated (09/03/20 14:46) Vital Signs/I&O 09/03/20 12:03 Temp 36.8 Pulse 52 Resp 12 B/P (MAP) 192/83 (119) Pulse Ox 96 O2 Delivery Room Air Capillary Refill : Less Than 3 Seconds Blood Pressure Mean: 119 Progress Note : Time: 15:28 Progress Note The patient was snoozing softly when the provider arrived in the room. He easily aroused and answers questions appropriately with a GCS of 15. I suspect his risperidone and beta-blockers are contributing to his symptoms. He had some sinus bradycardia in the 50s since arriving. He is having no other distress and has been up to the bathroom under his own power using a cane a couple times since he arrived. We gave him the option to stay in the hospital overnight to let the medications get out of his system but he says he feels safe at home and has a caregiver who looks in on him tonight and would prefer to go home. ECG Initial ECG Impression Date: Sep 03, 2020 Initial ECG Impression Time: 14:00 Initial ECG Rate: 48 Initial ECG Rhythm: S.Felix Initial ECG Intervals: QT (472) Initial ECG Impression: Sinus Bradycardia Comment Sinus bradycardia without clinically relevant ST elevation or depression. Departure Impression Primary Impression: Accidental medication overdose Qualified Codes: T50.901A - Poisoning by unspecified drugs, medicaments and biological substances, accidental (unintentional), initial encounter Additional Impression: Adverse effect of beta-claudnie Qualified Codes: T44.7X5A - Adverse effect of beta-adrenoreceptor antagonists, initial encounter Disposition: 01 HOME, SELF-CARE Condition: Stable Departure-Patient Inst. Decision time for Depature: 15:29 Referrals: SAPNA RODRIGUEZ DO (PCP/Family) Primary Care Physician Patient Instructions: Accidental Overdose (DC) Add. Discharge Instructions: Because you accidentally took an extra dose of the blood pressure medicines this is probably contributing to your symptoms. Do not take your medications tonight. Tomorrow morning you can resume your normal medications if you are feeling better. Tomorrow morning call Dr. Rodriguez and request a follow-up appointment in the next 1 to 2 weeks for reexamination. Promptly return to the ER if you have new or worrisome symptoms such as falls, passing out, chest pain, shortness of air, fever etc. All discharge instructions reviewed with patient and/or family. Voiced understanding. Copy Copies To 1: SAPNA RODRIGUEZ TITUS J Sep 03, 2020 15:30
[2020-09-03 16:22] VITALS: BP 175/92
== END 2020-09-03 16:22 | disposition home or self-care (01) ==
LOC: EDUNIT# 11:59 → ER 12:01
DX: T46.4X1A Poisoning by angiotensin-converting-enzyme inhibitors, accidental (unintentional), initial encounter (principal); T44.7X5A Adverse effect of beta-adrenoreceptor antagonists, initial encounter; Z87.891 Personal history of nicotine dependence; Z88.1 Allergy status to other antibiotic agents; Z86.73 Personal history of transient ischemic attack (TIA), and cerebral infarction without residual deficits; Z79.82 Long term (current) use of aspirin
CPT/HCPCS: 36415; 80053; 81000; 84484; 85025; 93005

== ENCOUNTER 2020-12-07 09:56 | Emergency (ER) | payer MEDICARE, MEDICAID ==
[~2020-12-07] VITALS: Ht 190 cm; Wt 81.6 kg
[2020-12-07 10:50] LABS: BILIRUBIN,URINE NEGATIVE (NEGATIVE); CLARITY,URINE CLEAR; COLOR,URINE YELLOW; GLUCOSE, URINE (UA) NEGATIVE (NEGATIVE); KETONES,URINE NEGATIVE (NEGATIVE); LEUKOCYTE ESTERASE ,URINE NEGATIVE (NEGATIVE); NITRITE,URINE NEGATIVE (NEGATIVE); PROTEIN,URINE NEGATIVE (NEGATIVE)
[2020-12-07 11:09] LABS: BASOPHILS % (AUTO) 1 % (0-10); EOSINOPHILS # (AUTO) 0.1 10^3/uL (0.0-0.3); EOSINOPHILS % (AUTO) 3 % (0-10); HEMATOCRIT 33 % (40-54); HEMOGLOBIN 10.7 g/dL (13.3-17.7); LYMPHOCYTES % (AUTO) 23 % (12-44); MEAN CORPUSCULAR HEMOGLOBIN 29 pg (25-34); MEAN CORPUSCULAR HGB CONC 32 g/dL (32-36); MEAN CORPUSCULAR VOLUME 90 fL (80-99); MONOCYTES # (AUTO) 0.4 10^3/uL (0.0-1.0); MONOCYTES % (AUTO) 10 % (0-12); NEUTROPHILS # (AUTO) 2.8 10^3/uL (1.8-7.8); NEUTROPHILS % (AUTO) 63 % (42-75); PLATELET COUNT 145 10^3/uL (130-400); WHITE BLOOD COUNT 4.4 10^3/uL (4.3-11.0)
[2020-12-07 11:11] LABS: ALBUMIN 3.8 GM/DL (3.2-4.5); CHLORIDE 106 MMOL/L (98-107); POTASSIUM 3.8 MMOL/L (3.6-5.0); SODIUM 143 MMOL/L (135-145)
[2020-12-07 11:12] LABS: CALCIUM 9.1 MG/DL (8.5-10.1)
[2020-12-07 11:13] LABS: GLUCOSE 107 MG/DL (70-105); TOTAL PROTEIN 6.2 GM/DL (6.4-8.2)
[2020-12-07 11:15] LABS: BILIRUBIN,TOTAL 0.6 MG/DL (0.1-1.0); CARBON DIOXIDE 25 MMOL/L (21-32)
[2020-12-07 11:17] LABS: ALKALINE PHOSPHATASE 58 U/L (40-136); CREATININE SERUM 0.86 MG/DL (0.60-1.30); GFR ESTIMATED > 60
--- NOTE | 2020-12-07 11:17 | Diagnostic Imaging Report ---
INDICATION: Headache. Hypertension. TECHNIQUE: Routine non contrast-enhanced axial images were obtained from the skull base to the vertex. Auto Exposure Controls were utilized during the CT exam to meet ALARA standards for radiation dose reduction COMPARISON: 03/13/2020 FINDINGS: The ventricles and cortical sulci are diffusely prominent, compatible with age-related volume loss. There are confluent areas of abnormal, low attenuation in the periventricular white matter. This is consistent with chronic small vessel ischemic changes. There is no midline shift or mass-effect. No acute intra-axial hemorrhage is seen. There are no abnormal areas of increased or decreased density to suggest acute hemorrhage or edema. No extra-axial masses or collections are present. The bony calvarium is intact. The visualized paranasal sinuses show mild scattered mucosal thickening of the ethmoid air cells and small partially visualized mucosal retention cyst versus polyp in the left maxillary sinus. The mastoid air cells are clear. IMPRESSION: 1. No acute intracranial abnormality. No CT evidence of mass, acute infarct or intracranial hemorrhage. 2. Chronic small vessel ischemic changes in the deep white matter. Dictated by: Dictated on workstation # [id number]
[2020-12-07 11:18] LABS: BUN/CREATININE RATIO 13
[2020-12-07 11:20] LABS: ALANINE AMINOTRANSFERASE 12 U/L (0-55)
[2020-12-07 11:27] LABS: BACTERIA,URINE NEGATIVE /HPF; SQUAMOUS EPITHELIAL CELL,UR RARE /HPF
[2020-12-07 11:40] LABS: TSH (THYROID ANALYZER) 0.77 UIU/ML (0.35-4.94)
[2020-12-07] MEDS ORDERED: amLODIPine 5 MG (NORVASC) TAB PO ONE (12:30)
--- NOTE | 2020-12-07 13:19 | ED Headache ---
General Chief Complaint: Head/Cervical Problems Stated Complaint: STANTON,BACK PAIN Nursing Triage Note: PT TO [facility] BY [facility] WITH CC OF HYPERTENSION, HEADACHE, AND LOW BACK PAIN. SYSTOLIC IN THE 170'S FOR EMS, 171/95 AT TRIAGE. Nursing Sepsis Screen: No Definite Risk Source: patient Exam Limitations: no limitations History of Present Illness Date Seen by Provider: December 07, 2020 Time Seen by Provider: 10:17 Initial Comments This 85-year-old gentleman presents to the emergency room with complaints of headache and lower back pain as well as high blood pressure. He is admittedly a poor historian as he cannot recall if he has taken his medications this morning or if his crossbar switch adjuster has been into see him. His headache and back pain are improving as of the time of initial exam. He denies any other symptoms at this time. Allergies and Home Medications Allergies Coded Allergies: cephalexin (Unverified Allergy, Mild, 09/03/09) nut - unspecified (Verified Allergy, Unknown, 01/03/20) Home Medications Aspirin 325 Mg Tablet.dr, 325 MG PO DAILY, (Reported) Carvedilol 12.5 Mg Tablet, 25 MG PO BID Prescribed by: RADHA SAWYER on 07/03/20 1456 Donepezil HCl 10 Mg Tablet, 10 MG PO HS, (Reported) Fexofenadine HCl 180 Mg Tablet, 180 MG PO DAILY PRN for ALLERGIES, (Reported) Risperidone 0.25 Mg Tablet, 0.25 MG PO BID Prescribed by: RADHA SAWYER on 07/03/20 1456 Patient Home Medication List Home Medication List Reviewed: Yes Review of Systems Review of Systems Constitutional: no symptoms reported Eyes: No Symptoms Reported Ears, Nose, Mouth, Throat: no symptoms reported Respiratory: no symptoms reported Cardiovascular: see HPI Gastrointestinal: no symptoms reported Genitourinary: no symptoms reported Musculoskeletal: no symptoms reported Skin: no symptoms reported Psychiatric/Neurological: See HPI Past [place]ltieh-Uujxul Hx Past Med/Social Hx: Reviewed Nursing Past Med/Soc Hx Patient Social History Alcohol Use: Denies Use Smoking Status: Former Smoker Former Smoker, Quit: November 30, 1973 2nd Hand Smoke Exposure: No Recent Infectious Disease Expo: No Recent Hopitalizations: No Immunizations Up To Date Tetanus Booster (TDap): Less than 5yrs Date of Pneumonia Vaccine: May 13, 2010 Seasonal Allergies Seasonal Allergies: No Past Medical History Surgeries: Yes (ANKLE SURGERY; SCAR NOTED TO LEFT BREAST AREA; LITHOTRIPSY/ESWL) Gallbladder, Orthopedic, Renal Respiratory: No Cardiac: Yes (SVT) Hypertension, Irregular Heartbeat, Palpitations 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; PARESTHESIAS ) Dementia, TIA Reproductive Disorders: No Genitourinary: Yes (ESWL/LITHOTRIPSY) Bladder Infection, Kidney Stones Gastrointestinal: Yes (PANCREATITIS WITH PARALYTIC ILEUS, DELIRIUM 04/29/18) Pancreatitis, Gall Bladder Disease Musculoskeletal: Yes (ANKLE SURGERY) Endocrine: Yes Hypothyroidsim HEENT: No Cancer: No Psychosocial: Yes Anxiety Integumentary: No Blood Disorders: No Physical Exam Vital Signs Vital Signs - First Documented 12/07/20 10:04 Temp 35.7 Pulse 58 Resp 20 B/P (MAP) 171/95 (120) Pulse Ox 97 O2 Delivery Room Air Capillary Refill : Less Than 3 Seconds Height, Weight, BMI Height: 6'2.00" Weight: 180lbs. 0oz. 81.310976jg; 22.00 BMI Method:Stated General Appearance: WD/WN, no apparent distress HEENT: normal ENT inspection Neck: normal inspection Cardiovascular: regular rate, rhythm, no edema, no murmur Respiratory: lungs clear, normal breath sounds, no respiratory distress Gastrointestinal: non tender, soft Extremities: pedal edema, swelling Psychiatric: alert, other (Somewhat confused historian but aware of his confusion) [place] Nerves: normal hearing, normal speech Motor/Sensory: no motor deficit, no sensory deficit Skin: normal color, warm/dry Progress/Results/Core Measures Results/Orders Lab Results Laboratory Tests Test 12/07/20 10:40 Range/Units White Blood Count 4.4 4.3-11.0 10^3/uL Red Blood Count 3.70 L 4.30-5.52 10^6/uL Hemoglobin 10.7 L 13.3-17.7 g/dL Hematocrit 33 L 40-54 % Mean Corpuscular Volume 90 80-99 fL Mean Corpuscular Hemoglobin 29 25-34 pg Mean Corpuscular Hemoglobin Concent 32 32-36 g/dL Red Cell Distribution Width 14.2 10.0-14.5 % Platelet Count 145 130-400 10^3/uL Mean Platelet Volume 11.0 9.0-12.2 fL Immature Granulocyte % (Auto) 0 % Neutrophils (%) (Auto) 63 42-75 % Lymphocytes (%) (Auto) 23 12-44 % Monocytes (%) (Auto) 10 0-12 % Eosinophils (%) (Auto) 3 0-10 % Basophils (%) (Auto) 1 0-10 % Neutrophils # (Auto) 2.8 1.8-7.8 10^3/uL Lymphocytes # (Auto) 1.0 1.0-4.0 10^3/uL Monocytes # (Auto) 0.4 0.0-1.0 10^3/uL Eosinophils # (Auto) 0.1 0.0-0.3 10^3/uL Basophils # (Auto) 0.0 0.0-0.1 10^3/uL Immature Granulocyte # (Auto) 0.0 0.0-0.1 10^3/uL Urine Color YELLOW Urine Clarity CLEAR Urine pH 6.0 5-9 Urine Specific [place] 1.010 L 1.016-1.022 Urine Protein NEGATIVE NEGATIVE Urine Glucose (UA) NEGATIVE NEGATIVE Urine Ketones NEGATIVE NEGATIVE Urine Nitrite NEGATIVE NEGATIVE Urine Bilirubin NEGATIVE NEGATIVE Urine Urobilinogen 0.2 < = 1.0 MG/DL Urine Leukocyte Esterase NEGATIVE NEGATIVE Urine RBC (Auto) NEGATIVE NEGATIVE Urine RBC NONE /HPF Urine WBC NONE /HPF Urine Squamous Epithelial Cells RARE /HPF Urine Crystals NONE /LPF Urine Bacteria NEGATIVE /HPF Urine Casts NONE /LPF Urine Mucus NEGATIVE /LPF Urine Culture Indicated NO Sodium Level 143 135-145 MMOL/L Potassium Level 3.8 3.6-5.0 MMOL/L Chloride Level 106 98-107 MMOL/L Carbon Dioxide Level 25 21-32 MMOL/L Anion Gap 12 5-14 MMOL/L Blood Urea Nitrogen 11 7-18 MG/DL Creatinine 0.86 0.60-1.30 MG/DL Estimat Glomerular Filtration Rate > 60 BUN/Creatinine Ratio 13 Glucose Level 107 H 70-105 MG/DL Calcium Level 9.1 8.5-10.1 MG/DL Corrected Calcium 9.3 8.5-10.1 MG/DL Magnesium Level 2.0 1.6-2.4 MG/DL Total Bilirubin 0.6 0.1-1.0 MG/DL Aspartate Amino Transf (AST/SGOT) 16 5-34 U/L Alanine Aminotransferase (ALT/SGPT) 12 0-55 U/L Alkaline Phosphatase 58 40-136 U/L Total Protein 6.2 L 6.4-8.2 GM/DL Albumin 3.8 3.2-4.5 GM/DL TSH [place] Testing 0.77 0.35-4.94 UIU/ML My Orders Orders - CLAUDIA ORTIZ MD Ct Head Wo (12/07/20 10:27) Ed Iv/Invasive Line Start (12/07/20 10:28) Ekg Tracing (12/07/20 10:28) Monitor-Rhythm Ecg Trace Only (12/07/20 10:28) Cbc With Automated Diff (12/07/20 10:28) Comprehensive Metabolic Panel (12/07/20 10:28) Magnesium (12/07/20 10:28) Thyroid Analyzer (12/07/20 10:28) Ua Culture If Indicated (12/07/20 10:28) Amlodipine Tablet (Norvasc Tablet) (12/07/20 12:30) Medications Given in ED Current Medications Medications Dose Ordered Sig/Doug Route Start Time Stop Time Status Last Admin Dose Admin Amlodipine Besylate 5 mg ONCE ONCE PO 12/07/20 12:30 12/07/20 12:31 DC 12/07/20 12:44 5 MG Vital Signs/I&O 12/07/20 12/07/20 10:04 14:47 Temp 35.7 35.7 Pulse 58 49 Resp 20 20 B/P (MAP) 171/95 (120) 185/80 (120) Pulse Ox 97 97 O2 Delivery Room Air Room Air Blood Pressure Mean: 120 Progress Progress Note #1: Time: 13:00 Progress Note Patient has been resting comfortably. His blood pressure improved significantly while asleep. When he wakes up it is higher. Amlodipine 5 mg has been administered. Progress Note #2: Progress Note I discussed the patient's situation with his care provider Rita Byrd who states she has been called off of his case and another skill provider has been assigned to him. However, she learned today that that skill provider was unaware and has not been providing the care. It appears nobody has been checking on the patient over the past couple of days and we therefore do not know if he has been taking his medications properly. Rita stated she will be happy to help facilitate his care and make sure he is receiving his medications properly. I also talked with his friend Teresa who offered to come pick him up from the hospital. She will help ensure his medications are taken properly and he gets appropriate follow-up. Although patient remained hypertensive, even after receiving amlodipine, his symptoms are resolved. I urged him to follow-up with his primary care provider after he has resumed his usual medication regimen. Initial ECG Impression Date: December 07, 2020 Initial ECG Impression Time: 10:38 Initial ECG Rate: 52 Initial ECG Rhythm: Normal Sinus Initial ECG Intervals: Normal Initial ECG Impression: Normal Comment Normal sinus rhythm with no ST elevation or depression. No abnormal intervals or axis deviation. Departure Impression Primary Impression: HTN (hypertension) Qualified Codes: I10 - Essential (primary) hypertension Additional Impressions: Acute headache Qualified Codes: R51.9 - Headache, unspecified Back pain Qualified Codes: M54.5 - Low back pain Disposition: 01 HOME, SELF-CARE Condition: Improved Departure-Patient Inst. Decision time for Depature: 12:30 Referrals: SAPNA RODRIGUEZ DO (PCP/Family) Primary Care Physician Patient Instructions: High Blood Pressure (DC) Add. Discharge Instructions: Resume your medications as previously prescribed. Follow-up with Dr. Rodriguez on Thursday morning for repeat blood pressure check. You may use Tylenol (acetaminophen) up to 1000 mg every 6 hours as needed for backache. Return to the ER if you have worsening symptoms. All discharge instructions reviewed with patient and/or family. Voiced understanding. Copy Copies To 1: SAPNA RODRIGUEZ JOSHUA T MD December 07, 2020 13:19
[2020-12-07 14:47] VITALS: BP 185/80
== END 2020-12-07 14:49 | disposition home or self-care (01) ==
LOC: EDUNIT# 09:56 → ER 09:58
DX: I10 Essential (primary) hypertension (principal); M54.5 Low back pain; F03.90 Unspecified dementia, unspecified severity, without behavioral disturbance, psychotic disturbance, mood disturbance, and anxiety; F41.9 Anxiety disorder, unspecified; Z87.442 Personal history of urinary calculi; Z87.440 Personal history of urinary (tract) infections; Z87.891 Personal history of nicotine dependence; Z79.899 Other long term (current) drug therapy
CPT/HCPCS: 36415; 70450; 80053; 81000; 83735; 84443; 85025; 93005; 93041

== ENCOUNTER 2021-03-01 12:12 | Emergency (ER) | payer MEDICARE, MEDICAID ==
[~2021-03-01] VITALS: Ht 187.9 cm; Wt 79.3 kg
--- NOTE | 2021-03-01 12:34 | ED Abdominal Pain ---
General Chief Complaint: Abdominal/GI Problems Stated Complaint: N/V Source of Information: Patient Exam Limitations: No Limitations (CHECO PAINTING APRN) History of Present Illness Date Seen by Provider: Mar 01, 2021 Time Seen by Provider: 12:32 Initial Comments To ER with reports of nausea vomiting sudden onset about 30 minutes prior to EMS arrival. This was associated with a headache. No fevers or chills. States he felt fine this morning. No diarrhea no abdominal pain. EMS gave 4 mg of Zofran in route to the hospital. He denies any residual nausea or headache at this time. Alert and oriented. Timing/Duration: 1-2 Days Severity/Quality: Moderate Radiation: No Radiation Activities at Onset: None Associated Symptoms: Nausea/Vomiting (CHECO PAINTING APRN) Allergies and Home Medications Allergies Coded Allergies: cephalexin (Unverified Allergy, Mild, 09/03/09) nut - unspecified (Verified Allergy, Unknown, 01/03/20) Home Medications Aspirin 325 Mg Tablet.dr, 325 MG PO DAILY, (Reported) Carvedilol 12.5 Mg Tablet, 25 MG PO BID Prescribed by: RADHA SAWYER on 07/03/20 1456 Donepezil HCl 10 Mg Tablet, 10 MG PO HS, (Reported) Fexofenadine HCl 180 Mg Tablet, 180 MG PO DAILY PRN for ALLERGIES, (Reported) Risperidone 0.25 Mg Tablet, 0.25 MG PO BID Prescribed by: RADHA SAWYER on 07/03/20 1456 Patient Home Medication List Home Medication List Reviewed: Yes (CHECO PAINTING APRN) Review of Systems Review of Systems Constitutional: see HPI EENTM: No Symptoms Reported Respiratory: No Symptoms Reported Cardiovascular: No Symptoms Reported Gastrointestinal: See HPI, Nausea, Vomiting Genitourinary: No Symptoms Reported Musculoskeletal: no symptoms reported Skin: no symptoms reported Psychiatric/Neurological: No Symptoms Reported Endocrine: No Symptoms Reported Hematologic/Lymphatic: No Symptoms Reported (CHECO PAINTING APRN) Past Tnngvuv-Qqdvkw-Nwbvpu Hx Immunizations Up To Date Tetanus Booster (TDap): Less than 5yrs (CHECO PAINTING APRN) Seasonal Allergies Seasonal Allergies: No (CHECO PAINTING APRN) Past Medical History Surgeries: Yes (ANKLE SURGERY; SCAR NOTED TO LEFT BREAST AREA; LITHOTRIPSY/ESWL) Gallbladder, Orthopedic, Renal Respiratory: No Cardiac: Yes (SVT) Hypertension, Irregular Heartbeat, Palpitations 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; PARESTHESIAS ) Dementia, TIA Reproductive Disorders: No Genitourinary: Yes (ESWL/LITHOTRIPSY) Bladder Infection, Kidney Stones Gastrointestinal: Yes (PANCREATITIS WITH PARALYTIC ILEUS, DELIRIUM 04/29/18) Pancreatitis, Gall Bladder Disease Musculoskeletal: Yes (ANKLE SURGERY) Endocrine: Yes Hypothyroidsim HEENT: No Cancer: No Psychosocial: Yes Anxiety Integumentary: No Blood Disorders: No (CHECO PAINTING APRN) Physical Exam Vital Signs Vital Signs - First Documented 03/01/21 12:15 Temp 36.7 Pulse 49 Resp 15 B/P (MAP) 206/86 (126) Pulse Ox 94 O2 Delivery Room Air (CLAUDIA ORTIZ MD) Vital Signs Capillary Refill : (CHECO PAINTING APRN) Height/Weight/BMI Height: 6'2.00" Weight: 180lbs. 0oz. 81.877579fq; 22.00 BMI Method:Stated General Appearance: WD/WN, no apparent distress HEENT: PERRL/EOMI, normal ENT inspection Respiratory: normal breath sounds, no respiratory distress, no accessory muscle use Cardiovascular: regular rate, rhythm, no murmur Gastrointestinal: normal bowel sounds, non tender, soft Extremities: normal range of motion, non-tender Neurologic/Psychiatric: alert, normal mood/affect, oriented x 3 Skin: normal color, warm/dry (CHE[employer] PAINTING APRN) Progress/Results/Core Measures Results/Orders Lab Results Laboratory Tests Test 03/01/21 12:20 03/01/21 12:21 Range/Units White Blood Count 4.6 4.3-11.0 10^3/uL Red Blood Count 4.06 L 4.30-5.52 10^6/uL Hemoglobin 11.8 L 13.3-17.7 g/dL Hematocrit 37 L 40-54 % Mean Corpuscular Volume 91 80-99 fL Mean Corpuscular Hemoglobin 29 25-34 pg Mean Corpuscular Hemoglobin Concent 32 32-36 g/dL Red Cell Distribution Width 13.4 10.0-14.5 % Platelet Count 152 130-400 10^3/uL Mean Platelet Volume 10.9 9.0-12.2 fL Immature Granulocyte % (Auto) 0 % Neutrophils (%) (Auto) 62 42-75 % Lymphocytes (%) (Auto) 26 12-44 % Monocytes (%) (Auto) 9 0-12 % Eosinophils (%) (Auto) 2 0-10 % Basophils (%) (Auto) 1 0-10 % Neutrophils # (Auto) 2.8 1.8-7.8 10^3/uL Lymphocytes # (Auto) 1.2 1.0-4.0 10^3/uL Monocytes # (Auto) 0.4 0.0-1.0 10^3/uL Eosinophils # (Auto) 0.1 0.0-0.3 10^3/uL Basophils # (Auto) 0.0 0.0-0.1 10^3/uL Immature Granulocyte # (Auto) 0.0 0.0-0.1 10^3/uL Sodium Level 139 135-145 MMOL/L Potassium Level 3.9 3.6-5.0 MMOL/L Chloride Level 108 H 98-107 MMOL/L Carbon Dioxide Level 20 L 21-32 MMOL/L Anion Gap 11 5-14 MMOL/L Blood Urea Nitrogen 11 7-18 MG/DL Creatinine 0.85 0.60-1.30 MG/DL Estimat Glomerular Filtration Rate 86 BUN/Creatinine Ratio 13 Glucose Level 138 H 70-105 MG/DL Calcium Level 9.1 8.5-10.1 MG/DL Corrected Calcium 9.2 8.5-10.1 MG/DL Total Bilirubin 0.4 0.1-1.0 MG/DL Aspartate Amino Transf (AST/SGOT) 15 5-34 U/L Alanine Aminotransferase (ALT/SGPT) 11 0-55 U/L Alkaline Phosphatase 60 40-136 U/L Total Protein 6.7 6.4-8.2 GM/DL Albumin 3.9 3.2-4.5 GM/DL Lipase 51 8-78 U/L Urine Color YELLOW Urine Clarity CLEAR Urine pH 7.0 5-9 Urine Specific [place] 1.020 1.016-1.022 Urine Protein NEGATIVE NEGATIVE Urine Glucose (UA) NEGATIVE NEGATIVE Urine Ketones NEGATIVE NEGATIVE Urine Nitrite NEGATIVE NEGATIVE Urine Bilirubin NEGATIVE NEGATIVE Urine Urobilinogen 0.2 < = 1.0 MG/DL Urine Leukocyte Esterase NEGATIVE NEGATIVE Urine RBC (Auto) NEGATIVE NEGATIVE Urine RBC NONE /HPF Urine WBC NONE /HPF Urine Squamous Epithelial Cells RARE /HPF Urine Crystals NONE /LPF Urine Bacteria NEGATIVE /HPF Urine Casts NONE /LPF Urine Mucus NEGATIVE /LPF Urine Culture Indicated NO (CLAUDIA ORTIZ MD) Vital Signs/I&O 03/01/21 03/01/21 12:15 15:45 Temp 36.7 36.7 Pulse 49 49 Resp 15 15 B/P (MAP) 206/86 (126) 186/82 (126) Pulse Ox 94 94 O2 Delivery Room Air Room Air (CLAUDIA ORTIZ MD) Diagnostic Imaging Diagonstic Imaging: Xray Comments NAME: ALMA POWELL [facility] REC#: [id number] PT STATUS: REG ER : 1935 PHYSICIAN: CHECO PAINTING APRN ADMIT DATE: 03/01/21/ER Draft Date of Exam:03/01/21 CT HEAD WO PROCEDURE: CT head without contrast. TECHNIQUE: Multiple contiguous axial images were obtained through the brain without the use of intravenous contrast. Auto Exposure Controls were utilized during the CT exam to meet ALARA standards for radiation dose reduction. INDICATION: Onset of headache with nausea and vomiting. FINDINGS: There is no mass, shift of the midline, or hemorrhage to suggest an acute intracranial abnormality. The ventricles are not abnormally dilated and stable in size when compared to the prior exam of 12/07/2020. The senescent changes seen previously are again visualized and no different. The orbits are symmetrical and within normal limits. The sinuses where visualized are generally clear. The bone windows show no sign of a fracture or of a destructive lesion. IMPRESSION: 1. There is no evidence for an acute intracranial abnormality. When compared to the prior study, there has been no significant change. 2. If clinical concern regarding an underlying abnormality persists, then MRI would be recommended for further study. Dictated on workstation # [id number] Dict: 03/01/21 1250 Trans: 03/01/21 1300 [id number] [id number] Interpreted by: АННА BRAVO MD Electronically signed by: Reviewed: Reviewed by Me (CHECO PAINTING APRN) Departure Impression Primary Impression: Acute headache Additional Impressions: Uncontrolled hypertension Nausea and vomiting Disposition: 01 HOME, SELF-CARE Condition: Stable Departure-Patient Inst. Decision time for Depature: 14:55 (CHECO PAINTING APRN) Referrals: SAPNA PATEL DO (PCP/Family) Primary Care Physician Patient Instructions: Headache, Adult ED ATTENDING PHYSICIAN NOTE: I was physically present as attending physician in the emergency department during the care of this patient, but I was not directly involved in the decision making or delivery of care for this patient. (CLAUDIA ORTIZ MD) CHECO PAINTING APRN Mar 01, 2021 12:34 CLAUDIA ORTIZ MD Mar 03, 2021 20:38
[2021-03-01 12:36] LABS: BASOPHILS % (AUTO) 1 % (0-10); EOSINOPHILS # (AUTO) 0.1 10^3/uL (0.0-0.3); EOSINOPHILS % (AUTO) 2 % (0-10); HEMATOCRIT 37 % (40-54); HEMOGLOBIN 11.8 g/dL (13.3-17.7); LYMPHOCYTES # (AUTO) 1.2 10^3/uL (1.0-4.0); LYMPHOCYTES % (AUTO) 26 % (12-44); MEAN CORPUSCULAR HEMOGLOBIN 29 pg (25-34); MEAN CORPUSCULAR HGB CONC 32 g/dL (32-36); MEAN CORPUSCULAR VOLUME 91 fL (80-99); MEAN PLATELET VOLUME 10.9 fL (9.0-12.2); MONOCYTES # (AUTO) 0.4 10^3/uL (0.0-1.0); MONOCYTES % (AUTO) 9 % (0-12); NEUTROPHILS # (AUTO) 2.8 10^3/uL (1.8-7.8); NEUTROPHILS % (AUTO) 62 % (42-75); PLATELET COUNT 152 10^3/uL (130-400); WHITE BLOOD COUNT 4.6 10^3/uL (4.3-11.0)
[2021-03-01 12:38] LABS: BILIRUBIN,URINE NEGATIVE (NEGATIVE); CLARITY,URINE CLEAR; COLOR,URINE YELLOW; GLUCOSE, URINE (UA) NEGATIVE (NEGATIVE); KETONES,URINE NEGATIVE (NEGATIVE); LEUKOCYTE ESTERASE ,URINE NEGATIVE (NEGATIVE); NITRITE,URINE NEGATIVE (NEGATIVE); PROTEIN,URINE NEGATIVE (NEGATIVE)
[2021-03-01 12:46] LABS: ALBUMIN 3.9 GM/DL (3.2-4.5); POTASSIUM 3.9 MMOL/L (3.6-5.0)
[2021-03-01 12:48] LABS: CALCIUM 9.1 MG/DL (8.5-10.1)
[2021-03-01 12:49] LABS: TOTAL PROTEIN 6.7 GM/DL (6.4-8.2)
[2021-03-01 12:49] LABS: BACTERIA,URINE NEGATIVE /HPF
[2021-03-01 12:50] LABS: SQUAMOUS EPITHELIAL CELL,UR RARE /HPF
[2021-03-01 12:51] LABS: BILIRUBIN,TOTAL 0.4 MG/DL (0.1-1.0)
[2021-03-01 12:52] LABS: CREATININE SERUM 0.85 MG/DL (0.60-1.30)
--- NOTE | 2021-03-01 13:00 | Diagnostic Imaging Report ---
PROCEDURE: CT head without contrast. TECHNIQUE: Multiple contiguous axial images were obtained through the brain without the use of intravenous contrast. Auto Exposure Controls were utilized during the CT exam to meet ALARA standards for radiation dose reduction. INDICATION: Onset of headache with nausea and vomiting. FINDINGS: There is no mass, shift of the midline, or hemorrhage to suggest an acute intracranial abnormality. The ventricles are not abnormally dilated and stable in size when compared to the prior exam of 12/07/2020. The senescent changes seen previously are again visualized and no different. The orbits are symmetrical and within normal limits. The sinuses where visualized are generally clear. The bone windows show no sign of a fracture or of a destructive lesion. IMPRESSION: 1. There is no evidence for an acute intracranial abnormality. When compared to the prior study, there has been no significant change. 2. If clinical concern regarding an underlying abnormality persists, then MRI would be recommended for further study. Dictated by: Dictated on workstation # [id number]
[2021-03-01] MEDS ORDERED: cloNIDine 0.1 MG (CATAPRES) TAB PO ONE (15:00)
[2021-03-01 15:45] VITALS: BP 186/82
== END 2021-03-01 15:45 | disposition home or self-care (01) ==
LOC: EDUNIT# 12:12 → ER 12:15
DX: R51.9 Headache, unspecified (principal); I10 Essential (primary) hypertension; R11.2 Nausea with vomiting, unspecified; F03.90 Unspecified dementia, unspecified severity, without behavioral disturbance, psychotic disturbance, mood disturbance, and anxiety; Z87.820 Personal history of traumatic brain injury; Z79.82 Long term (current) use of aspirin; Z79.899 Other long term (current) drug therapy
CPT/HCPCS: 36415; 70450; 80053; 81000; 83690; 85025

== ENCOUNTER 2021-05-21 22:33 | Inpatient (IN) | payer MEDICARE, MEDICAID ==
[~2021-05-21] VITALS: Ht 185 cm; Wt 84.7 kg
[2021-05-21 22:57] LABS: BASOPHILS % (AUTO) 1 % (0-10); EOSINOPHILS # (AUTO) 0.1 10^3/uL (0.0-0.3); EOSINOPHILS % (AUTO) 3 % (0-10); HEMATOCRIT 35 % (40-54); HEMOGLOBIN 11.5 g/dL (13.3-17.7); LYMPHOCYTES # (AUTO) 1.6 10^3/uL (1.0-4.0); LYMPHOCYTES % (AUTO) 33 % (12-44); MEAN CORPUSCULAR HEMOGLOBIN 29 pg (25-34); MEAN CORPUSCULAR HGB CONC 33 g/dL (32-36); MEAN CORPUSCULAR VOLUME 89 fL (80-99); MEAN PLATELET VOLUME 10.7 fL (9.0-12.2); MONOCYTES # (AUTO) 0.5 10^3/uL (0.0-1.0); MONOCYTES % (AUTO) 11 % (0-12); NEUTROPHILS # (AUTO) 2.6 10^3/uL (1.8-7.8); NEUTROPHILS % (AUTO) 52 % (42-75); PLATELET COUNT 161 10^3/uL (130-400); WHITE BLOOD COUNT 4.9 10^3/uL (4.3-11.0)
[2021-05-21] MEDS ORDERED: ACETAMINOPHEN 500 MG TAB (TYLENOL) PO ONE (23:00)
--- NOTE | 2021-05-21 23:00 | ED Cardiac General ---
History of Present Illness General Chief Complaint: Cardiac/General Problems Stated Complaint: DIZZINESS, HIGH BLOOD PRESSURE Nursing Triage Note: PT TO ED BY EMS WITH C/O HTN AND HEAD PRESSURE. PT REPORTS HE BEGAN HAVING HEAD PRESSURE AFTER EATING DINNER FOLLOWED BY HIGH BP. HX OF HTN, UNSURE IF HE HAS BEEN TAKING HIS BP MEDICATION. PT POOR HISTORIAN. PT LIVES ALONE AT HOME. Source: patient Exam Limitations: no limitations History of Present Illness Date Seen by Provider: May 21, 2021 Time Seen by Provider: 22:37 Initial Comments Patient to the ER by EMS from home with chief complaint that he had a headache tonight after eating dinner. He does not check his blood pressure routinely but EMS noted to be high 200/100. He says he takes blood pressure medicines but he does not know what they are. He says he sets them up himself. Rarely somebody will come in and check on him and bring him food. He follows with Dr. Rodriguez. He does not know any of his medications. Review of his pharmacy medication filling records demonstrate he has Coreg 25 mg twice daily but has not filled it since August 2020. Patient is not sure if he is taking his medications tonight. He is not having any chest pain shortness of air. He says he feels kind of weak all over but no lateralizing symptoms. No slurred speech or facial droop. No history of stroke atrial fibrillation or coronary disease. He denies hyperlipidemia or diabetes. He does not follow with a trust clerk. Allergies and Home Medications Allergies Coded Allergies: cephalexin (Unverified Allergy, Mild, 09/03/09) nut - unspecified (Verified Allergy, Unknown, 01/03/20) Patient Home Medication List Home Medication List Reviewed: Yes Aspirin (Aspirin EC) 325 Mg Tablet., 325 MG PO DAILY, (Reported) Entered as Reported by: MEGAN IQBAL on 06/21/20 0946 Carvedilol (Carvedilol) 12.5 Mg Tablet, 25 MG PO BID Prescribed by: RADHA SAWYER on 07/03/20 1456 Donepezil HCl (Donepezil HCl) 10 Mg Tablet, 10 MG PO HS, (Reported) Entered as Reported by: JAKE SHAW on 01/03/20 1113 Fexofenadine HCl (Fexofenadine HCl) 180 Mg Tablet, 180 MG PO DAILY PRN for ALLER GIES, (Reported) Entered as Reported by: YELENA SCHAEFER on 05/24/18 0911 Risperidone (Risperidone) 0.25 Mg Tablet, 0.25 MG PO BID Prescribed by: RADHA SAWYER on 07/03/20 1456 Review of Systems Review of Systems Constitutional: No chills, No diaphoresis EENTM: No Blurred Vision, No Double Vision Respiratory: Denies Cough, Denies Shortness of Air Cardiovascular: Denies Chest Pain, Denies Edema, Denies Irregular Heart Rate, Denies Lightheadedness Gastrointestinal: Denies Constipated, Denies Diarrhea, Denies Nausea Genitourinary: Denies Burning, Denies Drainage Musculoskeletal: No back pain, No gout Skin: No change in color, No lumps Psychiatric/Neurological: Headache; Denies Numbness, Denies Paresthesia, Denies Seizure All Other Systems Reviewed Negative Unless Noted: Yes Past Nvndmtw-Bbbjks-Tcitbh Hx Patient Social History Tobacco Use?: No Use of E-Cig and/or Vaping dev: No Immunizations Up To Date Tetanus Booster (TDap): Less than 5yrs Seasonal Allergies Seasonal Allergies: No Past Medical History Surgeries: Yes (ANKLE SURGERY; SCAR NOTED TO LEFT BREAST AREA; LITHOTRIPSY/ESWL) Gallbladder, Orthopedic, Renal Respiratory: No Cardiac: Yes (SVT) Hypertension, Irregular Heartbeat, Palpitations 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; PARESTHESIAS ) Dementia, TIA Reproductive Disorders: No Genitourinary: Yes (ESWL/LITHOTRIPSY) Bladder Infection, Kidney Stones Gastrointestinal: Yes (PANCREATITIS WITH PARALYTIC ILEUS, DELIRIUM 04/29/18) Pancreatitis, Gall Bladder Disease Musculoskeletal: Yes (ANKLE SURGERY) Endocrine: Yes Hypothyroidsim HEENT: No Cancer: No Psychosocial: Yes Anxiety Integumentary: No Blood Disorders: No Physical Exam Vital Signs Vital Signs - First Documented 05/21/21 22:33 Temp 36.3 Pulse 64 Resp 16 B/P (MAP) 220/108 (145) Pulse Ox 97 O2 Delivery Room Air Capillary Refill : Less Than 3 Seconds Height, Weight, BMI Height: 6'2.00" Weight: 180lbs. 0oz. 81.169728or; 22.00 BMI Method:Stated General Appearance: No Apparent Distress, WD/WN HEENT: PERRL/EOMI, TMs Normal (Negative for hemotympanum or crespo sign), Normal ENT Inspection, Pharynx Normal, Moist Mucous Membranes Neck: Full Range of Motion, Normal Inspection, Non Tender Respiratory: Lungs Clear, Normal Breath Sounds, No Accessory Muscle Use, No Respiratory Distress Cardiovascular: Regular Rate, Rhythm, No Edema, Normal Peripheral Pulses Extremity: Normal Capillary Refill, Normal Inspection, No Pedal Edema Neurologic/Psychiatric: Alert, Other (Oriented to person and place as well as situation but not time) Skin: Normal Color, Warm/Dry Progress/Results/Core Measures Results/Orders Lab Results Laboratory Tests Test 05/21/21 22:02 05/21/21 22:40 Range/Units Urine Color YELLOW Urine Clarity CLEAR Urine pH 6.5 5-9 Urine Specific [place] 1.025 H 1.016-1.022 Urine Protein NEGATIVE NEGATIVE Urine Glucose (UA) NEGATIVE NEGATIVE Urine Ketones NEGATIVE NEGATIVE Urine Nitrite NEGATIVE NEGATIVE Urine Bilirubin NEGATIVE NEGATIVE Urine Urobilinogen 1.0 < = 1.0 MG/DL Urine Leukocyte Esterase NEGATIVE NEGATIVE Urine RBC (Auto) NEGATIVE NEGATIVE Urine RBC NONE /HPF Urine WBC NONE /HPF Urine Crystals NONE /LPF Urine Bacteria NEGATIVE /HPF Urine Casts NONE /LPF Urine Mucus NEGATIVE /LPF Urine Culture Indicated NO Urine Opiates Screen NEGATIVE NEGATIVE Urine Oxycodone Screen NEGATIVE NEGATIVE Urine Methadone Screen NEGATIVE NEGATIVE Urine Propoxyphene Screen NEGATIVE NEGATIVE Urine Barbiturates Screen NEGATIVE NEGATIVE Ur Tricyclic Antidepressants Screen NEGATIVE NEGATIVE Urine Phencyclidine Screen NEGATIVE NEGATIVE Urine Amphetamines Screen NEGATIVE NEGATIVE Urine Methamphetamines Screen NEGATIVE NEGATIVE Urine Benzodiazepines Screen NEGATIVE NEGATIVE Urine Cocaine Screen NEGATIVE NEGATIVE Urine Cannabinoids Screen NEGATIVE NEGATIVE White Blood Count 4.9 4.3-11.0 10^3/uL Red Blood Count 3.97 L 4.30-5.52 10^6/uL Hemoglobin 11.5 L 13.3-17.7 g/dL Hematocrit 35 L 40-54 % Mean Corpuscular Volume 89 80-99 fL Mean Corpuscular Hemoglobin 29 25-34 pg Mean Corpuscular Hemoglobin Concent 33 32-36 g/dL Red Cell Distribution Width 13.7 10.0-14.5 % Platelet Count 161 130-400 10^3/uL Mean Platelet Volume 10.7 9.0-12.2 fL Immature Granulocyte % (Auto) 0 % Neutrophils (%) (Auto) 52 42-75 % Lymphocytes (%) (Auto) 33 12-44 % Monocytes (%) (Auto) 11 0-12 % Eosinophils (%) (Auto) 3 0-10 % Basophils (%) (Auto) 1 0-10 % Neutrophils # (Auto) 2.6 1.8-7.8 10^3/uL Lymphocytes # (Auto) 1.6 1.0-4.0 10^3/uL Monocytes # (Auto) 0.5 0.0-1.0 10^3/uL Eosinophils # (Auto) 0.1 0.0-0.3 10^3/uL Basophils # (Auto) 0.0 0.0-0.1 10^3/uL Immature Granulocyte # (Auto) 0.0 0.0-0.1 10^3/uL Sodium Level 141 135-145 MMOL/L Potassium Level 4.0 3.6-5.0 MMOL/L Chloride Level 106 98-107 MMOL/L Carbon Dioxide Level 21 21-32 MMOL/L Anion Gap 14 5-14 MMOL/L Blood Urea Nitrogen 15 7-18 MG/DL Creatinine 0.93 0.60-1.30 MG/DL Estimat Glomerular Filtration Rate 78 BUN/Creatinine Ratio 16 Glucose Level 114 H 70-105 MG/DL Calcium Level 9.2 8.5-10.1 MG/DL Corrected Calcium 9.2 8.5-10.1 MG/DL Magnesium Level 2.1 1.6-2.4 MG/DL Total Bilirubin 0.5 0.1-1.0 MG/DL Aspartate Amino Transf (AST/SGOT) 19 5-34 U/L Alanine Aminotransferase (ALT/SGPT) 11 0-55 U/L Alkaline Phosphatase 71 40-136 U/L Troponin I < 0.028 <0.028 NG/ML C-Reactive Protein High Sensitivity 0.37 0.00-0.50 MG/DL Total Protein 6.7 6.4-8.2 GM/DL Albumin 4.0 3.2-4.5 GM/DL Serum Alcohol < 10 <10 MG/DL My Orders Orders - LUCI DOBBS Ct Head Wo (05/21/21 22:50) Acetaminophen Tablet (Tylenol Tablet) (05/21/21 23:00) Ed Iv/Invasive Line Start (05/21/21 22:50) Cbc With Automated Diff (05/21/21 22:50) Comprehensive Metabolic Panel (05/21/21 22:50) Hs C Reactive Protein (05/21/21 22:50) Troponin I (05/21/21 22:50) Ekg Tracing (05/21/21 22:50) Continuous Ekg Monitoring (05/21/21 22:50) Ua Culture If Indicated (05/21/21 22:50) Alcohol (05/21/21 22:50) Drug Screen Stat (Urine) (05/21/21 22:50) Magnesium (05/21/21 22:50) Chest 1 View, Ap/Pa Only (05/21/21 23:00) Labetalol Injection (Normodyne Injection (05/21/21 23:45) Medications Given in ED Current Medications Medications Dose Ordered Sig/Doug Route Start Time Stop Time Status Last Admin Dose Admin Acetaminophen 1,000 mg ONCE ONCE PO 05/21/21 23:00 05/21/21 23:01 DC 05/21/21 23:29 1,000 MG Labetalol HCl 20 mg ONCE ONCE IV 05/21/21 23:45 05/21/21 23:46 DC 05/21/21 23:54 20 MG Vital Signs/I&O 05/21/21 22:33 Temp 36.3 Pulse 64 Resp 16 B/P (MAP) 220/108 (145) Pulse Ox 97 O2 Delivery Room Air Blood Pressure Mean: 145 Progress Progress Note #1: Time: 22:59 Progress Note Concern that there may be some dementia. He is on Aricept and Risperdal. He does not appear to be filling in taking his Coreg. He is not on other blood pressure medicines that I can see. His blood pressure does not significantly drop in 10 min then we will give him some labetalol. Tylenol for his headache. CT of his head and labs including a urinalysis EKG troponin. Progress Note #2: Time: 23:47 Progress Note Blood pressure went down modestly from 220 systolic to about 200. Gave a dose of labetalol and will see if this helps. Will recommend an observation stay for accelerated hypertension and he will need family welfare social work professor help with his apparent progressive dementia. Initial ECG Impression Date: May 21, 2021 Initial ECG Impression Time: 23:01 Initial ECG Rate: 60 Initial ECG Rhythm: Normal Sinus Initial ECG Intervals: QT (485) Initial ECG Impression: Normal, Nonspecific Changes Comment Normal sinus rhythm with borderline prolonged QT interval. No clinically relevant ST elevation or depression. Diagnostic Imaging Diagonstic Imaging: Xray Plain Films/CT/US/NM/MRI: chest [facility] [place] [place] NAME: ALMA POWELL [facility] REC#: [id number] PT STATUS: REG ER : 1935 PHYSICIAN: LUCI DOBBS MD ADMIT DATE: 05/21/21/ER Draft Date of Exam:05/21/21 CHEST 1 VIEW, AP/PA ONLY EXAMINATION: Chest 1 view HISTORY: Headache, hypertension COMPARISON: 07/12/2020 FINDINGS: The lungs are clear without edema or pneumonia. No pleural effusion or pneumothorax. Heart size is normal. IMPRESSION: 1. Clear lungs. Dictated on workstation # [id number] Dict: [id number]/[id number] Trans: 05/21/21 232 CATHERINE [id number] Interpreted by: DEBBIE PETERSON MD Electronically signed by: Reviewed: Reviewed by Me Diagonstic Imaging: CT Plain Films/CT/US/NM/MRI: head Comments [facility] [place] [place] NAME: ALMA POWELL [facility] REC#: [id number] PT STATUS: REG ER : 1935 PHYSICIAN: LUCI DOBBS MD ADMIT DATE: 05/21/21/ER Draft Date of Exam:05/21/21 CT HEAD WO EXAMINATION: CT head without contrast. TECHNIQUE: Multiple contiguous axial images were obtained through the brain without the use of intravenous contrast. All CT scans use one or more of the following dose optimizing techniques: automated exposure control, MA and/or KvP adjustment based on patient size and exam type or iterative reconstruction. HISTORY: Headache, hypertension COMPARISON: 03/01/2021 FINDINGS: The hernandez-white matter differentiation is normal. No mass effect or midline shift. There is age related cerebral atrophy with ex vacuo dilation of the ventricles. Basilar cisterns are patent. There are no intra- or extra-axial fluid collections. There is no intracranial hemorrhage. The orbits are normal. There is left maxillary sinus mucous retention cyst. Mastoid air cells are clear. No soft tissue abnormality is seen. No osseus lesions or fractures are seen. IMPRESSION: 1. No acute intracranial abnormality. Dictated on workstation # [id number] Dict: 05/21/219 Trans: 05/21/21 2323 [facility] [id number] Interpreted by: DEBBIE PETERSON MD Electronically signed by: Reviewed: Reviewed by Me Departure Communication (Admissions) Time/Spoke to Admitting Phy: 23:[address] Hough she like the patient the ICU on a drip. Impression Primary Impression: Hypertensive urgency Additional Impression: Need for family welfare social work professor intervention Disposition: ADMITTED INPATIENT Condition: Stable Admissions Decision to Admit Reason: Admit from ER (General) Decision to Admit/Date: May 21, 2021 Time/Decision to Admit Time: 23:40 Departure-Patient Inst. Referrals: SAPNA RODRIGUEZ DO (PCP/Family) Primary Care Physician LUCI DOBBS May 21, 2021 23:00
[2021-05-21 23:07] LABS: CHLORIDE 106 MMOL/L (98-107)
[2021-05-21 23:08] LABS: SODIUM 141 MMOL/L (135-145)
[2021-05-21 23:09] LABS: CALCIUM 9.2 MG/DL (8.5-10.1)
[2021-05-21 23:10] LABS: GLUCOSE 114 MG/DL (70-105); TOTAL PROTEIN 6.7 GM/DL (6.4-8.2)
[2021-05-21 23:11] LABS: CARBON DIOXIDE 21 MMOL/L (21-32)
[2021-05-21 23:12] LABS: BILIRUBIN,TOTAL 0.5 MG/DL (0.1-1.0)
[2021-05-21 23:14] LABS: ALKALINE PHOSPHATASE 71 U/L (40-136); CREATININE SERUM 0.93 MG/DL (0.60-1.30); GFR ESTIMATED 78
[2021-05-21 23:14] LABS: BACTERIA,URINE NEGATIVE /HPF; BILIRUBIN,URINE NEGATIVE (NEGATIVE); CLARITY,URINE CLEAR; COLOR,URINE YELLOW; GLUCOSE, URINE (UA) NEGATIVE (NEGATIVE); KETONES,URINE NEGATIVE (NEGATIVE); LEUKOCYTE ESTERASE ,URINE NEGATIVE (NEGATIVE); NITRITE,URINE NEGATIVE (NEGATIVE); PH,URINE 6.5 (5-9); PROTEIN,URINE NEGATIVE (NEGATIVE)
[2021-05-21 23:15] LABS: BUN/CREATININE RATIO 16
[2021-05-21 23:15] LABS: AMPHETAMINE SCREEN, URINE NEGATIVE (NEGATIVE); BARBITURATE SCREEN URINE NEGATIVE (NEGATIVE); BENZODIAZEPINES SCREEN URINE NEGATIVE (NEGATIVE); CANNABINOID SCREEN, URINE NEGATIVE (NEGATIVE); COCAINE SCREEN URINE NEGATIVE (NEGATIVE); METHADONE STAT NEGATIVE (NEGATIVE); METHAMPHETAMINE SCREEN URINE S NEGATIVE (NEGATIVE); OPIATE SCREEN URINE NEGATIVE (NEGATIVE); OXYCODONE STAT NEGATIVE (NEGATIVE); PROPOXYPHENE STAT NEGATIVE (NEGATIVE); TRICYCLIC ANTIDEPRESSANTS SCRE NEGATIVE (NEGATIVE)
[2021-05-21 23:17] LABS: ALANINE AMINOTRANSFERASE 11 U/L (0-55); MAGNESIUM 2.1 MG/DL (1.6-2.4)
--- NOTE | 2021-05-21 23:24 | Diagnostic Imaging Report ---
EXAMINATION: Chest 1 view HISTORY: Headache, hypertension COMPARISON: 07/12/2020 FINDINGS: The lungs are clear without edema or pneumonia. No pleural effusion or pneumothorax. Heart size is normal. IMPRESSION: 1. Clear lungs. Dictated by: Dictated on workstation # [email or web address]
--- NOTE | 2021-05-21 23:24 | Diagnostic Imaging Report ---
EXAMINATION: CT head without contrast. TECHNIQUE: Multiple contiguous axial images were obtained through the brain without the use of intravenous contrast. All CT scans use one or more of the following dose optimizing techniques: automated exposure control, MA and/or KvP adjustment based on patient size and exam type or iterative reconstruction. HISTORY: Headache, hypertension COMPARISON: 03/01/2021 FINDINGS: The hernandez-white matter differentiation is normal. No mass effect or midline shift. There is age related cerebral atrophy with ex vacuo dilation of the ventricles. Basilar cisterns are patent. There are no intra- or extra-axial fluid collections. There is no intracranial hemorrhage. The orbits are normal. There is left maxillary sinus mucous retention cyst. Mastoid air cells are clear. No soft tissue abnormality is seen. No osseus lesions or fractures are seen. IMPRESSION: 1. No acute intracranial abnormality. Dictated by: Dictated on workstation # [email or web address]
[2021-05-21] MEDS ORDERED: LABETALOL HCL 20 MG/4 ML VIAL IV ONE (23:45)
[2021-05-22] MEDS ORDERED: niCARdipine IV FOR DRIP 50 MG KIT ONE (01:15)
[2021-05-22] MEDS ORDERED: NS (IVPB) 250 ML ONE (01:17)
[2021-05-22] MEDS ORDERED: ACETAMINOPHEN 500 MG TAB (TYLENOL) PO PRN (01:30)
[2021-05-22] MEDS ORDERED: ONDANSETRON 4 MG/2 ML (SDV) Z0FRAN IVP PRN (01:30)
[2021-05-22] MEDS: niCARdipine 50 MG/NS 250 ML IV DRIP IV SCH ×4 (01:31→08:29)
[2021-05-22 02:13] VITALS: BP 220/108
[2021-05-22 05:30] LABS: BASOPHILS % (AUTO) 1 % (0-10); EOSINOPHILS # (AUTO) 0.1 10^3/uL (0.0-0.3); EOSINOPHILS % (AUTO) 2 % (0-10); HEMATOCRIT 34 % (40-54); HEMOGLOBIN 10.8 g/dL (13.3-17.7); LYMPHOCYTES # (AUTO) 1.5 10^3/uL (1.0-4.0); LYMPHOCYTES % (AUTO) 32 % (12-44); MEAN CORPUSCULAR HEMOGLOBIN 29 pg (25-34); MEAN CORPUSCULAR HGB CONC 32 g/dL (32-36); MEAN CORPUSCULAR VOLUME 89 fL (80-99); MEAN PLATELET VOLUME 10.4 fL (9.0-12.2); MONOCYTES # (AUTO) 0.5 10^3/uL (0.0-1.0); MONOCYTES % (AUTO) 10 % (0-12); NEUTROPHILS # (AUTO) 2.5 10^3/uL (1.8-7.8); NEUTROPHILS % (AUTO) 54 % (42-75); PLATELET COUNT 159 10^3/uL (130-400); WHITE BLOOD COUNT 4.7 10^3/uL (4.3-11.0)
[2021-05-22] MEDS ORDERED: POTASSIUM CL 10MEQ/50ML IVPB 50 ML IV SCH (06:00)
[2021-05-22] MEDS ORDERED: MAGNESIUM 1 GM/100 ML IVPB 100 ML IV SCH (06:00)
[2021-05-22] MEDS ORDERED: KCL 20 MEQ TAB (K-DUR) PO SCH (06:00)
[2021-05-22 06:04] LABS: ALBUMIN 3.7 GM/DL (3.2-4.5)
[2021-05-22 06:05] LABS: CALCIUM 8.8 MG/DL (8.5-10.1)
[2021-05-22 06:06] LABS: TOTAL PROTEIN 6.1 GM/DL (6.4-8.2)
[2021-05-22 06:08] LABS: BILIRUBIN,TOTAL 0.4 MG/DL (0.1-1.0)
[2021-05-22 06:10] LABS: CREATININE SERUM 0.85 MG/DL (0.60-1.30); PHOSPHORUS 3.9 MG/DL (2.3-4.7)
[2021-05-22] MEDS: ASPIRIN 81 MG CHEW (CHILDREN'S ASA) PO SCH (08:35)
--- NOTE | 2021-05-22 10:45 | Tele-ICU Consult ---
History of Present Illness History of Present Illness Date Seen by Provider: May 22, 2021 Time Seen by Provider: 10:45 Date of Admission Allergies and Home Medications Allergies Coded Allergies: cephalexin (Unverified Allergy, Mild, 09/03/09) nut - unspecified (Verified Allergy, Unknown, 01/03/20) Home Medications Aspirin 325 Mg Tablet.dr, 325 MG PO DAILY, (Reported) Carvedilol 12.5 Mg Tablet, 25 MG PO BID Prescribed by: RADHA SAWYER on 07/03/20 1456 Donepezil HCl 10 Mg Tablet, 10 MG PO HS, (Reported) Fexofenadine HCl 180 Mg Tablet, 180 MG PO DAILY PRN for ALLERGIES, (Reported) Risperidone 0.25 Mg Tablet, 0.25 MG PO BID Prescribed by: RADHA SAWYER on 07/03/20 145 Past Medical/Social/Family Hx Patient Social History Tobacco Use?: No Tobacco type used: Cigarettes Smoking Status: Former Smoker Use of E-Cig and/or Vaping dev: No Substance use?: No Alcohol Use?: No Immunizations Up To Date Influenza Vaccine Up-to-Date: Yes; Up-to-Date First/Initial COVID19 Vaccinat: UNK Second COVID19 Vaccination Elmo: UNK Date of Pneumonia Vaccine: May 13, 2010 Current Status Communicates: Verbally Primary Language: Hebrew Preferred Spoken Language: Hebrew Is interpretation needed?: No Sensory deficits: Vision impairment Review of Systems Constitutional: see HPI Sepsis Event Evaluation Height, Weight, BMI Height: 6'2.00" Weight: 180lbs. 0oz. [id number]; 21.91 BMI Method:Stated Exam Exam Patient acknowledged, consented, and participated in this virtual visit which was conducted using real time audio/video Vital Signs Date Time Temp Pulse Resp B/P (MAP) Pulse Ox O2 Delivery O2 Flow Rate FiO2 05/22/21 10:00 61 15 133/73 91 Room Air 05/22/21 09:00 66 20 140/79 95 Room Air 05/22/21 08:00 Room Air 05/22/21 08:00 61 16 130/64 93 Room Air 05/22/21 08:00 37.5 05/22/21 07:49 36.7 05/22/21 07:00 58 14 142/73 94 Room Air 05/22/21 06:00 59 15 122/60 95 Room Air 05/22/21 05:00 67 15 134/74 94 Room Air 05/22/21 04:57 Room Air 05/22/21 04:00 65 15 129/68 94 Room Air 05/22/21 03:00 71 139/64 92 Room Air 05/22/21 02:45 70 15 132/64 91 Room Air 05/22/21 02:30 66 14 136/64 90 Room Air 05/22/21 02:15 66 19 152/71 91 Room Air 05/22/21 02:13 36.3 64 97 21 05/22/21 02:00 66 14 129/64 91 Room Air 05/22/21 01:45 Room Air 05/22/21 01:45 63 15 150/64 92 Room Air 05/22/21 01:30 63 13 179/88 95 Room Air 05/22/21 01:22 59 14 197/90 95 Room Air 05/22/21 01:21 36.6 60 16 206/103 98 Room Air 05/22/21 01:13 64 05/21/21 22:33 36.3 64 16 220/108 (145) 97 Room Air I & O 05/22/21 07:00 Intake Total 50 ml Output Total 275 ml Balance -225 ml Height & Weight Height: 6'2.00" Weight: 180lbs. 0oz. 81.426668zn; 21.91 BMI Method:Stated General Appearance: No Apparent Distress, WD/WN HEENT: PERRL/EOMI, TMs Normal (Negative for hemotympanum or crespo sign), Normal ENT Inspection, Pharynx Normal, Moist Mucous Membranes Neck: Full Range of Motion, Normal Inspection, Non Tender Respiratory: Lungs Clear, Normal Breath Sounds, No Accessory Muscle Use, No Respiratory Distress Cardiovascular: Regular Rate, Rhythm, No Edema, Normal Peripheral Pulses Capillary Refill: Less Than 3 Seconds Extremity: Normal Capillary Refill, Normal Inspection, No Pedal Edema Neurologic/Psychiatric: Alert, Other (Oriented to person and place as well as situation but not time) Skin: Normal Color, Warm/Dry Results Lab Laboratory Tests 05/21/21 22:40 05/22/21 05:15 Assessment/Plan Assessment/Plan (Tele-ICU Physician , consultation) Available chart/ vitals / labs / Images reviewed H&P is from ER notes Patient's information available about PMH, Shx, Fhx allergy reviewed in EMR. ROS as per chart and RN report Now in ICU, hemodynamically stable Video assessment done using teleICU camera, rest of exam as per RN Discussed with RN. Consultants: Hospital course: 05/21 - to ICU from ER - with htn HTN 200/100 A/P HTN urgency ( non compliance due to dementia - On nicardipine gtt - OFF this am - last ECHO 2018 - WNL Confusion - suspected dementia- as per bedside MD - added folate and b12 to labs - CT H - no acute pathology Anemia - mild Hypothyroidism , h/o - recheck TSH Lines : periph (Central Line Necessity Reviewed) Carl: OG: Nutrition: po Analgesia: Anxiety/ delirium VTE Prophylaxis: ambulate Stress Ulcer Prophylaxis: po Glycemic Control: Plans in collaboration with bedside consultants and IM MDs. Discussed with RN to reach out if any questions or concerns A total of 25 minutes of critical care time was devoted to this patient today, required to treat and/or prevent further deterioration of critical care condition ( as above ) . MINAL HU MD May 22, 2021 10:45
--- NOTE | 2021-05-22 12:59 | History & Physical ---
YONAS ORTEGA MED STUDENT 05/22/21 1259: History of Present Illness History of Present Illness Reason for visit/HPI CC: Headache, Hypertensive emergency HPI: Pt admitted to ICU for severely elevated BP and headache. Pt is a very poor historian, significant hx of dementia, HTN. He apparently lives alone and has a caregiver that visits daily to assist via Medicare. Per ED, he was taken there by EMS last night due to a headache he experienced after dinner and his BP was found to be 200/100 at the time. He takes BP medication but cannot recall what they are or if he has taken them. He was given labetalol 20mg in the ED, and received 10mg of Nicardipine in the ICU before his BP normalized. No complaints of pain, SOB, N/V, abd pain, dysuria, numbness/tingling, lightheadedness, dizziness, palpitations, headache. Date of Admission May 21, 2021 at 23:57 Date Seen by a Provider: May 22, 2021 Time Seen by a Provider: 08:30 Attending Physician Winter Hough DO Admitting Physician Cody Rodriguez DO Consult Allergies and Home Medications Allergies Coded Allergies: cephalexin (Unverified Allergy, Mild, 09/03/09) nut - unspecified (Verified Allergy, Unknown, 01/03/20) Patient Home Medication List Home Medication List Reviewed: Yes Unable to Obtain Active Prescriptions or Reported Meds Past Ydlcxcx-Oqblbw-Lapyki Hx Patient Social History Tobacco Use?: No Tobacco type used: Cigarettes Smoking Status: Former Smoker Use of E-Cig and/or Vaping dev: No Substance use?: No Alcohol Use?: No Immunizations Up To Date Date of Influenza Vaccine: Apr 21, 2021 First/Initial COVID19 Vaccinat: UNK Second COVID19 Vaccination Elmo: UNK Date of Pneumonia Vaccine: May 13, 2010 Seasonal Allergies Seasonal Allergies: No Current Status Communicates: Verbally Primary Language: Sammarinese Preferred Spoken Language: Sammarinese Is interpretation needed?: No Sensory deficits: Vision impairment Past Medical History Surgeries: Gallbladder, Orthopedic, Renal Hypertension, Irregular Heartbeat, Palpitations Dementia, TIA Bladder Infection, Kidney Stones Pancreatitis, Gall Bladder Disease Hypothyroidsim Anxiety Blood Disorders: No Review of Systems Constitutional: No chills, No fever, No weakness EENTM: No hearing loss, No eye pain, No vision loss Respiratory: No cough, No short of breath Cardiovascular: No chest pain, No edema, No palpitations Gastrointestinal: No abdominal pain, No constipation, No diarrhea, No nausea, No vomiting Genitourinary: No dysuria, No frequency, No hematuria Musculoskeletal: No back pain, No joint pain, No joint swelling, No muscle pain Skin: No change in color, No change in hair/nails Psychiatric/Neurological: Denies Headache, Denies Numbness, Denies Paresthesia; Pre-Existing Deficit (dementia); Denies Tingling; Other All Other Systems Reviewed Negative Unless Noted: Yes Physical Exam Vital Signs Vital Signs - First Documented 05/21/21 05/22/21 22:33 02:13 Temp 36.3 Pulse 64 Resp 16 B/P (MAP) 220/108 (145) Pulse Ox 97 O2 Delivery Room Air FiO2 21 Capillary Refill : Less Than 3 Seconds Height, Weight, BMI Height: 6'2.00" Weight: 180lbs. 0oz. 81.422963yc; 21.91 BMI Method:Stated General Appearance: No Apparent Distress, WD/WN Eyes: Bilateral Eye Normal Inspection, Bilateral Eye PERRL, Bilateral Eye EOMI HEENT: PERRL/EOMI, Normal ENT Inspection, Pharynx Normal Neck: Full Range of Motion, Normal Inspection, Non Tender, Supple Respiratory: Chest Non Tender, Lungs Clear, Normal Breath Sounds, No Accessory Muscle Use, No Respiratory Distress Cardiovascular: Regular Rate, Rhythm, No Edema, No JVD, Normal Peripheral Pulses Gastrointestinal: Normal Bowel Sounds, Non Tender, Soft Rectal: Deferred Back: Normal Inspection, No CVA Tenderness, No Vertebral Tenderness Extremity: Normal Capillary Refill, Normal Inspection, Normal Range of Motion, Non Tender, No Calf Tenderness, No Pedal Edema Neurologic/Psychiatric: Alert, No Motor/Sensory Deficits, Disoriented (oriented to self, disoriented to place/time. hx of dementia. unable to recall events from last night. sarcastic, but otherwise cooperative); No Facial Droop, No Motor Weakness Skin: Normal Color, Warm/Dry Lymphatic: No Adenopathy Assessment/Plan Assessment and Plan Hypertensive emergency, HTN Resume home meds Troponin: negative, low suspicion CXR: normal CT head: normal EKG: NSR Dementia SW consulted for assistance with SNF placement VSS. No acute issues. Transfer to floor. Admission Diagnosis Hypertensive emergency Admission Status: Inpatient Order (span 2 midnights) Reason for Inpatient Admission: HTN management, SNF placement WINTER HOUGH DO 05/23/21 0556: History of Present Illness History of Present Illness Reason for visit/HPI CC: Hypertensive Urgency HPI: This is an 85yo male with a PMH of dementia who presented to the ER with systolic BP of 220. He was placed on a Cardene drip with Labetalolol with good results and now BP is 120. He is a very poor historian and he will need a skilled care stay. Will order PT and OT. Allergies and Home Medications Allergies Coded Allergies: cephalexin (Unverified Allergy, Mild, 09/03/09) nut - unspecified (Verified Allergy, Unknown, 01/03/20) Patient Home Medication List Home Medication List Reviewed: Yes Unable to Obtain Active Prescriptions or Reported Meds Past Azjjofb-Gxccsj-Cabkoj Hx Patient Social History Marrital Status: single Employed/Student: retired Smoking Status: Unknown if Ever Smoked Past Medical History High Cholesterol, Hypertension Dementia Review of Systems Constitutional: see HPI, weakness Physical Exam General Appearance: No Apparent Distress, WD/WN, Chronically ill Eyes: Bilateral Eye Normal Inspection, Bilateral Eye PERRL, Bilateral Eye EOMI HEENT: PERRL/EOMI, Normal ENT Inspection, Pharynx Normal Neck: Full Range of Motion, Normal Inspection, Non Tender, Supple, Carotid Bruit Respiratory: Chest Non Tender, Lungs Clear, Normal Breath Sounds, No Accessory Muscle Use, No Respiratory Distress Cardiovascular: Regular Rate, Rhythm, No Edema, No Gallop, No JVD, No Murmur, Normal Peripheral Pulses Gastrointestinal: Normal Bowel Sounds, No Organomegaly, No Pulsatile Mass, Non Tender, Soft Back: Normal Inspection, No CVA Tenderness, No Vertebral Tenderness Extremity: Normal Capillary Refill, Normal Inspection, Normal Range of Motion, Non Tender, No Calf Tenderness, No Pedal Edema Neurologic/Psychiatric: Alert, Oriented x3, No Motor/Sensory Deficits, Normal Mood/Affect, Disoriented (oriented to self, disoriented to place/time. hx of dem entia. unable to recall events from last night. sarcastic, but otherwise cooperative) Skin: Normal Color, Warm/Dry Lymphatic: No Adenopathy Assessment/Plan Assessment and Plan HTN urgency Dementia PT OT NHP Problems: (1) Hypertensive urgency Status: Acute Admission Diagnosis Admission Status: Inpatient Order (span 2 midnights) Reason for Inpatient Admission: severe elevated BP requiring cardene dip with encephalopathy Supervisory-Addendum Brief Verification & Attestation Participated in pt care: history, MDM, physical Personally performed: exam, history, MDM, supervision of care Care discussed with: Medical Student Procedures: n/a Results interpretation: Verified all documentation Verification and Attestation of Medical Student E/M Service A medical student performed and documented this service in my presence. I reviewed and verified all information documented by the medical student and made modifications to such information, when appropriate. I personally performed the physical exam and medical decision making. Winter Hough, May 23, 2021,05:54 YONAS ORTEGA MED STUDENT May 22, 2021 12:59 WINTER HOUGH DO May 23, 2021 05:56
--- NOTE | 2021-05-22 13:10 | Occupational Therapy Eval ---
OT Evaluation-General/PLF Medical Diagnosis Admission Date May 21, 2021 at 23:57 Medical Diagnosis: accelerated HTN Onset Date: May 22, 2021 Therapy Diagnosis Therapy Diagnosis: n/a Height/Weight Height (Feet): 6 Height (Inches): 2.00 Weight (Pounds): 180 Weight (Ounces): 0 Precautions Precautions/Isolations: Fall Prevention, Standard Precautions Referral Physician: [place] Referral Reason: Evaluation/Treatment Medical History Pertinent Medical History: Dementia, HTN, Hypothroidism Additional Medical History Gallbladder, Orthopedic, Renal, Hypertension, Irregular Heartbeat, Palpitations, Dementia, TIA, Bladder Infection, Kidney Stones, Pancreatitis, Gall Bladder Disease, Hypothyroidsim, Anxiety Current History ED with c/o HTN and head pressure Social History Current Living Status: Alone ADL-Prior Level of Function SCALE: Activities may be completed with or without assistive devices. 3-Jsbtpskcjt-myteici completes the activity by him/herself with no assistance from a helper. 5-Set-up or Clean-up Assistance-helper sets up or cleans up; patient completes activity. [place] assists only prior to or following the activity. 4-Supervision or Touching Assistance-helper provides verbal cues and/or touching/steadying and/or contact guard assistance as patient completes activity. Assistance may be provided throughout the activity or intermittently. 3-Partial/Moderate Assistance-helper does LESS THAN HALF the effort. [place] lifts, holds or supports trunk or limbs, but provides less than half the effort. 2-Substantial/Maximal Assistance-helper does MORE THAN HALF the effort. [place] lifts or holds trunk or limbs and provides more than half the effort. 4-Trfbhykct-jdyxho does ALL the effort. Patient does none of the effort to complete the activity. Or, the assistance of 2 or more helpers is required for the patient to complete the activity. If activity was not attempted, code reason: 7-Patient Refused. 9-Not Applicable-not attempted and the patient did not perform the activity before the current illness, exacerbation or injury. 10-Not Attempted due to Environmental Limitations-(lack of equipment, weather restraints, etc.). 88-Not Attempted due to Medical Conditions or Safety Concerns. ADL PLOF Comments Pt reports IND with ADLs at PLOF, using cane. Self Care: Independent Functional Cognition: Independent OT Current Status Subjective Pt ambulating in hallways, no AD. Mental Status/Objective Patient Orientation: Person, Place, Situation Current Upper Extremity ROM WFL ADL-Treatment Eating (QC): 6 Toileting Hygiene (QC): 6 Other Treatments Pt standing in hallway, no AD ambulating around by his door. Nurse close by and aware of where pt was. Pt stood and talked with OT about his PLOF and home set up. Pt's lunch arrived, and he performed functional mobility to his recliner, independently without AD. Pt began eating lunch without assistance. OT talked with pt's nurse who indicates pt has been ambulating around the hallways and toileted independently. No skilled OT services indicated at this time. Post tx, pt in recliner, call light in reach and all needs met. Education OT Patient Education: Correct positioning, Modified ADL techniques, Progress toward Goal/Update tx plan, Purpose of tx/functional activities Teaching Recipient: Patient Teaching Methods: Discussion Response to Teaching: Verbalize Understanding OT Skilled Nursing Goals Skilled Nursing Goals 1=Demonstrate adherence to instructed precautions during ADL tasks. 2=Patient will verbalize/demonstrate understanding of assistive devices/modifications for ADL. 3=Patient will improve strength/tolerance for activity to enable patient to perform ADL's. OT Education/Plan Problem List/Assessment Assessment: No Skilled OT Needs ID'd No skilled OT services indicated as he is at PLOF and independent with ADLs and functional mobility. Discharge Recommendations Plan/Recommendations: Discharge/Goals Met Treatment Plan/Plan of Care Patient would benefit from OT for education, treatment and training to promote independence in ADL's, mobility, safety and/or upper extremity function for ADL's. Plan of Care: ADL Retraining, Functional Mobility Treatment Duration: May 22, 2021 Frequency: 1 time per week (eval only) Time/GCodes Start Time: 12:50 Stop Time: 13:00 Total Time Billed (hr/min): 10 Billed Treatment Time 1, THA LAMB OT May 22, 2021 13:10
--- NOTE | 2021-05-22 15:05 | Physical Therapy Evaluation ---
PT Evaluation-General Medical Diagnosis Admission Date May 21, 2021 at 23:57 Medical Diagnosis: accelerated HTN Onset Date: May 21, 2021 Therapy Diagnosis Therapy Diagnosis: impaired mobility, endurance Height/Weight Height (Feet): 6 Height (Inches): 2.00 Weight (Pounds): 180 Weight (Ounces): 0 Precautions Precautions/Isolations: Fall Prevention, Standard Precautions Referral Physician: Winter Hough DO Reason for Referral: Evaluation/Treatment Medical History Pertinent Medical History: Dementia, HTN, Hypothroidism Additional Medical History Past Medical History Surgeries: Gallbladder, Orthopedic, Renal Hypertension, Irregular Heartbeat, Palpitations Dementia, TIA Bladder Infection, Kidney Stones Pancreatitis, Gall Bladder Disease Hypothyroidsim Anxiety Reviewed History: Yes Social History Current Living Status: Alone patient is unsure about steps, says he has a few Prior Prior Level of Function SCALE: Activities may be completed with or without assistive devices. 4-Vpbkzglnxo-oqtxlso completes the activity by him/herself with no assistance from a helper. 5-Set-up or Clean-up Assistance-helper sets up or cleans up; patient completes activity. [place] assists only prior to or following the activity. 4-Supervision or Touching Assistance-helper provides verbal cues and/or touchin g/steadying and/or contact guard assistance as patient completes activity. Assistance may be provided throughout the activity or intermittently. 3-Partial/Moderate Assistance-helper does LESS THAN HALF the effort. [place] lifts, holds or supports trunk or limbs, but provides less than half the effort. 2-Substantial/Maximal Assistance-helper does MORE THAN HALF the effort. [place] lifts or holds trunk or limbs and provides more than half the effort. 9-Xijhmlhlf-cxukwn does ALL the effort. Patient does none of the effort to complete the activity. Or, the assistance of 2 or more helpers is required for the patient to complete the activity. If activity was not attempted, code reason: 7-Patient Refused. 9-Not Applicable-not attempted and the patient did not perform the activity before the current illness, exacerbation or injury. 10-Not Attempted due to Environmental Limitations-(lack of equipment, weather restraints, etc.). 88-Not Attempted due to Medical Conditions or Safety Concerns. Bed Mobility: 6 Transfers (B,C,W/C): 6 Gait: 6 Stairs: 6 Indoor Mobility (Ambulation): Independent Stairs: Independent Prior Devices Use: Walker PT Evaluation-Current Subjective Patient in recliner pre tx, agrees to PT, has no complaints of pain. Pt/Family Goals to be independent at home Objective Patient Orientation: Person, Place ROM/Strength ROM Lower Extremities WNL Strength Lower Extremities BLE 5/5 gross Sensory Vision: Wears Glasses Hearing: Functional Sensation Right Lower Extremit: Intact Sensation Left Lower Extremity: Intact Transfers Sit to Stand (QC): 4 Chair/Bsf-uj-Uyevw Xfer(QC): 4 SBA Gait Does the Patient Walk?: Yes Mode of Locomotion: Walk Anticipated Mode of Locomotion: Walk Walk 10 feet (QC): 4 Walk 50 ft with 2 Turns(QC): 4 Walk 150 ft (QC): 4 Distance: 500' Gait Assistive Device: FWW Comments/Gait Description SBA, slow but steady ambulation Balance Sitting Static: Normal Sitting Dynamic: Normal Standing Static: Good Standing Dynamic: Good Treatment BLE seated exercises x20 (AP, LAQ) Assessment/Needs Patient in recliner post tx with nurse call, phone, tray, all needs met. Patient has impaired mobility and endurance but is SBA for mobility Rehab Potential: Fair PT Graphite Grinder Goals Care Home Goals PT Care Home Goals Time Frame: May 29, 2021 Roll Left & Right (QC): 6 Sit to Lying (QC): 6 Lying-Sitting on Side/Bed(QC): 6 Sit to Stand (QC): 5 Chair/Cpu-hw-Zehcl Xfer(QC): 5 Walk 10 feet (QC): 5 Walk 50ft with 2 Turns (QC): 5 Walk 150 ft (QC): 5 PT Plan Problem List Problem List: Activity Tolerance, Functional Strength, Safety, Balance, Gait, Transfer Treatment/Plan Treatment Plan: Continue Plan of Care Treatment Plan: Education, Functional Activity Emely, Functional Strength, Gait, Safety, Therapeutic Exercise, Transfers Treatment Duration: May 29, 2021 Frequency: 6 times per week Estimated Hrs Per Day: .25 hour per day Patient and/or Family Agrees t: Yes Safety Risks/Education Patient Education: Gait Training, Transfer Techniques, Correct Positioning, Safety Issues Teaching Recipient: Patient Teaching Methods: Demonstration, Discussion Response to Teaching: Reinforcement Needed Discharge Recommendations Plan Patient will perform bed mobility and transfer training, balance and endurance training, functional strengthening, stair training, gait training, and education, to improve functional mobility and independence at home. Therapy Discharge Recommendati: Scheduled Assistance, Home & Family, Post Acute PT Time/GCodes Time In: 1433 Time Out: 1443 Total Billed Treatment Time: 10 Total Billed Treatment 1 visit LOLA SRINIVASAN PT May 22, 2021 15:05
[2021-05-23] MEDS ORDERED: amLODIPine 5 MG (NORVASC) TAB PO ONE (00:30)
[2021-05-23] MEDS: cloNIDine 0.1 MG (CATAPRES) TAB PO PRN ×2 (00:36→18:17)
[2021-05-23 06:00] LABS: BASOPHILS # (AUTO) 0.1 10^3/uL (0.0-0.1); BASOPHILS % (AUTO) 1 % (0-10); EOSINOPHILS # (AUTO) 0.2 10^3/uL (0.0-0.3); EOSINOPHILS % (AUTO) 3 % (0-10); HEMATOCRIT 36 % (40-54); HEMOGLOBIN 10.8 g/dL (13.3-17.7); LYMPHOCYTES # (AUTO) 1.7 10^3/uL (1.0-4.0); LYMPHOCYTES % (AUTO) 39 % (12-44); MEAN CORPUSCULAR HEMOGLOBIN 28 pg (25-34); MEAN CORPUSCULAR HGB CONC 30 g/dL (32-36); MEAN CORPUSCULAR VOLUME 93 fL (80-99); MEAN PLATELET VOLUME 10.5 fL (9.0-12.2); MONOCYTES # (AUTO) 0.5 10^3/uL (0.0-1.0); MONOCYTES % (AUTO) 10 % (0-12); NEUTROPHILS % (AUTO) 46 % (42-75); PLATELET COUNT 153 10^3/uL (130-400); WHITE BLOOD COUNT 4.4 10^3/uL (4.3-11.0)
[2021-05-23 06:04] LABS: ALBUMIN 3.4 GM/DL (3.2-4.5); POTASSIUM 4.1 MMOL/L (3.6-5.0)
[2021-05-23 06:05] LABS: CALCIUM 8.6 MG/DL (8.5-10.1)
[2021-05-23 06:06] LABS: TOTAL PROTEIN 5.9 GM/DL (6.4-8.2)
[2021-05-23 06:08] LABS: BILIRUBIN,TOTAL 0.5 MG/DL (0.1-1.0)
[2021-05-23 06:10] LABS: CREATININE SERUM 0.85 MG/DL (0.60-1.30)
[2021-05-23] MEDS: amLODIPine 5 MG (NORVASC) TAB PO SCH (09:41)
[2021-05-23] MEDS: ASPIRIN 81 MG CHEW (CHILDREN'S ASA) PO SCH (09:41)
--- NOTE | 2021-05-23 09:48 | Physical Therapy Daily Note ---
PT Daily Note-Current Subjective Patient in bed pre tx, agrees to PT, has no complaints of pain. Appearance Patient in bed post tx with nurse call, phone, tray, bed alarm on. Mental Status Patient Orientation: Person, Place Transfers SCALE: Activities may be completed with or without assistive devices. 3-Ypwullkcdo-setqrnj completes the activity by him/herself with no assistance from a helper. 5-Set-up or Clean-up Assistance-helper sets up or cleans up; patient completes activity. [place] assists only prior to or following the activity. 4-Supervision or Touching Assistance-helper provides verbal cues and/or touching/steadying and/or contact guard assistance as patient completes activity. Assistance may be provided throughout the activity or intermittently. 3-Partial/Moderate Assistance-helper does LESS THAN HALF the effort. [place] lifts, holds or supports trunk or limbs, but provides less than half the effort. 2-Substantial/Maximal Assistance-helper does MORE THAN HALF the effort. [place] lifts or holds trunk or limbs and provides more than half the effort. 6-Mxfeqlcsm-hjcibc does ALL the effort. Patient does none of the effort to complete the activity. Or, the assistance of 2 or more helpers is required for the patient to complete the activity. If activity was not attempted, code reason: 7-Patient Refused. 9-Not Applicable-not attempted and the patient did not perform the activity before the current illness, exacerbation or injury. 10-Not Attempted due to Environmental Limitations-(lack of equipment, weather restraints, etc.). 88-Not Attempted due to Medical Conditions or Safety Concerns. Roll Left & Right (QC): 6 Sit to Lying (QC): 6 Lying to Sitting/Side of Bed(Q: 6 Sit to Stand (QC): 6 Chair/Vba-yz-Rdanb Xfer(QC): 4 Gait Training Distance: 600' Walk 10 feet (QC): 4 Walk 50 ft with 2 Turns(QC): 4 Walk 150 ft (QC): 4 Gait Persons Needed: 1 Gait Assistive Device: FWW SBA, patient can be impulsive and let go of walker or move in an unsafe manner Treatments bed mobility and transfers, ambulation Assessment Current Status: Fair Progress improving endurance PT Alf Goals Cable Swager Goals PT Cable Swager Goals Time Frame: May 29, 2021 Roll Left & Right (QC): 6 Sit to Lying (QC): 6 Lying-Sitting on Side/Bed(QC): 6 Sit to Stand (QC): 5 Chair/Mio-aa-Twcyv Xfer(QC): 5 Walk 10 feet (QC): 5 Walk 50ft with 2 Turns (QC): 5 Walk 150 ft (QC): 5 PT Plan Problem List Problem List: Activity Tolerance, Functional Strength, Safety, Balance, Gait, Transfer, ROM Treatment/Plan Treatment Plan: Continue Plan of Care Treatment Plan: Education, Functional Activity Emely, Functional Strength, Gait, Safety, Therapeutic Exercise, Transfers Treatment Duration: May 29, 2021 Frequency: 6 times per week Estimated Hrs Per Day: .25 hour per day Patient and/or Family Agrees t: Yes Safety Risks/Education Patient Education: Gait Training, Transfer Techniques, Correct Positioning, Safety Issues Teaching Recipient: Patient Teaching Methods: Demonstration, Discussion Response to Teaching: Reinforcement Needed Time/GCodes Time In: 922 Time Out: 932 Total Billed Treatment Time: 10 Total Billed Treatment 1 visit GT 10' LOLA ENNIS PT May 23, 2021 09:48
[2021-05-23] MEDS ORDERED: CYANOCOBALAMIN INJ 1000 MCG/ML IM ONE (11:00)
--- NOTE | 2021-05-23 12:21 | Progress Note ---
YONAS ORTEGA MED STUDENT 05/23/21 1221: Subjective Date Seen by a Provider: May 23, 2021 Time Seen by a Provider: 08:00 Subjective/Events-last exam Pt awake, alert, sitting up in bed eating breakfast, NAD. Issues with increased SBP 170-190's yesterday, started on clonidine and norvasc. Nursing reports he had a bout of confusion last evening with associated difficulty arousing. No other overnight events. Continues to be AAOx1 to self, disoriented to place/time. No complaints or concerns. Review of Systems General: No Chills, No Fatigue HEENT: No Visual Changes, No Eye Pain, No Ear Pain Pulmonary: No Dyspnea, No Cough Cardiovascular: No: Chest Pain, Palpitations, Edema, Lt Headedness Gastrointestinal: No: Nausea, Vomiting, Abdominal Pain, Diarrhea, Constipation Genitourinary: No Dysuria, No Frequency, No Hematuria Musculoskeletal: No: neck pain, shoulder pain, back pain Neurological: Confusion; No: Weakness, Numbness Focused Exam Sepsis Stage: Ruled Out Reason for ruling out sepsis: 0 SIRS, no suspicion of infection Objective Exam Last Set of Vital Signs Vital Signs Date Time Temp Pulse Resp B/P (MAP) Pulse Ox O2 Delivery O2 Flow Rate FiO2 05/23/21 11:55 36.2 52 20 161/72 94 Room Air 05/22/21 02:13 21 Capillary Refill : Less Than 3 Seconds I&O Intake and Output 05/23/21 00:00 Intake Total 1990 ml Output Total 575 ml Balance 1415 ml Intake Oral 1990 ml Output Urine Total 575 ml # Voids 5 Daily Weight Change Unsure General: Alert, No Acute Distress, Other (AAOx1 to self, disoriented to place/time. ) HEENT: Atraumatic, PERRLA, EOMI, Mucous Memb Moist/[place] Neck: Supple, No JVD Lungs: Clear to Auscultation, Normal Air Movement Heart: Regular Rate, Normal S1, Normal S2 Abdomen: Normal Bowel Sounds, Soft, No Tenderness Extremities: No Clubbing, No Cyanosis, No Edema, Normal Pulses, No Tenderness/Swelling Skin: No Rashes, No Significant Lesion Neuro: Normal Speech, Strength at 5/5 X4 Ext, Normal Tone, Sensation Intact Psych/Mental Status: Other (hx dementia, responds with agitation/annoyance when asked questions he can't answer. otherwise cooperative) Results Lab Laboratory Tests 05/23/21 05:36: White Blood Count 4.4, Red Blood Count 3.84L, Hemoglobin 10.8L, Hematocrit 36L, Mean Corpuscular Volume 93, Mean Corpuscular Hemoglobin 28, Mean Corpuscular Hemoglobin Concent 30L, Red Cell Distribution Width 13.7, Platelet Count 153, Mean Platelet Volume 10.5, Immature Granulocyte % (Auto) 0, Neutrophils (%) (Auto) 46, Lymphocytes (%) (Auto) 39, Monocytes (%) (Auto) 10, Eosinophils (%) (Auto) 3, Basophils (%) (Auto) 1, Neutrophils # (Auto) 2.0, Lymphocytes # (Auto) 1.7, Monocytes # (Auto) 0.5, Eosinophils # (Auto) 0.2, Basophils # (Auto) 0.1, Immature Granulocyte # (Auto) 0.0, Sodium Level 138, Potassium Level 4.1, Chloride Level 107, Carbon Dioxide Level 21, Anion Gap 10, Blood Urea Nitrogen 16, Creatinine 0.85, Estimat Glomerular Filtration Rate 86, BUN/Creatinine Ratio 19, Glucose Level 105, Calcium Level 8.6, Corrected Calcium 9.1, Total Bilirubin 0.5, Aspartate Amino Transf (AST/SGOT) 18, Alanine Aminotransferase (ALT/SGPT) 6, Alkaline Phosphatase 49, Total Protein 5.9L, Albumin 3.4 Microbiology 05/22/21 MRSA Screen - Final, Complete Assessment/Plan Assessment/Plan Assess & Plan/Chief Complaint HTN BP elevated 170-190 SBP yesterday Started on Amlodipine QD, Clonidine prn Continue to monitor Dementia AAOx1 to self Memory/recall issues persist Confusion/ episode yesterday B12 deficiency B12 injection and supplement MRSA colonization Contact precautions initiated Nasal Bactroban Nursing/SS has been in contact with pt's caregiver, Isaura. Currently unable to contact pt's son, Calderon; Isaura is assisting in contacting him. SS working on SNF placement Clinical Quality Measures Admission Status Admission Dx Hypertensive emergency WINTER MIRZA DO 05/24/21 0535: Subjective Subjective/Events-last exam Patient doing very well Reports he is bored here in the hospital No significant pain is reported Blood pressure continues to be labile Working on disposition Review of Systems General: Fatigue, Malaise Objective Exam General: Alert, Cooperative, No Acute Distress, Other (AAOx1 to self, disorie nted to place/time. ) Lungs: Clear to Auscultation Heart: Regular Rate Psych/Mental Status: Mental Status NL Assessment/Plan Assessment/Plan Assess & Plan/Chief Complaint Bactroban for MRSA colonization Disposition Supervisory-Addendum Brief Verification & Attestation Participated in pt care: history, MDM, physical Personally performed: exam, history, MDM, supervision of care Care discussed with: Medical Student Procedures: n/a Results interpretation: Verified all documentation Verification and Attestation of Medical Student E/M Service A medical student performed and documented this service in my presence. I review ed and verified all information documented by the medical student and made modifications to such information, when appropriate. I personally performed the physical exam and medical decision making. Winter Mirza, May 24, 2021,05:33 YONAS ORTEGA MED STUDENT May 23, 2021 12:21 WINTER MIRZA DO May 24, 2021 05:35
[2021-05-23] MEDS: MUPIROCIN 2% OINT 22 GM (BACTROBAN) TUBE NSEACH SCH (21:40)
[2021-05-24 06:30] LABS: BASOPHILS % (AUTO) 1 % (0-10); EOSINOPHILS # (AUTO) 0.1 10^3/uL (0.0-0.3); EOSINOPHILS % (AUTO) 3 % (0-10); HEMATOCRIT 33 % (40-54); HEMOGLOBIN 10.7 g/dL (13.3-17.7); LYMPHOCYTES # (AUTO) 1.7 10^3/uL (1.0-4.0); LYMPHOCYTES % (AUTO) 37 % (12-44); MEAN CORPUSCULAR HEMOGLOBIN 29 pg (25-34); MEAN CORPUSCULAR HGB CONC 32 g/dL (32-36); MEAN CORPUSCULAR VOLUME 91 fL (80-99); MEAN PLATELET VOLUME 11.2 fL (9.0-12.2); MONOCYTES # (AUTO) 0.5 10^3/uL (0.0-1.0); MONOCYTES % (AUTO) 11 % (0-12); NEUTROPHILS # (AUTO) 2.2 10^3/uL (1.8-7.8); NEUTROPHILS % (AUTO) 49 % (42-75); WHITE BLOOD COUNT 4.6 10^3/uL (4.3-11.0)
[2021-05-24 06:34] LABS: PLATELET COUNT 165 10^3/uL (130-400)
[2021-05-24 06:35] LABS: SMEAR SCAN COMMENT YES
[2021-05-24 06:45] LABS: ALBUMIN 3.5 GM/DL (3.2-4.5); POTASSIUM 4.3 MMOL/L (3.6-5.0)
[2021-05-24 06:46] LABS: CALCIUM 8.8 MG/DL (8.5-10.1)
[2021-05-24 06:49] LABS: BILIRUBIN,TOTAL 0.5 MG/DL (0.1-1.0)
[2021-05-24 06:51] LABS: CREATININE SERUM 0.89 MG/DL (0.60-1.30)
[2021-05-24] MEDS ORDERED: CYANOCOBALAMIN 1,000 MCG (VITAMIN B-12) TABLET PO SCH (07:00)
[2021-05-24] MEDS: MUPIROCIN 2% OINT 22 GM (BACTROBAN) TUBE NSEACH SCH (08:46)
[2021-05-24] MEDS: amLODIPine 5 MG (NORVASC) TAB PO SCH (08:46)
[2021-05-24] MEDS: ASPIRIN 81 MG CHEW (CHILDREN'S ASA) PO SCH (08:46)
--- NOTE | 2021-05-24 10:40 | Physical Therapy Daily Note ---
PT Daily Note-Current Subjective Patient very agreeable to participate with therapy. Patient reports he hopes to go home today. Mental Status Patient Orientation: Normal For Age Transfers SCALE: Activities may be completed with or without assistive devices. 6-Tylvumameb-mltaomd completes the activity by him/herself with no assistance from a helper. 5-Set-up or Clean-up Assistance-helper sets up or cleans up; patient completes activity. [place] assists only prior to or following the activity. 4-Supervision or Touching Assistance-helper provides verbal cues and/or touching/steadying and/or contact guard assistance as patient completes activity. Assistance may be provided throughout the activity or intermittently. 3-Partial/Moderate Assistance-helper does LESS THAN HALF the effort. [place] lifts, holds or supports trunk or limbs, but provides less than half the effort. 2-Substantial/Maximal Assistance-helper does MORE THAN HALF the effort. [place] lifts or holds trunk or limbs and provides more than half the effort. 3-Rrwkvccmj-qakomh does ALL the effort. Patient does none of the effort to complete the activity. Or, the assistance of 2 or more helpers is required for the patient to complete the activity. If activity was not attempted, code reason: 7-Patient Refused. 9-Not Applicable-not attempted and the patient did not perform the activity before the current illness, exacerbation or injury. 10-Not Attempted due to Environmental Limitations-(lack of equipment, weather restraints, etc.). 88-Not Attempted due to Medical Conditions or Safety Concerns. Sit to Lying (QC): 6 Lying to Sitting/Side of Bed(Q: 6 Sit to Stand (QC): 6 Gait Training Does the Patient Walk?: Yes Distance: 500' Walk 10 feet (QC): 6 Walk 50 ft with 2 Turns(QC): 6 Walk 150 ft (QC): 6 Gait Assistive Device: FWW safe and functional with no deviation Assessment Patient currently at independent OF with all gross motor skills. Patient is up independently in room per RN. PT to dismiss patient from services. PT Usp Goals Flat Sorter Processor Goals PT Flat Sorter Processor Goals Time Frame: May 29, 2021 Roll Left & Right (QC): 6 Sit to Lying (QC): 6 Lying-Sitting on Side/Bed(QC): 6 Sit to Stand (QC): 5 Chair/Qdm-ao-Hdfms Xfer(QC): 5 Walk 10 feet (QC): 5 Walk 50ft with 2 Turns (QC): 5 Walk 150 ft (QC): 5 PT Plan Treatment/Plan Treatment Plan: Discontinue PT, goals met Treatment Plan: Education, Functional Activity Emely, Functional Strength, Gait, Safety, Therapeutic Exercise, Transfers Treatment Duration: May 29, 2021 Frequency: 6 times per week Estimated Hrs Per Day: .25 hour per day Patient and/or Family Agrees t: Yes Time/GCodes Time In: 932 Time Out: 943 Total Billed Treatment Time: 11 Total Billed Treatment 1 visit FA 11 min ANDREA OCHOA PT May 24, 2021 10:40
[2021-05-24] MEDS ORDERED: MUPI22OI2 NSEACH (11:28)
[2021-05-24] MEDS ORDERED: CARV12.53 PO (11:28)
[2021-05-24] MEDS ORDERED: AMLO-250 PO (11:28)
[2021-05-24] MEDS ORDERED: CYAN-41 PO (11:28)
[2021-05-24] MEDS ORDERED: ASPI81TA64 PO (11:28)
--- NOTE | 2021-05-24 11:29 | D/C HH Face to Face Order ---
D/C Face to Face Orders Reconcile Patient Problems Problems Reviewed?: Yes Instructions for Patient Via [facility], Patient Instructions/FollowUp: Debility Physician to follow Patient: Michael Discharge Diet for Home: No Restrictions Patient Problems: HTN Dementia Patient Data-Allergies,Ht & Wt Patient Allergies: Coded Allergies: cephalexin (Unverified Allergy, Mild, 09/03/09) nut - unspecified (Verified Allergy, Unknown, 01/03/20) Height (Feet): 6 Height (Inches): 2.00 Weight (Pounds): 180 Weight (Ounces): 0 Home Health Need/Face to Face Date of Face to Face: May 24, 2021 Clinical Findings: Generalized weakness and fatigue, Instability, Muscle weakness, Unsteady gait I have seen Pt fbrc-fq-esrj: Yes Discharged To: Home Diagnosis/Conditions: weak Patient is Homebound due to: CognItive deficits, Nell fall risk due to instabilty, Muscle weakness Homebound Status Due to the above stated illness, injury or surgical procedure (medical condition or diagnosis) and associated clinical findings, the patient is homebound because of his/her inability to leave home except with aid of a supportive device and/or person AND leaving the home requires a considerable and taxing effort or is medically contraindicated. Pt req the following assistanc: Walker Home Health Nursing Orders Home Health Services Order: Nursing Services, Batting Machine Operator Insulation-Evaluate & Treat, Physical Therapy-Evaluate & Treat Home Health Infusion Therapy Line Start Date: May 22, 2021 Certify Stmt I certify that this patient is under my care and that I, a nurse practitioner or a physician; a chemical laboratory assistant working with me, had a face to face encounter that - meets the physician face to face encounter requirements with this patient as dated. CAROLA MIRZA DO May 24, 2021 11:29
--- NOTE | 2021-05-24 11:29 | Discharge Summary ---
Diagnosis/Chief Complaint Date of Admission May 21, 2021 at 23:57 Date of Discharge Discharge Date: May 24, 2021 Discharge Diagnosis HTN urgency Encephalopathy Dementia HTN HLP Reason Hospital Visit CC: Hypertensive Urgency HPI: This is an 85yo male with a PMH of dementia who presented to the ER with systolic BP of 220. He was placed on a Cardene drip with Labetalolol with good results and now BP is 120. He is a very poor historian and he will need a skilled care stay. Will order PT and OT. Discharge Summary Discharge Physical Examination Allergies: Coded Allergies: cephalexin (Unverified Allergy, Mild, 09/03/09) nut - unspecified (Verified Allergy, Unknown, 01/03/20) Vitals & I&Os Vital Signs Date Time Temp Pulse Resp B/P (MAP) Pulse Ox O2 Delivery O2 Flow Rate FiO2 05/24/21 15:52 05/24/21 12:00 36.1 54 18 93 Room Air 05/22/21 02:13 21 General Appearance: Alert, Oriented X3, Cooperative Respiratory: Clear to Auscultation Cardiovascular: Regular Rate Neuro: Normal Gait, Normal Speech, Strength at 5/5 X4 Ext Psych/Mental Status: Mental Status NL Hospital Course Was the Problem List Reviewed?: Yes Patient had an uneventful course after admitted to ICU and placed on Cardene drip and Labetolol IV. Good BP results so moved to 4th floor and placed on PO BP meds. Dementia noted. PT OT consulted. Good return of function occurred and patient was deemed stable with HH and family involvement. Labs (last 24 hrs) Laboratory Tests 05/21/21 22:02: Urine Color YELLOW, Urine Clarity CLEAR, Urine pH 6.5, Urine Specific [place] 1.025H, Urine Protein NEGATIVE, Urine Glucose (UA) NEGATIVE, Urine Ketones NEGATIVE, Urine Nitrite NEGATIVE, Urine Bilirubin NEGATIVE, Urine Urobilinogen 1.0, Urine Leukocyte Esterase NEGATIVE, Urine RBC (Auto) NEGATIVE, Urine RBC NONE, Urine WBC NONE, Urine Crystals NONE, Urine Bacteria NEGATIVE, Urine Casts NONE, Urine Mucus NEGATIVE, Urine Culture Indicated NO, Urine Opiates Screen NEGATIVE, Urine Oxycodone Screen NEGATIVE, Urine Methadone Screen NEGATIVE, Urin e Propoxyphene Screen NEGATIVE, Urine Barbiturates Screen NEGATIVE, Ur Tricyclic Antidepressants Screen NEGATIVE, Urine Phencyclidine Screen NEGATIVE, Urine Amphetamines Screen NEGATIVE, Urine Methamphetamines Screen NEGATIVE, Urine Benzodiazepines Screen NEGATIVE, Urine Cocaine Screen NEGATIVE, Urine Cannabinoids Screen NEGATIVE 05/21/21 22:40: White Blood Count 4.9, Red Blood Count 3.97L, Hemoglobin 11.5L, Hematocrit 35L, Mean Corpuscular Volume 89, Mean Corpuscular Hemoglobin 29, Mean Corpuscular Hemoglobin Concent 33, Red Cell Distribution Width 13.7, Platelet Count 161, Mean Platelet Volume 10.7, Immature Granulocyte % (Auto) 0, Neutrophils (%) (Auto) 52, Lymphocytes (%) (Auto) 33, Monocytes (%) (Auto) 11, Eosinophils (%) (Auto) 3, Basophils (%) (Auto) 1, Neutrophils # (Auto) 2.6, Lymphocytes # (Auto) 1.6, Monocytes # (Auto) 0.5, Eosinophils # (Auto) 0.1, Basophils # (Auto) 0.0, Immature Granulocyte # (Auto) 0.0, Sodium Level 141, Potassium Level 4.0, Chloride Level 106, Carbon Dioxide Level 21, Anion Gap 14, Blood Urea Nitrogen 15, Creatinine 0.93, Estimat Glomerular Filtration Rate 78, BUN/Creatinine Ratio 16, Glucose Level 114H, Calcium Level 9.2, Corrected Calcium 9.2, Magnesium Level 2.1, Total Bilirubin 0.5, Aspartate Amino Transf (AST/SGOT) 19, Alanine Aminotransferase (ALT/SGPT) 11, Alkaline Phosphatase 71, Troponin I < 0.028, C- Reactive Protein High Sensitivity 0.37, Total Protein 6.7, Albumin 4.0, Serum Alcohol < 10 05/22/21 05:15: White Blood Count 4.7, Red Blood Count 3.76L, Hemoglobin 10.8L, Hematocrit 34L, Mean Corpuscular Volume 89, Mean Corpuscular Hemoglobin 29, Mean Corpuscular Hemoglobin Concent 32, Red Cell Distribution Width 13.8, Platelet Count 159, Mean Platelet Volume 10.4, Immature Granulocyte % (Auto) 0, Neutrophils (%) (Auto) 54, Lymphocytes (%) (Auto) 32, Monocytes (%) (Auto) 10, Eosinophils (%) (Auto) 2, Basophils (%) (Auto) 1, Neutrophils # (Auto) 2.5, Lymphocytes # (Auto) 1.5, Monocytes # (Auto) 0.5, Eosinophils # (Auto) 0.1, Basophils # (Auto) 0.0, Immature Granulocyte # (Auto) 0.0, Sodium Level 140, Potassium Level 4.0, Chloride Level 106, Carbon Dioxide Level 23, Anion Gap 11, Blood Urea Nitrogen 15, Creatinine 0.85, Estimat Glomerular Filtration Rate 86, BUN/Creatinine Ratio 18, Glucose Level 111H, Calcium Level 8.8, Corrected Calcium 9.0, Magnesium Level 2.0, Total Bilirubin 0.4, Aspartate Amino Transf (AST/SGOT) 18, Alanine Aminotransferase (ALT/SGPT) 10, Alkaline Phosphatase 61, Total Protein 6.1L, Albumin 3.7, Phosphorus Level 3.9, Vitamin B12 Level 152L, Folate 9.6, Thyroid Stimulating Hormone (TSH) 1.03 05/23/21 05:36: White Blood Count 4.4, Red Blood Count 3.84L, Hemoglobin 10.8L, Hematocrit 36L, Mean Corpuscular Volume 93, Mean Corpuscular Hemoglobin 28, Mean Corpuscular Hemoglobin Concent 30L, Red Cell Distribution Width 13.7, Platelet Count 153, Mean Platelet Volume 10.5, Immature Granulocyte % (Auto) 0, Neutrophils (%) (Auto) 46, Lymphocytes (%) (Auto) 39, Monocytes (%) (Auto) 10, Eosinophils (%) (Auto) 3, Basophils (%) (Auto) 1, Neutrophils # (Auto) 2.0, Lymphocytes # (Auto) 1.7, Monocytes # (Auto) 0.5, Eosinophils # (Auto) 0.2, Basophils # (Auto) 0.1, Immature Granulocyte # (Auto) 0.0, Sodium Level 138, Potassium Level 4.1, Chloride Level 107, Carbon Dioxide Level 21, Anion Gap 10, Blood Urea Nitrogen 16, Creatinine 0.85, Estimat Glomerular Filtration Rate 86, BUN/Creatinine Ratio 19, Glucose Level 105, Calcium Level 8.6, Corrected Calcium 9.1, Total Bilirubin 0.5, Aspartate Amino Transf (AST/SGOT) 18, Alanine Aminotransferase (ALT/SGPT) 6, Alkaline Phosphatase 49, Total Protein 5.9L, Albumin 3.4 05/24/21 06:22: White Blood Count 4.6, Red Blood Count 3.67L, Hemoglobin 10.7L, Hematocrit 33L, Mean Corpuscular Volume 91, Mean Corpuscular Hemoglobin 29, Mean Corpuscular Hemoglobin Concent 32, Red Cell Distribution Width 13.7, Platelet Count 165, Mean Platelet Volume 11.2, Immature Granulocyte % (Auto) 0, Neutrophils (%) (Auto) 49, Lymphocytes (%) (Auto) 37, Monocytes (%) (Auto) 11, Eosinophils (%) (Auto) 3, Basophils (%) (Auto) 1, Neutrophils # (Auto) 2.2, Lymphocytes # (Auto) 1.7, Monocytes # (Auto) 0.5, Eosinophils # (Auto) 0.1, Basophils # (Auto) 0.0, Immature Granulocyte # (Auto) 0.0, Sodium Level 137, Potassium Level 4.3, Chloride Level 106, Carbon Dioxide Level 21, Anion Gap 10, Blood Urea Nitrogen 17, Creatinine 0.89, Estimat Glomerular Filtration Rate 82, BUN/Creatinine Ratio 19, Glucose Level 96, Calcium Level 8.8, Corrected Calcium 9.2, Total Bilirubin 0.5, Aspartate Amino Transf (AST/SGOT) 18, Alanine Aminotransferase (ALT/SGPT) 6, Alkaline Phosphatase 48, Total Protein 6.0L, Albumin 3.5, Smear Scan YES Microbiology 05/22/21 MRSA Screen - Final, Complete Pending Labs Microbiology Date/Time Source Procedure Growth Status 05/22/21 01:20 Nasal MRSA Screen - Final Complete Laboratory Tests 05/21/21 22:02: Urine Color YELLOW, Urine Clarity CLEAR, Urine pH 6.5, Urine Specific [place] 1.025, Urine Protein NEGATIVE, Urine Glucose (UA) NEGATIVE, Urine Ketones NEGATIVE, Urine Nitrite NEGATIVE, Urine Bilirubin NEGATIVE, Urine Urobilinogen 1.0, Urine Leukocyte Esterase NEGATIVE, Urine RBC (Auto) NEGATIVE, Urine RBC NONE, Urine WBC NONE, Urine Crystals NONE, Urine Bacteria NEGATIVE, Urine Casts NONE, Urine Mucus NEGATIVE, Urine Culture Indicated NO, Urine Opiates Screen NEGATIVE, Urine Oxycodone Screen NEGATIVE, Urine Methadone Screen NEGATIVE, Urine Propoxyphene Screen NEGATIVE, Urine Barbiturates Screen NEGATIVE, Ur Tricyclic Antidepressants Screen NEGATIVE, Urine Phencyclidine Screen NEGATIVE, Urine Amphetamines Screen NEGATIVE, Urine Methamphetamines Screen NEGATIVE, Urine Benzodiazepines Screen NEGATIVE, Urine Cocaine Screen NEGATIVE, Urine Cannabinoids Screen NEGATIVE 05/21/21 22:40: White Blood Count 4.9, Red Blood Count 3.97, Hemoglobin 11.5, Hematocrit 35, Mean Corpuscular Volume 89, Mean Corpuscular Hemoglobin 29, Mean Corpuscular Hemoglobin Concent 33, Red Cell Distribution Width 13.7, Platelet Count 161, Mean Platelet Volume 10.7, Immature Granulocyte % (Auto) 0, Neutrophils (%) (Auto) 52, Lymphocytes (%) (Auto) 33, Monocytes (%) (Auto) 11, Eosinophils (%) (Auto) 3, Basophils (%) (Auto) 1, Neutrophils # (Auto) 2.6, Lymphocytes # (Auto) 1.6, Monocytes # (Auto) 0.5, Eosinophils # (Auto) 0.1, Basophils # (Auto) 0.0, Immature Granulocyte # (Auto) 0.0, Sodium Level 141, Potassium Level 4.0, Chloride Level 106, Carbon Dioxide Level 21, Anion Gap 14, Blood Urea Nitrogen 15, Creatinine 0.93, Estimat Glomerular Filtration Rate 78, BUN/Creatinine Ratio 16, Glucose Level 114, Calcium Level 9.2, Corrected Calcium 9.2, Magnesium Level 2.1, Total Bilirubin 0.5, Aspartate Amino Transf (AST/SGOT) 19, Alanine Amino transferase (ALT/SGPT) 11, Alkaline Phosphatase 71, Troponin I < 0.028, C- Reactive Protein High Sensitivity 0.37, Total Protein 6.7, Albumin 4.0, Serum Alcohol < 10 05/22/21 05:15: White Blood Count 4.7, Red Blood Count 3.76, Hemoglobin 10.8, Hematocrit 34, Mean Corpuscular Volume 89, Mean Corpuscular Hemoglobin 29, Mean Corpuscular Hemoglobin Concent 32, Red Cell Distribution Width 13.8, Platelet Count 159, Mean Platelet Volume 10.4, Immature Granulocyte % (Auto) 0, Neutrophils (%) (A uto) 54, Lymphocytes (%) (Auto) 32, Monocytes (%) (Auto) 10, Eosinophils (%) (Auto) 2, Basophils (%) (Auto) 1, Neutrophils # (Auto) 2.5, Lymphocytes # (Auto) 1.5, Monocytes # (Auto) 0.5, Eosinophils # (Auto) 0.1, Basophils # (Auto) 0.0, Immature Granulocyte # (Auto) 0.0, Sodium Level 140, Potassium Level 4.0, Chloride Level 106, Carbon Dioxide Level 23, Anion Gap 11, Blood Urea Nitrogen 15, Creatinine 0.85, Estimat Glomerular Filtration Rate 86, BUN/Creatinine Ratio 18, Glucose Level 111, Calcium Level 8.8, Corrected Calcium 9.0, Magnesium Level 2.0, Total Bilirubin 0.4, Aspartate Amino Transf (AST/SGOT) 18, Alanine Aminotransferase (ALT/SGPT) 10, Alkaline Phosphatase 61, Total Protein 6.1, Albumin 3.7, Phosphorus Level 3.9, Vitamin B12 Level 152, Folate 9.6, Thyroid Stimulating Hormone (TSH) 1.03 05/23/21 05:36: White Blood Count 4.4, Red Blood Count 3.84, Hemoglobin 10.8, Hematocrit 36, Mean Corpuscular Volume 93, Mean Corpuscular Hemoglobin 28, Mean Corpuscular Hemoglobin Concent 30, Red Cell Distribution Width 13.7, Platelet Count 153, Mean Platelet Volume 10.5, Immature Granulocyte % (Auto) 0, Neutrophils (%) (Auto) 46, Lymphocytes (%) (Auto) 39, Monocytes (%) (Auto) 10, Eosinophils (%) (Auto) 3, Basophils (%) (Auto) 1, Neutrophils # (Auto) 2.0, Lymphocytes # (Auto) 1.7, Monocytes # (Auto) 0.5, Eosinophils # (Auto) 0.2, Basophils # (Auto) 0.1, Immature Granulocyte # (Auto) 0.0, Sodium Level 138, Potassium Level 4.1, Chloride Level 107, Carbon Dioxide Level 21, Anion Gap 10, Blood Urea Nitrogen 16, Creatinine 0.85, Estimat Glomerular Filtration Rate 86, BUN/Creatinine Ratio 19, Glucose Level 105, Calcium Level 8.6, Corrected Calcium 9.1, Total Bilirubin 0.5, Aspartate Amino Transf (AST/SGOT) 18, Alanine Aminotransferase (ALT/SGPT) 6, Alkaline Phosphatase 49, Total Protein 5.9, Albumin 3.4 05/24/21 06:22: White Blood Count 4.6, Red Blood Count 3.67, Hemoglobin 10.7, Hematocrit 33, Mean Corpuscular Volume 91, Mean Corpuscular Hemoglobin 29, Mean Corpuscular Hemoglobin Concent 32, Red Cell Distribution Width 13.7, Platelet Count 165, Mean Platelet Volume 11.2, Immature Granulocyte % (Auto) 0, Neutrophils (%) (Auto) 49, Lymphocytes (%) (Auto) 37, Monocytes (%) (Auto) 11, Eosinophils (%) (Auto) 3, Basophils (%) (Auto) 1, Neutrophils # (Auto) 2.2, Lymphocytes # (Auto) 1.7, Monocytes # (Auto) 0.5, Eosinophils # (Auto) 0.1, Basophils # (Auto) 0.0, Immature Granulocyte # (Auto) 0.0, Sodium Level 137, Potassium Level 4.3, Chloride Level 106, Carbon Dioxide Level 21, Anion Gap 10, Blood Urea Nitrogen 17, Creatinine 0.89, Estimat Glomerular Filtration Rate 82, BUN/Creatinine Ratio 19, Glucose Level 96, Calcium Level 8.8, Corrected Calcium 9.2, Total Bilirubin 0.5, Aspartate Amino Transf (AST/SGOT) 18, Alanine Aminotransferase (ALT/SGPT) 6, Alkaline Phosphatase 48, Total Protein 6.0, Albumin 3.5, Smear Scan YES Discharge Home Medications: Active Scripts Active Vitamin B-12 (Cyanocobalamin (Vitamin B-12)) 1,000 Mcg Tablet 1,000 Mcg PO DAILY@0700 Mupirocin 22 Gm Oint...g. 0 Gm NSEACH BID Children's Aspirin (Aspirin) 81 Mg Tab.chew 81 Mg PO DAILY Amlodipine Besylate 5 Mg Tablet 5 Mg PO DAILY Carvedilol 12.5 Mg Tablet 12.5 Mg PO BID Instructions to patient/family Please see electronic discharge instructions given to patient. Diagnosis/Problems Diagnosis/Problems (1) Hypertensive urgency Status: Acute CAROLA MIRZA DO May 24, 2021 11:29
== END 2021-05-24 15:30 | disposition home health service (06) | DRG 305 ==
LOC: EDUNIT# 22:33 → ER 22:35 → ICU 23:57 → 4TH 05-22 11:18
PROVIDERS: ADMIT Internal Medicine; ATTEND Internal Medicine
DX: I16.0 Hypertensive urgency (principal); G93.40 Encephalopathy, unspecified; I47.1 Supraventricular tachycardia; I10 Essential (primary) hypertension; F03.90 Unspecified dementia, unspecified severity, without behavioral disturbance, psychotic disturbance, mood disturbance, and anxiety; E03.9 Hypothyroidism, unspecified; F41.9 Anxiety disorder, unspecified; H54.7 Unspecified visual loss; D64.9 Anemia, unspecified; E53.8 Deficiency of other specified B group vitamins; Z22.322 Carrier or suspected carrier of Methicillin resistant Staphylococcus aureus; Z87.891 Personal history of nicotine dependence; Z79.82 Long term (current) use of aspirin; Z88.1 Allergy status to other antibiotic agents; Z91.018 Allergy to other foods
CPT/HCPCS: 36415; 70450; 71045; 80053; 80306; 80320; 81000; 82607; 82746; 83735; 84100; 84443; 84484; 85025; 86141; 87081; 93005; 94760; 96374

== ENCOUNTER 2021-06-24 10:47 | Emergency (ER) | payer MEDICARE, MEDICAID ==
[~2021-06-24] VITALS: Ht 185.5 cm; Wt 72.5 kg
[~2021-06-24 10:47] MED LIST changes: +ASPI81TA64 PO; +CYAN-41 PO; +MUPI22OI2 NSEACH
[2021-06-24] MEDS ORDERED: LACTATED RINGERS 1,000 ML IV SCH (11:00)
[2021-06-24] MEDS ORDERED: hydrALAZINE (APESOLINE) 20 MG/ML VIAL IV ONE (11:00)
[2021-06-24] MEDS ORDERED: ONDANSETRON 4 MG/2 ML (SDV) Z0FRAN IVP ONE (11:00)
--- NOTE | 2021-06-24 11:00 | ED General ---
General Chief Complaint: Abdominal/GI Problems Stated Complaint: N/V;WEAK;AMS Nursing Triage Note: PT BROUGHT IN BY [facility] FOR SUDDEN ONSET OF DELIRIUM, HEADACHE, NOT FEELING WELL, VOMITING. PT IS ALERT AND TALKING ON ARRIVAL ON ARRIVAL TO ED. Source of Information: Patient Exam Limitations: No Limitations History of Present Illness Date Seen by Provider: Jun 24, 2021 Time Seen by Provider: 10:58 Initial Comments To ER by EMS with reports of delirium headache nausea vomiting. He vomited once in the ambulance. Symptoms began this morning. He just got back from a anabaptism breakfast and friends report that he did not eat much. Timing/Duration: 4-6 Hours Severity: Moderate Associated Systoms: Denies Symptoms Allergies and Home Medications Allergies Coded Allergies: cephalexin (Unverified Allergy, Mild, 09/03/09) nut - unspecified (Verified Allergy, Unknown, 01/03/20) Patient Home Medication List Home Medication List Reviewed: Yes Amlodipine Besylate (Amlodipine Besylate) 5 Mg Tablet, 5 MG PO DAILY Prescribed by: CAROLA MIRZA on 05/24/21 112 Aspirin (Children's Aspirin) 81 Mg Tab.chew, 81 MG PO DAILY Prescribed by: CAROLA MIRZA on 05/24/21 1128 Carvedilol (Carvedilol) 12.5 Mg Tablet, 12.5 MG PO BID Prescribed by: CAROLA MIRZA on 05/24/211127 Cyanocobalamin (Vitamin B-12) (Vitamin B-12) 1,000 Mcg Tablet, 1,000 MCG PO DAILY@0700 Prescribed by: CAROLA MIRZA on 05/24/218 Mupirocin (Mupirocin) 22 Gm Oint...g., 0 GM NSEACH BID Prescribed by: CAROLA MIRZA on 05/24/21 1128 Review of Systems Review of Systems Constitutional: see HPI EENTM: see HPI Respiratory: no symptoms reported Cardiovascular: no symptoms reported Gastrointestinal: nausea, vomiting Genitourinary: no symptoms reported Musculoskeletal: no symptoms reported Skin: no symptoms reported Psychiatric/Neurological: See HPI, Headache Hematologic/Lymphatic: No Symptoms Reported Immunological/Allergic: no symptoms reported Past Xxnmxgx-Dwyryr-Kxkhfz Hx Immunizations Up To Date Tetanus Booster (TDap): Less than 5yrs First/Initial COVID19 Vaccinat: UNK Second COVID19 Vaccination Elmo: UNK Third COVID19 Vaccination Date: UNK Seasonal Allergies Seasonal Allergies: No Past Medical History Surgeries: Yes (ANKLE SURGERY; SCAR NOTED TO LEFT BREAST AREA; LITHOTRIPSY/ESWL) Gallbladder, Orthopedic, Renal Respiratory: No Cardiac: Yes (SVT) High Cholesterol, Hypertension 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; PARESTHESIAS ) Dementia Reproductive Disorders: No Genitourinary: Yes (ESWL/LITHOTRIPSY) Bladder Infection, Kidney Stones Gastrointestinal: Yes (PANCREATITIS WITH PARALYTIC ILEUS, DELIRIUM 04/29/18) Pancreatitis, Gall Bladder Disease Musculoskeletal: Yes (ANKLE SURGERY) Endocrine: Yes Hypothyroidsim HEENT: No Cancer: No Psychosocial: Yes Anxiety Integumentary: No Blood Disorders: No Physical Exam Vital Signs Vital Signs - First Documented 06/24/21 10:48 Pulse 52 Resp 22 B/P (MAP) 200/82 (121) Pulse Ox 97 O2 Delivery Room Air Capillary Refill : Height, Weight, BMI Height: 6'2.00" Weight: 180lbs. 0oz. [id number]; 21.00 BMI Method:Stated General Appearance: No Apparent Distress, WD/WN, Other (Lethargic but engages in conversation with us. Keeps his eyes closed during most of it. Speech is clear as per his usual he moves all extremities with equal strength. No fever. Sinus bradycardia on the monitor with a rate of 50 no ectopy and hypertension with a blood pressure of 200/93.) Eyes: Bilateral Eye Normal Inspection, Bilateral Eye PERRL, Bilateral Eye EOMI HEENT: PERRL/EOMI, TMs Normal Neck: Full Range of Motion, Normal Inspection Respiratory: No Accessory Muscle Use, No Respiratory Distress Cardiovascular: Regular Rate, Rhythm, Normal Peripheral Pulses Gastrointestinal: Normal Bowel Sounds, Non Tender, Soft Extremity: Normal Capillary Refill, Normal Inspection Neurologic/Psychiatric: Alert, Oriented x3 Skin: Normal Color, Warm/Dry Progress/Results/Core Measures Suspected Sepsis SIRS Temperature: Pulse: 52 Respiratory Rate: 22 Laboratory Tests 06/24/21 10:54: White Blood Count 5.0 Blood Pressure 200 /82 Mean: 121 Laboratory Tests 06/24/21 10:54: Creatinine 0.93, INR Comment 0.9, Platelet Count 202, Total Bilirubin 0.5 Results/Orders Lab Results Laboratory Tests Test 06/24/21 10:54 12/13/21 12:38 Range/Units White Blood Count 5.0 4.3-11.0 10^3/uL Red Blood Count 4.04 L 4.30-5.52 10^6/uL Hemoglobin 11.7 L 13.3-17.7 g/dL Hematocrit 37 L 40-54 % Mean Corpuscular Volume 91 80-99 fL Mean Corpuscular Hemoglobin 29 25-34 pg Mean Corpuscular Hemoglobin Concent 32 32-36 g/dL Red Cell Distribution Width 13.3 10.0-14.5 % Platelet Count 202 130-400 10^3/uL Mean Platelet Volume 10.2 9.0-12.2 fL Immature Granulocyte % (Auto) 0 % Neutrophils (%) (Auto) 64 42-75 % Lymphocytes (%) (Auto) 23 12-44 % Monocytes (%) (Auto) 10 0-12 % Eosinophils (%) (Auto) 2 0-10 % Basophils (%) (Auto) 1 0-10 % Neutrophils # (Auto) 3.2 1.8-7.8 10^3/uL Lymphocytes # (Auto) 1.2 1.0-4.0 10^3/uL Monocytes # (Auto) 0.5 0.0-1.0 10^3/uL Eosinophils # (Auto) 0.1 0.0-0.3 10^3/uL Basophils # (Auto) 0.0 0.0-0.1 10^3/uL Immature Granulocyte # (Auto) 0.0 0.0-0.1 10^3/uL Prothrombin Time 12.8 12.2-14.7 SEC INR Comment 0.9 0.8-1.4 Activated Partial Thromboplast Time 30 24-35 SEC Sodium Level 141 135-145 MMOL/L Potassium Level 4.6 3.6-5.0 MMOL/L Chloride Level 107 98-107 MMOL/L Carbon Dioxide Level 26 21-32 MMOL/L Anion Gap 8 5-14 MMOL/L Blood Urea Nitrogen 18 7-18 MG/DL Creatinine 0.93 0.60-1.30 MG/DL Estimat Glomerular Filtration Rate 78 BUN/Creatinine Ratio 19 Glucose Level 130 H 70-105 MG/DL Calcium Level 9.1 8.5-10.1 MG/DL Corrected Calcium 9.1 8.5-10.1 MG/DL Magnesium Level 2.4 1.6-2.4 MG/DL Total Bilirubin 0.5 0.1-1.0 MG/DL Aspartate Amino Transf (AST/SGOT) 20 5-34 U/L Alanine Aminotransferase (ALT/SGPT) 15 0-55 U/L Alkaline Phosphatase 61 40-136 U/L Total Protein 6.9 6.4-8.2 GM/DL Albumin 4.0 3.2-4.5 GM/DL Lipase 69 8-78 U/L Procalcitonin 0.04 <0.10 NG/ML Urine Color YELLOW Urine Clarity CLEAR Urine pH 7.5 5-9 Urine Specific [place] 1.020 1.016-1.022 Urine Protein NEGATIVE NEGATIVE Urine Glucose (UA) NEGATIVE NEGATIVE Urine Ketones NEGATIVE NEGATIVE Urine Nitrite NEGATIVE NEGATIVE Urine Bilirubin NEGATIVE NEGATIVE Urine Urobilinogen 1.0 < = 1.0 MG/DL Urine Leukocyte Esterase NEGATIVE NEGATIVE Urine RBC (Auto) NEGATIVE NEGATIVE Urine RBC NONE /HPF Urine WBC RARE /HPF Urine Squamous Epithelial Cells RARE /HPF Urine Crystals NONE /LPF Urine Bacteria NEGATIVE /HPF Urine Casts NONE /LPF Urine Mucus NEGATIVE /LPF Urine Culture Indicated NO My Orders Orders - [employer] PAINTING APRN Ct Head Wo (06/24/21 10:56) Chest 1 View, Ap/Pa Only (06/24/21 10:56) Ua Culture If Indicated (06/24/21 10:56) Procalcitonin (Pct) (06/24/21 10:56) Cbc With Automated Diff (06/24/21 10:56) Comprehensive Metabolic Panel (06/24/21 10:56) Lipase (06/24/21 10:56) Ekg Tracing (06/24/21 10:56) Ed Iv/Invasive Line Start (06/24/21 10:56) Magnesium (06/24/21 10:56) Lactated Ringers (Lr 1000 Ml Iv Solution (06/24/21 11:00) Ondansetron Injection (Zofran Injectio (06/24/21 11:00) Hydralazine Injection (Apresoline Inject (06/24/21 11:00) Protime With Inr (06/24/21 10:56) Partial Thromboplastin Time (06/24/21 10:56) Medications Given in ED Current Medications Medications Dose Ordered Sig/Doug Route Start Time Stop Time Status Last Admin Dose Admin Hydralazine HCl 10 mg ONCE ONCE IV 06/24/21 11:00 06/24/21 11:01 DC 06/24/21 11:11 10 MG Ondansetron HCl 4 mg ONCE ONCE IVP 06/24/21 11:00 06/24/21 11:01 DC 06/24/21 11:11 4 MG Vital Signs/I&O 06/24/21 10:48 Pulse 52 Resp 22 B/P (MAP) 200/82 (121) Pulse Ox 97 O2 Delivery Room Air Capillary Refill : Blood Pressure Mean: 121 Departure Communication (Admissions) Family Conversation 1409-he is back to normal alert and oriented talkative and feeling well. No nausea no headache. Blood pressure is down to 155 over 70s. Alert and oriented. Work-up is unremarkable. We will discharge to home. NAME: ALMA POWELL [facility] REC#: [id number] PT STATUS: REG ER : 1935 PHYSICIAN: [employer] PA[employer] APRN ADMIT DATE: 06/24/21/ER Signed Date of Exam:06/24/21 CT HEAD WO EXAMINATION: CT head without contrast. TECHNIQUE: Multiple contiguous axial images were obtained through the brain without the use of intravenous contrast. All CT scans use one or more of the following dose optimizing techniques: automated exposure control, MA and/or KvP adjustment based on patient size and exam type or iterative reconstruction. HISTORY: Delirium. Headache. Vomiting. COMPARISON: 05/21/2021. FINDINGS: No large acute territorial ischemia, mass, or hemorrhage. No midline shift or mass effect. Decreased attenuation is seen in the periventricular and subcortical white matter. The ventricles and cortical sulci are prominent. The basilar cisterns are patent and unremarkable. Left lens implant is noted. Small mucous retention cyst is seen in the left maxillary sinus. Mastoid air cells are clear. No soft tissue abnormality is seen. No osseus lesions or fractures are seen. IMPRESSION: 1. No large acute territorial ischemia, mass, or hemorrhage. 2. Chronic microvascular disease. 3. Generalized parenchymal volume loss. Dictated by: Dictated on workstation # [id number] Dict: 06/24/21 1136 Trans: 06/24/21 1144 [facility] [id number] Interpreted by: NICK CHAPPELL DO Electronically signed by: NICK CHAPPELL DO 06/24/21 1144 Impression Primary Impression: Lethargy Disposition: 01 HOME, SELF-CARE Condition: Improved Departure-Patient Inst. Decision time for Depature: 13:09 Referrals: SAPNA PATEL DO (PCP/Family) Primary Care Physician Patient Instructions: No Instuctions Given [employer] APRN Jun 24, 2021 11:00
[2021-06-24 11:01] LABS: BASOPHILS % (AUTO) 1 % (0-10); EOSINOPHILS # (AUTO) 0.1 10^3/uL (0.0-0.3); EOSINOPHILS % (AUTO) 2 % (0-10); HEMATOCRIT 37 % (40-54); HEMOGLOBIN 11.7 g/dL (13.3-17.7); LYMPHOCYTES # (AUTO) 1.2 10^3/uL (1.0-4.0); LYMPHOCYTES % (AUTO) 23 % (12-44); MEAN CORPUSCULAR HEMOGLOBIN 29 pg (25-34); MEAN CORPUSCULAR HGB CONC 32 g/dL (32-36); MEAN CORPUSCULAR VOLUME 91 fL (80-99); MEAN PLATELET VOLUME 10.2 fL (9.0-12.2); MONOCYTES # (AUTO) 0.5 10^3/uL (0.0-1.0); MONOCYTES % (AUTO) 10 % (0-12); NEUTROPHILS # (AUTO) 3.2 10^3/uL (1.8-7.8); NEUTROPHILS % (AUTO) 64 % (42-75); PLATELET COUNT 202 10^3/uL (130-400)
[2021-06-24 11:16] LABS: POTASSIUM 4.6 MMOL/L (3.6-5.0)
[2021-06-24 11:17] LABS: CALCIUM 9.1 MG/DL (8.5-10.1); INR 0.9 (0.8-1.4); PROTHROMBIN TIME PATIENT 12.8 SEC (12.2-14.7)
[2021-06-24 11:19] LABS: TOTAL PROTEIN 6.9 GM/DL (6.4-8.2)
[2021-06-24 11:20] LABS: BILIRUBIN,TOTAL 0.5 MG/DL (0.1-1.0)
[2021-06-24 11:22] LABS: CREATININE SERUM 0.93 MG/DL (0.60-1.30)
[2021-06-24 11:25] LABS: MAGNESIUM 2.4 MG/DL (1.6-2.4)
--- NOTE | 2021-06-24 11:39 | Diagnostic Imaging Report ---
EXAMINATION: CT head without contrast. TECHNIQUE: Multiple contiguous axial images were obtained through the brain without the use of intravenous contrast. All CT scans use one or more of the following dose optimizing techniques: automated exposure control, MA and/or KvP adjustment based on patient size and exam type or iterative reconstruction. HISTORY: Delirium. Headache. Vomiting. COMPARISON: 05/21/2021. FINDINGS: No large acute territorial ischemia, mass, or hemorrhage. No midline shift or mass effect. Decreased attenuation is seen in the periventricular and subcortical white matter. The ventricles and cortical sulci are prominent. The basilar cisterns are patent and unremarkable. Left lens implant is noted. Small mucous retention cyst is seen in the left maxillary sinus. Mastoid air cells are clear. No soft tissue abnormality is seen. No osseus lesions or fractures are seen. IMPRESSION: 1. No large acute territorial ischemia, mass, or hemorrhage. 2. Chronic microvascular disease. 3. Generalized parenchymal volume loss. Dictated by: Dictated on workstation # [id number]
--- NOTE | 2021-06-24 11:56 | Diagnostic Imaging Report ---
INDICATION: Delirium. Single AP view of the chest is obtained with comparison made to study of 05/21/2021. FINDINGS: Heart size is at the upper limits of normal. There is mild air trapping bilaterally. Curvilinear atelectasis or scarring is seen along the left heart border. No lobar consolidation, pneumothorax, or pleural fluid is seen. IMPRESSION: Probable mild lingular atelectasis and/or scarring without other evidence of acute abnormality. Dictated by: Dictated on workstation # [id number]
[2021-06-24 12:47] LABS: BILIRUBIN,URINE NEGATIVE (NEGATIVE); CLARITY,URINE CLEAR; COLOR,URINE YELLOW; GLUCOSE, URINE (UA) NEGATIVE (NEGATIVE); KETONES,URINE NEGATIVE (NEGATIVE); LEUKOCYTE ESTERASE ,URINE NEGATIVE (NEGATIVE); NITRITE,URINE NEGATIVE (NEGATIVE); PH,URINE 7.5 (5-9); PROTEIN,URINE NEGATIVE (NEGATIVE)
[2021-06-24 12:57] LABS: BACTERIA,URINE NEGATIVE /HPF; SQUAMOUS EPITHELIAL CELL,UR RARE /HPF; WBC,URINE RARE /HPF
[2021-06-24 13:22] VITALS: BP 153/79
== END 2021-06-24 13:22 | disposition home or self-care (01) ==
LOC: EDUNIT# 10:47 → ER 10:48
DX: R53.83 Other fatigue (principal); I10 Essential (primary) hypertension; F03.90 Unspecified dementia, unspecified severity, without behavioral disturbance, psychotic disturbance, mood disturbance, and anxiety; Z79.82 Long term (current) use of aspirin
CPT/HCPCS: 36415; 70450; 71045; 80053; 81000; 83690; 83735; 84145; 85025; 85610; 85730

== ENCOUNTER 2021-11-30 16:36 | Observation (INO) | payer MEDICARE, MEDICAID ==
[2021-11-30] VITALS (8 sets, daily range): BP systolic 140–162; BP diastolic 73–86
[~2021-11-30] VITALS: Ht 185.5 cm; Wt 82.4 kg
[~2021-11-30 16:36] MED LIST changes: -FEXO-46 PO; +NF-ALLE180 PO
[2021-11-30] MEDS ORDERED: ACETAMINOPHEN 500 MG TAB (TYLENOL) PO ONE (16:45)
[2021-11-30] MEDS ORDERED: ASPIRIN 81 MG CHEW (CHILDREN'S ASA) PO ONE (16:45)
--- NOTE | 2021-11-30 16:50 | ED Headache ---
General Stated Complaint: LEG PAIN,HYPOTENSION Source: patient, EMS Exam Limitations: no limitations (LUCI DOBBS) History of Present Illness Date Seen by Provider: November 30, 2021 Time Seen by Provider: 16:33 Initial Comments AndPatient presents ER by EMS from [facility] with original chief complaint called out EMS of hypertension blood pressure 170s over 110 left arm pain. Patient told EMS he has a headache and tells us he has a headache frontal bilateral nonthrobbing, first headache is ever had, has not take anything for it yet. He denies having any chest pain, shoulder pain, numbness, nausea, fevers, chills or sick contacts. He takes an aspirin daily and amlodipine for blood pressure. He is not having any visual disturbances or new difficulties walking. EMS remarks he had a normal sinus rhythm on the EKG. blood pressure in the 1 2 0-1 30 range systolic. 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 History of pancreatitis, hypothyroidism. Echocardiogram by Dr. Patel demonstrates EF of 50 to 55% and restrictive pathology and decreased diastolic compliance. (LUCI DOBBS) Allergies and Home Medications Allergies Coded Allergies: cephalexin (Unverified Allergy, Mild, 09/03/09) nut - unspecified (Verified Allergy, Unknown, 01/03/20) Patient Home Medication List Home Medication List Reviewed: Yes (LUCI DOBBS) Amlodipine Besylate (Amlodipine Besylate) 5 Mg Tablet, 5 MG PO DAILY Prescribed by: CAROLA MIRZA on 05/24/211127 Aspirin (Children's Aspirin) 81 Mg Tab.chew, 81 MG PO DAILY Prescribed by: CAROLA MIRZA on 05/24/21 112 Carvedilol (Carvedilol) 12.5 Mg Tablet, 12.5 MG PO BID Prescribed by: CAROLA MIRZA on 05/24/211127 Cyanocobalamin (Vitamin B-12) (Vitamin B-12) 1,000 Mcg Tablet, 1,000 MCG PO DAILY@0700 Prescribed by: CAROLA MIRZA on 05/24/211127 Mupirocin (Mupirocin) 22 Gm Oint...g., 0 GM NSEACH BID Prescribed by: CAROLA MIRZA on 11/12/21 1128 Review of Systems Review of Systems Constitutional: No chills, No diaphoresis Eyes: Denies Blindness, Denies Blurred Vision Ears, Nose, Mouth, Throat: denies ear pain, denies ear discharge Respiratory: No cough, No short of breath Cardiovascular: see HPI; No chest pain, No edema, No palpitations Gastrointestinal: abdominal pain; No constipation, No diarrhea, No nausea, No vomiting Genitourinary: No discharge, No dysuria Musculoskeletal: No back pain, No joint pain (LUCI DOBBS) All Other Systems Reviewed Negative Unless Noted: Yes (LUCI DOBBS) Past Haxbdni-Ubwpho-Hkespy Hx Patient Social History Tobacco Use?: No Smoking Status: Former Smoker Use of E-Cig and/or Vaping dev: No Substance use?: No Alcohol Use?: No (LUCI DOBBS) Immunizations Up To Date Tetanus Booster (TDap): Less than 5yrs First/Initial COVID19 Vaccinat: UNK Second COVID19 Vaccination Elmo: UNK Third COVID19 Vaccination Date: UNK (LUCI DOBBS) Seasonal Allergies Seasonal Allergies: No (LUCI ODBBS) Past Medical History Surgeries: Yes (ANKLE SURGERY; SCAR NOTED TO LEFT BREAST AREA; LITHOTRIPSY/ESWL) Gallbladder, Orthopedic, Renal Respiratory: No Cardiac: Yes (SVT) High Cholesterol, Hypertension 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; PARESTHESIAS ) Dementia Reproductive Disorders: No Genitourinary: Yes (ESWL/LITHOTRIPSY) Bladder Infection, Kidney Stones Gastrointestinal: Yes (PANCREATITIS WITH PARALYTIC ILEUS, DELIRIUM 04/29/18) Pancreatitis, Gall Bladder Disease Musculoskeletal: Yes (ANKLE SURGERY) Endocrine: Yes Hypothyroidsim HEENT: No Cancer: No Psychosocial: Yes Anxiety Integumentary: No Blood Disorders: No (LUCI DOBBS) Physical Exam Vital Signs Vital Signs - First Documented 11/30/21 16:36 Temp 36.5 Pulse 66 Resp 16 B/P (MAP) 161/79 (106) (LEONARDA ISSA MD) Vital Signs Capillary Refill : (LUCI DOBBS) Height, Weight, BMI Height: 6'2.00" Weight: 180lbs. 0oz. 81.163288pe; 21.00 BMI Method:Stated General Appearance: WD/WN, no apparent distress HEENT: PERRL/EOMI, normal ENT inspection, TMs normal, pharynx normal Neck: non-tender, full range of motion, supple, normal inspection Cardiovascular: normal peripheral pulses, regular rate, rhythm Respiratory: lungs clear, normal breath sounds, no respiratory distress, no accessory muscle use Gastrointestinal: normal bowel sounds, non tender, soft Extremities: normal range of motion, non-tender, normal capillary refill Psychiatric: alert, oriented x 3 Crainal Nerves: normal hearing, normal speech, PERRL Coordination/Gait: normal finger to nose Motor/Sensory: no motor deficit, no sensory deficit Skin: normal color, warm/dry (LUCI DOBBS) Progress/Results/Core Measures Results/Orders Lab Results Laboratory Tests Test 11/30/21 16:40 11/30/21 18:46 Range/Units White Blood Count 4.5 4.3-11.0 10^3/uL Red Blood Count 4.09 L 4.30-5.52 10^6/uL Hemoglobin 12.0 L 13.3-17.7 g/dL Hematocrit 36 L 40-54 % Mean Corpuscular Volume 89 80-99 fL Mean Corpuscular Hemoglobin 29 25-34 pg Mean Corpuscular Hemoglobin Concent 33 32-36 g/dL Red Cell Distribution Width 14.0 10.0-14.5 % Platelet Count 177 130-400 10^3/uL Mean Platelet Volume 11.9 9.0-12.2 fL Immature Granulocyte % (Auto) 0 % Neutrophils (%) (Auto) 52 42-75 % Lymphocytes (%) (Auto) 34 12-44 % Monocytes (%) (Auto) 10 0-12 % Eosinophils (%) (Auto) 2 0-10 % Basophils (%) (Auto) 1 0-10 % Neutrophils # (Auto) 2.4 1.8-7.8 10^3/uL Lymphocytes # (Auto) 1.5 1.0-4.0 10^3/uL Monocytes # (Auto) 0.5 0.0-1.0 10^3/uL Eosinophils # (Auto) 0.1 0.0-0.3 10^3/uL Basophils # (Auto) 0.0 0.0-0.1 10^3/uL Immature Granulocyte # (Auto) 0.0 0.0-0.1 10^3/uL B-Type Natriuretic Peptide 37.3 <100.0 PG/ML Prothrombin Time 12.4 12.2-14.7 SEC INR Comment 0.9 0.8-1.4 Activated Partial Thromboplast Time 29 24-35 SEC Sodium Level 142 135-145 MMOL/L Potassium Level 4.0 3.6-5.0 MMOL/L Chloride Level 106 98-107 MMOL/L Carbon Dioxide Level 23 21-32 MMOL/L Anion Gap 13 5-14 MMOL/L Blood Urea Nitrogen 10 7-18 MG/DL Creatinine 0.75 0.60-1.30 MG/DL Estimat Glomerular Filtration Rate 89 BUN/Creatinine Ratio 13 Glucose Level 111 H 70-105 MG/DL Calcium Level 9.2 8.5-10.1 MG/DL Corrected Calcium 9.1 8.5-10.1 MG/DL Magnesium Level 2.1 1.6-2.4 MG/DL Total Bilirubin 0.4 0.1-1.0 MG/DL Aspartate Amino Transf (AST/SGOT) 17 5-34 U/L Alanine Aminotransferase (ALT/SGPT) 12 0-55 U/L Alkaline Phosphatase 66 40-136 U/L Myoglobin 43.5 10.0-92.0 NG/ML Troponin I 0.063 H <0.028 NG/ML Total Protein 7.1 6.4-8.2 GM/DL Albumin 4.1 3.2-4.5 GM/DL Lipase 61 8-78 U/L (LEONARDA ISSA MD) Medications Given in ED Current Medications Medications Dose Ordered Sig/Doug Route Start Time Stop Time Status Last Admin Dose Admin Acetaminophen 1,000 mg ONCE ONCE PO 11/30/21 16:45 11/30/21 16:46 DC 11/30/21 17:03 1,000 MG Aspirin 324 mg ONCE ONCE PO 11/30/21 16:45 11/30/21 16:46 DC 11/30/21 17:03 324 MG (LEONARDA ISSA MD) Vital Signs/I&O 11/30/21 16:36 Temp 36.5 Pulse 66 Resp 16 B/P (MAP) 161/79 (106) (LEONARDA ISSA MD) Progress Progress Note : Time: 16:51 Progress Note Patient does have some dementia however he is adamant that he is not having chest pain nor has he had any chest or shoulder pain. His blood pressure on arrival is 142/86. He is in a normal sinus rhythm in the mid 60s without labored breathing. He is complaining of a headache. We will give him some aspirin and Tylenol and complete a chest pain work-up since this was the initial chief complaint and the patient does have a history of dementia. CT of the head (LUCI DOBBS) Progress Note : Time: 19:40 Progress Note Patient seen and examined by me, 86-year-old with a chief complaint of left shoulder pain and mild headache. Patient states his headache is improved after the Tylenol he was given earlier. He rates his shoulder pain at "a 5". I have reviewed his labs and EKG. EKG was a normal sinus rhythm without ectopy or ST segment change. Chest x-ray is unremarkable. Head CT is unremarkable. The rest of his labs are within normal limits except for his mildly elevated troponin at 0.063. I discussed the case with Dr. Latonya Isaacs on for the hospitalist service as well as Dr. Patel. We will give him Lovenox twice daily as well as his aspirin. I am going to give him some nitro to see if that helps his shoulder pain. He is not short of breath or nauseous. Pleasantly demented and cannot really recall at what point his shoulder pain started. He thinks it might be because he slept on it oddly. No fevers or chills, no productive cough. No other complaints of illness. I discussed with him the plan for keeping him this evening and repeating his labs. He is comfortable with this plan of care. All questions are sought and answered (LEONARDA ISSA MD) Initial ECG Impression Date: November 30, 2021 Initial ECG Impression Time: 16:55 Initial ECG Rate: 66 Initial ECG Rhythm: Normal Sinus Initial ECG Intervals: Normal Initial ECG Impression: Normal Comment Normal sinus rhythm without clinically relevant ST elevation or depression. (LUCI DOBBS) Diagnostic Imaging Diagonstic Imaging: Xray Plain Films/CT/US/NM/MRI: chest Comments [facility], [place] NAME: [facility] POWELL [facility] REC#: [id number] PT STATUS: REG ER : 1935 PHYSICIAN: LUCI DOBBS MD ADMIT DATE: 11/30/21/ER Draft Date of Exam:11/30/21 CHEST 1 VIEW, AP/PA ONLY EXAMINATION: Chest 1 view. HISTORY: Chest pain. COMPARISON: 06/24/2021. FINDINGS: Heart size and pulmonary vasculature are normal. The lungs are clear without consolidation, pleural effusion or pneumothorax. The osseous structures are intact. IMPRESSION: No acute radiographic abnormality in the chest. Dictated on workstation # [id number] Dict: 11/30/21 1735 Trans: 11/30/211736 PJE [id number] Interpreted by: MONIKA MOSS DO Electronically signed by: Reviewed: Reviewed by Me Diagonstic Imaging: CT Plain Films/CT/US/NM/MRI: head Comments [facility], [place] NAME: ANDREALMA Cayla [facility] REC#: [id number] PT STATUS: REG ER : 1935 PHYSICIAN: LUCI DOBBS MD ADMIT DATE: 11/30/21/ER Draft Date of Exam:11/30/21 CT HEAD WO EXAMINATION: CT head without contrast. TECHNIQUE: Multiple contiguous axial images were obtained through the brain without the use of intravenous contrast. All CT scans use one or more of the following dose optimizing techniques: automated exposure control, MA and/or KvP adjustment based on patient size and exam type or iterative reconstruction. HISTORY: Headache. COMPARISON: 06/24/2021. FINDINGS: Mild diffuse cerebral volume loss with proportional enlargement of the ventricles and sulci. Mild hypodensities throughout the supratentorial white matter of both cerebral hemispheres. No acute intracranial hemorrhage or abnormal extra-axial fluid collections are present. Calcification of the intracranial ICAs. No hyperdense vessel. The calvarium is intact. The mastoid air cells are clear. The visualized paranasal sinuses are clear. Surgical changes of the left globe. IMPRESSION: 1. No acute intracranial abnormality. 2. Chronic microangiopathy and volume loss. Dictated on workstation # [id number] Dict: 11/30/21 173 Trans: 11/30/211737 PJE [id number] Interpreted by: MONIKA MOSS DO Electronically signed by: Reviewed: Reviewed by Me (LUCI DOBBS) Transfer of Care Time: 18:30 Care transferred to: Dr. Issa (LUCI DOBBS) Departure Communication (Admissions) Time/Spoke to Admitting Phy: 19:[address] Isaacs Time/Spoke to Consulting Phy: 19:[address] Patel (LEONARDA ISSA MD) Impression Primary Impression: Left shoulder pain Qualified Codes: M25.512 - Pain in left shoulder Additional Impressions: Elevated troponin Acute headache Qualified Codes: R51.9 - Headache, unspecified Disposition: ADMITTED INPATIENT Condition: Stable Admissions Decision to Admit Reason: Admit from ER (General) Decision to Admit/Date: November 30, 2021 Time/Decision to Admit Time: 19:43 (LEONARDA ISSA MD) Departure-Patient Inst. Referrals: SAPNA PATEL DO (PCP/Family) Primary Care Physician LUCI DOBBS November 30, 2021 16:50 LEONARDA ISSA MD November 30, 2021 19:43
[2021-11-30 16:51] LABS: BASOPHILS % (AUTO) 1 % (0-10); EOSINOPHILS # (AUTO) 0.1 10^3/uL (0.0-0.3); EOSINOPHILS % (AUTO) 2 % (0-10); HEMATOCRIT 36 % (40-54); LYMPHOCYTES # (AUTO) 1.5 10^3/uL (1.0-4.0); LYMPHOCYTES % (AUTO) 34 % (12-44); MEAN CORPUSCULAR HEMOGLOBIN 29 pg (25-34); MEAN CORPUSCULAR HGB CONC 33 g/dL (32-36); MEAN CORPUSCULAR VOLUME 89 fL (80-99); MEAN PLATELET VOLUME 11.9 fL (9.0-12.2); MONOCYTES # (AUTO) 0.5 10^3/uL (0.0-1.0); MONOCYTES % (AUTO) 10 % (0-12); NEUTROPHILS # (AUTO) 2.4 10^3/uL (1.8-7.8); NEUTROPHILS % (AUTO) 52 % (42-75); PLATELET COUNT 177 10^3/uL (130-400); WHITE BLOOD COUNT 4.5 10^3/uL (4.3-11.0)
--- NOTE | 2021-11-30 17:37 | Diagnostic Imaging Report ---
EXAMINATION: Chest 1 view. HISTORY: Chest pain. COMPARISON: 06/24/2021. FINDINGS: Heart size and pulmonary vasculature are normal. The lungs are clear without consolidation, pleural effusion or pneumothorax. The osseous structures are intact. IMPRESSION: No acute radiographic abnormality in the chest. Dictated by: Dictated on workstation # [id number]
--- NOTE | 2021-11-30 17:38 | Diagnostic Imaging Report ---
EXAMINATION: CT head without contrast. TECHNIQUE: Multiple contiguous axial images were obtained through the brain without the use of intravenous contrast. All CT scans use one or more of the following dose optimizing techniques: automated exposure control, MA and/or KvP adjustment based on patient size and exam type or iterative reconstruction. HISTORY: Headache. COMPARISON: 06/24/2021. FINDINGS: Mild diffuse cerebral volume loss with proportional enlargement of the ventricles and sulci. Mild hypodensities throughout the supratentorial white matter of both cerebral hemispheres. No acute intracranial hemorrhage or abnormal extra-axial fluid collections are present. Calcification of the intracranial ICAs. No hyperdense vessel. The calvarium is intact. The mastoid air cells are clear. The visualized paranasal sinuses are clear. Surgical changes of the left globe. IMPRESSION: 1. No acute intracranial abnormality. 2. Chronic microangiopathy and volume loss. Dictated by: Dictated on workstation # [id number]
[2021-11-30 19:05] LABS: INR 0.9 (0.8-1.4); PROTHROMBIN TIME PATIENT 12.4 SEC (12.2-14.7)
[2021-11-30 19:14] LABS: ALBUMIN 4.1 GM/DL (3.2-4.5); BILIRUBIN,TOTAL 0.4 MG/DL (0.1-1.0); CALCIUM 9.2 MG/DL (8.5-10.1); CREATININE SERUM 0.75 MG/DL (0.60-1.30); MAGNESIUM 2.1 MG/DL (1.6-2.4); TOTAL PROTEIN 7.1 GM/DL (6.4-8.2)
[2021-11-30] MEDS ORDERED: NITROGLYCERIN 0.4 MG SL TABS BTL 25'S SL STA (19:44)
[2021-11-30] MEDS ORDERED: ENOXAPARIN 80 MG/0.8 ML (LOVENOX) SYR SC ONE (19:45)
[2021-11-30] MEDS ORDERED: morphine INJ 4 MG/ML 1 ML (VIAL/SYRINGE) IV PRN (21:00)
[2021-11-30] MEDS ORDERED: ONDANSETRON 4 MG/2 ML (SDV) Z0FRAN IVP PRN (21:00)
[2021-11-30] MEDS ORDERED: NITROGLYCERIN 0.4 MG SL TABS BTL 25'S SL PRN (21:00)
[2021-11-30] MEDS ORDERED: RT-ALBUTEROL SULF 2.5 MG/3 ML PRE-MIX VIAL INH PRN (23:15)
[2021-11-30] MEDS: CATHETER FLUSH 10 ML SYR IVP SCH (23:49)
[2021-12-01] VITALS: BP 113/84
[2021-12-01 01:00] VITALS: BP 116/50
[2021-12-01 02:00] VITALS: BP 138/62
[2021-12-01 03:50] VITALS: BP 108/47
[2021-12-01 05:19] LABS: TRIGLYCERIDES 245 MG/DL (<150); VLDL CHOLESTEROL 49 MG/DL (5-40)
[2021-12-01 05:24] LABS: CHOLESTEROL 183 MG/DL (< 200)
[2021-12-01 05:25] LABS: HDL CHOLESTEROL 38 MG/DL (40-60)
[2021-12-01] MEDS: CATHETER FLUSH 10 ML SYR IVP SCH (06:02)
[2021-12-01 08:00] VITALS: BP 179/91
[2021-12-01] MEDS ORDERED: ENOXAPARIN 80 MG/0.8 ML (LOVENOX) SYR SC SCH (08:00)
[2021-12-01] MEDS ORDERED: ASPIRIN E.C. 81 MG (ECOTRIN) TAB PO SCH (09:00)
--- NOTE | 2021-12-01 09:44 | Short Stay Summary-Hospitalist ---
History of Present Illness HPI/Chief Complaint Patient is an 86-year-old male with a past medical history of hypertension, hyperlipidemia, dementia,, hypothyroidism who presented to the emergency department due to elevated blood pressure. There was some question of whether or not he had chest pain in the emergency room but patient has adamantly denied any chest pain to both the emergency room and to me. He has some mild dementia but he is able to tell me who he is where he is where he normally resides so I believe this history to be accurate. He did complain of some shoulder pain but states that it is due to sleeping on it oddly. This morning he has no complaints and is asking when he can be discharged home. He was found to have an elevated troponin and was admitted for observation overnight. Source: patient Date Seen 12/01/21 Time Seen by a Provider: 09:44 Attending Physician Cody Rodriguez DO PCP Admitting Physician: Shannon Isaacs MD Attending Physician: Shannon Isaacs MD Referring Physician Date of Admission November 30, 2021 at 19:38 Home Medications & Allergies Home Medications Reviewed patient Home Medication Reconciliation performed by pharmacy medication reconciliations library acquisitions technician and/or nursing. Patients Allergies have been reviewed. Allergies Allergies Coded Allergies cephalexin (Unverified Allergy, Mild, 09/03/09) nut - unspecified (Verified Allergy, Unknown, 01/03/20) Past Rvflwwk-Qmqjxc-Jcirfd Hx Patient Social History Employed/Student: retired Tobacco Use?: No Smoking Status: Former Smoker Use of E-Cig and/or Vaping dev: No Substance use?: No Alcohol Use?: No Pt feels they are or have been: No Immunizations Up To Date Date of Influenza Vaccine: Apr 21, 2021 First/Initial COVID19 Vaccinat: UNK Second COVID19 Vaccination Elmo: UNK Date of Pneumonia Vaccine: May 13, 2010 Seasonal Allergies Seasonal Allergies: No Current Status Advance Directives: No Communicates: Verbally Primary Language: [place]guill[place] Preferred Spoken Language: [place]gu[place] Is interpretation needed?: No Sensory deficits: Vision impairment Implanted or Applied Medical D: None Past Medical History Surgeries: Gallbladder, Orthopedic, Renal High Cholesterol, Hypertension Dementia Bladder Infection, Kidney Stones Pancreatitis, Gall Bladder Disease Hypothyroidsim Anxiety Blood Disorders: No Family Medical History Reviewed Nursing Family Hx No Pertinent Family Hx Review of Systems Constitutional: No chills, No fever EENTM: no symptoms reported Respiratory: No cough, No dyspnea on exertion, No short of breath Cardiovascular: No chest pain, No edema, No palpitations Gastrointestinal: No abdominal pain, No constipation, No nausea, No vomiting Musculoskeletal: joint pain (shoulder per hpi) Skin: no symptoms reported Psychiatric/Neurological: No Symptoms Reported Physical Exam Physical Exam Vital Signs Vital Signs - First Documented 11/30/21 11/30/21 16:36 23:04 Temp 36.5 Pulse 66 Resp 16 B/P (MAP) 161/79 (106) FiO2 21 Capillary Refill : Height, Weight, BMI Height: 6'2.00" Weight: 180lbs. 0oz. 81.328958kf; 23.94 BMI Method:Stated General Appearance: No Apparent Distress, WD/WN HEENT: PERRL/EOMI, Moist Mucous Membranes; No Scleral Icterus (L), No Scleral Icterus (R) Neck: Normal Inspection, Supple Respiratory: Lungs Clear, No Accessory Muscle Use, No Respiratory Distress Cardiovascular: Regular Rate, Rhythm, No JVD, No Murmur, Normal Peripheral Pulses Gastrointestinal: Normal Bowel Sounds, Non Tender, Soft Extremity: Normal Capillary Refill, No Calf Tenderness, No Pedal Edema Neurologic/Psychiatric: Alert, Oriented x3, Normal Mood/Affect Skin: Normal Color, Warm/Dry Results Results/Procedures Labs Laboratory Tests 11/30/21 16:40 11/30/21 18:46 Patient resulted labs reviewed. Imaging: Reviewed Imaging Report Short Stay Diagnosis Discharge Diagnosis-Short Stay Admission Diagnosis Elevated troponin Final Discharge Diagnosis Elevated troponin Conclusion Plan Elevated troponin Likely due to elevated BP Has already trended down Cardiology consulted, appreciate recs Never had chest pain Echo ordered Can likely DC home afterwards Diagnosis/Problems Diagnosis/Problems (1) Elevated troponin Status: Acute (2) Hypertensive urgency Status: Acute SHANNON ISAACS MD December 01, 2021 09:44
--- NOTE | 2021-12-01 10:13 | Consultation-Cardiology ---
HPI-Cardiology Cardiology Consultation Date of Consultation 12/01/21 Date of Admission Time Seen by Provider: 10:09 Indication: Elevated troponin level HPI 86-year-old gentleman suffer from dementia. Came into the emergency room for shoulder pain. He was noted to have elevation in troponin level. He denied any chest pain, no shortness of breath. No palpitation. No syncope or near syncopal episodes. Troponin level has been trending down. EKG showed nondiagnostic changes Home Medications & Allergies Allergies: Coded Allergies: cephalexin (Unverified Allergy, Mild, 09/03/09) nut - unspecified (Verified Allergy, Unknown, 01/03/20) Home Medication List Reviewed: Yes NUU-Dznphg-Sgomeg Hx Patient Social History Marital Status: single Employed/Student: retired Smoking Status: Former Smoker 2nd Hand Smoke Exposure: No Recent Hopitalizations: No Have you traveled recently?: No Alcohol Use?: No Immunizations Up To Date Tetanus Booster (TDap): Less than 5yrs Date of Pneumonia Vaccine: May 13, 2010 Date of Influenza Vaccine: Apr 21, 2021 Past Medical History Discussed below Family Medical History Significant Family History: No Pertinent Family Hx Family Medical Hx Noncontributory Review of Systems-General Review of Systems Constitutional: see HPI; No chills, No fever EENTM: see HPI, no symptoms reported Respiratory: see HPI; No cough, No dyspnea on exertion, No short of breath Cardiovascular: see HPI; No chest pain, No edema, No palpitations Gastrointestinal: No abdominal pain, No constipation, No nausea, No vomiting Genitourinary: No discharge, No dysuria Musculoskeletal: joint pain (shoulder per hpi), other (Left shoulder pain) Skin: no symptoms reported Psychiatric/Neurological: No Symptoms Reported All Other Systems Reviewed Negative Unless Noted: Yes Reviewed Test Results Reviewed Test Results Lab Laboratory Tests Test 11/30/21 16:40 11/30/21 18:46 12/01/21 04:40 Range/Units White Blood Count 4.5 4.3-11.0 10^3/uL Red Blood Count 4.09 L 4.30-5.52 10^6/uL Hemoglobin 12.0 L 13.3-17.7 g/dL Hematocrit 36 L 40-54 % Mean Corpuscular Volume 89 80-99 fL Mean Corpuscular Hemoglobin 29 25-34 pg Mean Corpuscular Hemoglobin Concent 33 32-36 g/dL Red Cell Distribution Width 14.0 10.0-14.5 % Platelet Count 177 130-400 10^3/uL Mean Platelet Volume 11.9 9.0-12.2 fL Immature Granulocyte % (Auto) 0 % Neutrophils (%) (Auto) 52 42-75 % Lymphocytes (%) (Auto) 34 12-44 % Monocytes (%) (Auto) 10 0-12 % Eosinophils (%) (Auto) 2 0-10 % Basophils (%) (Auto) 1 0-10 % Neutrophils # (Auto) 2.4 1.8-7.8 10^3/uL Lymphocytes # (Auto) 1.5 1.0-4.0 10^3/uL Monocytes # (Auto) 0.5 0.0-1.0 10^3/uL Eosinophils # (Auto) 0.1 0.0-0.3 10^3/uL Basophils # (Auto) 0.0 0.0-0.1 10^3/uL Immature Granulocyte # (Auto) 0.0 0.0-0.1 10^3/uL B-Type Natriuretic Peptide 37.3 <100.0 PG/ML Prothrombin Time 12.4 12.2-14.7 SEC INR Comment 0.9 0.8-1.4 Activated Partial Thromboplast Time 29 24-35 SEC Sodium Level 142 135-145 MMOL/L Potassium Level 4.0 3.6-5.0 MMOL/L Chloride Level 106 98-107 MMOL/L Carbon Dioxide Level 23 21-32 MMOL/L Anion Gap 13 5-14 MMOL/L Blood Urea Nitrogen 10 7-18 MG/DL Creatinine 0.75 0.60-1.30 MG/DL Estimat Glomerular Filtration Rate 89 BUN/Creatinine Ratio 13 Glucose Level 111 H 70-105 MG/DL Calcium Level 9.2 8.5-10.1 MG/DL Corrected Calcium 9.1 8.5-10.1 MG/DL Magnesium Level 2.1 1.6-2.4 MG/DL Total Bilirubin 0.4 0.1-1.0 MG/DL Aspartate Amino Transf (AST/SGOT) 17 5-34 U/L Alanine Aminotransferase (ALT/SGPT) 12 0-55 U/L Alkaline Phosphatase 66 40-136 U/L Myoglobin 43.5 10.0-92.0 NG/ML Troponin I 0.063 H 0.039 H <0.028 NG/ML Total Protein 7.1 6.4-8.2 GM/DL Albumin 4.1 3.2-4.5 GM/DL Lipase 61 8-78 U/L Triglycerides Level 245 H <150 MG/DL Cholesterol Level 183 < 200 MG/DL LDL Cholesterol Direct 120 1-129 MG/DL VLDL Cholesterol 49 H 5-40 MG/DL HDL Cholesterol 38 L 40-60 MG/DL Physical Exam Physical Exam Vital Signs Vital Signs - First Documented 11/30/21 11/30/21 16:36 23:04 Temp 36.5 Pulse 66 Resp 16 B/P (MAP) 161/79 (106) FiO2 21 Capillary Refill : Height, Weight, BMI Height: 6'2.00" Weight: 180lbs. 0oz. 81.296966sc; 23.94 BMI Method:Stated General Appearance: No Apparent Distress, WD/WN HEENT: PERRL/EOMI, Moist Mucous Membranes; No Scleral Icterus (L), No Scleral Icterus (R) Neck: Normal Inspection, Supple Respiratory: Lungs Clear, No Accessory Muscle Use, No Respiratory Distress Cardiovascular: Regular Rate, Rhythm, No JVD, No Murmur, Normal Peripheral Pulses Gastrointestinal: Normal Bowel Sounds, Non Tender, Soft Extremity: Normal Capillary Refill, No Calf Tenderness, No Pedal Edema Neurologic/Psychiatric: Alert, Oriented x3, Normal Mood/Affect Skin: Normal Color, Warm/Dry A/P-Cardiology Admission Diagnosis Elevated troponin level Hypertension Hyperlipidemia Left shoulder pain Assessment/Plan Left shoulder pain, appears to be musculoskeletal in nature. Improved at this time. Continue to monitor Mild elevation in troponin. Appears to be flat and trending down. No active chest pain no acute EKG changes. Patient has advanced dementia, he is 86 years old. I recommend conservative management. I will evaluate 2D echo. History of supraventricular tachycardia, no episodes of palpitation were reported. Continue to monitor Advanced dementia. No change compared to his baseline. Hypertension, monitor blood pressure Hyperlipidemia, hypertriglyceridemia, recommend using fish oil. Okay for discharge and follow-up as an outpatient MARIO AGUILAR MD December 01, 2021 10:13
--- NOTE | 2021-12-01 10:50 | Discharge Inst-Simple/Standard ---
Discharge Inst-Standard Patient Instructions/Follow Up Plan of Care/Instructions/FU: Please continue take your medications as written. Please follow-up with your primary care doctor, Dr. Rodriguez, to follow-up this hospital stay. Activity as Tolerated: Yes Discharge Diet: No Restrictions Return to The Hospital For: Chest pain, shortness of breath, weakness, elevated blood pressure, if you feel you are getting worse. CHRIST FLORES MD December 01, 2021 10:50
[2021-12-01 16:00] VITALS: BP 186/92
== END 2021-12-01 17:55 | disposition home or self-care (01) ==
LOC: EDUNIT# 16:36 → ER 16:37 → CSD 19:38
PROVIDERS: ADMIT Family Medicine; ATTEND Family Medicine
DX: R77.8 Other specified abnormalities of plasma proteins (principal); I16.0 Hypertensive urgency; I10 Essential (primary) hypertension; R51.9 Headache, unspecified; M25.512 Pain in left shoulder; I47.1 Supraventricular tachycardia; F03.90 Unspecified dementia, unspecified severity, without behavioral disturbance, psychotic disturbance, mood disturbance, and anxiety; E03.9 Hypothyroidism, unspecified; E78.5 Hyperlipidemia, unspecified; Z88.1 Allergy status to other antibiotic agents; Z91.018 Allergy to other foods; Z79.82 Long term (current) use of aspirin
CPT/HCPCS: 36415; 70450; 71045; 80053; 80061; 83690; 83735; 83874; 83880; 84484; 85025; 85610; 85730; 93005; 93041; 93306; 96372

== ENCOUNTER 2021-12-29 10:04 | Emergency (ER) | payer MEDICARE, MEDICAID ==
[~2021-12-29] VITALS: Ht 185 cm; Wt 82.4 kg
--- NOTE | 2021-12-29 10:23 | ED Syncope ---
General Chief Complaint: Chest Pain Stated Complaint: CHEST PAIN Nursing Triage Note: passed out at [facility] this AM. chest pain Source of Information: Patient, EMS Exam Limitations: No Limitations History of Present Illness Date Seen by Provider: Dec 29, 2021 Time Seen by Provider: 10:06 Initial Comments Patient is an 86-year-old male resident of [facility] who presents to the emergency department by ambulance today with a chief complaint of syncopal episode while at [facility]. Apparently the patient had the urge to go to the bathroom and have a bowel movement, he states that he feels like "shit". He states he was on the toilet when he passed out and "sort of" fell. Apparently somebody came in and found him, assisted him to a chair. The patient denies injury. He denies headache, chest pain, shortness of breath. He had several episodes of vomiting prior to arrival by EMS. He was given 4 mg of Zofran. IV was established with fluids running. Patient denies a history of heart disease. He cannot recall his medications currently. He cannot recall what year it is, what day of the week it is but he does know his birthday. He presents very pale, a little clammy. EMS reports that he was much more pale on their arrival to the [facility]. His blood pressure is reported as 114 systolic. His blood sugar was in the 130 range. He denies any recent symptoms of illness. He states that he is COVID vaccinated and has had 2 boosters. Timing/Prior Episodes: Remote History Symptoms Prior to Episode: Diaphoresis, Nausea Precipitating Factors: Other (sitting on the toilet, about to have a BM) Loss of Consciousness: Unsure Current Symptoms: Diaphoresis, Nausea, Pale Allergies and Home Medications Allergies Coded Allergies: cephalexin (Unverified Allergy, Mild, 09/03/09) nut - unspecified (Verified Allergy, Unknown, 01/03/20) Patient Home Medication List Home Medication List Reviewed: Yes Amlodipine Besylate (Amlodipine Besylate) 5 Mg Tablet, 5 MG PO DAILY Prescribed by: CAROLA MIRZA on 05/24/21 112 Aspirin (Children's Aspirin) 81 Mg Tab.chew, 81 MG PO DAILY Prescribed by: CAROLA MIRZA on 05/24/21 1128 Carvedilol (Carvedilol) 12.5 Mg Tablet, 12.5 MG PO BID Prescribed by: CAROLA MIRZA on 05/24/211127 Cyanocobalamin (Vitamin B-12) (Vitamin B-12) 1,000 Mcg Tablet, 1,000 MCG PO DAILY@0700 Prescribed by: CAROLA MIRZA on 05/24/211127 Mupirocin (Mupirocin) 22 Gm Oint...g., 0 GM NSEACH BID Prescribed by: CAROLA MIRZA on 05/24/211127 Review of Systems Constitutional: see HPI EENTM: no symptoms reported Respiratory: no symptoms reported Cardiovascular: no symptoms reported Gastrointestinal: nausea, vomiting Genitourinary: no symptoms reported Musculoskeletal: no symptoms reported Skin: no symptoms reported Psychiatric/Neurological: Other (syncope) All Other Systems Reviewed Negative Unless Noted: Yes Past Mfdylti-Uowojk-Yhvazf Hx Immunizations Up To Date Tetanus Booster (TDap): Less than 5yrs First/Initial COVID19 Vaccinat: UNK Second COVID19 Vaccination Elmo: UNK Third COVID19 Vaccination Date: UNK Seasonal Allergies Seasonal Allergies: No Past Medical History Surgeries: Yes (ANKLE SURGERY; SCAR NOTED TO LEFT BREAST AREA; LITHOTRIPSY/ESWL) Gallbladder, Orthopedic, Renal Respiratory: No Cardiac: Yes (SVT) High Cholesterol, Hypertension 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; PARESTHESIAS ) Dementia Reproductive Disorders: No Genitourinary: Yes (ESWL/LITHOTRIPSY) Bladder Infection, Kidney Stones Gastrointestinal: Yes (PANCREATITIS WITH PARALYTIC ILEUS, DELIRIUM 04/29/18) Pancreatitis, Gall Bladder Disease Musculoskeletal: Yes (ANKLE SURGERY) Endocrine: Yes Hypothyroidsim HEENT: No Cancer: No Psychosocial: Yes Anxiety Integumentary: No Blood Disorders: No Family Medical History No Pertinent Family Hx Physical Exam Vital Signs Vital Signs - First Documented 12/29/21 10:11 Pulse 48 Resp 12 Pulse Ox 99 O2 Delivery Room Air Capillary Refill : Less Than 3 Seconds Height, Weight, BMI Height: 6'2.00" Weight: 180lbs. 0oz. 81.701503sp; 24.00 BMI Method:Stated General Appearance: No Apparent Distress, WD/WN, Other (pallor) Neck: Normal Inspection Cardiovascular: Regular Rate, Rhythm (bradycardia @49bpm), Normal Peripheral Pulses (2+ radial) Respiratory: Lungs Clear, Normal Breath Sounds, No Accessory Muscle Use, No Respiratory Distress Gastrointestinal: Non Tender, Soft, Abnormal Bowel Sounds (hypoactive) Extremities: Normal Capillary Refill, Normal Inspection, No Pedal Edema Neurologic/Psychiatric: Alert, Other (Oriented to self and birthday) Cranial Nerves: Normal Hearing, Normal Speech Skin: Diaphoresis ("Clammy"), Pallor Progress/Results/Core Measures Results/Orders Lab Results Laboratory Tests Test 12/29/21 10:14 Range/Units White Blood Count 6.3 4.3-11.0 10^3/uL Red Blood Count 3.91 L 4.30-5.52 10^6/uL Hemoglobin 11.4 L 13.3-17.7 g/dL Hematocrit 35 L 40-54 % Mean Corpuscular Volume 90 80-99 fL Mean Corpuscular Hemoglobin 29 25-34 pg Mean Corpuscular Hemoglobin Concent 32 32-36 g/dL Red Cell Distribution Width 13.6 10.0-14.5 % Platelet Count 183 130-400 10^3/uL Mean Platelet Volume 9.9 9.0-12.2 fL Immature Granulocyte % (Auto) 0 % Neutrophils (%) (Auto) 60 42-75 % Lymphocytes (%) (Auto) 26 12-44 % Monocytes (%) (Auto) 10 0-12 % Eosinophils (%) (Auto) 3 0-10 % Basophils (%) (Auto) 1 0-10 % Neutrophils # (Auto) 3.8 1.8-7.8 10^3/uL Lymphocytes # (Auto) 1.6 1.0-4.0 10^3/uL Monocytes # (Auto) 0.6 0.0-1.0 10^3/uL Eosinophils # (Auto) 0.2 0.0-0.3 10^3/uL Basophils # (Auto) 0.1 0.0-0.1 10^3/uL Immature Granulocyte # (Auto) 0.0 0.0-0.1 10^3/uL Prothrombin Time 13.0 12.2-14.7 SEC INR Comment 0.9 0.8-1.4 Activated Partial Thromboplast Time 28 24-35 SEC Sodium Level 142 135-145 MMOL/L Potassium Level 3.8 3.6-5.0 MMOL/L Chloride Level 106 98-107 MMOL/L Carbon Dioxide Level 26 21-32 MMOL/L Anion Gap 10 5-14 MMOL/L Blood Urea Nitrogen 11 7-18 MG/DL Creatinine 0.96 0.60-1.30 MG/DL Estimat Glomerular Filtration Rate 78 BUN/Creatinine Ratio 11 Glucose Level 141 H 70-105 MG/DL Calcium Level 8.9 8.5-10.1 MG/DL Corrected Calcium 9.1 8.5-10.1 MG/DL Magnesium Level 2.1 1.6-2.4 MG/DL Total Bilirubin 0.6 0.1-1.0 MG/DL Aspartate Amino Transf (AST/SGOT) 12 5-34 U/L Alanine Aminotransferase (ALT/SGPT) 10 0-55 U/L Alkaline Phosphatase 54 40-136 U/L Myoglobin 57.7 10.0-92.0 NG/ML Troponin I < 0.028 <0.028 NG/ML Total Protein 6.4 6.4-8.2 GM/DL Albumin 3.8 3.2-4.5 GM/DL My Orders Orders - LEONARDA ISSA MD Ekg Tracing (12/29/21 10:10) Cbc With Automated Diff (12/29/21 10:17) Magnesium (12/29/21 10:17) Chest 1 View, Ap/Pa Only (12/29/21 10:17) Comprehensive Metabolic Panel (12/29/21 10:17) Myoglobin Serum (12/29/21 10:17) Protime With Inr (12/29/21 10:17) Partial Thromboplastin Time (12/29/21 10:17) O2 (12/29/21 10:17) Monitor-Rhythm Ecg Trace Only (12/29/21 10:17) Lipid Panel (12/30/21 06:00) Ed Iv/Invasive Line Start (12/29/21 10:17) Troponin I Yadira (12/29/21 10:17) Ns Iv 500 Ml (Sodium Chloride 0.9%) (12/29/21 10:30) Vital Signs/I&O 12/29/21 10:11 Pulse 48 Resp 12 B/P (MAP) Pulse Ox 99 O2 Delivery Room Air Progress Progress Note : Time: 11:46 Progress Note Patient reevaluated after labs and imaging, telemetry monitoring. Everything looks good/reassuring. No signs of infection or AMI or pneumonia, pleural effusions, any significant chemistry pathology. Patient remains neurologically normal. He is awake alert to situation and self. Review of the medical record shows that he does have some degree of dementia but he is able to carry on a conversation. He continues to deny complaints of headache, vision or speech problems, he denies speech difficulty he denies unilateral numbness or weakness. He is no longer nauseated. He is resting comfortably. I repeated a neurologic exam on him and he has good strength bilaterally upper and lower extremities. No cranial nerve deficits noted. Speech is clear. Blood pressure is now back up to his normal 140 systolic. He still little bradycardic in the 57-60 range. This seems to be his normal as well. I do not see any indication for CT head. He denies headache and is not on blood thinners. He has no cervical spine tenderness. I believe that he had a vasovagal episode while sitting on the toilet attempting to have a bowel movement. He is comfortable with going home. All questions are sought and answered. Initial ECG Impression Date: Dec 29, 2021 Initial ECG Impression Time: 10:13 Initial ECG Rate: 49 Initial ECG Rhythm: S.Felix Initial ECG Intervals AR interval 196 QRS [address] segment elevation or depression is noted. No ectopy is noted. Diagnostic Imaging Diagonstic Imaging: Xray Plain Films/CT/US/NM/MRI: chest Comments [facility]. [place], [place] NAME: ALMA POWELL [facility] REC#: [id number] PT STATUS: REG ER : 1935 PHYSICIAN: LEONARDA ISSA MD ADMIT DATE: 12/29/21/ER Signed Date of Exam:12/29/21 CHEST 1 VIEW, AP/PA ONLY EXAMINATION: Chest 1 view HISTORY: Chest pain COMPARISON: 11/30/2021 FINDINGS: Heart size and pulmonary vasculature are normal. The lungs are clear without consolidation, pleural effusion, or pneumothorax. The osseous structures are intact. IMPRESSION: 1. No acute radiographic abnormality in the chest. Dictated by: Dictated on workstation # [id number] Dict: 12/29/21 1051 Trans: 12/29/21 1056 [facility] [id number] Interpreted by: MONIKA MOSS DO Electronically signed by: MONIKA MOSS DO 12/29/21 1056 Departure Impression Primary Impression: Vasovagal syncope Additional Impression: Advanced age Disposition: 01 HOME, SELF-CARE Condition: Stable Departure-Patient Inst. Decision time for Depature: 11:49 Referrals: SAPNA RODRIGUEZ DO (PCP/Family) Primary Care Physician Patient Instructions: Vasovagal Response Add. Discharge Instructions: Drink plenty of fluids to stay well-hydrated. Continue your home medications as prescribed by your primary care doctor. Monitor yourself for symptoms of fever, shortness of breath, pain/headache and return to the emergency room for any new, concerning or emergent complaints. Please follow-up with Dr. Rodriguez next week. Copy Copies To 1: SAPNA RODRIGUEZ KATHRYN M MD Dec 29, 2021 10:23
[2021-12-29 10:24] LABS: BASOPHILS # (AUTO) 0.1 10^3/uL (0.0-0.1); BASOPHILS % (AUTO) 1 % (0-10); EOSINOPHILS # (AUTO) 0.2 10^3/uL (0.0-0.3); EOSINOPHILS % (AUTO) 3 % (0-10); HEMATOCRIT 35 % (40-54); HEMOGLOBIN 11.4 g/dL (13.3-17.7); LYMPHOCYTES # (AUTO) 1.6 10^3/uL (1.0-4.0); LYMPHOCYTES % (AUTO) 26 % (12-44); MEAN CORPUSCULAR HEMOGLOBIN 29 pg (25-34); MEAN CORPUSCULAR HGB CONC 32 g/dL (32-36); MEAN CORPUSCULAR VOLUME 90 fL (80-99); MEAN PLATELET VOLUME 9.9 fL (9.0-12.2); MONOCYTES # (AUTO) 0.6 10^3/uL (0.0-1.0); MONOCYTES % (AUTO) 10 % (0-12); NEUTROPHILS # (AUTO) 3.8 10^3/uL (1.8-7.8); NEUTROPHILS % (AUTO) 60 % (42-75); PLATELET COUNT 183 10^3/uL (130-400); WHITE BLOOD COUNT 6.3 10^3/uL (4.3-11.0)
[2021-12-29 10:28] LABS: ALBUMIN 3.8 GM/DL (3.2-4.5)
[2021-12-29 10:29] LABS: POTASSIUM 3.8 MMOL/L (3.6-5.0)
[2021-12-29 10:30] LABS: CALCIUM 8.9 MG/DL (8.5-10.1)
[2021-12-29] MEDS ORDERED: NS IV 500 ML 500 ML IV SCH (10:30)
[2021-12-29 10:31] LABS: TOTAL PROTEIN 6.4 GM/DL (6.4-8.2)
[2021-12-29 10:33] LABS: BILIRUBIN,TOTAL 0.6 MG/DL (0.1-1.0)
[2021-12-29 10:35] LABS: CREATININE SERUM 0.96 MG/DL (0.60-1.30)
[2021-12-29 10:37] LABS: MAGNESIUM 2.1 MG/DL (1.6-2.4)
[2021-12-29 10:43] LABS: INR 0.9 (0.8-1.4)
--- NOTE | 2021-12-29 10:56 | Diagnostic Imaging Report ---
EXAMINATION: Chest 1 view HISTORY: Chest pain COMPARISON: 11/30/2021 FINDINGS: Heart size and pulmonary vasculature are normal. The lungs are clear without consolidation, pleural effusion, or pneumothorax. The osseous structures are intact. IMPRESSION: 1. No acute radiographic abnormality in the chest. Dictated by: Dictated on workstation # [id number]
[2021-12-29 12:10] VITALS: BP 147/63
== END 2021-12-29 12:16 | disposition home or self-care (01) ==
LOC: EDUNIT# 10:04 → ER 10:10
DX: R54 Age-related physical debility (principal); R55 Syncope and collapse
CPT/HCPCS: 36415; 71045; 80053; 83735; 83874; 84484; 85025; 85610; 85730; 93005; 93041

== ENCOUNTER 2022-03-02 17:18 | Emergency (ER) | payer MEDICARE, MEDICAID ==
[~2022-03-02] VITALS: Ht 185.5 cm; Wt 81.6 kg
[2022-03-02] MEDS ORDERED: ACETAMINOPHEN 500 MG TAB (TYLENOL) PO ONE (17:45)
--- NOTE | 2022-03-02 17:50 | ED Headache ---
General Chief Complaint: Cardiac/General Problems Stated Complaint: HTN Source: patient Exam Limitations: clinical condition (dementia ) History of Present Illness Date Seen by Provider: Mar 02, 2022 Time Seen by Provider: 17:47 Initial Comments Patient presents for evaluation of a headache and high blood pressure from [facility]. He is unsure when his symptoms started, but per EMS he started having a headache today. He tells me it currently is a dull 09/19. Additionally, the detention reports the patient had a an elevated blood pressure with a systolic blood pressure of 160. Timing/Duration: unknown, constant Severity/Quality: mild Location: frontal Prior Headaches/Recent Trauma: no recent headache/trauma Allergies and Home Medications Allergies Coded Allergies: cephalexin (Unverified Allergy, Mild, 09/03/09) nut - unspecified (Verified Allergy, Unknown, 01/03/20) Patient Home Medication List Home Medication List Reviewed: Yes Amlodipine Besylate (Amlodipine Besylate) 5 Mg Tablet, 5 MG PO DAILY Prescribed by: CAROLA MIRZA on 05/24/21 1128 Aspirin (Children's Aspirin) 81 Mg Tab.chew, 81 MG PO DAILY Prescribed by: CAROLA MIRZA on 05/24/21 1128 Carvedilol (Carvedilol) 12.5 Mg Tablet, 12.5 MG PO BID Prescribed by: CAROLA MIRZA on 05/24/21 112 Cyanocobalamin (Vitamin B-12) (Vitamin B-12) 1,000 Mcg Tablet, 1,000 MCG PO DAILY@0700 Prescribed by: CAROLA MIRZA on 05/24/21 1128 Mupirocin (Mupirocin) 22 Gm Oint...g., 0 GM NSEACH BID Prescribed by: CAROLA MIRZA on 05/24/21 112 Review of Systems Review of Systems Constitutional: no symptoms reported Eyes: No Symptoms Reported Ears, Nose, Mouth, Throat: no symptoms reported Respiratory: no symptoms reported Cardiovascular: no symptoms reported Musculoskeletal: no symptoms reported Psychiatric/Neurological: Headache Past Nozbkwd-Himylv-Rdvjuc Hx Patient Social History Tobacco Use?: No Use of E-Cig and/or Vaping dev: No Substance use?: No Alcohol Use?: No Pt feels they are or have been: No Immunizations Up To Date Tetanus Booster (TDap): Less than 5yrs Influenza Vaccine Up-to-Date: No; Not Current First/Initial COVID19 Vaccinat: UNK Second COVID19 Vaccination Elmo: UNK Third COVID19 Vaccination Date: UNK Seasonal Allergies Seasonal Allergies: No Past Medical History Surgery/Hospitalization HX: R HIP Surgeries: Yes (ANKLE SURGERY; SCAR NOTED TO LEFT BREAST AREA; LITHOTRIPSY/ESWL) Gallbladder, Orthopedic, Renal Respiratory: No Cardiac: Yes (SVT) High Cholesterol, Hypertension 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; PARESTHESIAS ) Dementia Reproductive Disorders: No Genitourinary: Yes (ESWL/LITHOTRIPSY) Bladder Infection, Kidney Stones Gastrointestinal: Yes (PANCREATITIS WITH PARALYTIC ILEUS, DELIRIUM 04/29/18) Pancreatitis, Gall Bladder Disease Musculoskeletal: Yes (ANKLE SURGERY) Endocrine: Yes Hypothyroidsim HEENT: No Cancer: No Psychosocial: Yes Anxiety Integumentary: No Blood Disorders: No Family Medical History No Pertinent Family Hx Physical Exam Vital Signs Vital Signs - First Documented 03/02/22 17:23 Temp 36.8 Pulse 62 Resp 14 B/P (MAP) 156/78 (104) Pulse Ox 97 O2 Delivery Room Air Capillary Refill : Height, Weight, BMI Height: 6'2.00" Weight: 180lbs. 0oz. 81.151437jx; 24.00 BMI Method:Stated General Appearance: WD/WN, no apparent distress HEENT: PERRL/EOMI, normal ENT inspection, TMs normal, pharynx normal Neck: non-tender, full range of motion, supple Cardiovascular: no edema Respiratory: chest non-tender, lungs clear Psychiatric: alert Skin: normal color, warm/dry Progress/Results/Core Measures Results/Orders My Orders Orders - GENEVA ALMEIDA Ct Head Wo (03/02/22 17:45) Acetaminophen Tablet (Tylenol Tablet) (03/02/22 17:45) Vital Signs/I&O 03/02/22 17:23 Temp 36.8 Pulse 62 Resp 14 B/P (MAP) 156/78 (104) Pulse Ox 97 O2 Delivery Room Air Departure Communication (Admissions) Patient is afebrile, nontoxic and in no distress. CT of the head without contrast was negative for acute changes. Patient states that he actually had resolution of his headache after the Tylenol. His blood pressure remained stable here in the emergency room. Impression Primary Impression: Acute headache Disposition: 01 HOME, SELF-CARE Condition: Stable Departure-Patient Inst. Decision time for Depature: 19:31 Referrals: SAPNA PATEL DO (PCP/Family) Primary Care Physician Patient Instructions: Headache, Adult ED Add. Discharge Instructions: Please return to the emergency room with any severe changes or worsening of symptoms. All discharge instructions reviewed with patient and/or family. Voiced understanding. GENEVA ALMEIDA Mar 02, 2022 17:50
--- NOTE | 2022-03-02 18:46 | Diagnostic Imaging Report ---
PROCEDURE: CT head without contrast. TECHNIQUE: Multiple contiguous axial images were obtained through the brain without the use of intravenous contrast. Auto Exposure Controls were utilized during the CT exam to meet ALARA standards for radiation dose reduction. INDICATION: 86-year-old male with hypertension and headache. COMPARISON: 11/30/2021. FINDINGS: Midline structures are not displaced. There are senescent changes of the brain with involutional changes and generalized atrophy with volume loss. There is associated prominence of the extra-axial CSF spaces. Waldrop-white differentiation is maintained and there is no sulcal effacement. There are some background chronic areas of microvascular ischemic change. There is no evidence of hemorrhage. There are no abnormal extra-axial fluid collections or hemorrhage. Basilar cisterns appear normal. There is calcific atherosclerosis seen within the carotid siphons and visualized vertebral arteries. Sinuses, orbits and mastoid air cells are normal. Bone windows show no calvarial changes. IMPRESSION: Senescent brain with involutional changes and generalized atrophy with background chronic areas of microvascular ischemic change. There is prominence of the extra-axial CSF spaces due to the involutional changes. Overall, no acute findings identified by nonenhanced CT criteria with no adverse interval change since 11/30/2021. Dictated by: Dictated on workstation # [id number]
[2022-03-02 19:51] VITALS: BP 147/74
== END 2022-03-02 19:52 | disposition home or self-care (01) ==
LOC: EDUNIT# 17:18 → ER 17:19
DX: R51.9 Headache, unspecified (principal)
CPT/HCPCS: 70450; 99283

== ENCOUNTER → 2022-03-12 | Outpatient (CLI) | payer MEDICARE, MEDICAID ==
--- NOTE | 2022-03-12 15:55 | Diagnostic Imaging Report ---
PROCEDURE: US carotid duplex, bilateral. TECHNIQUE: Multiple real-time grayscale images were obtained over the carotid arteries in various projections, bilaterally. Additional spectral analysis and color Doppler duplex images were also obtained. INDICATION: Carotid artery stenosis. COMPARISON: None. FINDINGS: Right carotid circulation: The right common carotid artery is normal in course and caliber. Atherosclerotic plaque is seen throughout the right carotid system. There is elevated ICA/CCA ratio on the right of 1.59 although no visualized stenosis is identified. Left carotid circulation: The left common carotid artery is normal in course and caliber. Intimal thickening and atherosclerotic plaque is seen in the left common carotid artery. There is atherosclerotic plaque in the left internal carotid artery. No hemodynamically significant stenosis is present. Flow in the bilateral vertebral arteries is antegrade. IMPRESSION: 1. Mild to moderate atherosclerosis involving bilateral carotid systems. 2. Slightly elevated ICA to CCA ratio on the right of 1.59. However, this may be artifactual due to tortuosity of the right internal carotid artery. Consider CTA of the neck to further evaluate. 3. No hemodynamically significant stenosis is seen in the left carotid system. 4. Bilateral antegrade flow in the vertebral arteries. Parameters based on the consensus panel grayscale and Doppler ultrasound criteria published May 2003, Radiology, Volume 229. DOPPLER (peak systolic velocity M/S Right Left CCA .69 .81 ICA Proximal .94 .73 ICA Mid 1.10 .74 ICA Distal .91 .73 RATIO 1.59 .91 ECA .98 1.09 VERT .49 .51 Dictated by: Dictated on workstation # [id number]
== END ==
LOC: RAD 10:15
PROVIDERS: ATTEND Internal Medicine
DX: I65.23 Occlusion and stenosis of bilateral carotid arteries (principal)
CPT/HCPCS: 93880

== ENCOUNTER → 2022-03-21 | Outpatient (CLI) | payer MEDICARE, MEDICAID ==
[~2022-03-21] VITALS: Ht 185 cm; Wt 81.0 kg
[~2022-03-21] MED LIST changes: +CATHETER FLUSH 10 ML SYR IVP PRN; +REGADENOSON 0.4 MG/5 ML SYR (LEXISCAN) IV ONE
[2022-03-21 08:11] VITALS: BP 177/84
--- NOTE | 2022-03-21 11:48 | Cardiology Stress Test Report ---
Stress Test Report Date of Procedure/Referring: Date of Procedure: Mar 21, 2022 PCP Sapna Rodriguez DO Admitting Physician Admitting Physician: Attending Physician: Sapna Rodriguez DO Indications: CP Baseline Vital Signs Vital Signs Date Time Temp Pulse Resp B/P (MAP) Pulse Ox O2 Delivery O2 Flow Rate FiO2 03/21/22 08:11 62 177/84 (115) 97 Summary: Patient receive a resting and stress dose of Myoview, images were acquired and reviewed in the short axis view, horizontal long axis view and vertical long axis view. TID: 0.99 SSS: 5 SDS: 4 EF: 74 1. No significant ischemia or infarction noted on SPECT images 2. Normal left ventricular size, ejection fraction 74% Copy Copies To 1: SAPNA RODRIGUEZ BASHAR J MD Mar 21, 2022 11:48
== END ==
LOC: CARD 07:15
PROVIDERS: ATTEND Internal Medicine
DX: R07.89 Other chest pain (principal); R55 Syncope and collapse
CPT/HCPCS: 78452; 93017

== ENCOUNTER → 2022-03-28 | Outpatient (CLI) | payer MEDICARE, MEDICAID ==
[~2022-03-28] MED LIST changes: +CATHETER FLUSH 10 ML SYR IV PRN; -CATHETER FLUSH 10 ML SYR IVP PRN; +HOLD METFORMIN - RECEIVED CONTRAST 20 ML VIAL IV SCH; +IOHEXOL 350 MG/ML 100 ML (OMNIPAQUE 350) VIAL IV ONE; +NS 100 ML (IVPB) BAG IV ONE; -REGADENOSON 0.4 MG/5 ML SYR (LEXISCAN) IV ONE
[2022-03-28 09:49] LABS: CREATININE SERUM 0.81 MG/DL (0.60-1.30)
--- NOTE | 2022-03-28 13:15 | Diagnostic Imaging Report ---
REASON FOR EXAM: Bilateral carotid artery stenosis. Follow-up. TIME OF EXAM: 03/28/2022 10:31 AM COMPARISON: 03/12/2022. TECHNIQUE: Contrast-enhanced thin section helical images were obtained from the mediastinum to the sella with the bolus of contrast timed for the optimal opacification of the arterial structures of the neck per departmental CTA protocol. Postprocessing and retro-reconstruction with coronal and sagittal reformatted images of the angiographic views of the vessels were obtained and were reviewed. 3D reformatted images were generated and were reviewed. All CT scans use one or more of the following dose optimizing techniques: automated exposure control, MA and/or KvP adjustment based on patient size and exam type or iterative reconstruction. FINDINGS: The aortic arch is not fully included on this exam. The origin of the great vessels is not included on the exam. The common carotid arteries and internal carotid arteries demonstrate a tortuous course. There is calcified atherosclerotic plaque in the bilateral carotid bulbs and proximal internal carotid arteries without flow-limiting stenosis. No evidence of dissection in the carotid systems. The external carotid arteries are patent and unremarkable. The vertebral arteries are codominant. The origin of the right vertebral artery is seen and is unremarkable. The origin of the left vertebral artery is seen and is unremarkable. There is no focal stenosis seen within the neck. There is no dissection. The vertebral arteries are well visualized to up to the level of the basilar artery. The osseous structures of the cervical spine are unremarkable. There is left convexity curvature of the cervical spine. Included views through the lung apices demonstrate no focal consolidation. Included views of the intracranial contents demonstrate no acute abnormalities. IMPRESSION: 1. No evidence of stenosis or dissection in the common and internal carotid arteries. 2. No evidence of stenosis or dissection of the vertebral arteries. 3. Marked tortuosity of the internal carotid arteries, likely representing the elevated velocities reported on the prior carotid ultrasound. Dictated by: Dictated on workstation # [id number]
== END ==
LOC: RAD 09:12
PROVIDERS: ATTEND Internal Medicine
DX: I65.23 Occlusion and stenosis of bilateral carotid arteries (principal)
CPT/HCPCS: 36415; 70498; 82565; 84520

== ENCOUNTER 2022-10-26 10:06 | Emergency (ER) | payer MEDICARE, MEDICAID ==
[~2022-10-26] VITALS: Ht 182 cm; Wt 81.6 kg
[~2022-10-26 10:06] MED LIST changes: -CATHETER FLUSH 10 ML SYR IV PRN; -HOLD METFORMIN - RECEIVED CONTRAST 20 ML VIAL IV SCH; -IOHEXOL 350 MG/ML 100 ML (OMNIPAQUE 350) VIAL IV ONE; -NS 100 ML (IVPB) BAG IV ONE
[2022-10-26] MEDS ORDERED: NS IV 1000 ML 1,000 ML IV STA (10:11)
[2022-10-26] MEDS ORDERED: ONDANSETRON 4 MG/2 ML (SDV) Z0FRAN ONE (10:13)
[2022-10-26] MEDS ORDERED: NS IV 1000 ML 1,000 ML ONE (10:13)
[2022-10-26] MEDS ORDERED: ONDANSETRON 4 MG/2 ML (SDV) Z0FRAN IVP ONE (10:15)
--- NOTE | 2022-10-26 10:16 | ED Abdominal Pain ---
General Chief Complaint: Abdominal/GI Problems Stated Complaint: WEAKNESS Source of Information: Patient, EMS Exam Limitations: No Limitations History of Present Illness Date Seen by Provider: Oct 26, 2022 Time Seen by Provider: 10:03 Initial Comments Seen and evaluated on arrival by EMS. EMS reports blood sugar 170 and patient vomiting on their arrival. He was doing a little better after they got there. Apparently he was in the bathroom [facility] the [facility] and had vomited several times and continued to do that in route. EMS did initiate IV and offered ondansetron but patient declined. Patient denies chest pain or breathing problems. Denies significant abdominal pain or problems going to the bathroom. States he had something like this many years ago but does not remember what it does. Apparently he does have history of TIA. No report of weakness, speech problems or falls. Timing/Duration: 1 Hour Severity/Quality: Moderate, Cramping Location: Generalized Abdomen Radiation: No Radiation Activities at Onset: None Modifying Factors: Improves With Vomiting Associated Symptoms: No Back Pain, No Chest Pain, No Diaphoresis, No Headache; Nausea/Vomiting; No Shortness of Air; Other (Complains of chills) Allergies and Home Medications Allergies Coded Allergies: cephalexin (Unverified Allergy, Mild, 09/03/09) nut - unspecified (Verified Allergy, Unknown, 01/03/20) Patient Home Medication List Home Medication List Reviewed: Yes Amlodipine Besylate (Amlodipine Besylate) 5 Mg Tablet, 5 MG PO DAILY Prescribed by: CAROLA MIRZA on 05/24/21 112 Aspirin (Children's Aspirin) 81 Mg Tab.chew, 81 MG PO DAILY Prescribed by: CAROLA MIRZA on 05/24/21 112 Carvedilol (Carvedilol) 12.5 Mg Tablet, 12.5 MG PO BID Prescribed by: CAROLA MIRZA on 05/24/21 1128 Cyanocobalamin (Vitamin B-12) (Vitamin B-12) 1,000 Mcg Tablet, 1,000 MCG PO DAILY@0700 Prescribed by: CAROLA MIRZA on 05/24/21 112 Mupirocin (Mupirocin) 22 Gm Oint...g., 0 GM NSEACH BID Prescribed by: CAROLA MIRZA on 05/24/21 1128 Ondansetron (Ondansetron Odt) 4 Mg Tab.rapdis, 4 MG PO Q6H PRN for N AUSEA/VOMITING Prescribed by: RAEANN OLIVAS on 10/26/22 1225 Review of Systems Review of Systems Constitutional: see HPI, chills EENTM: No Nose Congestion, No Throat Pain Respiratory: Denies Cough, Denies Shortness of Air Cardiovascular: Denies Chest Pain, Denies Edema; Lightheadedness Gastrointestinal: Nausea, Vomiting Genitourinary: No Symptoms Reported Musculoskeletal: no symptoms reported Skin: no symptoms reported Psychiatric/Neurological: Denies Headache; Other (Dizziness) All Other Systems Reviewed Negative Unless Noted: Yes Past Ktwsvvf-Zflkvo-Pceqhn Hx Patient Social History Tobacco Use?: No Use of E-Cig and/or Vaping dev: No Substance use?: No Alcohol Use?: No Immunizations Up To Date Tetanus Booster (TDap): Less than 5yrs First/Initial COVID19 Vaccinat: UNK Second COVID19 Vaccination Elmo: UNK Third COVID19 Vaccination Date: UNK Seasonal Allergies Seasonal Allergies: No Past Medical History Surgery/Hospitalization HX: R HIP Surgeries: Yes (ANKLE SURGERY; SCAR NOTED TO LEFT BREAST AREA; LITHOTRIPSY/ESWL) Gallbladder, Orthopedic, Renal Respiratory: No Cardiac: Yes (SVT) High Cholesterol, Hypertension 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; PARESTHESIAS ) Dementia Reproductive Disorders: No Genitourinary: Yes (ESWL/LITHOTRIPSY) Bladder Infection, Kidney Stones Gastrointestinal: Yes (PANCREATITIS WITH PARALYTIC ILEUS, DELIRIUM 04/29/18) Pancreatitis, Gall Bladder Disease Musculoskeletal: Yes (ANKLE SURGERY) Endocrine: Yes Hypothyroidsim HEENT: No Cancer: No Psychosocial: Yes Anxiety Integumentary: No Blood Disorders: No Family Medical History Reviewed Nursing Family Hx No Pertinent Family Hx Physical Exam Vital Signs Vital Signs - First Documented 10/26/22 10:06 Temp 35.4 Pulse 51 Resp 17 B/P (MAP) 113/61 (78) Pulse Ox 96 O2 Delivery Room Air Capillary Refill : Height/Weight/BMI Height: 6'2.00" Weight: 180lbs. 0oz. 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, alert, normal mood/affect, oriented x 3 Skin: normal color, warm/dry Progress/Results/Core Measures Results/Orders Lab Results Laboratory Tests Test 10/26/22 10:14 10/26/22 11:39 Range/Units White Blood Count 7.1 4.3-11.0 10^3/uL Red Blood Count 4.30 4.30-5.52 10^6/uL Hemoglobin 12.3 L 13.3-17.7 g/dL Hematocrit 38 L 40-54 % Mean Corpuscular Volume 88 80-99 fL Mean Corpuscular Hemoglobin 29 25-34 pg Mean Corpuscular Hemoglobin Concent 33 32-36 g/dL Red Cell Distribution Width 14.3 10.0-14.5 % Platelet Count 207 130-400 10^3/uL Mean Platelet Volume 10.7 9.0-12.2 fL Immature Granulocyte % (Auto) 0 % Neutrophils (%) (Auto) 64 42-75 % Lymphocytes (%) (Auto) 24 12-44 % Monocytes (%) (Auto) 9 0-12 % Eosinophils (%) (Auto) 1 0-10 % Basophils (%) (Auto) 1 0-10 % Neutrophils # (Auto) 4.5 1.8-7.8 10^3/uL Lymphocytes # (Auto) 1.7 1.0-4.0 10^3/uL Monocytes # (Auto) 0.7 0.0-1.0 10^3/uL Eosinophils # (Auto) 0.1 0.0-0.3 10^3/uL Basophils # (Auto) 0.1 0.0-0.1 10^3/uL Immature Granulocyte # (Auto) 0.0 0.0-0.1 10^3/uL D-Dimer 1.61 H 0.00-0.49 UG/ML Sodium Level 142 135-145 MMOL/L Potassium Level 4.9 3.6-5.0 MMOL/L Chloride Level 110 H 98-107 MMOL/L Carbon Dioxide Level 18 L 21-32 MMOL/L Anion Gap 14 5-14 MMOL/L Blood Urea Nitrogen 14 7-18 MG/DL Creatinine 0.95 0.60-1.30 MG/DL Estimat Glomerular Filtration Rate 78 BUN/Creatinine Ratio 15 Glucose Level 152 H 70-105 MG/DL Calcium Level 8.8 8.5-10.1 MG/DL Corrected Calcium 8.9 8.5-10.1 MG/DL Magnesium Level 2.2 1.6-2.4 MG/DL Total Bilirubin 0.4 0.1-1.0 MG/DL Aspartate Amino Transf (AST/SGOT) 18 5-34 U/L Alanine Aminotransferase (ALT/SGPT) 11 0-55 U/L Alkaline Phosphatase 52 40-136 U/L Troponin I < 0.028 <0.028 NG/ML C-Reactive Protein High Sensitivity 0.14 0.00-0.50 MG/DL Total Protein 7.2 6.4-8.2 GM/DL Albumin 3.9 3.2-4.5 GM/DL Urine Color YELLOW Urine Clarity CLOUDY Urine pH 6.0 5-9 Urine Specific [place] 1.025 H 1.016-1.022 Urine Protein TRACE H NEGATIVE Urine Glucose (UA) NEGATIVE NEGATIVE Urine Ketones NEGATIVE NEGATIVE Urine Nitrite NEGATIVE NEGATIVE Urine Bilirubin NEGATIVE NEGATIVE Urine Urobilinogen 0.2 < = 1.0 MG/DL Urine Leukocyte Esterase NEGATIVE NEGATIVE Urine RBC (Auto) NEGATIVE NEGATIVE Urine RBC RARE /HPF Urine WBC RARE /HPF Urine Squamous Epithelial Cells 0-2 /HPF Urine Crystals NONE /LPF Urine Bacteria NEGATIVE /HPF Urine Casts PRESENT /LPF Urine Hyaline Casts 2-5 H /LPF Urine Mucus SMALL H /LPF Urine Culture Indicated NO My Orders Orders - RAEANN OLIVAS MD Cbc With Automated Diff (10/26/22 10:11) Comprehensive Metabolic Panel (10/26/22 10:11) Hs C Reactive Protein (10/26/22 10:11) Fibrin Degradation Products (10/26/22 10:11) Magnesium (10/26/22 10:11) Troponin I Yadira (10/26/22 10:11) Ua Culture If Indicated (10/26/22 10:11) Ondansetron Injection (Zofran Injectio (10/26/22 10:15) Ns Iv 1000 Ml (Sodium Chloride 0.9%) (10/26/22 10:11) Ed Iv/Invasive Line Start (10/26/22 10:11) Ekg Tracing (10/26/22 10:11) Monitor-Rhythm Ecg Trace Only (10/26/22 10:11) Chest 1 View, Ap/Pa Only (10/26/22 10:11) Ns Iv 1000 Ml (Sodium Chloride 0.9%) (10/26/22 10:13) Ondansetron Injection (Zofran Injectio (10/26/22 10:13) Medications Given in ED Current Medications Medications Dose Ordered Sig/Doug Route Start Time Stop Time Status Last Admin Dose Admin Ondansetron HCl 4 mg ONCE ONCE IVP 10/26/22 10:15 10/26/22 10:16 DC 10/26/22 10:17 4 MG Vital Signs/I&O 10/26/22 10/26/22 10:06 12:28 Temp 35.4 Pulse 51 58 Resp 17 18 B/P (MAP) 113/61 (78) 144/77 Pulse Ox 96 93 O2 Delivery Room Air Room Air Progress Progress Note : Progress Note Seen and evaluated. IV by EMS. Labs, UA, EKG and chest x-ray ordered. Patient is answering questions and following all commands. He is still nauseated currently. Labs include CBC, CMP, troponin and D-dimer. We will also get CRP. Normal saline 1 L bolus. Zofran 4 mg IV. Monitor patient. Differential diagnosis includes cardiac etiology, electrolyte abnormality, dehydration, CVA/TIA, viral etiology 1055: Patient is overall doing much better. I have reviewed chest x-ray and shows no acute findings on my interpretation. Stroke screen is 0. D-dimer is slightly elevated at 1.6 and I am unsure of the cause of that. He is not having breathing problems and he is not hypoxic. He is not hypotensive currently. Stroke scale is negative. Denies headache or recent injury. Denies chest pain. I have reviewed previous history and this does show carotid artery ultrasound in February of last year that did have some increased flow velocities and CT angiogram of the neck was done afterwards. This showed torturous but open carotid arteries. Overall it is unlikely that the D-dimer is elevated due to pulmonary embolism given his presentation and current findings and its unlikely given history that this is due to carotid artery blockage. We are considering CT and CT angio of the head. We are pending UA. We will reevaluate this after were able to stand him up. CBC is grossly normal although hemoglobin is slightly low at 12.3. Chemistries also grossly normal with normal serum creatinine and LFTs. Troponin and CRP are negative. Monitor patient. 1216: UA is complete and is slightly concentrated but otherwise no acute findings. Patient has had complete resolution of symptoms. Overall he is feeling much better. We are p.o. challenging him now. He is not dizzy with standing and he feels comfortable going home. I do not believe we need to do further imaging related to the D-dimer as he has resolved now and pulmonary embolism unlikely. Symptoms may be related to dehydration and D-dimer elevation may be related to vomiting. We will ensure that he can tolerate p.o. fluids and DC if he is still doing better. 1223: I did discuss in full the D-dimer findings and possible options including CT angiogram of the head and neck and/or chest based on symptoms or not. Patient states he feels better and he agrees that we can forego these for now. He would like to go home and we we will work on transportation for him. Discharged home with return precautions. Patient verbalized understanding of instructions and agreement with plan. 1247: Nicole, states providing transportation. Initial ECG Impression Date: Oct 26, 2022 Initial ECG Impression Time: 10:22 Initial ECG Rate: 50 Initial ECG Rhythm: Normal Sinus Comment Sinus rhythm with normal axis and rate of 50. No evidence of ST elevation MS. Interpreted by me. Similar morphology to 12/31/2021 Diagnostic Imaging Diagonstic Imaging: Xray Plain Films/CT/US/NM/MRI: chest Comments [facility]. [place], [place] NAME: ALMA POWELL [facility] REC#: [id number] PT STATUS: REG ER : 1935 PHYSICIAN: RAEANN OLIVAS MD ADMIT DATE: 10/26/22/ER Signed Date of Exam:10/26/22 CHEST 1 VIEW, AP/PA ONLY EXAMINATION: Chest 1 view HISTORY: weakness COMPARISON: 12/29/2021 FINDINGS: Heart size and pulmonary vasculature are normal. The lungs are clear without consolidation, pleural effusion, or pneumothorax. Degenerative changes of the thoracic spine. Osseous structures are otherwise intact. IMPRESSION: 1. No acute radiographic abnormality in the chest. Dictated by: Dictated on workstation # [id number] Dict: 10/26/22 1034 Trans: 10/26/22 1047 CATHERINE [id number] Interpreted by: MONIKA MOSS DO Electronically signed by: MONIKA MOSS DO 10/26/22 1047 Departure Impression Primary Impression: Nausea and vomiting Qualified Codes: R11.2 - Nausea with vomiting, unspecified Additional Impression: Dehydration Disposition: HOME, SELF-CARE Condition: Improved Departure-Patient Inst. Decision time for Depature: 12:24 Referrals: SAPNA PATEL DO (PCP/Family) Primary Care Physician Patient Instructions: Nausea and Vomiting, Adult ED Add. Discharge Instructions: All discharge instructions reviewed with patient and/or family. Voiced understanding. Continue home medications as previously prescribed. Drink plenty of fluids by taking small sips frequently. Follow-up with your doctor this week for recheck and further evaluation. Return for chest pain, breathing problems, weakness, vision or balance problems, weakness to any extremity, speech problems or other concerns as needed. Clear a light diet today and then advance as tolerated over the next 24 hours. A nausea medicine was prescribed if you do have return of nausea. Take this as prescribed if needed. Scripts Ondansetron (Ondansetron Odt) 4 Mg Tab.rapdis 4 MG PO Q6H PRN for NAUSEA/VOMITING, #8 TAB 0 Refills Prov: RAEANN OLIVAS MD 10/26/22 RAEANN OLIVAS MD Oct 26, 2022 10:16
[2022-10-26 10:17] LABS: BASOPHILS # (AUTO) 0.1 10^3/uL (0.0-0.1); BASOPHILS % (AUTO) 1 % (0-10); EOSINOPHILS # (AUTO) 0.1 10^3/uL (0.0-0.3); EOSINOPHILS % (AUTO) 1 % (0-10); HEMATOCRIT 38 % (40-54); HEMOGLOBIN 12.3 g/dL (13.3-17.7); LYMPHOCYTES # (AUTO) 1.7 10^3/uL (1.0-4.0); LYMPHOCYTES % (AUTO) 24 % (12-44); MEAN CORPUSCULAR HEMOGLOBIN 29 pg (25-34); MEAN CORPUSCULAR HGB CONC 33 g/dL (32-36); MEAN CORPUSCULAR VOLUME 88 fL (80-99); MEAN PLATELET VOLUME 10.7 fL (9.0-12.2); MONOCYTES # (AUTO) 0.7 10^3/uL (0.0-1.0); MONOCYTES % (AUTO) 9 % (0-12); NEUTROPHILS # (AUTO) 4.5 10^3/uL (1.8-7.8); NEUTROPHILS % (AUTO) 64 % (42-75); PLATELET COUNT 207 10^3/uL (130-400); WHITE BLOOD COUNT 7.1 10^3/uL (4.3-11.0)
[2022-10-26 10:29] LABS: ALBUMIN 3.9 GM/DL (3.2-4.5); CHLORIDE 110 MMOL/L (98-107); POTASSIUM 4.9 MMOL/L (3.6-5.0); SODIUM 142 MMOL/L (135-145)
[2022-10-26 10:30] LABS: CALCIUM 8.8 MG/DL (8.5-10.1)
[2022-10-26 10:31] LABS: GLUCOSE 152 MG/DL (70-105)
[2022-10-26 10:32] LABS: TOTAL PROTEIN 7.2 GM/DL (6.4-8.2)
[2022-10-26 10:33] LABS: BILIRUBIN,TOTAL 0.4 MG/DL (0.1-1.0); CARBON DIOXIDE 18 MMOL/L (21-32)
[2022-10-26 10:35] LABS: ALKALINE PHOSPHATASE 52 U/L (40-136); CREATININE SERUM 0.95 MG/DL (0.60-1.30); GFR ESTIMATED 78
[2022-10-26 10:36] LABS: BUN/CREATININE RATIO 15
--- NOTE | 2022-10-26 10:37 | Diagnostic Imaging Report ---
EXAMINATION: Chest 1 view HISTORY: weakness COMPARISON: 12/29/2021 FINDINGS: Heart size and pulmonary vasculature are normal. The lungs are clear without consolidation, pleural effusion, or pneumothorax. Degenerative changes of the thoracic spine. Osseous structures are otherwise intact. IMPRESSION: 1. No acute radiographic abnormality in the chest. Dictated by: Dictated on workstation # [id number]
[2022-10-26 10:38] LABS: ALANINE AMINOTRANSFERASE 11 U/L (0-55); MAGNESIUM 2.2 MG/DL (1.6-2.4)
[2022-10-26 11:42] LABS: BILIRUBIN,URINE NEGATIVE (NEGATIVE); CLARITY,URINE CLOUDY; COLOR,URINE YELLOW; GLUCOSE, URINE (UA) NEGATIVE (NEGATIVE); KETONES,URINE NEGATIVE (NEGATIVE); LEUKOCYTE ESTERASE ,URINE NEGATIVE (NEGATIVE); NITRITE,URINE NEGATIVE (NEGATIVE); PROTEIN,URINE TRACE (NEGATIVE)
[2022-10-26 11:55] LABS: BACTERIA,URINE NEGATIVE /HPF; RBC,URINE RARE /HPF; SQUAMOUS EPITHELIAL CELL,UR 0-2 /HPF; WBC,URINE RARE /HPF
[2022-10-26] MEDS ORDERED: ONDA4TAB11 PO (12:25)
[2022-10-26 12:28] VITALS: BP 144/77
== END 2022-10-26 12:51 | disposition home or self-care (01) ==
LOC: EDUNIT# 10:06 → ER 10:08
DX: R11.2 Nausea with vomiting, unspecified (principal); E86.0 Dehydration; R79.1 Abnormal coagulation profile
CPT/HCPCS: 36415; 71045; 80053; 81000; 83735; 84484; 85025; 85379; 86141; 93005; 93041